=== PATIENT | male | born 1960 | race Caucasian/White ===

== ENCOUNTER 2025-02-27 12:48 | Outpatient (AMB) | payer MEDICARE, MEDICAID, SELFPAY ==
--- NOTE | 2025-02-27 13:01 | MHC.OFFVIS ---
Vital Signs 02/27/25 13:01 Height 5 ft 10 in Intake Visit Reasons: WEB APPLICATIONS ADMINISTRATOR/PCP faxed referral claudication Intake Note: WEB APPLICATIONS ADMINISTRATOR/PCP referral for PAD. Left LE worse than Right LE. Has discoloration in the toes that's worsening. Cutting Table Operator Required: No Accompanied by: Friend Allergies No Known Allergies Allergy (Verified 02/27/25 13:09) HPI HPI WEB APPLICATIONS ADMINISTRATOR/PCP faxed referral claudication: Details: The patient is a 65-year-old male presenting with peripheral vascular disease. He reports darkening of the left toes and swelling in the legs, attributed to circulation issues. He has a history of transverse myelitis, which began in February of the previous year, leading to significant spinal cord inflammation and subsequent mobility issues. The patient has been diagnosed with type 2 diabetes mellitus for approximately five to six years, which he reports is controlled. He also has a history of tobacco use, smoking a pack a day. The patient previously had excellent mobility, engaging in activities such as golf, but now requires a walker due to his back issues. He has undergone MRI evaluations, which revealed persistent swelling in the lower back, affecting his leg function. He now presents to us for vascular evaluation [facility] Social History (Updated 02/27/25 @ 13:09 by ADEBAYO García) Tobacco use type: Cigarette Cigarettes Per Day: 20 Review of Systems Const All systems reviewed & are unremarkable except as noted in HPI and below Reports no additional complaints ENT Reports Normal hearing present Card Denies chest pain, Denies chest pain at rest, Denies chest pain with activity and Denies pedal edema Resp Denies cough GI Denies abdominal pain Musc Denies abnormal gait, Denies muscle cramps and Denies radiating pain into limb Skin/Breast Denies skin ulcer and Denies wounds Neuro Reports Normal hearing present and Denies abnormal gait Psych Reports no additional complaints Physical Exam Const General: cooperative, healthy appearing and comfortable Orientation/consciousness: oriented to person, oriented to place and oriented to time HEENT Head: Yes normal to inspection Neck Neck: Yes normal visual inspection Carotids: no bruits Chest Chest palpation & inspection: normal inspection of the chest Resp Effort & Inspection: normal respiratory effort and able to speak in complete sentences Auscultation: clear to auscultation bilaterally, no crackles, no rales, no rhonchi and no wheezes Cardio Rate: regular rate Rhythm: regular rhythm Heart sounds: S1 normal heart sound present and S2 normal heart sound present Bruits: no carotid bruits Peripheral pulses: Peripheral pulses 2+ throughout GI Inspection: Yes normal to inspection Skin Wounds: no wounds Hair: normal Neuro General: oriented to person, oriented to place and oriented to time Cranial nerves: Yes CN's II-XII intact bilaterally and Yes Normal hearing present Cognition (Neuro): normal cognition Motor exam (neuro): 5/5 motor strength present throughout Extrem Other: venous exam: +2 edema with skin discoloration General: No clubbing, No cyanosis and Yes edema Psych Appearance: grossly normal Mental Status: mental status grossly normal Speech and movement: Normal speech and movement present Assessment & Plan Assessment & Plan (1) PAD (peripheral artery disease): Code(s): I73.9 - Peripheral vascular disease, unspecified Category: Medical Plan: In short patient may have an element of peripheral vascular disease. I do believe that his lower extremity pain may be multifactorial in that he has spinal issues including transverse myelitis. In addition he does have multiple risk factors for peripheral arterial disease including smoking and diabetes. I did review the pathophysiology of peripheral vascular disease with the patient. In addition we did discuss routine conservative measures including a healthy diet and the importance of exercise and ambulation. We did discuss risk factor modification. We will plan for noninvasive arterial testing. Patient will follow up with us after testing. Thank you for allowing us to assist in his care. (2) Venous insufficiency of both lower extremities: Code(s): I87.2 - Venous insufficiency (chronic) (peripheral) Category: Medical Plan: The patient does have edematous lower extremities. I do appreciate +2 pitting edema along with skin changes and dry skin. We did discuss that he may have an element of venous insufficiency as well. At the current time I do think his arterial issues might be more pressing. We will work that up 1st and potentially in the future once things stabilize in terms of his back in arterial disease we may address his venous disease. Thank you for allowing us to assist in his care. Plan Patient was informed and verbally consented to the use of an ambient scribe for clinic note documentation during this visit. Orders: Orders US arterial duplex LE Today I73.9 - Peripheral vascular disease, unspecified Patient Instructions: - Schedule and attend the ultrasound appointment for leg evaluation. - Consider smoking cessation to improve vascular health. - Continue managing diabetes as advised by your healthcare provider. Coding Level of Care Code New Pt Level 4 (88764) Diagnoses PAD (peripheral artery disease) I73.9 Venous insufficiency of both lower extremities I87.2
--- OUTSIDE RECORDS SUMMARY | 2025-02-27 15:55 | XMS_ITS | Encounter Summary ---
Author Organization [facility] Address [address] [place] [address] Care Team Providers Care Lay Out Drafter Name Role Phone Raad Adams MD Primary Care Provider [phone] Encounter Details Date Type Department Care Team (Late st Contact Info) Description 04/01/2024 Lab Requisition [facility] - Main Lab 299 [facility] [place] [address] Goldy Martell MD [address] [place] [address] Encounter for other general examination Social History Tobacco Use Types Packs/Day Years Used Date Smoking Tobacco: Never Assessed Sex and Gender Information Value Date Recorded Sex Assigned at Not on file Legal Sex Male 12:42 PM EST Gender Identity Not on file Sexual Orientation Not on file documented as of this encounter Plan of Treatment Not on file documented as of this encounter Procedures Procedure Name Priority Date/Time Associated Diagnosis Comments CBC WITH AUTO DIFFERENTIAL Routine 04/01/2024 6:39 AM EST Encounter for other general examination CBC AND DIFFERENTIAL Routine 04/01/2024 6:39 AM EST Encounter for other general examination BASIC METABOLIC PANEL Routine 04/01/2024 6:39 AM EST Encounter for other general examination documented in this encounter Results * (ABNORMAL) CBC auto differential (04/01/2024 6:39 AM EST) WBC 7.7 4.8 - 10.8 K[facility] LAB HEMETOLOGY METHOD 04/01/2024 9:20 AM [facility] LAB RBC 6.10(H) 4.50 - 5.50 M/mcL LAB HEMETOLOGY METHOD 04/01/2024 9:20 AM [facility] LAB Hemoglobin 16.0 13.5 - 17.5 g/dL LAB HEMETOLOGY METHOD 04/01/2024 9:20 AM [facility] LAB Hematocrit 51.0 42.0 - 54.0 % LAB HEMETOLOGY METHOD 04/01/2024 9:20 AM [facility] LAB MCV 83.3 79.0 - 98.0 FL LAB HEMETOLOGY METHOD 04/01/2024 9:20 AM [facility] LAB MCH 26.1(L) 27.0 - 32.0 pcg LAB HEMETOLOGY METHOD 04/01/2024 9:20 AM [facility] LAB MCHC 31.4(L) 32.0 - 37.0 g/dL LAB HEMETOLOGY METHOD 04/01/2024 9:20 AM [facility] LAB RDW 13.4 11.0 - 15.0 % LAB HEMETOLOGY METHOD 04/01/2024 9:20 AM [facility] LAB Platelets 207 130 - 400 K/mcL LAB HEMETOLOGY METHOD 04/01/2024 9:20 AM [facility] LAB MPV 11.3(H) 7.0 - 11.0 FL LAB HEMETOLOGY METHOD 04/01/2024 9:20 AM [facility] LAB NRBC 0.0 <1.0 % LAB HEMETOLOGY METHOD 04/01/2024 9:20 AM [facility] LAB NRBC Absolute 0.00 <0.10 K/mcL LAB HEMETOLOGY METHOD 04/01/2024 9:20 AM [facility] LAB Neutrophils Relative 53.6 % LAB HEMETOLOGY METHOD 04/01/2024 9:20 AM [facility] LAB Lymphocytes Relative 32.3 % LAB HEMETOLOGY METHOD 04/01/2024 9:20 AM [facility] LAB Monocytes Relative 11.4 % LAB HEMETOLOGY METHOD 04/01/2024 9:20 AM [facility] LAB Eosinophils Relative 1.8 % LAB HEMETOLOGY METHOD 04/01/2024 9:20 AM [facility] LAB Basophils Relative 0.5 % LAB HEMETOLOGY METHOD 04/01/2024 9:20 AM [facility] LAB Immature Granulocytes Relative 0.4 % LAB HEMETOLOGY METHOD 04/01/2024 9:20 AM [facility] LAB Neutrophils Absolute 4.15 1.50 - 7.00 K/mcL LAB HEMETOLOGY METHOD 04/01/2024 9:20 AM [facility] LAB Lymphocytes Absolute 2.50 1.00 - 5.00 K/mcL LAB HEMETOLOGY METHOD 04/01/2024 9:20 AM [facility] LAB Monocytes Absolute 0.88 0.20 - 1.00 K/mcL LAB HEMETOLOGY METHOD 04/01/2024 9:20 AM [facility] LAB Eosinophils Absolute 0.14 0.00 - 0.50 K/mcL LAB HEMETOLOGY METHOD 04/01/2024 9:20 AM [facility] LAB Basophils Absolute 0.04 0.00 - 0.20 K/mcL LAB HEMETOLOGY METHOD 04/01/2024 9:20 AM [facility] LAB Immature Granulocytes Absolute 0.03 0.00 - 0.03 K/mcL LAB HEMETOLOGY METHOD 04/01/2024 9:20 AM [facility] LAB Blood Venous blood specimen / Unknown Venipuncture / Unknown 04/01/2024 6:39 AM EST 04/01/2024 8:51 AM EST Goldy Martell MD LAB BLOOD ORDERABLES Final Res ult [facility] LAB [address] [place] [address], * (ABNORMAL) Basic metabolic panel (04/01/2024 6:39 AM EST) Sodium 139 133 - 145 mmol/L LAB CHEMISTRY METHOD 04/01/2024 9:37 AM [facility] LAB Potassium 4.7 3.5 - 5.5 mmol/L LAB CHEMISTRY METHOD 04/01/2024 9:37 AM [facility] LAB Chloride 102 96 - 110 mmol/L LAB CHEMISTRY METHOD 04/01/2024 9:37 AM [facility] LAB CO2 29 21 - 32 mmol/L LAB CHEMISTRY METHOD 04/01/2024 9:37 AM [facility] LAB Anion Gap 8 3 - 11 LAB CHEMISTRY METHOD 04/01/2024 9:37 AM [facility] LAB Glucose 121(H) 70 - 100 mg/dL LAB CHEMISTRY METHOD 04/01/2024 9:37 AM [facility] LAB BUN 24 5 - 25 mg/dL LAB CHEMISTRY METHOD 04/01/2024 9:37 AM [facility] LAB Creatinine 1.27 0.70 - 1.30 mg/dL LAB CHEMISTRY METHOD 04/01/2024 9:37 AM [facility] LAB eGFR 62 >=60 mL/min/1. 73m2 LAB CHEMISTRY METHOD 04/01/2024 9:37 AM [facility] LAB Comment:Calculation based on the Chronic Kidney Disease Epidemiology Collaboration (CKD-EPI) equation refit without adjustment for race. BUN/Creatinine Ratio 18.9 LAB CHEMISTRY METHOD 04/01/2024 9:37 AM [facility] LAB Calcium 9.9 8.5 - 10.5 mg/dL LAB CHEMISTRY METHOD 04/01/2024 9:37 AM [facility] LAB Blood Venous blood specimen / Unknown Venipuncture / Unknown 04/01/2024 6:39 AM EST 04/01/2024 8:51 AM EST us Goldy Martell MD LAB BLOOD ORDERABLES Final Res ult [facility] LAB [address] [place] [address], documented in this encounter Visit Diagnoses Diagnosis Encounter for other general examination documented in this encounter Care Teams Lay Out Drafter Relationship Specialty Start Date End Date Raad Adams MD [address] PCP - General Internal Medicine 02/26/24 documented as of this encounter
--- OUTSIDE RECORDS SUMMARY | 2025-02-27 15:55 | XMS_ITS | Encounter Summary ---
Author Organization [facility] Address [address] [place] [address] Care Team Providers Care Endodontics Dentist Name Role Phone Raad Adams MD Primary Care Provider [phone] Encounter Details Date Type Department Care Team (Late st Contact Info) Description 04/08/2024 Lab Requisition [facility] - Main Lab 299 [facility] [place] [address] Goldy Martell MD [address] [place] [address] Encounter for other general examination Social History [...] Procedure Name Priority Date/Time Associated Diagnosis Comments COMPLETE BLOOD COUNT Routine 04/08/2024 6:57 AM EST Encounter for other general examination BASIC METABOLIC PANEL Routine 04/08/2024 6:57 AM EST Encounter for other general examination documented in this encounter Results * (ABNORMAL) Complete blood count (04/08/2024 6:57 AM EST) WBC 7.2 4.8 - 10.8 K/[facility] LAB HEMETOLOGY METHOD 04/08/2024 10:55 AM EST [facility] RBC 6.10(H) 4.50 - 5.50 M/[facility] LAB HEMETOLOGY METHOD 04/08/2024 10:55 AM [facility] LAB Hemoglobin 16.2 13.5 - 17.5 g/dL LAB HEMETOLOGY METHOD 04/08/2024 10:55 AM [facility] LAB Hematocrit 51.8 42.0 - 54.0 % LAB HEMETOLOGY METHOD 04/08/2024 10:55 AM [facility] LAB MCV 84.8 79.0 - 98.0 FL LAB HEMETOLOGY METHOD 04/08/2024 10:55 AM [facility] LAB MCH 26.5(L) 27.0 - 32.0 pcg LAB HEMETOLOGY METHOD 04/08/2024 10:55 AM [facility] LAB MCHC 31.3(L) 32.0 - 37.0 g/dL LAB HEMETOLOGY METHOD 04/08/2024 10:55 AM [facility] LAB RDW 13.6 11.0 - 15.0 % LAB HEMETOLOGY METHOD 04/08/2024 10:55 AM [facility] LAB Platelets 170 130 - 400 K/mcL LAB HEMETOLOGY METHOD 04/08/2024 10:55 AM [facility] LAB MPV 12.2(H) 7.0 - 11.0 FL LAB HEMETOLOGY METHOD 04/08/2024 10:55 AM [facility] LAB NRBC 0.0 <1.0 % LAB HEMETOLOGY METHOD 04/08/2024 10:55 AM [facility] LAB NRBC Absolute 0.00 <0.10 K/mcL LAB HEMETOLOGY METHOD 04/08/2024 10:55 AM [facility] LAB Blood Venous blood specimen / Unknown Venipuncture / Unknown 04/08/2024 6:57 AM EST 04/08/2024 8:31 AM EST us Goldy Martell MD LAB BLOOD ORDERABLES Final Res ult [facility] LAB [address] [place] [address], * (ABNORMAL) Basic metabolic panel (04/08/2024 6:57 AM EST) Sodium 138 133 - 145 mmol/L LAB CHEMISTRY METHOD 04/08/2024 11:29 AM [facility] LAB Potassium 4.9 3.5 - 5.5 mmol/L LAB CHEMISTRY METHOD 04/08/2024 11:29 AM [facility] LAB Chloride 103 96 - 110 mmol/L LAB CHEMISTRY METHOD 04/08/2024 11:29 AM [facility] LAB CO2 31 21 - 32 mmol/L LAB CHEMISTRY METHOD 04/08/2024 11:29 AM [facility] LAB Anion Gap 4 3 - 11 LAB CHEMISTRY METHOD 04/08/2024 11:29 AM [facility] LAB Glucose 121(H) 70 - 100 mg/dL LAB CHEMISTRY METHOD 04/08/2024 11:29 AM [facility] LAB BUN 18 5 - 25 mg/dL LAB CHEMISTRY METHOD 04/08/2024 11:29 AM [facility] LAB Creatinine 1.17 0.70 - 1.30 mg/dL LAB CHEMISTRY METHOD 04/08/2024 11:29 AM [facility] LAB eGFR 69 >=60 mL/min/1. 73m2 LAB CHEMISTRY METHOD 04/08/2024 11:29 AM [facility] LAB Comment:Calculation based on the Chronic Kidney Disease Epidemiology Collaboration (CKD-EPI) equation refit without adjustment for race. BUN/Creatinine Ratio 15.4 LAB CHEMISTRY METHOD 04/08/2024 11:29 AM [facility] LAB Calcium 9.9 8.5 - 10.5 mg/dL LAB CHEMISTRY METHOD 04/08/2024 11:29 AM [facility] LAB Blood Venous blood specimen / Unknown Venipuncture / Unknown 04/08/2024 6:57 AM EST 04/08/2024 8:31 AM EST us Goldy Martell MD LAB BLOOD ORDERABLES Final Res ult [facility] LAB [address] [place] [address], documented in this encounter Visit Diagnoses Diagnosis Encounter for other general examination documented in this encounter Care Teams Endodontics Dentist Relationship Specialty Start Date End Date Raad Adams MD [address] PCP - General Internal Medicine 02/26/24 documented as of this encounter
--- OUTSIDE RECORDS SUMMARY | 2025-02-27 15:55 | XMS_ITS | Encounter Summary ---
Author Organization [facility] Address [address] [place] [address] Care Team Providers Care Public Speaking Professor Name Role Phone Raad Adams MD Primary Care Provider [phone] Encounter Details Date Type Department Care Team (Late st Contact Info) Description 09/18/2024 Lab Requisition [facility] - Main Lab 299 [facility] [place] [address] Goldy Martell MD [address] [place] [phone] Encounter for other general examination Social History [...] Diagnosis Comments CBC WITH AUTO DIFFERENTIAL Routine 09/18/2024 5:07 AM EDT Encounter for other general examination CBC AND DIFFERENTIAL Routine 09/18/2024 5:07 AM EDT Encounter for other general examination MAGNESIUM Routine 09/18/2024 5:07 AM EDT Encounter for other general examination COMPREHENSIVE METABOLIC PANEL Routine 09/18/2024 5:07 AM EDT Encounter for other general examination documented in this encounter Results * (ABNORMAL) CBC auto differential (09/18/2024 5:07 AM EDT) WBC 11.5(H) 4.8 - 10.8 K/mcL LAB HEMETOLOGY METHOD 09/18/2024 11:12 AM [facility] LAB RBC 6.40(H) 4.50 - 5.50 M/mcL LAB HEMETOLOGY METHOD 09/18/2024 11:12 AM [facility] LAB Hemoglobin 17.4 13.5 - 17.5 g/dL LAB HEMETOLOGY METHOD 09/18/2024 11:12 AM [facility] LAB Hematocrit 55.4(H) 42.0 - 54.0 % LAB HEMETOLOGY METHOD 09/18/2024 11:12 AM [facility] LAB MCV 86.0 79.0 - 98.0 FL LAB HEMETOLOGY METHOD 09/18/2024 11:12 AM [facility] LAB MCH 27.0 27.0 - 32.0 pcg LAB HEMETOLOGY METHOD 09/18/2024 11:12 AM [facility] LAB MCHC 31.4(L) 32.0 - 37.0 g/dL LAB HEMETOLOGY METHOD 09/18/2024 11:12 AM [facility] LAB RDW 14.2 11.0 - 15.0 % LAB HEMETOLOGY METHOD 09/18/2024 11:12 AM [facility] LAB Platelets 197 130 - 400 K/mcL LAB HEMETOLOGY METHOD 09/18/2024 11:12 AM [facility] LAB MPV 10.8 7.0 - 11.0 FL LAB HEMETOLOGY METHOD 09/18/2024 11:12 AM [facility] LAB NRBC 0.0 <1.0 % LAB HEMETOLOGY METHOD 09/18/2024 11:12 AM [facility] LAB NRBC Absolute 0.00 <0.10 K/mcL LAB HEMETOLOGY METHOD 09/18/2024 11:12 AM [facility] LAB Neutrophils Relative 59.6 % LAB HEMETOLOGY METHOD 09/18/2024 11:12 AM [facility] LAB Lymphocytes Relative 30.4 % LAB HEMETOLOGY METHOD 09/18/2024 11:12 AM [facility] LAB Monocytes Relative 8.2 % LAB HEMETOLOGY METHOD 09/18/2024 11:12 AM [facility] LAB Eosinophils Relative 1.2 % LAB HEMETOLOGY METHOD 09/18/2024 11:12 AM [facility] LAB Basophils Relative 0.3 % LAB HEMETOLOGY METHOD 09/18/2024 11:12 AM [facility] LAB Immature Granulocytes Relative 0.3 % LAB HEMETOLOGY METHOD 09/18/2024 11:12 AM [facility] LAB Neutrophils Absolute 6.85 1.50 - 7.00 K/mcL LAB HEMETOLOGY METHOD 09/18/2024 11:12 AM [facility] LAB Lymphocytes Absolute 3.51 1.00 - 5.00 K/mcL LAB HEMETOLOGY METHOD 09/18/2024 11:12 AM [facility] LAB Monocytes Absolute 0.95 0.20 - 1.00 K/mcL LAB HEMETOLOGY METHOD 09/18/2024 11:12 AM [facility] LAB Eosinophils Absolute 0.14 0.00 - 0.50 K/mcL LAB HEMETOLOGY METHOD 09/18/2024 11:12 AM [facility] LAB Basophils Absolute 0.04 0.00 - 0.20 K/mcL LAB HEMETOLOGY METHOD 09/18/2024 11:12 AM [facility] LAB Immature Granulocytes Absolute 0.04(H) 0.00 - 0.03 K/mcL LAB HEMETOLOGY METHOD 09/18/2024 11:12 AM [facility] LAB Blood Venous blood specimen / Unknown Venipuncture / Unknown 09/18/2024 5:07 AM EDT 09/18/2024 10:59 AM EDT Goldy Martell MD LAB BLOOD ORDERABLES Final Res ult Performing Organization Address [facility]/ZIP Co de Phone Number [facility] LAB [address] [place] [address], [place] [phone] * Magnesium (09/18/2024 5:07 AM EDT) Pathologist [facility] Magnesium 2.0 1.9 - 2.6 mg/dL LAB CHEMISTRY METHOD 09/18/2024 12:15 PM EDT [facility] LAB Blood Venous blood specimen / Unknown Venipuncture / Unknown 09/18/2024 5:07 AM EDT 09/18/2024 10:59 AM EDT Goldy Martell MD LAB BLOOD ORDERABLES Final Res ult Performing Organization Address [facility]/ZIP Co de Phone Number [facility] [address] [place] [address], [place] [phone] * (ABNORMAL) Comprehensive metabolic panel (09/18/2024 5:07 AM EDT) Pathologist [facility] Sodium 136 133 - 145 mmol/L LAB CHEMISTRY METHOD 09/18/2024 12:30 PM EDT [facility] LAB Potassium 4.5 3.5 - 5.5 mmol/L LAB CHEMISTRY METHOD 09/18/2024 12:30 PM EDT [facility] LAB Chloride 99 96 - 110 mmol/L LAB CHEMISTRY METHOD 09/18/2024 12:30 PM EDT [facility] LAB CO2 27 21 - 32 mmol/L LAB CHEMISTRY METHOD 09/18/2024 12:30 PM EDT [facility] LAB Anion Gap 10 3 - 11 LAB CHEMISTRY METHOD 09/18/2024 12:30 PM EDT [facility] LAB Glucose 135(H) 70 - 100 mg/dL LAB CHEMISTRY METHOD 09/18/2024 12:30 PM [facility] LAB BUN 22 5 - 25 mg/dL LAB CHEMISTRY METHOD 09/18/2024 12:30 PM [facility] LAB Creatinine 1.10 0.70 - 1.30 mg/dL LAB CHEMISTRY METHOD 09/18/2024 12:30 PM [facility] LAB eGFR 74 >=60 mL/min/1. 73m2 LAB CHEMISTRY METHOD 09/18/2024 12:30 PM [facility] LAB Comment:Calculation based on the Chronic Kidney Disease Epidemiology Collaboration (CKD-EPI) equation refit without adjustment for race. BUN/Creatinine Ratio 20.0 LAB CHEMISTRY METHOD 09/18/2024 12:30 PM [facility] LAB Calcium 10.0 8.5 - 10.5 mg/dL LAB CHEMISTRY METHOD 09/18/2024 12:30 PM [facility] LAB AST (SGOT) 19 10 - 42 unit/L LAB CHEMISTRY METHOD 09/18/2024 12:30 PM [facility] ALT (SGPT) 32 10 - 60 unit/L LAB CHEMISTRY METHOD 09/18/2024 12:30 PM [facility] Alkaline Phosphatase 85 42 - 121 unit/L LAB CHEMISTRY METHOD 09/18/2024 12:30 PM [facility] Total Protein 6.9 6.0 - 8.0 g/dL LAB CHEMISTRY METHOD 09/18/2024 12:30 PM [facility] Albumin 3.7 3.2 - 5.0 g/dL LAB CHEMISTRY METHOD 09/18/2024 12:30 PM [facility] Total Bilirubin 0.4 0.0 - 1.4 mg/dL LAB CHEMISTRY METHOD 09/18/2024 12:30 PM [facility] LAB Blood Venous blood specimen / Unknown Venipuncture / Unknown 09/18/2024 5:07 AM EDT 09/18/2024 10:59 AM EDT us Goldy Martell MD LAB BLOOD ORDERABLES Final Res ult [facility] [address] [place] [address], documented in this encounter Visit Diagnoses Diagnosis Encounter for other general examination documented in this encounter Care Teams Public Speaking Professor Relationship Specialty Start Date End Date Raad Adams MD [address] PCP - General Internal Medicine 02/26/24 documented as of this encounter
--- OUTSIDE RECORDS SUMMARY | 2025-02-27 15:56 | XMS_ITS | Encounter Summary ---
Author Organization [facility] Address [address] [place] [address] Care Team Providers Care Sand Slinger Operator Name Role Phone Raad Adams MD Primary Care Provider [phone] Encounter Details Date Type Department Care Team (Late st Contact Info) Description 03/13/2024 Lab Requisition [facility] - Main Lab [address] [facility] [place] [address] Goldy Martell MD [address] [place] [address] Encounter for other general examination Social History [...] Diagnosis Comments CBC WITH AUTO DIFFERENTIAL Routine 03/13/2024 7:55 AM EST Encounter for other general examination CBC AND DIFFERENTIAL Routine 03/13/2024 7:55 AM EST Encounter for other general examination MAGNESIUM Routine 03/13/2024 7:55 AM EST Encounter for other general examination COMPREHENSIVE METABOLIC PANEL Routine 03/13/2024 7:55 AM EST Encounter for other general examination documented in this encounter Results * (ABNORMAL) CBC auto differential (03/13/2024 7:55 AM EST) [facility] WBC 8.0 4.8 - 10.8 K/mcL LAB HEMETOLOGY METHOD 03/13/2024 11:53 AM [facility] RBC 6.50(H) 4.50 - 5.50 M/mcL LAB HEMETOLOGY METHOD 03/13/2024 11:53 AM [facility] Hemoglobin 17.0 13.5 - 17.5 g/dL LAB HEMETOLOGY METHOD 03/13/2024 11:53 AM [facility] Hematocrit 54.3(H) 42.0 - 54.0 % LAB HEMETOLOGY METHOD 03/13/2024 11:53 AM [facility] MCV 84.2 79.0 - 98.0 FL LAB HEMETOLOGY METHOD 03/13/2024 11:53 AM [facility] MCH 26.4(L) 27.0 - 32.0 pcg LAB HEMETOLOGY METHOD 03/13/2024 11:53 AM [facility] MCHC 31.3(L) 32.0 - 37.0 g/dL LAB HEMETOLOGY METHOD 03/13/2024 11:53 AM [facility] RDW 14.3 11.0 - 15.0 % LAB HEMETOLOGY METHOD 03/13/2024 11:53 AM [facility] Platelets 168 130 - 400 K/mcL LAB HEMETOLOGY METHOD 03/13/2024 11:53 AM [facility] MPV 11.1(H) 7.0 - 11.0 FL LAB HEMETOLOGY METHOD 03/13/2024 11:53 AM [facility] NRBC 0.0 <1.0 % LAB HEMETOLOGY METHOD 03/13/2024 11:53 AM [facility] NRBC Absolute 0.00 <0.10 K/mcL LAB HEMETOLOGY METHOD 03/13/2024 11:53 AM [facility] Neutrophils Relative 66.3 % LAB HEMETOLOGY METHOD 03/13/2024 11:53 AM [facility] Lymphocytes Relative 24.0 % LAB HEMETOLOGY METHOD 03/13/2024 11:53 AM [facility] Monocytes Relative 8.1 % LAB HEMETOLOGY METHOD 03/13/2024 11:53 AM [facility] Eosinophils Relative 1.0 % LAB HEMETOLOGY METHOD 03/13/2024 11:53 AM [facility] Basophils Relative 0.4 % LAB HEMETOLOGY METHOD 03/13/2024 11:53 AM [facility] Immature Granulocytes Relative 0.2 % LAB HEMETOLOGY METHOD 03/13/2024 11:53 AM [facility] Neutrophils Absolute 5.31 1.50 - 7.00 K/mcL LAB HEMETOLOGY METHOD 03/13/2024 11:53 AM [facility] Lymphocytes Absolute 1.92 1.00 - 5.00 K/mcL LAB HEMETOLOGY METHOD 03/13/2024 11:53 AM [facility] Monocytes Absolute 0.65 0.20 - 1.00 K/mcL LAB HEMETOLOGY METHOD 03/13/2024 11:53 AM [facility] Eosinophils Absolute 0.08 0.00 - 0.50 K/mcL LAB HEMETOLOGY METHOD 03/13/2024 11:53 AM [facility] Basophils Absolute 0.03 0.00 - 0.20 K/mcL LAB HEMETOLOGY METHOD 03/13/2024 11:53 AM [facility] Immature Granulocytes Absolute 0.02 0.00 - 0.03 K/mcL LAB HEMETOLOGY METHOD 03/13/2024 11:53 AM [facility] Blood Venous blood specimen / Unknown Venipuncture / Unknown 03/13/2024 7:55 AM EST 03/13/2024 11:13 AM EST Goldy Martell MD LAB BLOOD ORDERABLES Final Res ult Performing Organization Address City/[facility]/ZIP Co de Phone Number [facility] [address] [place] [address], [place] [phone] * Magnesium (03/13/2024 7:55 AM EST) [facility] Magnesium 2.0 1.9 - 2.6 mg/dL LAB CHEMISTRY METHOD 03/13/2024 1:57 PM [facility] Blood Venous blood specimen / Unknown Venipuncture / Unknown 03/13/2024 7:55 AM EST 03/13/2024 11:13 AM EST Goldy Martell MD LAB BLOOD ORDERABLES Final Res ult Performing Organization Address [facility]/ZIP Co de Phone Number [facility] [address] [place] [address], [place] [phone] * (ABNORMAL) Comprehensive metabolic panel (03/13/2024 7:55 AM EST) [facility] Sodium 136 133 - 145 mmol/L LAB CHEMISTRY METHOD 03/13/2024 1:58 PM [facility] Potassium 4.4 3.5 - 5.5 mmol/L LAB CHEMISTRY METHOD 03/13/2024 1:58 PM [facility] Chloride 99 96 - 110 mmol/L LAB CHEMISTRY METHOD 03/13/2024 1:58 PM [facility] CO2 32 21 - 32 mmol/L LAB CHEMISTRY METHOD 03/13/2024 1:58 PM [facility] Anion Gap 5 3 - 11 LAB CHEMISTRY METHOD 03/13/2024 1:58 PM [facility] Glucose 123(H) 70 - 100 mg/dL LAB CHEMISTRY METHOD 03/13/2024 1:58 PM [facility] BUN 20 5 - 25 mg/dL LAB CHEMISTRY METHOD 03/13/2024 1:58 PM [facility] Creatinine 1.13 0.70 - 1.30 mg/dL LAB CHEMISTRY METHOD 03/13/2024 1:58 PM [facility] eGFR 72 >=60 mL/min/1. 73m2 LAB CHEMISTRY METHOD 03/13/2024 1:58 PM [facility] Comment:Calculation based on the Chronic Kidney Disease Epidemiology Collaboration (CKD-EPI) equation refit without adjustment for race. BUN/Creatinine Ratio 17.7 LAB CHEMISTRY METHOD 03/13/2024 1:58 PM [facility] Calcium 9.8 8.5 - 10.5 mg/dL LAB CHEMISTRY METHOD 03/13/2024 1:58 PM [facility] AST (SGOT) 32 10 - 42 unit/L LAB CHEMISTRY METHOD 03/13/2024 1:58 PM [facility] ALT (SGPT) 58 10 - 60 unit/L LAB CHEMISTRY METHOD 03/13/2024 1:58 PM [facility] Alkaline Phosphatase 77 42 - 121 unit/L LAB CHEMISTRY METHOD 03/13/2024 1:58 PM [facility] Total Protein 7.1 6.0 - 8.0 g/dL LAB CHEMISTRY METHOD 03/13/2024 1:58 PM [facility] Albumin 2.7(L) 3.2 - 5.0 g/dL LAB CHEMISTRY METHOD 03/13/2024 1:58 PM [facility] Total Bilirubin 0.3 0.0 - 1.4 mg/dL LAB CHEMISTRY METHOD 03/13/2024 1:58 PM [facility] Blood Venous blood specimen / Unknown Venipuncture / Unknown 03/13/2024 7:55 AM EST 03/13/2024 11:13 AM EST us Goldy Martell MD LAB BLOOD ORDERABLES Final Res ult [facility] [address] [place] [address], documented in this encounter Visit Diagnoses Diagnosis Encounter for other general examination documented in this encounter Care Teams Sand Slinger Operator Relationship Specialty Start Date End Date Raad Adams MD [address] PCP - General Internal Medicine 02/26/24 documented as of this encounter
--- OUTSIDE RECORDS SUMMARY | 2025-02-27 15:56 | XMS_ITS | Encounter Summary ---
Author Organization [facility] Address [address] [place] [phone] Care Team Providers Care Superintendent Pipelines Name Role Phone Raad Adams MD Primary Care Provider [phone] Reason for Referral * Imaging (Routine) - Authorized Specialty Diagnoses / Procedures Referred By Contac t Referred To Contact Diagnostic Radiology Procedures MRI Cervical Spine without IV Contrast Malachi Reyna MD [address] [place] [phone] Phone: tel: fax: Referral ID Status Reason Start Date Expiration Date V isits Requested Visits Authorized [id number] Authorized 01/09/2025 01/09/2026 1 1 * Imaging (Routine) - Authorized Specialty Diagnoses / Procedures Referred By Contac t Referred To Contact Diagnostic Radiology Procedures MRI Thoracic Spine without IV Contrast Malachi Reyna MD [address] [place] [phone] Phone: tel: fax: Referral ID Status Reason Start Date Expiration Date V isits Requested Visits Authorized [id number] Authorized 01/09/2025 01/09/2026 1 1 * Imaging (Routine) - Authorized Specialty Diagnoses / Procedures Referred By Contac t Referred To Contact Diagnostic Radiology Procedures MRI Lumbar Spine without IV Contrast Malachi Reyna MD [address] [place] [phone] Phone: tel: fax: Referral ID Status Reason Start Date Expiration Date V isits Requested Visits Authorized [id number] Authorized 01/09/2025 01/09/2026 1 1 * Imaging (Routine) - Authorized Specialty Diagnoses / Procedures Referred By Contac t Referred To Contact Diagnostic Radiology Procedures MRI Cervical Spine without IV Contrast Malachi Reyna MD [address] [place] [phone] Phone: tel: fax: Referral ID Status Reason Start Date Expiration Date V isits Requested Visits Authorized [id number] Authorized 01/09/2025 01/09/2026 1 1 * Imaging (Routine) - Authorized Specialty Diagnoses / Procedures Referred By Contac t Referred To Contact Diagnostic Radiology Procedures MRI Thoracic Spine without IV Contrast Neurosurgery at [address] [place] [phone] Phone: tel: fax: Referral ID Status Reason Start Date Expiration Date V isits Requested Visits Authorized [id number] Authorized 01/09/2025 01/09/2026 1 1 * Imaging (Routine) - Authorized Specialty Diagnoses / Procedures Referred By Contac t Referred To Contact Diagnostic Radiology Procedures MRI Cervical Spine without IV Contrast Neurosurgery at [address] [place] [phone] Phone: tel: fax: Referral ID Status Reason Start Date Expiration Date V isits Requested Visits Authorized [id number] Authorized 01/09/2025 01/09/2026 1 1 Encounter Details Date Type Department Care Team (Late st Contact Info) Description 01/09/2025 Scanned Document [facility] [address] [address] Ganesh Feliz MD [address] [place] [address] [place] [address] Social History Tobacco Use Types Packs/Day Years Used Date Smoking Tobacco: Every Day Cigarettes [facility] Utilities Answer Date Recorded In the past 12 months has e electric, gas, oil, or water company threatened to shut off services in your home? No 09/12/2024 PHQ-2 Answer Date Recorded PHQ-2 Total Score 0 09/12/2024 Hunger Vital Sign Answer Date Recorded Within the past 12 months, y ou worried that your food would run out before you got the money to buy more. Never true 09/13/19 25 Within the past 12 months, t he food you bought just didn't last and you didn't have money to get more. Never true 09/12/2024 PRAPARE - Transportation Answer Date Re corded In the past 12 months, has l ack of transportation kept you from medical appointments or from getting medications? No 08/16 In the past 12 months, has l ack of transportation kept you from meetings, work, or from getting things needed for daily living? No 09/12/2024 Housing Stability Answer Date Recorded What is your living situation today? I have a [facility] place to live 09/12/2024 Housing Stability Not on file 09/12/2024 Interpersonal Safety Answer Date Record ed Is there anyone in your life that is hurting or threatening you in anyway? no 09/12/2024 Physical Indicators of Abuse No evidence of phys ical abuse 09/12/2024 Sex and Gender Information Value Date Recorded Sex Assigned at Not on file Legal Sex Male 12:51 PM EST Gender Identity Not on file Sexual Orientation Not on file documented as of this encounter Plan of Treatment Upcoming Encounters Date Type Department Care Team (Late Contact Info) Description 04/02/2025 1:30 PM EST Telemedicine [facility] [address] [address] Malachi Reyna MD [address] [place] [address] [address] [phone] documented as of this encounter Goals Goal Patient Goal Type Associated Problems Recent Progress Patient-Stated? Author [facility] Spine Task Goal Care Plan AMB LMH SPINE PROBLEM No Eve Stovall, RN [facility] Spine Smoking Cessation Goal Care Plan [facility] SPINE SMOKING CESSATION PROBLEM No Stanislav Campbell, HOMA documented as of this encounter Procedures Procedure Name Priority Date/Time Associated Diagnosis Comments MRI CERVICAL SPINE WO IV CONTRAST Routine 2025 11:56 AM EDT MRI THORACIC SPINE WO IV CONTRAST Routine 2025 11:52 AM EDT MRI LUMBAR SPINE WO IV CONTRAST Routine 2025 11:50 AM EDT MRI CERVICAL SPINE WO IV CONTRAST Routine 2025 11:18 AM EDT MRI THORACIC SPINE WO IV CONTRAST Routine 05/13/2024 10:47 AM EST MRI CERVICAL SPINE WO IV CONTRAST Routine 05/13/2024 10:44 AM EST documented in this encounter Results * MRI Cervical Spine without IV Contrast (2025 11:56 AM EDT) Anatomical Region Laterality Modality C-spine, Spine, Ortho C-spine Ma gnetic Resonance us Malachi Reyna MD [facility] MRI ORDERABLES Final Re sult * MRI Thoracic Spine without IV Contrast (2025 11:52 AM EDT) Anatomical Region Laterality Modality T-spine, Spine, Ortho T-spine Ma gnetic Resonance us Malachi Reyna MD [facility] MRI ORDERABLES Final Re sult * MRI Lumbar Spine without IV Contrast (2025 11:50 AM EDT) Anatomical Region Laterality Modality L-spine, Spine, Ortho L-spine Ma gnetic Resonance us Malachi Reyna MD [facility] MRI ORDERABLES Final Re sult * MRI Cervical Spine without IV Contrast (2025 11:18 AM EDT) Anatomical Region Laterality Modality C-spine, Spine, Ortho C-spine Ma gnetic Resonance us Malachi Reyna MD IM MRI ORDERABLES Final Re sult * MRI Thoracic Spine without IV Contrast (05/13/2024 10:47 AM EST) Anatomical Region Laterality Modality T-spine, Spine, Ortho T-spine Ma gnetic Resonance Ganesh Feliz MD [facility] MRI ORDERABLES Final Result * MRI Cervical Spine without IV Contrast (05/13/2024 10:44 AM EST) Anatomical Region Laterality Modality C-spine, Spine, Ortho C-spine Ma gnetic Resonance Ganesh Feliz MD [facility] MRI ORDERABLES Final Result documented in this encounter Visit Diagnoses Not on filedocumented in this encounter Additional Health Concerns Active Problems Noted Date Diagnosed Date AMB CC LMH SPINE PROBLEM 08/19/2024 AMB CC LMH SPINE SMOKING CESSATION PROBLEM 08/30 documented as of this encounter Care Teams Superintendent Pipelines Relationship Specialty [place] [address] [place] [phone] PCP - General Internal Medicine 06/20/24 documented as of this encounter
--- OUTSIDE RECORDS SUMMARY | 2025-02-27 15:56 | XMS_ITS | Encounter Summary ---
Author Organization [facility] Address [address] [place] [address] Care Team Providers Care Superintendent System Operation Name Role Phone Raad Adams MD Primary Care Provider [phone] Encounter Details Date Type Department Care Team (Late st Contact Info) Description 09/25/2024 Lab Requisition [facility] - Main Lab [address] [facility] [address] Goldy Martell MD [address] [place] [phone] Encounter for other general examination Social History [...] Procedure Name Priority Date/Time Associated Diagnosis Comments TREPONEMA PALLIDUM ANTIBODY WITH REFLEX TO RPR AND PARTICLE AGGLUTINATION Routine 09/25/2024 5:24 AM EDT Encounter for other general examination RAPID PLASMA REAGIN TITER Routine 09/25/2024 5:24 AM EDT Encounter for other general examination RAPID PLASMA REAGIN WITH REFLEX TO TITER Routine 09/25/2024 5:24 AM EDT Encounter for other general examination COMPLETE BLOOD COUNT Routine 09/25/2024 5:24 AM EDT Encounter for other general examination BASIC METABOLIC PANEL Routine 09/25/2024 5:24 AM EDT Encounter for other general examination documented in this encounter Results * (ABNORMAL) Rapid plasma reagin titer (09/25/2024 5:24 AM EDT) [facility] Rapid Plasma Reagin Titer 1:64(A) Nonreactive 09/25/2024 2:42 PM EDT [facility] Blood Venous blood specimen / Unknown Venipuncture / Unknown 09/25/2024 5:24 AM EDT 09/25/2024 11:40 AM EDT Goldy Martell MD LAB BLOOD ORDERABLES Final Res ult [facility] [address] [place] [address], [place] [phone] * (ABNORMAL) Rapid plasma reagin with reflex to titer (09/25/2024 5:24 AM EDT) [facility] RPR Reactive(A ) Nonreactive 09/25/2024 2:27 PM EDT [facility] Blood Venous blood specimen / Unknown Venipuncture / Unknown 09/25/2024 5:24 AM EDT 09/25/2024 11:40 AM EDT us Goldy Martell MD LAB BLOOD ORDERABLES Final Res ult [facility] [address] [place] [address], [place] [phone] * (ABNORMAL) Treponema pallidum antibody with reflex to RPR and particle agglutination (09/25/2024 5:24 AM EDT) [facility] T. Pallidum Antibodies Positive( A) Negative LAB CHEMISTRY METHOD 09/25/2024 11:40 AM EDT [facility] Blood Venous blood specimen / Unknown Venipuncture / Unknown 09/25/2024 5:24 AM EDT 09/25/2024 9:19 AM EDT us Goldy Martell MD LAB BLOOD ORDERABLES Final Res ult [facility] [address] [place] [address], [place] [phone] * (ABNORMAL) Complete blood count (09/25/2024 5:24 AM EDT) WBC 12.5(H) 4.8 - 10.8 K/mcL LAB HEMETOLOGY METHOD 09/25/2024 10:10 AM EDT [facility] RBC 5.50 4.50 - 5.50 M/mcL LAB HEMETOLOGY METHOD 09/25/2024 10:10 AM EDT [facility] Hemoglobin 14.7 13.5 - 17.5 g/dL LAB HEMETOLOGY METHOD 09/25/2024 10:10 AM EDT [facility] Hematocrit 46.6 42.0 - 54.0 % LAB HEMETOLOGY METHOD 09/25/2024 10:10 AM EDT [facility] MCV 85.2 79.0 - 98.0 FL LAB HEMETOLOGY METHOD [facility] MCH 26.9(L) 27.0 - 32.0 pcg LAB HEMETOLOGY METHOD 09/25/2024 10:10 AM EDT [facility] MCHC 31.5(L) 32.0 - 37.0 g/dL LAB HEMETOLOGY METHOD 09/25/2024 10:10 AM EDT [facility] RDW 13.2 11.0 - 15.0 % LAB HEMETOLOGY METHOD 09/25/2024 10:10 AM EDT [facility] Platelets 197 130 - 400 K/mcL LAB HEMETOLOGY METHOD 09/25/2024 10:10 AM EDT [facility] MPV 11.2(H) 7.0 - 11.0 FL LAB HEMETOLOGY METHOD 09/25/2024 10:10 AM EDT [facility] NRBC 0.0 <1.0 % LAB HEMETOLOGY METHOD 09/25/2024 10:10 AM EDT [facility] NRBC Absolute 0.00 <0.10 K/mcL LAB HEMETOLOGY METHOD 09/25/2024 10:10 AM EDT [facility] Blood Venous blood specimen / Unknown Venipuncture / Unknown 09/25/2024 5:24 AM EDT 09/25/2024 9:19 AM EDT us Goldy Martell MD LAB BLOOD ORDERABLES Final Res ult [facility] [address] [place] [address], * (ABNORMAL) Basic metabolic panel (09/25/2024 5:24 AM EDT) Sodium 136 133 - 145 mmol/L LAB CHEMISTRY METHOD 09/25/2024 10:41 AM [facility] Potassium 4.0 3.5 - 5.5 mmol/L LAB CHEMISTRY METHOD 09/25/2024 10:41 AM [facility] Chloride 99 96 - 110 mmol/L LAB CHEMISTRY METHOD 09/25/2024 10:41 AM [facility] CO2 28 21 - 32 mmol/L LAB CHEMISTRY METHOD 09/25/2024 10:41 AM [facility] Anion Gap 9 3 - 11 LAB CHEMISTRY METHOD 09/25/2024 10:41 AM [facility] Glucose 117(H) 70 - 100 mg/dL LAB CHEMISTRY METHOD 09/25/2024 10:41 AM [facility] BUN 19 5 - 25 mg/dL LAB CHEMISTRY METHOD 09/25/2024 10:41 AM EDT [facility] Creatinine 1.05 0.70 - 1.30 mg/dL LAB CHEMISTRY METHOD 09/25/2024 10:41 AM EDT [facility] eGFR 78 >=60 mL/min/1. 73m2 LAB CHEMISTRY METHOD 09/25/2024 10:41 AM EDT [facility] Comment:Calculation based on the Chronic Kidney Disease Epidemiology Collaboration (CKD-EPI) equation refit without adjustment for race. BUN/Creatinine Ratio 18.1 LAB CHEMISTRY METHOD 09/25/2024 10:41 AM T [facility] Calcium 9.3 8.5 - 10.5 mg/dL LAB CHEMISTRY METHOD 09/25/2024 10:41 AM T [facility] Blood Venous blood specimen / Unknown Venipuncture / Unknown 09/25/2024 5:24 AM EDT 09/25/2024 9:19 AM EDT us Goldy Martell MD LAB BLOOD ORDERABLES Final Res ult [facility] [address] [place] [address], documented in this encounter Visit Diagnoses Diagnosis Encounter for other general examination documented in this encounter Care Teams Superintendent System Operation Relationship Specialty Start Date End Date Raad Adams MD [address] PCP - General Internal Medicine 02/26/24 documented as of this encounter
--- OUTSIDE RECORDS SUMMARY | 2025-02-27 15:56 | XMS_ITS | Encounter Summary ---
Author Organization [facility] Address [address] [place] [address] Care Team Providers Care Technical Sales Specialist Name Role Phone Raad Adams MD Primary Care Provider [phone] Encounter Details Date Type Department Care Team (Late st Contact Info) Description 09/28/2024 Lab Requisition [facility] - Main Lab [address] [email or web address] [address] Goldy Martell MD [address] [place] [id number] Dysuria Social History Tobacco Use Types Packs/Day Years [...] Procedure Name Priority Date/Time Associated Diagnosis Comments URINALYSIS WITH REFLEX MICROSCOPIC AND CULTURE Routine 09/27/2024 12:38 PM EDT Dysuria DE SANTIAGO URINE CULTURE TUBE Routine 09/27/2024 12:38 PM EDT Dysuria URINALYSIS WITH REFLEX MICROSCOPIC AND CULTURE Routine 09/27/2024 12:38 PM EDT Dysuria CULTURE URINE Routine 09/27/2024 12:38 PM EDT Dysuria documented in this encounter Results * (ABNORMAL) Culture urine (09/27/2024 12:38 PM EDT) Culture, Urine >100,000 CFU/mL Proteus mirabilis(A ) ANA LILIA 10/01/2024 7:46 AM EDT [facility] Comment: Edited result: Previously reported as Proteus species on 09/29/2024 at 1014 EDT. Urine Urine specimen obtained by clean catch procedure / Unknown Non-blood Collection / Unknown 09/27/2024 12:38 PM EDT 09/28/2024 12:18 PM EDT Narrative Organism Antibiotic Method Susceptibility Proteus mirabilis Amoxicillin/Clavulanate ANA LILIA 4 ug/ml: Susceptible Proteus mirabilis Ampicillin/Sulbactam AN ALILIA <=2 ug/ml: Susceptible Proteus mirabilis Piperacillin/Tazobactam ANA LILIA <=4 ug/ml: Susceptible Proteus mirabilis Cefazolin (Urine) ANA LILIA 4 ug/ml: Susceptible Proteus mirabilis Cefoxitin ANA LILIA <=4 ug/ml: Susceptible Proteus mirabilis Ceftazidime ANA LILIA <=0.5 ug/ml: Susceptible Proteus mirabilis Ceftriaxone ANA LILIA <=0.25 ug/ml: Susceptible Proteus mirabilis Cefepime ANA LILIA 0.25 ug/ml: Susceptible Proteus mirabilis Meropenem ANA LILIA <=0.25 ug/ml: Susceptible Proteus mirabilis Amikacin ANA LILIA 4 ug/ml: Susceptible Proteus mirabilis Gentamicin ANA LILIA <=1 ug/ml: Susceptible Proteus mirabilis Ciprofloxacin ANA LILIA <=0.06 ug/ml: Susceptible Proteus mirabilis Levofloxacin ANA LILIA <=0.12 ug/ml: Susceptible Proteus mirabilis Nitrofurantoin ANA LILIA 64 ug/ml: Resistant Proteus mirabilis Trimethoprim/Sulfamethoxazole ANA LILIA <=20 ug/ml: Susceptible us Goldy Martell MD LAB MICROBIOLOGY - GENERAL ORD ERABLES Final Result [facility] [address] [place] [address], * (ABNORMAL) Urinalysis with reflex microscopic and culture (09/27/2024 12:38 PM EDT) Specific [place] Urine 1.026 1.003 - 1.030 LAB URINALYSIS - AUTOMATED METHOD 09/28/2024 12:18 PM [facility] pH, Urine >=9.0(A) 5.0 - 8.0 pH LAB URINALYSIS - AUTOMATED METHOD 09/28/2024 12:18 PM [facility] Leukocytes, Urine Large(A) Negative LAB URINALYSIS - AUTOMATED METHOD 09/28/2024 12:18 PM [facility] Nitrite, Urine Negative Negative LAB URINALYSIS - AUTOMATED METHOD 09/28/2024 12:18 PM [facility] Protein, Urine 300(A) <=Trace mg/dL LAB URINALYSIS - AUTOMATED METHOD 09/28/2024 12:18 PM [facility] Glucose, Urine Negative Negative mg/dL LAB URINALYSIS - AUTOMATED METHOD 09/28/2024 12:18 PM [facility] Ketones, Urine Negative Negative mg/dL LAB URINALYSIS - AUTOMATED METHOD 09/28/2024 12:18 PM [facility] Urobilinogen, Urine 0.2 0.2 - 1.0 mg/dL LAB URINALYSIS - AUTOMATED METHOD 09/28/2024 12:18 PM [facility] Bilirubin, Urine Negative Negative LAB URINALYSIS - AUTOMATED METHOD 09/28/2024 12:18 PM [facility] Blood, Urine Negative Negative LAB URINALYSIS - AUTOMATED METHOD 09/28/2024 12:18 PM [facility] RBC, Urine 2.6 0 - 4 /HPF LAB URINALYSIS - AUTOMATED METHOD 09/28/2024 12:18 PM [facility] WBC, Urine 14.2(H) 0 - 4 /HPF LAB URINALYSIS - AUTOMATED METHOD 09/28/2024 12:18 PM [facility] Squamous Epithelial, Urine 85(H) 0 - 60 /LPF LAB URINALYSIS - AUTOMATED METHOD 09/28/2024 12:18 PM EDT [facility] Bacteria, Urine Many(A) Negative /HPF LAB URINALYSIS - AUTOMATED METHOD 09/28/2024 12:18 PM EDT [facility] Hyaline Casts, Urine 9.2(H) 0 - 3 /LPF LAB URINALYSIS - AUTOMATED METHOD 09/28/2024 12:18 PM EDT [facility] Urine Urine specimen obtained by clean catch procedure / Unknown Non-blood Collection / Unknown 09/27/2024 12:38 PM EDT 09/28/2024 11:18 AM EDT us Goldy Martell MD LAB URINE ORDERABLES Final Res ult Performing Organization Address [facility]/ZIP Co de Phone Number [facility] [address] [place] [address], [place] [phone] * [place] urine culture tube (09/27/2024 12:38 PM EDT) Extra Tube Hold for add-ons. 09/28/2024 1:01 PM EDT [facility] Comment:Auto resulted. Urine Urine specimen obtained by clean catch procedure / Unknown Non-blood Collection / Unknown 09/27/2024 12:38 PM EDT 09/28/2024 11:18 AM EDT us Goldy Martell MD LAB URINE ORDERABLES Final Res ult Performing Organization Address [facility]/ZIP In de Phone Number [facility] [address] [place] [address], [place] [phone] documented in this encounter Visit Diagnoses Diagnosis Dysuria documented in this encounter Care Teams Technical Sales Specialist Relationship Specialty Start Date End Date Raad Adams MD [address] PCP - General Internal Medicine 02/26/24 documented as of this encounter
--- OUTSIDE RECORDS SUMMARY | 2025-02-27 15:56 | XMS_ITS | Encounter Summary ---
Author Organization [facility] Address [address] [place] [address] Care Team Providers Care Cable Tester Name Role Phone Raad Adams MD Primary Care Provider [phone] Reason for Referral * Imaging (Routine) - Authorized Specialty Diagnoses / Procedures Referred By Contac t Referred To Contact Diagnostic Radiology Procedures MRI Cervical Spine without IV Contrast Ganesh Feliz MD [address] [place] [address] [place] [address] Phone: tel: fax: Referral ID Status Reason Start Date Expiration Date V isits Requested Visits Authorized [id number] Authorized 08/20/2024 08/20/2025 1 1 * Imaging (Routine) - Authorized Specialty Diagnoses / Procedures Referred By Contac t Referred To Contact Diagnostic Radiology Procedures MRI Thoracic Spine with and without IV Contrast Ganesh Feliz MD [address] [place] [address] [place] [address] Phone: tel: fax: Referral ID Status Reason Start Date Expiration Date V isits Requested Visits Authorized [id number] Authorized 08/20/2024 08/20/2025 1 1 Encounter Details Date Type Department Care Team (Late st Contact Info) Description 08/20/2024 Scanned Document [facility] [address] [facility] [address] [id number] Ganesh Feliz MD [address] [place] [address] [place] [address] Social History Tobacco Use Types Packs/Day Years Used Date Smoking Tobacco: Never Assessed Sex and Gender Information Value Date Recorded Sex Assigned at Not on file Legal Sex Male 12:51 PM EST Gender Identity Not on file Sexual Orientation Not on file documented as of this encounter Plan of Treatment Upcoming Encounters Date Type Department Care Team (Late st Contact Info) Description 04/02/2025 1:30 PM EST Telemedicine [facility] [address] [facility] 194 [facility] 3 [place] [address] Malachi Reyna MD [address] [phone] documented as of this encounter Goals Goal Patient Goal Type Associated Problems Recent Progress Patient-Stated? Author [facility] Spine Task Goal Care Plan AMB LM SPINE PROBLEM No Eve Stovall RN documented as of this encounter Procedures Procedure Name Priority Date/Time Associated Diagnosis Comments MRI CERVICAL SPINE WO IV CONTRAST Routine 05/13/2024 5:12 PM EST MRI THORACIC SPINE W WO IV CONTRAST Routine 05/13/2024 5:10 PM EST documented in this encounter Results * MRI Cervical Spine without IV Contrast (05/13/2024 5:12 PM EST) Anatomical Region Laterality Modality C-spine, Spine, Ortho C-spine Ma gnetic Resonance Ganesh Feliz MD [facility] MRI ORDERABLES Final Result * MRI Thoracic Spine with and without IV Contrast (05/13/2024 5:10 PM EST) Anatomical Region Laterality Modality T-spine, Spine, Ortho T-spine Ma gnetic Resonance us Ganesh Feliz MD [facility] MRI ORDERABLES Final Result documented in this encounter Visit Diagnoses Not on filedocumented in this encounter Additional Health Concerns Active Problems Noted Date Diagnosed Date AMB CC LMH SPINE PROBLEM 08/19/2024 documented as of this encounter Care Teams Cable Tester Relationship Specialty [place] [address] [place] [phone] PCP - General Internal Medicine 06/20/24 documented as of this encounter
--- OUTSIDE RECORDS SUMMARY | 2025-02-27 15:56 | XMS_ITS | Clinical Summary ---
Author Organization [facility] Address [address] [place] [address] Phone Care Team Providers Care Manager Outpatient Name Role Phone Raad Adams MD Primary Care Provider [phone] Social History Tobacco Use Types Packs/Day Years Used Date Smoking Tobacco: Never Assessed Sex and Gender Information Value Date Recorded Sex Assigned at Not on file Legal Sex Male 12:42 PM EST Gender Identity Not on file Sexual Orientation Not on file Plan of Treatment Health Maintenance Due Date Last Done Comments Colorectal Cancer Screening: Colonoscopy 1958 Diabetes: Annual Foot Exam 01/06/1968 Diabetes: Annual Retina Eye Exam 01/06/1968 Hepatitis A Vaccines (1 of 2 - Risk 2-dose series) 1977 Hepatitis B Vaccines (1 of 3 - Risk 3-dose series) 2018 Pneumococcal Vaccine: 50+ Years (3 of 3 - PCV) 06/28/2018 06/28/2017, 01/09/2016 Zoster Vaccines (2 of 2) 02/05/2020 12/11/2019 Abdominal Aortic Aneurysm (AAA) Screen 02/26/2024 Cholesterol Screening (Lipid Panel) 02/26/2024 Falls Risk Assessment 02/26/2024 Hepatitis C Screening 02/26/2024 Medicare Annual Wellness Visit 02/26/2024 Social Influencers of Health Screening 02/26/2024 Diabetes: Annual Urine Albumin-Creatinine Ratio (uACR) 03/19/2024 Depression Screening 04/17/2024 COVID-19 Vaccine ( season) 2024 04/26/2023, 10/06/2020, 09/08/2020, Additional history exists Influenza Vaccine (#1) 2024 4, 01/24/2023, 02/16/2021, Additional history exists Diabetes: Blood Sugar Control Test (HGBA1C) 03/15/2025 09/12/2024, 02/16/2019 Diabetes: Annual GFR (Glomerular Filtration Rate) 09/28/2025 09/28/2024, 09/25/2024, 09/18/2024, Additional history exists Hypertension/CHF/CAD Annual BMP Blood Test 09/28/2025 09/28/2024, 09/25/2024, 09/18/2024, Additional history exists DTaP,Tdap,and Td Vaccines (6 - Td or Tdap) 08/23/2032 08/23/2022, 08/23/2022, 03/25/2013, Additional history exists RSV Immunization Adult Patients Completed 04/19/2023 HIB Vaccines Aged Out No longer eligi ble based on patient's age to complete this topic HPV Vaccines Aged Out No longer eligi ble based on patient's age to complete this topic IPV Vaccines Aged Out No longer eligi ble based on patient's age to complete this topic MMR Vaccines Aged Out No longer eligi ble based on patient's age to complete this topic Meningococcal ACWY Vaccine Aged Out N o longer eligible based on patient's age to complete this topic Meningococcal B Vaccine Aged Out No l onger eligible based on patient's age to complete this topic RSV Immunization Patients Under 20 months Aged Out No longer eligible based on patient's age to complete this topic Varicella Vaccines Aged Out No longer eligible based on patient's age to complete this topic Procedures Procedure Name Priority Date/Time Associated Diagnosis Comments BASIC METABOLIC PANEL Routine 09/28/2024 5:30 AM EDT Encounter for other general examination from Last 3 Months or Most Recently Relevant to Health Maintenance Results * (ABNORMAL) Basic metabolic panel (09/28/2024 5:30 AM EDT) Sodium 135 133 - 145 mmol/L LAB CHEMISTRY METHOD 09/28/2024 12:25 PM EDT [facility] Potassium 4.7 3.5 - 5.5 mmol/L LAB CHEMISTRY METHOD 09/28/2024 12:25 PM EDT [facility] Chloride 98 96 - 110 mmol/L LAB CHE[facility]STR[facility] CO2 32 21 - 32 mmol/L LAB CHEMISTRY METHOD 09/28/2024 12:25 PM [facility] Anion Gap 5 3 - 11 LAB CHEMISTRY METHOD 09/28/2024 12:25 PM [facility] Glucose 139(H) 70 - 100 mg/dL LAB CHEMISTRY METHOD 09/28/2024 12:25 PM [facility] BUN 25 5 - 25 mg/dL LAB CHEMISTRY METHOD 09/28/2024 12:25 PM [facility] Creatinine 1.11 0.70 - 1.30 mg/dL LAB CHEMISTRY METHOD 09/28/2024 12:25 PM [facility] eGFR 73 >=60 mL/min/1. 73m2 LAB CHEMISTRY METHOD 09/28/2024 12:25 PM [facility] Comment:Calculation based on the Chronic Kidney Disease Epidemiology Collaboration (CKD-EPI) equation refit without adjustment for race. BUN/Creatinine Ratio 22.5 LAB CHEMISTRY METHOD 09/28/2024 12:25 PM [facility] Calcium 9.1 8.5 - 10.5 mg/dL LAB CHEMISTRY METHOD 09/28/2024 12:25 PM [facility] Blood Venous blood specimen / Unknown Venipuncture / Unknown 09/28/2024 5:30 AM EDT 09/28/2024 10:35 AM EDT us Goldy Martell MD LAB BLOOD ORDERABLES Final Res ult [facility] [address] [place] [address], [place] [phone] from Last 3 Months or Most Recently Relevant to Health Maintenance Insurance [employer] MEDICARE ADVANTAGE MEDICAID - [place] [employer] MEDICARE Care Teams Manager Outpatient Relationship Specialty Start Date End Date Raad Adams MD [address] PCP - General Internal Medicine 02/26/24
--- OUTSIDE RECORDS SUMMARY | 2025-02-27 15:56 | XMS_ITS | Encounter Summary ---
Author Organization [facility] and [facility] Address [address] [place] [address] Care Team Providers Care Naval Special Warfare Medic Name Role Phone Raad Adams MD Primary Care Provider [phone] Encounter Details Date Type Department Care Team (Late Contact Info) Description 08/07/2024 Scanned Document [facility] [address] [place] [phone] Malachi Reyna MD [address] [place] [phone] Social History Tobacco Use Types Packs/Day Years [...] 1:30 PM EST Telemedicine [facility] [address] [place] [address] Malachi Reyna MD [address] [place] [phone] documented as of this encounter Visit Diagnoses Not on filedocumented in this encounter Care Teams [employer] Medic Relationship Specialty Start Date End Date Raad Adams MD [address] [phone] PCP - General Internal Medicine 06/20/24 documented as of this encounter
--- OUTSIDE RECORDS SUMMARY | 2025-02-27 15:56 | XMS_ITS | Clinical Summary ---
Author Organization [facility], Address [address] [place] [address] Phone Care Team Providers Care Deckhand Clam Dredge Name Role Phone Merlyn Balderrama Primary Care Provider [phone] Allergies No known active allergies Medications acetaminophen (TYLENOL 8 HOUR) 650 MG 8 hr tablet Take 1 tablet by mouth every 4 (four) hours Active atorvastatin (LIPITOR) 20 MG tablet Take 1 tablet by mouth 1 (one) time each day Active Dulaglutide (TRULICITY) 1.5 MG/0.5ML solution pen-injector Inject 0.5 mL under the skin 1 (one) time per week Active lisinopril (PRINIVIL,ZEST RIL) 10 MG tablet Take 1 tablet by mouth 1 (one) time each day Active metFORMIN (FORTAMET) 500 MG 24 hr tablet Take 2 tablets by mouth 1 (one) time each day Active sulfamethoxazo le-trimethopri m (BACTRIM DS,SEPTRA DS) 800-160 MG per tablet sulfamethoxazole 800 mg-trimethoprim 160 mg tablet Active Active Problems Problem Noted Date Diagnosed Date Body mass index 30+ - obesity 05/24/2019 Lumbar spondylosis 05/24/2019 Type 2 diabetes mellitus 05/24/2019 Renal disorder due to type 2 diabetes mellitus 1 History of gastritis 10/21/2018 Microalbuminuria 10/15/2018 Hypertension with albuminuria 08/27/2018 Chronic kidney disease stage 3 07/13/2018 Uncontrolled type 2 diabetes mellitus 07/13/2018 Overview (01/16/2024): Replacing diagnoses that were inactivated after the 01/16/24 Regulatory Import Obesity 05/28/2018 Diverticular disease 04/20/2018 Cyst of pancreas 08/23/2017 Albuminuria 06/28/2017 H/O: duodenal ulcer 06/28/2017 History of methicillin resis tant Staphylococcus aureus infection 06/28/2017 Magana's esophagus 03/07/2017 Hiatal hernia 02/27/2017 Psoriasis 05/03/2016 Obstructive sleep apnea syndrome 01/20/2016 Multiple nodules of lung 07/17/2015 Internal hemorrhoids 05/27/2013 Pure hypercholesterolemia 05/27/2013 Tobacco use disorder 05/27/2013 Benign neoplasm of colon 04/17/2013 Immunizations Immunization Administration Dates Next Due Influenza, Quadrivalent, Preservative Free 03/12,02/18/2015 Influenza, Quadrivalent, With Preservative 03/06,01/08/2016 Pneumococcal Polysaccharide 06/28/2017 TD Preservative Free 03/30/2005 Tdap 03/25/2013 Family History Medical History Relation Comments Cancer Father 2 early gastric Diabetes Mother 2 Heart disease Mother 2 CHF, asthma Hypertension Mother 2 Relation Status Comments Father 1 Unknown Father 2 Mother 1 Unknown Mother 2 Social History Tobacco Use Types Packs/Day Years Used Date Smoking Tobacco: Every Day Cigarettes 1 50.9 Started: 04/17/1976 Alcohol Use Standard Drinks/Week Comments No 0 (1 standard drink = 0.6 oz pur e alcohol) Sex and Gender Information Value Date Recorded Sex Assigned at Not on file Legal Sex Male 4:33 PM EST Gender Identity Not on file Sexual Orientation Not on file Last Filed Vital Signs Vital Sign Reading Time Taken Comments Blood Pressure 128/80 05/27/2019 4:18 PM EST Pulse - - Temperature - - Respiratory Rate - - Oxygen Saturation - - Inhaled Oxygen Concentration - - Weight 115 kg (254 lb) 05/27/2019 4:18 PM EST Height 180.3 cm (5' 11 ) 02/18/2019 12:00 PM EST Body Mass Index 35.43 02/18/2019 12:00 PM EST Plan of Treatment Health Maintenance Due Date Last Done Comments Colorectal Cancer Screening: Annual FOBT 2007 Colorectal Cancer Screening: Colonoscopy 2007 Colorectal Cancer Screening: Sigmoidoscopy 2007 Pneumococcal Vaccine: 50+ Years (2 of 2 - PCV) 06/28/2018 06/28/2017 Diabetes: Hemoglobin A1C 05/24/2019 02/16/2019 Diabetes: Ophthalmology Exam 05/24/2019 Diabetes: Pedal Pulse Checked 05/24/2019 Diabetes: Sensory Foot Exam 05/24/2019 Diabetes: Visual Foot Exam 05/24/2019 Influenza Vaccine (#1) 2024 8, 03/06/2017, 01/08/2016, Additional history exists Pneumococcal Vaccine: Peds (0 to 5 Years) and At-Risk Patients (6 to 49 Years) Discontinued 06/28/2017 Hepatitis B Vaccine Aged Out No longe r eligible based on patient's age to complete this topic Procedures Procedure Name Priority Date/Time Associated Diagnosis Comments HEMOGLOBIN A1C Routine 02/16/2019 8:46 AM EDT from Last 3 Months or Most Recently Relevant to Health Maintenance Results * (ABNORMAL) Hemoglobin A1c (02/16/2019 8:46 AM EDT) Hemoglobin A1C 7.1(H) (4-6) % [facility] Comment: HEMOGLOBIN A1C(%) GLUCOSE CONTROL INDEX <6% EXCELLENT 6-7% VERY GOOD 7-8% GOOD 8-10% FAIR >10% POOR Hemoglobin (Hb) A1c testing is performed by Quintin Janina-quant immunoassay. Any cause of shortened erythrocyte survival will reduce exposure of erythrocytes to glucose with a consequent decrease in Hb A1c (%). Testing performed or reported by ~[facility], ~a Service of [facility], ~[address] [place] [id number]~ 02/16/2019 8:46 AM EDT us Leslie Case MD LAB BLOOD ORDERABLES Final Resul t [facility] from Last 3 Months or Most Recently Relevant to Health Maintenance Insurance Care Teams Deckhand Clam Dredge Relationship Specialty Start Date End Date Merlyn Balderrama PA [address] [facility] [address] [place], [place] PCP - General 02/19/19
--- OUTSIDE RECORDS SUMMARY | 2025-02-27 15:56 | XMS_ITS | Encounter Summary ---
Author Organization [facility] Address [address] [place] [address] Care Team Providers Care Bushwalking Guide Name Role Phone Raad Adams MD Primary Care Provider [phone] Encounter Details Date Type Department Care Team (Late st Contact Info) Description 09/05/2024 Scanned Document [facility] at [address] [place] [id number] Malachi Reyna MD [address] [place] [phone] Social History Tobacco Use Types Packs/Day Years Used Date Smoking Tobacco: Every Day Cigarettes Sex and Gender Information Value Date Recorded Sex Assigned at Not on file Legal Sex Male 12:51 PM EST Gender Identity Not on file Sexual Orientation Not on file documented as of this encounter Plan of Treatment Upcoming Encounters Date Type Department Care Team (Late st Contact Info) Description 04/02/2025 1:30 PM EST Telemedicine [facility] [address] [place] [address] Malachi Reyna MD [address] [place] [phone] documented as of this encounter Goals Goal Patient Goal Type Associated Problems Recent Progress Patient-Stated? Author [facility] Spine Task Goal Care Plan [facility] SPINE PROBLEM No Eve Stovall, [place] [facility] Spine Smoking Cessation Goal Care Plan [facility] SPINE SMOKING CESSATION PROBLEM No Stanislav Campbell RN documented as of this encounter Visit Diagnoses Not on filedocumented in this encounter Additional Health Concerns Active Problems Noted Date Diagnosed Date [facility] LM SPINE PROBLEM 08/19/2024 AMB CC LM SPINE SMOKING CESSATION PROBLEM 08/30 documented as of this encounter Care Teams Bushwalking Guide Relationship Specialty Start Date End Date Raad Adams MD [address] [phone] PCP - General Internal Medicine 06/20/24 documented as of this encounter
--- OUTSIDE RECORDS SUMMARY | 2025-02-27 15:56 | XMS_ITS | Encounter Summary ---
Author Organization [facility] Address [address] [place] [address] Care Team Providers Care Research Methodologist Name Role Phone Raad Adams MD Primary Care Provider [phone] Encounter Details Date Type Department Care Team (Late st Contact Info) Description 09/28/2024 Lab Requisition [facility] - Main Lab 299 [facility] [address] [place] [address] Goldy Martell MD [address] [place] [address] Encounter for other general examination Social History [...] documented in this encounter Results * (ABNORMAL) Basic metabolic panel (09/28/2024 5:30 AM EDT) Sodium 135 133 - 145 mmol/L LAB CHEMISTRY METHOD 09/28/2024 12:25 PM EDT [facility] Potassium 4.7 3.5 - 5.5 mmol/L LAB CHEMISTRY METHOD 09/28/2024 12:25 PM EDT [facility] Chloride 98 96 - 110 mmol/L LAB CHEMISTRY METHOD 09/28/2024 12:25 PM [facility] CO2 32 21 - 32 mmol/L LAB CHEMISTRY METHOD 09/28/2024 12:25 PM [facility] Anion Gap 5 3 - 11 LAB CHEMISTRY METHOD 09/28/2024 12:25 PM [facility] Glucose 139(H) 70 - 100 mg/dL LAB CHEMISTRY METHOD 09/28/2024 12:25 PM [facility] BUN 25 5 - 25 mg/dL LAB CHEMISTRY METHOD 09/28/2024 12:25 PM [facility] Creatinine 1.11 0.70 - 1.30 mg/dL LAB CHEMISTRY METHOD 09/28/2024 12:25 PM [facility] eGFR 73 >=60 mL/min/1. 73m2 LAB CHEMISTRY METHOD 09/28/2024 12:25 PM [facility] Comment:Calculation based on the Chronic Kidney Disease Epidemiology Collaboration (CKD-EPI) equation refit without adjustment for race. BUN/Creatinine Ratio 22.5 LAB CHEMISTRY METHOD 09/28/2024 12:25 PM [facility] Calcium 9.1 8.5 - 10.5 mg/dL LAB CHEMISTRY METHOD 09/28/2024 12:25 PM [facility] Blood Venous blood specimen / Unknown Venipuncture / Unknown 09/28/2024 5:30 AM EDT 09/28/2024 10:35 AM EDT us Goldy Martell MD LAB BLOOD ORDERABLES Final Res ult [facility] [address] [place] [address], documented in this encounter Visit Diagnoses Diagnosis Encounter for other general examination documented in this encounter Care Teams Research Methodologist Relationship Specialty Start Date End Date Raad Adams MD [address] [place] [address] PCP - General Internal Medicine 02/26/24 documented as of this encounter
--- OUTSIDE RECORDS SUMMARY | 2025-02-27 15:56 | XMS_ITS | Encounter Summary ---
Author Organization [facility] and [facility] Address [address] [place] [phone] Care Team Providers Care Assessment Analyst Name Role Phone Raad Adams MD Primary Care Provider [phone] Encounter Details Date Type Department Care Team (Late st Contact Info) Description 09/10/2024 Telephone [facility] [address] [facility] [address] [facility] [place] [address] Roc Carson MD [address] [place] [phone] Social History Tobacco Use Types Packs/Day Years Used Date Smoking Tobacco: Every Day Cigarettes [facility] Utilities Answer Date Recorded In the past [...] your living situation today? I have a [facility] place to live 09/12/2024 Housing Stability [...] PM EST Telemedicine [facility] at [address] [address] Malachi Reyna MD [address] [place] [phone] documented as of this encounter Goals Goal Patient Goal Type Associated Problems Recent Progress Patient-Stated? Author [facility] Spine Task Goal Care Plan AMB CC LMH SPINE PROBLEM No Eve Stovall, RN [facility] Spine Smoking Cessation Goal Care Plan AMB CC [facility] SPINE SMOKING CESSATION PROBLEM No Stanislav Campbell, RN documented as of this encounter Visit Diagnoses Not on filedocumented in this encounter Additional Health Concerns Active Problems Noted Date Diagnosed Date AMB CC LMH SPINE PROBLEM 08/19/2024 AMB CC [facility] SPINE SMOKING CESSATION PROBLEM 08/30 documented as of this encounter Care Teams Assessment Analyst Relationship Specialty Start Date End Date Raad Adams MD [address] [facility] [address] [place] [address] PCP - General Internal Medicine 06/20/24 documented as of this encounter
--- OUTSIDE RECORDS SUMMARY | 2025-02-27 15:56 | XMS_ITS | Encounter Summary ---
Author Organization [facility] and [facility] Address [address] [place] [phone] Care Team Providers Care Chief Cardiopulmonary Technologist Name Role Phone Raad Adams MD Primary Care Provider [phone] Reason for Visit * Reason Onset Date Comments Other 09/10/2024 Encounter Details Date Type Department Care Team ([facility] st Contact Info) Description 09/10/2024 Telephone Neurosurgery at [address] [place] [address] Malachi Reyna MD [address] [place] [phone] Other Social History Tobacco Use Types Packs/Day Years Used Date Smoking Tobacco: Every Day Cigarettes [facility] Utilities Answer Date Recorded In the past 12 months has th e electric, gas, oil, or water company [...] your living situation today? I have a [facility] place to live 09/12/2024 Housing Stability Not [...] on file documented as of this encounter Miscellaneous Notes * Telephone Encounter - Starla Ayala - 09/26/2024 1:06 PM EDT Copied from [facility] #[id number]. Topic: General Inquiry - General Inquiry >> Sep 26, 2024 1:03 PM Starla Hammonds wrote: Called patient at the request of HOMA Echeverria to relay the following message: that post op appt will need to be f2f - per patient drive is an hour and half will need to find transportation due to being wheelchair bound and would a like a return call by himself. Pod:Neurosurgery/Trauma/Surgery Thank you * Telephone Encounter - Jacki Cruz RN - 09/11/2024 8:43 AM EDT I spoke with Hai and reviewed clear liquid diet for 24 hours prior to surgery. He verbalized understanding. documented in this encounter Plan of Treatment Upcoming Encounters Date Type Department Care Team (Late st Contact Info) Description 04/02/2025 1:30 PM EST Telemedicine Neurosurgery at [address] [place] [address] Malachi Reyna MD [address] [place] [phone] documented as of this encounter Goals Goal Patient Goal Type Associated Problems Recent Progress Patient-Stated? Author [facility] Spine Task Goal Care Plan [facility] SPINE PROBLEM No Eve Stovall, RN [facility] Spine Smoking Cessation Goal Care Plan [facility] SPINE SMOKING CESSATION PROBLEM No Stanislav Campbell RN documented as of this encounter Visit Diagnoses Not on filedocumented in this encounter Additional Health Concerns Active Problems Noted Date Diagnosed Date AMB LM SPINE PROBLEM 08/19/2024 [facility] SPINE SMOKING CESSATION PROBLEM 08/30 documented as of this encounter Care Teams Chief Cardiopulmonary Technologist Relationship Specialty Start Date End Date Raad Adams MD [address] [phone] PCP - General Internal Medicine 06/20/24 documented as of this encounter
--- OUTSIDE RECORDS SUMMARY | 2025-02-27 15:56 | XMS_ITS | Encounter Summary ---
Author Organization [facility] Address [address] [place] [address] Care Team Providers Care Packing Room Inspector Name Role Phone Raad Adams MD Primary Care Provider [phone] Encounter Details Date Type Department Care Team (Late st Contact Info) Description 09/26/2024 Lab Requisition [facility] - Main Lab 299 [facility] [place] [address] Goldy Martell MD [address] [place] [address] Encounter for other general examination Social History [...] Diagnosis Comments CBC WITH AUTO DIFFERENTIAL Routine 09/26/2024 6:53 AM EDT Encounter for other general examination CBC AND DIFFERENTIAL Routine 09/26/2024 6:53 AM EDT Encounter for other general examination documented in this encounter Results * (ABNORMAL) CBC auto differential (09/26/2024 6:53 AM EDT) WBC 11.1(H) 4.8 - 10.8 K/[facility] LAB HEMETOLOGY METHOD 09/26/2024 9:08 AM EDT [facility] RBC 5.60(H) 4.50 - 5.50 M/mcL LAB HEMETOLOGY METHOD 09/26/2024 9:08 AM [facility] LAB Hemoglobin 15.1 13.5 - 17.5 g/dL LAB HEMETOLOGY METHOD 09/26/2024 9:08 AM [facility] LAB Hematocrit 48.3 42.0 - 54.0 % LAB HEMETOLOGY METHOD 09/26/2024 9:08 AM [facility] LAB MCV 85.6 79.0 - 98.0 FL LAB HEMETOLOGY METHOD 09/26/2024 9:08 AM [facility] LAB MCH 26.8(L) 27.0 - 32.0 pcg LAB HEMETOLOGY METHOD 09/26/2024 9:08 AM [facility] LAB MCHC 31.3(L) 32.0 - 37.0 g/dL LAB HEMETOLOGY METHOD 09/26/2024 9:08 AM [facility] RDW 13.0 11.0 - 15.0 % LAB HEMETOLOGY METHOD 09/26/2024 9:08 AM [facility] Platelets 208 130 - 400 K/mcL LAB HEMETOLOGY METHOD 09/26/2024 9:08 AM [facility] MPV 11.3(H) 7.0 - 11.0 FL LAB HEMETOLOGY METHOD 09/26/2024 9:08 AM [facility] NRBC 0.0 <1.0 % LAB HEMETOLOGY METHOD 09/26/2024 9:08 AM [facility] NRBC Absolute 0.00 <0.10 K/mcL LAB HEMETOLOGY METHOD 09/26/2024 9:08 AM [facility] Neutrophils Relative 68.5 % LAB HEMETOLOGY METHOD 09/26/2024 9:08 AM [facility] Lymphocytes Relative 22.6 % LAB HEMETOLOGY METHOD 09/26/2024 9:08 AM [facility] Monocytes Relative 6.6 % LAB HEMETOLOGY METHOD 09/26/2024 9:08 AM [facility] Eosinophils Relative 1.4 % LAB HEMETOLOGY METHOD 09/26/2024 9:08 AM [facility] Basophils Relative 0.5 % LAB HEMETOLOGY METHOD 09/26/2024 9:08 AM [facility] Immature Granulocytes Relative 0.4 % LAB HEMETOLOGY METHOD 09/26/2024 9:08 AM [facility] Neutrophils Absolute 7.61(H) 1.50 - 7.00 K/mcL LAB HEMETOLOGY METHOD 09/26/2024 9:08 AM [facility] Lymphocytes Absolute 2.51 1.00 - 5.00 K/mcL LAB HEMETOLOGY METHOD 09/26/2024 9:08 AM [facility] Monocytes Absolute 0.73 0.20 - 1.00 K/mcL LAB HEMETOLOGY METHOD 09/26/2024 9:08 AM [facility] Eosinophils Absolute 0.16 0.00 - 0.50 K/mcL LAB HEMETOLOGY METHOD 09/26/2024 9:08 AM [facility] Basophils Absolute 0.05 0.00 - 0.20 K/mcL LAB HEMETOLOGY METHOD 09/26/2024 9:08 AM [facility] Immature Granulocytes Absolute 0.04(H) 0.00 - 0.03 K/mcL LAB HEMETOLOGY METHOD 09/26/2024 9:08 AM [facility] Blood Venous blood specimen / Unknown Venipuncture / Unknown 09/26/2024 6:53 AM EDT 09/26/2024 7:55 AM EDT us Goldy Martell MD LAB BLOOD ORDERABLES Final Res ult [facility] HOSPITAL LAB [address] [place] [address], documented in this encounter Visit Diagnoses Diagnosis Encounter for other general examination documented in this encounter Care Teams Packing Room Inspector Relationship Specialty Start Date End Date Raad Adams MD [address] PCP - General Internal Medicine 02/26/24 documented as of this encounter
--- OUTSIDE RECORDS SUMMARY | 2025-02-27 15:56 | XMS_ITS | Encounter Summary ---
Author Organization [facility] Address [address] [place] [address] Care Team Providers Care Test And Turn Up Technician Name Role Phone Raad Adams MD Primary Care Provider [phone] Encounter Details Date Type Department Care Team (Late st Contact Info) Description 03/19/2024 Lab Requisition [facility] - Main Lab 299 [facility] [address] Goldy Martell MD [address] [place] [address] Encounter for other general examination Social History [...] Associated Diagnosis Comments COMPLETE BLOOD COUNT Routine 03/19/2024 6:20 AM EST Encounter for other general examination BASIC METABOLIC PANEL Routine 03/19/2024 6:20 AM EST Encounter for other general examination documented in this encounter Results * (ABNORMAL) Complete blood count (03/19/2024 6:20 AM EST) WBC 7.5 4.8 - 10.8 K/[facility] LAB HEMETOLOGY METHOD 03/19/2024 11:09 AM EST [facility] LAB RBC 5.70(H) 4.50 - 5.50 M/[facility] LAB HEMETOLOGY METHOD 03/19/2024 11:09 AM [facility] Hemoglobin 15.1 13.5 - 17.5 g/dL LAB HEMETOLOGY METHOD 03/19/2024 11:09 AM [facility] LAB Hematocrit 48.3 42.0 - 54.0 % LAB HEMETOLOGY METHOD 03/19/2024 11:09 AM [facility] LAB MCV 84.7 79.0 - 98.0 FL LAB HEMETOLOGY METHOD 03/19/2024 11:09 AM [facility] LAB MCH 26.5(L) 27.0 - 32.0 pcg LAB HEMETOLOGY METHOD 03/19/2024 11:09 AM [facility] LAB MCHC 31.3(L) 32.0 - 37.0 g/dL LAB HEMETOLOGY METHOD 03/19/2024 11:09 AM [facility] LAB RDW 13.8 11.0 - 15.0 % LAB HEMETOLOGY METHOD 03/19/2024 11:09 AM [facility] LAB Platelets 194 130 - 400 K/mcL LAB HEMETOLOGY METHOD 03/19/2024 11:09 AM [facility] LAB MPV 10.9 7.0 - 11.0 FL LAB HEMETOLOGY METHOD 03/19/2024 11:09 AM [facility] LAB NRBC 0.0 <1.0 % LAB HEMETOLOGY METHOD 03/19/2024 11:09 AM [facility] NRBC Absolute 0.00 <0.10 K/mcL LAB HEMETOLOGY METHOD 03/19/2024 11:09 AM [facility] Blood Venous blood specimen / Unknown Venipuncture / Unknown 03/19/2024 6:20 AM EST 03/19/2024 10:18 AM EST us Goldy Martell MD LAB BLOOD ORDERABLES Final Res ult [facility] [address] [place] [address], * (ABNORMAL) Basic metabolic panel (03/19/2024 6:20 AM EST) Sodium 137 133 - 145 mmol/L LAB CHEMISTRY METHOD 03/19/2024 11:43 AM [facility] Potassium 5.0 3.5 - 5.5 mmol/L LAB CHEMISTRY METHOD 03/19/2024 11:43 AM [facility] Comment:Hemolysis present Chloride 104 96 - 110 mmol/L LAB CHEMISTRY METHOD 03/19/2024 11:43 AM [facility] CO2 27 21 - 32 mmol/L LAB CHEMISTRY METHOD 03/19/2024 11:43 AM [facility] Anion Gap 6 3 - 11 LAB CHEMISTRY METHOD 03/19/2024 11:43 AM [facility] Glucose 129(H) 70 - 100 mg/dL LAB CHEMISTRY METHOD 03/19/2024 11:43 AM [facility] BUN 20 5 - 25 mg/dL LAB CHEMISTRY METHOD 03/19/2024 11:43 AM [facility] Creatinine 1.09 0.70 - 1.30 mg/dL LAB CHEMISTRY METHOD 03/19/2024 11:43 AM [facility] LAB eGFR 75 >=60 mL/min/1. 73m2 LAB CHEMISTRY METHOD 03/19/2024 11:43 AM [facility] LAB Comment:Calculation based on the Chronic Kidney Disease Epidemiology Collaboration (CKD-EPI) equation refit without adjustment for race. BUN/Creatinine Ratio 18.3 LAB CHEMISTRY METHOD 03/19/2024 11:43 AM [facility] LAB Calcium 9.3 8.5 - 10.5 mg/dL LAB CHEMISTRY METHOD 03/19/2024 11:43 AM [facility] Blood Venous blood specimen / Unknown Venipuncture / Unknown 03/19/2024 6:20 AM EST 03/19/2024 10:18 AM EST us Goldy Martell MD LAB BLOOD ORDERABLES Final Res ult [facility] [address] [place] [address], documented in this encounter Visit Diagnoses Diagnosis Encounter for other general examination documented in this encounter Care Teams Test And Turn Up Technician Relationship Specialty Start Date End Date Raad Adams MD [facility] PCP - General Internal Medicine 02/26/24 documented as of this encounter
--- OUTSIDE RECORDS SUMMARY | 2025-02-27 15:56 | XMS_ITS | Encounter Summary ---
Author Organization [facility] Address [address] [place] [phone] Care Team Providers Care Crew Clerk Name Role Phone Raad Adams MD Primary Care Provider [phone] Reason for Visit * Reason Onset Date Comments Triage 11/22/2024 katya Reyna Encounter Details Date Type Department Care Team ([facility] st Contact Info) Description 11/22/2024 Telephone [facility] at [address] [place] [address] Malachi Reyna MD [address] [place] [phone] Triage (katya Reyna ) Social History Tobacco Use Types Packs/Day Years Used Date Smoking Tobacco: Every Day Cigarettes [facility] Utilities Answer Date Recorded In the past 12 months has [facility] electric, gas, oil, or water company threatened [...] encounter Miscellaneous Notes * Telephone Encounter - Jacki Cruz RN - 12/03/2024 3:24 PM EDT I spoke with Michaelle. I let him know his 12/18/2024 appointment is a MCVV so he does not need to drive here. He says he spoke with a Dr. Garcia (a retired neurosurgeon and friend of Dr. Reyna's) abouthis symptoms who recommended he get an MRI of his mid and lower back due to new symptoms. Symptoms include a tingling feeling in his stomach, buttocks, and bilateral legs. I let him know he could discuss with Dr. Reyna at his appointment and go from there. He agreed with this plan. I let him knowhe does need cervical xrays prior to his appointment with Dr. Reyna, and I will follow up with a [employer] message. * Telephone Encounter - Nicol Cox - 12/03/2024 2:37 PM EDT Copied from [facility] #[id number]. Topic: CARE General CRM - General Inquiry >> Dec 03, 2024 2:27 PM Nicol Jerez wrote: ANDRZEJMICHAELLE called would like to know if he will need any imaging done before his 12/18/[address] Reyna Patient advise he is in a wheelchair live over 1 hour away and do not want to have to keep coming back if not needed. Patient advise no one called him back from his 11/22/24 message. Patient asking for call back at [phone] he have a few more questions * Telephone Encounter - Starla Perez - 11/26/2024 1:57 PM EDT Next available, and cancellation list. * Telephone Encounter - Starla Perez - 11/22/2024 4:48 PM EDT Per provider vocational services specialist schedule patient to come in to see Emelia Le. (No telehealth patient needs demian seen in person per provider vocational services specialist) * Telephone Encounter - Nicol Cox - 11/22/2024 3:47 PM EDT Copied from [facility] #[id number]. Topic: General Message - [facility] >> Nov 22, 2024 3:41 PM Nicol Jerez wrote: [facility] MESSAGE Time of call: 3:41 PM Caller: MICHAELLE DONNELLY Caller's relationship to patient: self Calling from (pharmacy, hospital, agency, etc.): n/a Specialist you are calling for: CHETAN Reyna Reason for call: had surgery on 09/12/24. About 2 months on going having tinging in abdominal through out Lt and RT leg and buttock. Patient advise he is still in a wheel chair. Walking with a walker.Patient asking for call back. If not feeling well, what are symptoms: n/a If having symptoms, how long have the symptoms been present: n/a Does caller request to speak to someone urgently? no Best telephone number for callback: [phone] Best time to return call: any Permission to leave message: yes Nicol Cox [facility] Dial Refinisher documented in this encounter Plan of Treatment Upcoming Encounters Date Type Department Care Team (Late st Contact Info) Description 04/02/2025 1:30 PM EST Telemedicine [facility] at [address] [facility] [address] [address] Malachi Reyna MD 194 [facility] [address] [address] documented as of this encounter Goals Goal Patient Goal Type Associated Problems Recent Progress Patient-Stated? Author [facility] Spine Task Goal Care Plan AMB [facility] SPINE PROBLEM No Eve Stovall, RN [facility] Spine Smoking Cessation Goal Care Plan AMB [facility] SPINE SMOKING CESSATION PROBLEM No Stanislav Campbell, RN documented as of this encounter Visit Diagnoses Not on filedocumented in this encounter Additional Health Concerns Active Problems Noted Date Diagnosed Date AMB CC LMH SPINE PROBLEM 08/19/2024 AMB CC [facility] SPINE SMOKING CESSATION PROBLEM 08/30 documented as of this encounter Care Teams Crew Clerk Relationship Specialty Start Date End Date Raad Adams MD [address] [phone] PCP - General Internal Medicine 06/20/24 documented as of this encounter
--- OUTSIDE RECORDS SUMMARY | 2025-02-27 15:56 | XMS_ITS | Encounter Summary ---
Author Organization [facility] Address [address] [place] [address] Care Team Providers Care Grazing Aide Name Role Phone Raad Adams MD Primary Care Provider [phone] Encounter Details Date Type Department Care Team (Late st Contact Info) Description 09/19/2024 Lab Requisition [facility] - Main Lab [address] [facility] [place] [address] Goldy Martell MD [address] [place] [id number] Encounter for other general examination Social History [...] Diagnosis Comments CBC WITH AUTO DIFFERENTIAL Routine 09/19/2024 5:57 AM EDT Encounter for other general examination CBC AND DIFFERENTIAL Routine 09/19/2024 5:57 AM EDT Encounter for other general examination documented in this encounter Results * (ABNORMAL) CBC auto differential (09/19/2024 5:57 AM EDT) WBC 9.4 4.8 - 10.8 K/[facility] LAB HEMETOLOGY METHOD 09/19/2024 10:19 AM EDT [facility] LAB RBC 6.50(H) 4.50 - 5.50 M/mcL LAB HEMETOLOGY METHOD 09/19/2024 10:19 AM [facility] LAB Hemoglobin 17.6(H) 13.5 - 17.5 g/dL LAB HEMETOLOGY METHOD 09/19/2024 10:19 AM [facility] LAB Hematocrit 55.9(H) 42.0 - 54.0 % LAB HEMETOLOGY METHOD 09/19/2024 10:19 AM [facility] LAB MCV 86.1 79.0 - 98.0 FL LAB HEMETOLOGY METHOD 09/19/2024 10:19 AM [facility] LAB MCH 27.1 27.0 - 32.0 pcg LAB HEMETOLOGY METHOD 09/19/2024 10:19 AM [facility] LAB MCHC 31.5(L) 32.0 - 37.0 g/dL LAB HEMETOLOGY METHOD 09/19/2024 10:19 AM [facility] LAB RDW 13.7 11.0 - 15.0 % LAB HEMETOLOGY METHOD 09/19/2024 10:19 AM [facility] LAB Platelets 226 130 - 400 K/mcL LAB HEMETOLOGY METHOD 09/19/2024 10:19 AM [facility] LAB MPV 11.5(H) 7.0 - 11.0 FL LAB HEMETOLOGY METHOD 09/19/2024 10:19 AM [facility] LAB NRBC 0.0 <1.0 % LAB HEMETOLOGY METHOD 09/19/2024 10:19 AM [facility] LAB NRBC Absolute 0.00 <0.10 K/mcL LAB HEMETOLOGY METHOD 09/19/2024 10:19 AM [facility] LAB Neutrophils Relative 56.9 % LAB HEMETOLOGY METHOD 09/19/2024 10:19 AM [facility] LAB Lymphocytes Relative 32.7 % LAB HEMETOLOGY METHOD 09/19/2024 10:19 AM [facility] LAB Monocytes Relative 7.5 % LAB HEMETOLOGY METHOD 09/19/2024 10:19 AM [facility] LAB Eosinophils Relative 1.9 % LAB HEMETOLOGY METHOD 09/19/2024 10:19 AM [facility] LAB Basophils Relative 0.5 % LAB HEMETOLOGY METHOD 09/19/2024 10:19 AM [facility] LAB Immature Granulocytes Relative 0.5 % LAB HEMETOLOGY METHOD 09/19/2024 10:19 AM [facility] LAB Neutrophils Absolute 5.34 1.50 - 7.00 K/mcL LAB HEMETOLOGY METHOD 09/19/2024 10:19 AM [facility] LAB Lymphocytes Absolute 3.07 1.00 - 5.00 K/mcL LAB HEMETOLOGY METHOD 09/19/2024 10:19 AM [facility] LAB Monocytes Absolute 0.70 0.20 - 1.00 K/mcL LAB HEMETOLOGY METHOD 09/19/2024 10:19 AM [facility] LAB Eosinophils Absolute 0.18 0.00 - 0.50 K/mcL LAB HEMETOLOGY METHOD 09/19/2024 10:19 AM [facility] LAB Basophils Absolute 0.05 0.00 - 0.20 K/mcL LAB HEMETOLOGY METHOD 09/19/2024 10:19 AM [facility] LAB Immature Granulocytes Absolute 0.05(H) 0.00 - 0.03 K/mcL LAB HEMETOLOGY METHOD 09/19/2024 10:19 AM [facility] LAB Blood Venous blood specimen / Unknown Venipuncture / Unknown 09/19/2024 5:57 AM EDT 09/19/2024 9:49 AM EDT us Goldy Martell MD LAB BLOOD ORDERABLES Final Res ult [facility] [address] [place] [address], documented in this encounter Visit Diagnoses Diagnosis Encounter for other general examination documented in this encounter Care Teams Grazing Aide Relationship Specialty Start Date End Date Raad Adams MD [address] PCP - General Internal Medicine 02/26/24 documented as of this encounter
--- OUTSIDE RECORDS SUMMARY | 2025-02-27 15:56 | XMS_ITS | Encounter Summary ---
Author Organization [facility] Address [address] [place] [address] Care Team Providers Care District Wildlife Manager Name Role Phone Raad Adams MD Primary Care Provider Encounter Details Date Type Department Care Team (Late st Contact Info) Description 03/25/2024 Lab Requisition [facility] - Main Lab [address] [facility] [place] [address] Goldy Martell MD [address] [place] [id number] Encounter for other general examination Social History [...] Diagnosis Comments CBC WITH AUTO DIFFERENTIAL Routine 03/25/2024 7:01 AM EST Encounter for other general examination CBC AND DIFFERENTIAL Routine 03/25/2024 7:01 AM EST Encounter for other general examination BASIC METABOLIC PANEL Routine 03/25/2024 7:01 AM EST Encounter for other general examination documented in this encounter Results * (ABNORMAL) CBC auto differential (03/25/2024 7:01 AM EST) WBC 6.3 4.8 - 10.8 K/[facility] LAB HEMETOLOGY METHOD 03/25/2024 1:33 PM [facility] LAB RBC 5.80(H) 4.50 - 5.50 M/mcL LAB HEMETOLOGY METHOD 03/25/2024 1:33 PM [facility] LAB Hemoglobin 15.2 13.5 - 17.5 g/dL LAB HEMETOLOGY METHOD 03/25/2024 1:33 PM [facility] LAB Hematocrit 49.0 42.0 - 54.0 % LAB HEMETOLOGY METHOD 03/25/2024 1:33 PM [facility] LAB MCV 84.8 79.0 - 98.0 FL LAB HEMETOLOGY METHOD 03/25/2024 1:33 PM [facility] LAB MCH 26.3(L) 27.0 - 32.0 pcg LAB HEMETOLOGY METHOD 03/25/2024 1:33 PM [facility] LAB MCHC 31.0(L) 32.0 - 37.0 g/dL LAB HEMETOLOGY METHOD 03/25/2024 1:33 PM [facility] LAB RDW 13.7 11.0 - 15.0 % LAB HEMETOLOGY METHOD 03/25/2024 1:33 PM [facility] LAB Platelets 261 130 - 400 K/mcL LAB HEMETOLOGY METHOD 03/25/2024 1:33 PM [facility] LAB MPV 11.1(H) 7.0 - 11.0 FL LAB HEMETOLOGY METHOD 03/25/2024 1:33 PM [facility] LAB NRBC 0.0 <1.0 % LAB HEMETOLOGY METHOD 03/25/2024 1:33 PM [facility] LAB NRBC Absolute 0.00 <0.10 K/mcL LAB HEMETOLOGY METHOD 03/25/2024 1:33 PM [facility] LAB Neutrophils Relative 50.3 % LAB HEMETOLOGY METHOD 03/25/2024 1:33 PM [facility] LAB Lymphocytes Relative 32.8 % LAB HEMETOLOGY METHOD 03/25/2024 1:33 PM [facility] LAB Monocytes Relative 12.2 % LAB HEMETOLOGY METHOD 03/25/2024 1:33 PM [facility] LAB Eosinophils Relative 3.5 % LAB HEMETOLOGY METHOD 03/25/2024 1:33 PM [facility] LAB Basophils Relative 0.6 % LAB HEMETOLOGY METHOD 03/25/2024 1:33 PM [facility] LAB Immature Granulocytes Relative 0.6 % LAB HEMETOLOGY METHOD 03/25/2024 1:33 PM [facility] LAB Neutrophils Absolute 3.18 1.50 - 7.00 K/mcL LAB HEMETOLOGY METHOD 03/25/2024 1:33 PM [facility] LAB Lymphocytes Absolute 2.07 1.00 - 5.00 K/mcL LAB HEMETOLOGY METHOD 03/25/2024 1:33 PM [facility] LAB Monocytes Absolute 0.77 0.20 - 1.00 K/mcL LAB HEMETOLOGY METHOD 03/25/2024 1:33 PM [facility] LAB Eosinophils Absolute 0.22 0.00 - 0.50 K/mcL LAB HEMETOLOGY METHOD 03/25/2024 1:33 PM [facility] LAB Basophils Absolute 0.04 0.00 - 0.20 K/mcL LAB HEMETOLOGY METHOD 03/25/2024 1:33 PM [facility] LAB Immature Granulocytes Absolute 0.04(H) 0.00 - 0.03 K/mcL LAB HEMETOLOGY METHOD 03/25/2024 1:33 PM [facility] LAB Blood Venous blood specimen / Unknown Venipuncture / Unknown 03/25/2024 7:01 AM EST 03/25/2024 11:48 AM EST us Goldy Martell MD LAB BLOOD ORDERABLES Final Res ult [facility] LAB [address] [place] [address], * (ABNORMAL) Basic metabolic panel (03/25/2024 7:01 AM EST) Sodium 139 133 - 145 mmol/L LAB CHEMISTRY METHOD 03/25/2024 1:39 PM [facility] LAB Potassium 4.4 3.5 - 5.5 mmol/L LAB CHEMISTRY METHOD 03/25/2024 1:39 PM [facility] LAB Chloride 102 96 - 110 mmol/L LAB CHEMISTRY METHOD 03/25/2024 1:39 PM [facility] LAB CO2 29 21 - 32 mmol/L LAB CHEMISTRY METHOD 03/25/2024 1:39 PM [facility] LAB Anion Gap 8 3 - 11 LAB CHEMISTRY METHOD 03/25/2024 1:39 PM [facility] LAB Glucose 111(H) 70 - 100 mg/dL LAB CHEMISTRY METHOD 03/25/2024 1:39 PM [facility] LAB BUN 21 5 - 25 mg/dL LAB CHEMISTRY METHOD 03/25/2024 1:39 PM [facility] LAB Creatinine 1.07 0.70 - 1.30 mg/dL LAB CHEMISTRY METHOD 03/25/2024 1:39 PM [facility] LAB eGFR 77 >=60 mL/min/1. 73m2 LAB CHEMISTRY METHOD 03/25/2024 1:39 PM [facility] LAB Comment:Calculation based on the Chronic Kidney Disease Epidemiology Collaboration (CKD-EPI) equation refit without adjustment for race. BUN/Creatinine Ratio 19.6 LAB CHEMISTRY METHOD 03/25/2024 1:39 PM [facility] LAB Calcium 9.7 8.5 - 10.5 mg/dL LAB CHEMISTRY METHOD 03/25/2024 1:39 PM [facility] LAB Blood Venous blood specimen / Unknown Venipuncture / Unknown 03/25/2024 7:01 AM EST 03/25/2024 11:48 AM EST us Goldy Martell MD LAB BLOOD ORDERABLES Final Res ult [facility] ([facility]) [facility] LAB [address] [place] [address], documented in this encounter Visit Diagnoses Diagnosis Encounter for other general examination documented in this encounter Care Teams District Wildlife Manager Relationship Specialty Start Date End Date Raad Adams MD [address] PCP - General Internal Medicine 02/26/24 documented as of this encounter
--- OUTSIDE RECORDS SUMMARY | 2025-02-27 15:56 | XMS_ITS | Encounter Summary ---
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
--- OUTSIDE RECORDS SUMMARY | 2025-02-27 15:57 | XMS_ITS | Data Portability ---
Author Organization [facility], Main Office Address [address] [place] [address] Care Team Providers Care Patient Financial Counselor Name Role Phone RAAD DIEHL Primary Care Provider [phone] [facility] Nutrit ionist [facility] PHYSICAL[facility] (SIM BUSBY) Orthopedic Surgeon [facility] [employer] CAROL REYNA Orthopedic Surgeon [phone] Assessment Encounter Date Assessment Date Assessment LastModified by Organization Details LastModified Time 01/10/2025 01/10/2025 This service was provided using telemedicine ([facility] The patient consented and was seen through synchronous audio and video technology. If audio only connection was used, the provider used telephone communication. Patient was located at home in the [facility]. Provider was located in the office. No other persons participated in the telemedicine visit except for the patient unless otherwise indicated here. Total time of visit was 28 minutes. [email or web address] Not available 01/10/2025 14:52:36 Plan of Treatment Reminders Order Date Submit Date Provider Last Modified By Organization Details Last Modified Time Details Appointments BILLING ONLY 2024 09:00A M SD SCHEDULE Not available Not available Not available Lab None recorded. Referral vascular surgeon referral - Rule our PAD as cause of claudicat ion/pain/ extremity color changes in pt with significa nt risk factors and recent diagnosis of transvers e myelitis. 2024 025 AARTI Agee, [address] [place] [address] Dr, 2nd [facility] [address], [place], [address], 02/27/2025 14:12:33 Procedures None recorded. Surgeries None recorded. Imaging None recorded. Medication Orders None recorded. Patient TargetsNo targets recorded. Patient Instructions Encounter Date Encounter Id Patient Instructions Last Modified By Organization Details Last Modified Time 01/10/2025 [id number] deciding about using medicines to quit smoking [email or web address] Not available 01/10/2025 14:52:38 Quitting Tobacco: Care Instructions [email or web address] Not available 01/10/2025 14:52:38 cervical spinal stenosis: care instructions [email or web address] Not available 01/10/2025 14:52:38 Reason for Referral Vascular Surgeon Referral fo r Intermittent claudication Rule our PAD as cause of claudication/pain/extremity color changes in pt with significant risk factors and recent diagnosis of transverse myelitis. Referring Physician: Raad Diehl, Family Medicine, Encounter Date: 01/10/2025 Results Created Date Observation Date Name Description Value Unit Range Abnormal Flag Note LastModifiedBy Organization Detail LastModifiedTime 09/19/1909/18/2024 CBC WITH AUTO DIFFE RENTI AL WBC 11.5 K/mcL 4.8-10 .8 high Not Available [facility] U/S Dept [address] [place] [address], [address], 09/18/2024 11:13:54 09/19/19 25 09/18/2024 CBC WITH AUTO DIFFE RENTI AL RBC 6.40 M/mcL 4.50-5 .50 high Not Available [facility]/S Dept [address] [place] [address], [address], 09/18/2024 11:13:54 09/19/19 25 09/18/2024 CBC WITH AUTO DIFFE RENTI AL hemoglobin 17.4 g/dL 13.5-1 7.5 Not Available [facility]/S Dept [address] [place] [address], [address], 09/18/2024 11:13:54 09/19/19 25 09/18/2024 CBC WITH AUTO DIFFE RENTI AL hematocrit 55.4 % 42.0-5 4.0 high Not Available [facility]/S Dept [address] [place], [place] [address], [address], 09/18/2024 11:13:54 09/19/19 25 09/18/2024 CBC WITH AUTO DIFFE RENTI AL MCV 86.0 fL 79.0-9 8.0 Not Available [facility] [address] [place] [address] [place], [address], 09/18/2024 11:13:54 09/19/19 25 09/18/2024 CBC WITH AUTO DIFFE RENTI AL MCH 27.0 pcg 27.0-3 2.0 Not Available [facility] [address] [place], [place] [address], [address], 09/18/2024 11:13:54 09/19/19 25 09/18/2024 CBC WITH AUTO DIFFE RENTI AL MCHC 31.4 g/dL 32.0-3 7.0 low Not Available [facility] [address] [place], [place] [address], [address], 09/18/2024 11:13:54 09/19/19 25 09/18/2024 CBC WITH AUTO DIFFE RENTI AL RDW 14.2 % 11.0-1 5.0 Not Available [facility] [address] [place], [place] [address], [address], 09/18/2024 11:13:54 09/19/19 25 09/18/2024 CBC WITH AUTO DIFFE RENTI AL platelets 197 K/mcL 130-40 0 Not Available [facility] [address] [place], [place] [address], [address], 09/18/2024 11:13:54 09/19/19 25 09/18/2024 CBC WITH AUTO DIFFE RENTI AL MPV 10.8 fL 7.0-11 .0 Not Available [facility] [place], [address], 09/18/2024 11:13:54 09/19/19 25 09/18/2024 CBC WITH AUTO DIFFE RENTI AL NRBC 0.0 % <1.0 Not Available [facility] [place], [address], 09/18/2024 11:13:54 09/19/19 25 09/18/2024 CBC WITH AUTO DIFFE RENTI AL NRBC absolute 0.00 K/mcL <0.10 Not Available [facility] [place], [address], 09/18/2024 11:13:54 09/19/19 25 09/18/2024 CBC WITH AUTO DIFFE RENTI AL neutrophils relative 59.6 % Not Available [facility] [address] [place], [place] [address], [address], 09/18/2024 11:13:54 09/19/19 25 09/18/2024 CBC WITH AUTO DIFFE RENTI AL lymphocytes relative 30.4 % Not Available [facility] [address] [place], [place] [address]y, [place], [address], 09/18/2024 11:13:54 09/19/19 25 09/18/2024 CBC WITH AUTO DIFFE RENTI AL monocytes relative 8.2 % Not Available [facility] [address] [place] [address] Pkwy, [place], [address], 09/18/2024 11:13:54 09/19/19 25 09/18/2024 CBC WITH AUTO DIFFE RENTI AL eosinophils relative 1.2 % Not Available [facility] [address] [place] [address] Pkwy, [place], [address], 09/18/2024 11:13:54 09/19/19 25 09/18/2024 CBC WITH AUTO DIFFE RENTI AL basophils relative 0.3 % Not Available [facility] [address] [place], [place] [address], [address], 09/18/2024 11:13:54 09/19/19 25 09/18/2024 CBC WITH AUTO DIFFE RENTI AL immature granulocytes relative 0.3 % Not Available [facility] [address] [place], [place] [address] [place], [address], 09/18/2024 11:13:54 09/19/19 25 09/18/2024 CBC WITH AUTO DIFFE RENTI AL neutrophils absolute 6.85 K/mcL 1.50-7 .00 Not Available [facility] [address] [place], [place] [address], [address], 09/18/2024 11:13:54 09/19/19 25 09/18/2024 CBC WITH AUTO DIFFE RENTI AL lymphocytes absolute 3.51 K/mcL 1.00-5 .00 Not Available [facility] [address] [place], [place] [address], [address], 09/18/2024 11:13:54 09/19/19 25 09/18/2024 CBC WITH AUTO DIFFE RENTI AL monocytes absolute 0.95 K/mcL 0.20-1 .00 Not Available [facility] [address] [place], [place] [address] [place], [address], 09/18/2024 11:13:54 09/19/19 25 09/18/2024 CBC WITH AUTO DIFFE RENTI AL eosinophils absolute 0.14 K/mcL 0.00-0 .50 Not Available [facility] [address] [place], [place] [address] [place], [address], 09/18/2024 11:13:54 09/19/19 25 09/18/2024 CBC WITH AUTO DIFFE RENTI AL basophils absolute 0.04 K/mcL 0.00-0 .20 Not Available [facility] [place], [address], 09/18/2024 11:13:54 09/19/19 25 09/18/2024 CBC WITH AUTO DIFFE RENTI AL immature granulocytes absolute 0.04 K/mcL 0.00-0 .03 high Not Available [facility] [address] [place], [place] [address], [address], 09/18/2024 11:13:54 09/19/19 25 09/18/2024 CBC WITH AUTO DIFFE RENTI AL note See Report high [facility], [address], [place] gfiel d, [place] [address] Not Available [facility] [place], [address], 09/18/2024 11:13:54 09/19/19 25 09/18/2024 MAGNE SIUM magnesium 2.0 mg/dL 1.9-2. 6 Not Available [facility] [place], [place], [address], 09/18/2024 12:17:43 09/19/19 25 09/18/2024 MAGNE SIUM note See Report [facility], [address], [place] gfiel d, [place] [address] Not Available [facility] [place], [address], 09/18/2024 12:17:43 09/19/19 25 09/18/2024 COMPR EHENS QIANA METAB OLIC PANEL sodium 136 mmol/ L 133-14 5 Not Available [facility] [place], [address], 09/18/2024 12:33:01 09/19/19 25 09/18/2024 COMPR EHENS QIANA METAB OLIC PANEL potassium 4.5 mmol/ L 3.5-5. 5 Not Available [facility] [address] [place], [place] [address], [address], 09/18/2024 12:33:01 09/19/19 25 09/18/2024 COMPR EHENS QIANA METAB OLIC PANEL chloride 99 mmol/ L 96-110 Not Available [facility] [address] [place] [address] [place], [address], 09/18/2024 12:33:01 09/19/19 25 09/18/2024 COMPR EHENS QIANA METAB OLIC PANEL CO2 27 mmol/ L 21-32 Not Available [facility]/[address] [place], [address], 09/18/2024 12:33:01 09/19/19 25 09/18/2024 COMPR EHENS QIANA METAB OLIC PANEL anion gap 10 3-[address] [facility] [address] [place], [place] [address]wy[place], [address], 09/18/2024 12:33:01 09/19/19 25 09/18/2024 COMPR EHENS QIANA METAB OLIC PANEL glucose 135 mg/dL 70-100 high Not Available [facility] [address] [place], [place] [address], [address], 09/18/2024 12:33:01 09/19/19 25 09/18/2024 COMPR EHENS QIANA METAB OLIC PANEL BUN 22 mg/dL 5-25 Not Available [facility] [address] [place], [place] [address], [address], 09/18/2024 12:33:01 09/19/19 09/18/2024 COMPR EHENS QIANA METAB OLIC PANEL creatinine 1.10 mg/dL 0.70-1 .30 Not Available [facility]/S Dept [address] [place] [address] [place], [address], 09/18/2024 12:33:01 09/19/19 25 09/18/2024 COMPR EHENS QIANA METAB OLIC PANEL eGFR 74 mL/mi n/1.7 3m2 >=60 Calcu latio n based on the Chron ic Kidne y Disea se Epide miolo gy Colla borat ion (CKD- EPI) equat ion refit witho ut adjus tment for race. Not Available [facility] [address] [place], [place] [address], [address], 09/18/2024 12:33:01 09/19/1909/18/2024 COMPR EHENS QIANA METAB OLIC PANEL BUN/creatini ne ratio 20.0 Not Available [facility] [address] [place], [place] [address], [address], 09/18/2024 12:33:01 09/19/19 25 09/18/2024 COMPR EHENS QIANA METAB OLIC PANEL calcium 10.0 mg/dL 8.5-10 .5 Not Available [facility] [address] [place], [place] [address], [address], 09/18/2024 12:33:01 09/19/19 25 09/18/2024 COMPR EHENS QIANA METAB OLIC PANEL AST (SGOT) 19 unit/ L 10-42 Not Available [facility] [address] [place] [address] [place], [address], 09/18/2024 12:33:01 09/19/19 25 09/18/2024 COMPR EHENS QIANA METAB OLIC PANEL ALT (SGPT) 32 unit/ L 10-60 Not Available [facility] [address] [place], [place] [address], [address], 09/18/2024 12:33:01 09/19/19 25 09/18/2024 COMPR EHENS QIANA METAB OLIC PANEL alkaline phosphatase 85 unit/ L 42-121 Not Available [facility]/S Dept [address] [place] [address] [place], [address], 09/18/2024 12:33:01 09/19/19 25 09/18/2024 COMPR EHENS QIANA METAB OLIC PANEL total protein 6.9 g/dL 6.0-8. 0 Not Available [facility] [address] [place] [address] [place], [address], 09/18/2024 12:33:01 09/19/19 25 09/18/2024 COMPR EHENS QIANA METAB OLIC PANEL albumin 3.7 g/dL 3.2-5. 0 Not Available [facility]/S Dept [address] [place], [place] [address], [address], 09/18/2024 12:33:01 09/19/19 25 09/18/2024 COMPR EHENS QIANA METAB OLIC PANEL total bilirubin 0.4 mg/dL 0.0-1. 4 Not Available [facility] [address] [place], [place] [address], [address], 09/18/2024 12:33:01 09/19/19 25 09/18/2024 COMPR EHENS QIANA METAB OLIC PANEL note See Report [facility], [address], [place] gfiel d, [place] [address] Not Available [facility]/S Dept [address] [place], [place] [address], [address], 09/18/2024 12:33:01 09/20/19 25 09/19/2024 CBC WITH AUTO DIFFE RENTI AL WBC 9.4 K/mcL 4.8-10 .8 Not Available [facility]/S Dept [facility] [place], [address], 09/19/2024 10:21:34 09/20/19 25 09/19/2024 CBC WITH AUTO DIFFE RENTI AL RBC 6.50 M/mcL 4.50-5 .50 high Not Available [facility] [address] [place], [address], 09/19/2024 10:21:34 09/20/19 25 09/19/2024 CBC WITH AUTO DIFFE RENTI AL hemoglobin 17.6 g/dL 13.5-1 7.5 high Not Available [facility] [address], [place], [address], 09/19/2024 10:21:34 09/20/19 25 09/19/2024 CBC WITH AUTO DIFFE RENTI AL hematocrit 55.9 % 42.0-5 4.0 high Not Available [facility] [address] [place], [address], 09/19/2024 10:21:34 09/20/19 25 09/19/2024 CBC WITH AUTO DIFFE RENTI AL MCV 86.1 fL 79.0-9 8.0 Not Available [facility] [address] [place], [address], 09/19/2024 10:21:34 09/20/19 25 09/19/2024 CBC WITH AUTO DIFFE RENTI AL MCH 27.1 pcg 27.0-3 2.0 Not Available [facility] [address] [place] [facility] [place], [address], 09/19/2024 10:21:34 09/20/19 25 09/19/2024 CBC WITH AUTO DIFFE RENTI AL MCHC 31.5 g/dL 32.0-3 7.0 low Not Available [facility] [address] [place], [place] [address]wy [facility] [place], [address], 09/19/2024 10:21:34 09/20/19 25 09/19/2024 CBC WITH AUTO DIFFE RENTI AL RDW 13.7 % 11.0-1 5.0 Not Available [address] [place], [address], 09/19/2024 10:21:34 09/20/19 25 09/19/2024 CBC WITH AUTO DIFFE RENTI AL platelets 226 K/mcL 130-40 0 Not Available [address] [place], [address], 09/19/2024 10:21:34 09/20/19 25 09/19/2024 CBC WITH AUTO DIFFE RENTI AL MPV 11.5 fL 7.0-11 .0 high Not Available [address] [place], [address], 09/19/2024 10:21:34 09/20/19 25 09/19/2024 CBC WITH AUTO DIFFE RENTI AL NRBC 0.0 % <1.0 Not Available [facility] [address] [place] [address] [place], [address], 09/19/2024 10:21:34 09/20/19 25 09/19/2024 CBC WITH AUTO DIFFE RENTI AL NRBC absolute 0.00 K/mcL <0.10 Not Available [address] [place], [address], 09/19/2024 10:21:34 09/20/19 25 09/19/2024 CBC WITH AUTO DIFFE RENTI AL neutrophils relative 56.9 % Not Available [address] [place], [address], 09/19/2024 10:21:34 09/20/19 25 09/19/2024 CBC WITH AUTO DIFFE RENTI AL lymphocytes relative 32.7 % Not Available [facility] [address] [place] [address] [place], [address], 09/19/2024 10:21:34 09/20/19 25 09/19/2024 CBC WITH AUTO DIFFE RENTI AL monocytes relative 7.5 % Not Available [facility] [address] [place] [address] [place], [address], 09/19/2024 10:21:34 09/20/19 25 09/19/2024 CBC WITH AUTO DIFFE RENTI AL eosinophils relative 1.9 % Not Available [facility]/[address] [place], [address], 09/19/2024 10:21:34 09/20/19 25 09/19/2024 CBC WITH AUTO DIFFE RENTI AL basophils relative 0.5 % Not Available [facility]/[address] [place], [address], 09/19/2024 10:21:34 09/20/19 25 09/19/2024 CBC WITH AUTO DIFFE RENTI AL immature granulocytes relative 0.5 % [facility] Available [facility] [address] [place] [address] [place], [address], 09/19/2024 10:21:34 09/20/19 25 09/19/2024 CBC WITH AUTO DIFFE RENTI AL neutrophils absolute 5.34 K/mcL 1.50-7 .00 Not Available [facility] [address] [place] [address] [place], [address], 09/19/2024 10:21:34 09/20/19 25 09/19/2024 CBC WITH AUTO DIFFE RENTI AL lymphocytes absolute 3.07 K/mcL 1.00-5 .00 [facility] Available [facility] [address] [place] [address], [address], 09/19/2024 10:21:34 09/20/19 25 09/19/2024 CBC WITH AUTO DIFFE RENTI AL monocytes absolute 0.70 K/mcL 0.20-1 .00 Not Available [facility] [address] [place] [address], [address], 09/19/2024 10:21:34 09/20/19 25 09/19/2024 CBC WITH AUTO DIFFE RENTI AL eosinophils absolute 0.18 K/mcL 0.00-0 .50 Not Available [facility] [address] [place] [address], [address], 09/19/2024 10:21:34 09/20/19 25 09/19/2024 CBC WITH AUTO DIFFE RENTI AL basophils absolute 0.05 K/mcL 0.00-0 .20 Not Available [facility] [address] [place] [address], [address], 09/19/2024 10:21:34 09/20/19 25 09/19/2024 CBC WITH AUTO DIFFE RENTI AL immature granulocytes absolute 0.05 K/mcL 0.00-0 .03 high Not Available [facility] [address] [place] [address], [address], 09/19/2024 10:21:34 09/20/19 25 09/19/2024 CBC WITH AUTO DIFFE RENTI AL note See Report high [facility], [address], Anettein carline d, [place] [address] Not Available [facility] [address] [place] [address], [address], 09/19/2024 10:21:34 09/26/19 25 09/25/2024 COMPL ETE BLOOD COUNT WBC 12.5 K/mcL 4.8-10 .8 high Not Available [address] [place], [address], 09/25/2024 10:12:37 09/26/19 25 09/25/2024 COMPL ETE BLOOD COUNT RBC 5.50 M/mcL 4.50-5 .50 Not Available [facility] [address] [place] [address] [place], [address], 09/25/2024 10:12:37 09/26/19 25 09/25/2024 COMPL ETE BLOOD COUNT hemoglobin 14.7 g/dL 13.5-1 7.5 Not Available [address] [place], [address], 09/25/2024 10:12:37 09/26/19 25 09/25/2024 COMPL ETE BLOOD COUNT hematocrit 46.6 % 42.0-5 4.0 Not Available [address] [place], [address], 09/25/2024 10:12:37 09/26/19 25 09/25/2024 COMPL ETE BLOOD COUNT MCV 85.2 fL 79.0-9 8.0 Not Available [facility] [address] [place], [place] [address], [address], 09/25/2024 10:12:37 09/26/19 25 09/25/2024 COMPL ETE BLOOD COUNT MCH 26.9 pcg 27.0-3 2.0 low Not Available [facility] [address] [place], [place] [address], [address], 09/25/2024 10:12:37 09/26/19 25 09/25/2024 COMPL ETE BLOOD COUNT MCHC 31.5 g/dL 32.0-3 7.0 low Not Available [address], [address], 09/25/2024 10:12:37 09/26/19 25 09/25/2024 COMPL ETE BLOOD COUNT RDW 13.2 % 11.0-1 5.0 Not Available [address], [address], 09/25/2024 10:12:37 09/26/19 25 09/25/2024 COMPL ETE BLOOD COUNT platelets 197 K/mcL 130-40 0 Not Available [address], [address], 09/25/2024 10:12:37 09/26/19 25 09/25/2024 COMPL ETE BLOOD COUNT MPV 11.2 fL 7.0-11 .0 high Not Available [address], [address], 09/25/2024 10:12:37 09/26/19 25 09/25/2024 COMPL ETE BLOOD COUNT NRBC 0.0 % <1.0 Not Available [address], [address], 09/25/2024 10:12:37 09/26/19 25 09/25/2024 COMPL ETE BLOOD COUNT NRBC absolute 0.00 K/mcL <0.10 Not Available [address], [address], 09/25/2024 10:12:37 09/26/19 25 09/25/2024 COMPL ETE BLOOD COUNT note See Report [facility], [address], Dany crowley d, [place] [address] Not Available [facility]/S Dept [facility] [place], [address], 09/25/2024 10:12:37 09/26/19 25 09/25/2024 BASIC METAB OLIC PANEL sodium 136 mmol/ L 133-14 5 Not Available [facility] [place], [address], 09/25/2024 10:42:53 09/26/19 25 09/25/2024 BASIC METAB OLIC PANEL potassium 4.0 mmol/ L 3.5-5. 5 Not Available [facility] [place], [address], 09/25/2024 10:42:53 09/26/19 25 09/25/2024 BASIC METAB OLIC PANEL chloride 99 mmol/ L 96-110 Not Available [facility] [address] [place], [place] [address], [address], 09/25/2024 10:42:53 09/26/19 25 09/25/2024 BASIC METAB OLIC PANEL CO2 28 mmol/ L 21-32 Not Available [facility] [place], [address], 09/25/2024 10:42:53 09/26/19 25 09/25/2024 BASIC METAB OLIC PANEL anion gap 9 3-[address] [facility]/S Dept [facility] [place], [address], 09/25/2024 10:42:53 09/26/19 25 09/25/2024 BASIC METAB OLIC PANEL glucose 117 mg/dL 70-100 high Not Available [facility]/S Dept [facility] [place], [address], 09/25/2024 10:42:53 09/26/19 25 09/25/2024 BASIC METAB OLIC PANEL BUN 19 mg/dL 5-25 Not Available [facility] [place], [address], 09/25/2024 10:42:53 09/26/19 25 09/25/2024 BASIC METAB OLIC PANEL creatinine 1.05 mg/dL 0.70-1 .30 Not Available [facility] [place], [address], 09/25/2024 10:42:53 09/26/19 25 09/25/2024 BASIC METAB OLIC PANEL eGFR 78 mL/mi n/1.7 3m2 >=60 Calcu latio n based on the Chron ic Kidne y Disea se Epide miolo gy Colla borat ion (CKD- EPI) equat ion refit witho wv adjus tment for race. Not Available [facility] [address] [place], [place] [address], [address], 09/25/2024 10:42:53 09/26/19 25 09/25/2024 BASIC METAB OLIC PANEL BUN/creatini ne ratio 18.1 Not Available [facility] [address] [place], [place] [address], [address], 09/25/2024 10:42:53 09/26/19 25 09/25/2024 BASIC METAB OLIC PANEL calcium 9.3 mg/dL 8.5-10 .5 Not Available [facility] [address] [place], [place] [address], [address], 09/25/2024 10:42:53 09/26/19 25 09/25/2024 BASIC METAB OLIC PANEL note See Report [facility], [address], Dany crowley d, [place] [address] Not Available [facility] [address] [place] [address] [place], [address], 09/25/2024 10:42:53 09/26/19 25 09/25/2024 TREPO NEMA PALLI DUM ANTIB ZECHARIAH WITH REFLE X TO RPR AND PARTI JORDY AGGLU TINAT ION T. pallidum antibodies Positi ve negati ve abnormal Not Available [facility] [address] [place] [address] [place], [address], 09/25/2024 11:41:39 09/26/19 25 09/25/2024 TREPO NEMA PALLI DUM ANTIB ZECHARIAH WITH REFLE X TO RPR AND PARTI JORDY AGGLU TINAT ION note See Report abnormal [facility], [address], [place], [facility] [place] [address] Not Available [facility] [address] [place] [address] [place], [address], 09/25/2024 11:41:39 09/26/19 25 09/25/2024 RAPID PLASM A REAGI N WITH REFLE X TO TITER RPR Reacti ve nonrea ctive abnormal Not Available [facility]/S Dept [address] [place] [address] [place], [address], 09/25/2024 14:29:10 09/26/19 25 09/25/2024 RAPID PLASM A REAGI N WITH REFLE X TO TITER note See Report abnormal [facility], [address], [place], [facility] [place] [address] Not Available [facility]/S Dept [address] [place] [address], [place], [address], 09/25/2024 14:29:10 09/26/19 25 09/25/2024 RAPID PLASM A REAGI N TITER rapid plasma reagin titer 1:64 nonrea ctive abnormal Not Available [facility] [address] [place] [address] [place], [address], 09/25/2024 14:44:40 09/26/19 25 09/25/2024 RAPID PLASM A REAGI N TITER note See Report abnormal [facility], [address], [place], [place] [address] Not Available [facility] U/S Dept [address] [place], [place] [address] [address], [place], [address], 09/25/2024 14:44:40 09/27/19 25 09/26/2024 CBC WITH AUTO DIFFE RENTI AL WBC 11.1 K/mcL 4.8-10 .8 high Not Available [facility] Dept [address] [place] [address] Pkwy, [place], [address], 09/26/2024 09:11:21 09/27/19 25 09/26/2024 CBC WITH AUTO DIFFE RENTI AL RBC 5.60 M/mcL 4.50-5 .50 high Not Available [facility] Dept [address] [place], [place] [address], [place], [address], 09/26/2024 09:11:21 09/27/19 25 09/26/2024 CBC WITH AUTO DIFFE RENTI AL hemoglobin 15.1 g/dL 13.5-1 7.5 Not Available [facility] Dept [address] [place], [place] [address], [place], [address], 09/26/2024 09:11:21 09/27/19 25 09/26/2024 CBC WITH AUTO DIFFE RENTI AL hematocrit 48.3 % 42.0-5 4.0 Not Available [facility] Dept [address] [place], [place] [address], [place], [address], 09/26/2024 09:11:21 09/27/19 25 09/26/2024 CBC WITH AUTO DIFFE RENTI AL MCV 85.6 fL 79.0-9 8.0 Not Available [facility] Dept [address] [place], [place] [address], [place], [address], 09/26/2024 09:11:21 09/27/19 25 09/26/2024 CBC WITH AUTO DIFFE RENTI AL MCH 26.8 pcg 27.0-3 2.0 low Not Available [facility] [place], [address], 09/26/2024 09:11:21 09/27/1909/26/2024 CBC WITH AUTO DIFFE RENTI AL MCHC 31.3 g/dL 32.0-3 7.0 low Not Available [facility] [address] [place] [address] [place], [address], 09/26/2024 09:11:21 09/27/1909/26/2024 CBC WITH AUTO DIFFE RENTI AL RDW 13.0 % 11.0-1 5.0 Not Available [facility] [address] [place], [place] [address], [address], 09/26/2024 09:11:21 09/27/1909/26/2024 CBC WITH AUTO DIFFE RENTI AL platelets 208 K/mcL 130-40 0 Not Available [facility] [address] [place], [place] [address] [place], [address], 09/26/2024 09:11:21 09/27/1909/26/2024 CBC WITH AUTO DIFFE RENTI AL MPV 11.3 fL 7.0-11 .0 high Not Available [facility] [address] [place] [address] [place], [address], 09/26/2024 09:11:21 09/27/19 25 09/26/2024 CBC WITH AUTO DIFFE RENTI AL NRBC 0.0 % <1.0 Not Available [facility] [address] [place], [place] [address] [place], [address], 09/26/2024 09:11:21 09/27/19 25 09/26/2024 CBC WITH AUTO DIFFE RENTI AL NRBC absolute 0.00 K/mcL <0.10 Not Available [facility] Dept [address] [place] [address], [address], 09/26/2024 09:11:21 09/27/1909/26/2024 CBC WITH AUTO DIFFE RENTI AL neutrophils relative 68.5 % Not Available [facility] [address] [place] [address], [address], 09/26/2024 09:11:21 09/27/1909/26/2024 CBC WITH AUTO DIFFE RENTI AL lymphocytes relative 22.6 % Not Available [facility] [address] [place] [address], [address], 09/26/2024 09:11:21 09/27/1909/26/2024 CBC WITH AUTO DIFFE RENTI AL monocytes relative 6.6 % Not Available [facility] [address] [place] [address], [address], 09/26/2024 09:11:21 09/27/19 25 09/26/2024 CBC WITH AUTO DIFFE RENTI AL eosinophils relative 1.4 % Not Available [facility] [address] [place] [address], [address], 09/26/2024 09:11:21 09/27/19 25 09/26/2024 CBC WITH AUTO DIFFE RENTI AL basophils relative 0.5 % Not Available [facility] [address] [place] [address], [address], 09/26/2024 09:11:21 09/27/19 25 09/26/2024 CBC WITH AUTO DIFFE RENTI AL immature granulocytes relative 0.4 % Not Available [facility] [address] [place] [address] [place], [address], 09/26/2024 09:11:21 09/27/1909/26/2024 CBC WITH AUTO DIFFE RENTI AL neutrophils absolute 7.61 K/mcL 1.50-7 .00 high Not Available [facility] [address] [place], [place] [address]Mar[place], [address], 09/26/2024 09:11:21 09/27/1909/26/2024 CBC WITH AUTO DIFFE RENTI AL lymphocytes absolute 2.51 K/mcL 1.00-5 .00 Not Available [facility] [address] [place], [place] [address], [address], 09/26/2024 09:11:21 09/27/1909/26/2024 CBC WITH AUTO DIFFE RENTI AL monocytes absolute 0.73 K/mcL 0.20-1 .00 Not Available [facility] [address] [place], [place] [address]Mar[place], [address], 09/26/2024 09:11:21 09/27/1909/26/2024 CBC WITH AUTO DIFFE RENTI AL eosinophils absolute 0.16 K/mcL 0.00-0 .50 Not Available [facility] [address] [place], [place] [address]minda [facility] [place], [address], 09/26/2024 09:11:21 09/27/1909/26/2024 CBC WITH AUTO DIFFE RENTI AL basophils absolute 0.05 K/mcL 0.00-0 .20 Not Available [facility] [address] [place], [place] [address], [address], 09/26/2024 09:11:21 09/27/19 25 09/26/2024 CBC WITH AUTO DIFFE RENTI AL immature granulocytes absolute 0.04 K/mcL 0.00-0 .03 high Not Available [facility] U/S Dept [address] [place], [place] [address], [address], 09/26/2024 09:11:21 09/27/1909/26/2024 CBC WITH AUTO DIFFE DESTIN AL note See Report high [facility], [address], [place], [place] [address] Not Available [facility]/S Dept [address] [place], [place] [address], [address], 09/26/2024 09:11:21 09/29/1909/27/2024 URINA LYSIS WITH REFLE X MICRO SCOPI C AND CULTU RE specific gravity urine 1.026 1.003- 1.030 Not Available [facility]/S Dept [address] [place], [place] [address]minda [facility] [place], [address], 09/28/2024 12:19:16 09/29/1909/27/2024 URINA LYSIS WITH REFLE X MICRO SCOPI C AND CULTU RE pH, urine >=9.0 pH 5.0-8. 0 abnormal Not Available [facility]/S Dept [address] [place] [address] [place], [address], 09/28/2024 12:19:16 09/29/1909/27/2024 URINA LYSIS WITH REFLE X MICRO SCOPI C AND CULTU RE leukocytes, urine Large negati ve abnormal Not Available [facility]/S Dept [address] [place], [place] [address]y[place], [address], 09/28/2024 12:19:16 09/29/1909/27/2024 URINA LYSIS WITH REFLE X MICRO SCOPI C AND CULTU RE nitrite, urine Negati ve negati ve Not Available [facility] Dept [address] [place], [place] [address]y [facility] [place], [address], 09/28/2024 12:19:16 09/29/1909/27/2024 URINA LYSIS WITH REFLE X MICRO SCOPI C AND CULTU RE protein, urine 300 mg/dL <=trac e abnormal Not Available [facility]/S Dept [address] [place] [address] Pkwy, [place], [address], 09/28/2024 12:19:16 09/29/1909/27/2024 URINA LYSIS WITH REFLE X MICRO SCOPI C AND CULTU RE glucose, urine Negati ve mg/dL negati ve Not Available [facility] Dept [address] [place] [address] Pkwy, [facility] [place], [address], 09/28/2024 12:19:16 09/29/1909/27/2024 URINA LYSIS WITH REFLE X MICRO SCOPI C AND CULTU RE ketones, urine Negati ve mg/dL negati ve Not Available [facility] Dept [address] [place] [address] [address]kwy, [place], [address], 09/28/2024 12:19:16 09/29/1909/27/2024 URINA LYSIS WITH REFLE X MICRO SCOPI C AND CULTU RE urobilinogen , urine 0.2 mg/dL 0.2-1. 0 Not Available [facility] Dept [address] [place] [address] [facility] [address], 09/28/2024 12:19:16 09/29/1909/27/2024 URINA LYSIS WITH REFLE X MICRO SCOPI C AND CULTU RE bilirubin, urine Negati ve negati ve Not Available [facility] [address] [place] [address] [place] [address], 09/28/2024 12:19:16 09/29/1909/27/2024 URINA LYSIS WITH REFLE X MICRO SCOPI C AND CULTU RE blood, urine Negati ve negati ve Not Available [facility] Dept [address] [place] [address] [address]kw[address], [place], [address], 09/28/2024 12:19:16 09/29/19 25 09/27/2024 URINA LYSIS WITH REFLE X MICRO SCOPI C AND CULTU RE RBC, urine 2.6 /hpf 0-4 Not Available [facility] U/S Dept [address] [place], [place] [address], [address], 09/28/2024 12:19:16 09/29/19 25 09/27/2024 URINA LYSIS WITH REFLE X MICRO SCOPI C AND CULTU RE WBC, urine 14.2 /hpf 0-4 high Not Available [facility] U/S Dept [address] [place], [place] [address]wy, [place], [address], 09/28/2024 12:19:16 09/29/19 25 09/27/2024 URINA LYSIS WITH REFLE X MICRO SCOPI C AND CULTU RE squamous epithelial, urine 85 /lpf 0-60 high Not Available [facility] Dept [address] [place], [place] [address]y [facility] [place], [address], 09/28/2024 12:19:16 09/29/19 25 09/27/2024 URINA LYSIS WITH REFLE X MICRO SCOPI C AND CULTU RE bacteria, urine Many /hpf negati ve abnormal Not Available [facility] Dept [address] [place], [place] [address], [address], 09/28/2024 12:19:16 09/29/19 25 09/27/2024 URINA LYSIS WITH REFLE X MICRO SCOPI C AND CULTU RE hyaline casts, urine 9.2 /lpf 0-3 high Not Available [facility] U/S Dept [address] [place], [place] [address]wy [facility], [address], 09/28/2024 12:19:16 09/29/19 25 09/27/2024 URINA LYSIS WITH REFLE X MICRO SCOPI C AND CULTU RE note See Report high [facility], [address], [place], [place] [address] Not Available [facility] Dept [address] [place], [place] [address], [address], 09/28/2024 12:19:16 09/29/19 25 09/28/2024 BASIC METAB OLIC PANEL sodium 135 mmol/ L 133-14 5 Not Available [facility] [address] [place] [address] Pkwy, [facility] [place], [address], 09/28/2024 12:26:07 09/29/19 25 09/28/2024 BASIC METAB OLIC PANEL potassium 4.7 mmol/ L 3.5-5. 5 Not Available [facility] [address] [place] [address] [place] [facility] [place], [address], 09/28/2024 12:26:07 09/29/19 25 09/28/2024 BASIC METAB OLIC PANEL chloride 98 mmol/ L 96-110 Not Available [facility] [address] [place] [address] [place] [facility], [address], 09/28/2024 12:26:07 09/29/19 25 09/28/2024 BASIC METAB OLIC PANEL CO2 32 mmol/ L 21-32 Not Available [facility] [address] [place] [address] [place] [facility] [place], [address], 09/28/2024 12:26:07 09/29/19 25 09/28/2024 BASIC METAB OLIC PANEL anion gap 5 3-[address] [facility] [address] [place] [address] [place] [facility] [place], [address], 09/28/2024 12:26:07 09/29/19 25 09/28/2024 BASIC METAB OLIC PANEL glucose 139 mg/dL 70-100 high Not Available [facility] [address] [place], [address], 09/28/2024 12:26:07 09/29/19 25 09/28/2024 BASIC METAB OLIC PANEL BUN 25 mg/dL 5-25 Not Available [facility]/ Dept [facility] [place], [address], 09/28/2024 12:26:07 09/29/19 25 09/28/2024 BASIC METAB OLIC PANEL creatinine 1.11 mg/dL 0.70-1 .30 Not Available [facility] [place], [address], 09/28/2024 12:26:07 09/29/19 25 09/28/2024 BASIC METAB OLIC PANEL eGFR 73 mL/mi n/1.7 3m2 >=60 Calcu latio n based on the Chron ic Kidne y Disea se Epide miolo gy Colla borat ion (CKD- EPI) equat ion refit witho ut adjus tment for race. Not Available [facility] [place], [address], 09/28/2024 12:26:07 09/29/19 25 09/28/2024 BASIC METAB OLIC PANEL BUN/creatini ne ratio 22.5 Not Available [facility] [address] [place], [place] [address], [address], 09/28/2024 12:26:07 09/29/19 25 09/28/2024 BASIC METAB OLIC PANEL calcium 9.1 mg/dL 8.5-10 .5 Not Available [facility] [place], [address], 09/28/2024 12:26:07 09/29/19 25 09/28/2024 BASIC METAB OLIC PANEL note See Report [facility], [address], [place], [place] [address] Not Available [facility] Dept [address] [facility] Center[place], [address], 09/28/2024 12:26:07 10/02/19 25 09/27/2024 CULTU RE URINE culture, urine PROTEU S MIRABI LIS abnormal >100, 000 CFU/m L Prote us mirab ilis Edite d resul t: Previ ously repor scot as Prote us speci es on 2024 at 1014 EDT. Not Available [facility] Dept [address] [place], [address], 10/01/2024 07:48:42 10/02/1909/27/2024 CULTU RE URINE report Susce ptibi lity Repor t Speci men Sourc e: Urine Colle cted: Sep 27, 2024 12:38 :00 ----- ----- ----- ----- ----- ----- ----- ----- ----- ----- ----- ----- ----- ----- ----- ----- Organ ism: PROTE US MIRAB ILIS Antib iotic s ANA LILIA Inter preta tion ----- ----- ----- ----- ----- ----- ----- ----- ----- ----- ----- ----- ----- ----- ----- ----- Amoxi cilli n+Cla v Islt ANA LILIA 4 S Ampic illin +Sulb ac Islt ANA LILIA 2 S Pip+T azo Islt ANA LILIA 4 S ceFAZ dilip Susc Islt 4 S cefOX itin Islt ANA LILIA 4 S cefTA Zidim e Islt ANA LILIA 0.5 S cefTR IAXon e Islt ANA LILIA 0.25 S Cefep soledad Islt ANA LILIA 0.25 S Merop enem Islt ANA LILIA 0.25 S Amika paddy Islt ANA LILIA 4 S Genta micin Islt ANA LILIA 1 S Cipro floxa paddy Islt ANA LILIA 0.06 S levoF LOXac in Islt ANA LILIA 0.12 S Nitro furan toin Islt ANA LILIA 64 R TMP SMX Islt ANA LILIA 20 S Not Available [facility] U/S Dept [address] [place], [address], 10/01/2024 07:48:42 10/02/19 25 10/01/2024 CULTU RE URINE .note See Note Origi nal Order ing Provi oj: ISAIAH M DAHDU L [facility] - [place] - [address], [place], [place] [address] Not Available [facility] U/S Dept [address] [place], [address], 10/01/2024 07:48:42 01/07/20 25 01/07/2025 COMP. METAB OLIC PANEL (14) glucose 106 mg/dL 70-99 above high normal Not Available [facility] ([facility]) [address] [place], [address], 01/07/2025 08:07:39 01/07/20 25 01/07/2025 COMP. METAB OLIC PANEL (14) BUN 22 mg/dL 8-27 normal Not Available [facility] ([facility]) [address] [place], [address], 01/07/2025 08:07:39 01/07/20 25 01/07/2025 COMP. METAB OLIC PANEL (14) creatinine 1.08 mg/dL 0.76-1 .27 normal Not Available [facility] ([facility]) [address] [place], [address], 01/07/2025 08:07:39 01/07/20 25 01/07/2025 COMP. METAB OLIC PANEL (14) eGFR 75 mL/mi n/1.7 3 >59 normal Not Available [facility] ([facility]) [address] [facility] [place], [address], 01/07/2025 08:07:39 01/07/20 25 01/07/2025 COMP. METAB OLIC PANEL (14) BUN/creatini ne ratio 20 10-24 normal Not Available [facility] ([facility]) [address] [facility] [place], [address], 01/07/2025 08:07:39 01/07/20 25 01/07/2025 COMP. METAB OLIC PANEL (14) sodium 141 mmol/ L 134-14 4 normal Not Available [facility] ([facility]) [address] [facility] [place], [address], 01/07/2025 08:07:39 01/07/20 25 01/07/2025 COMP. METAB OLIC PANEL (14) potassium 4.7 mmol/ L 3.5-5. 2 normal Not Available [facility] ([facility]) [address] [facility] [place], [address], 01/07/2025 08:07:39 01/07/20 25 01/07/2025 COMP. METAB OLIC PANEL (14) chloride 100 mmol/ L 96-106 normal Not Available [facility] ([facility]) [address] [facility] [place], [address], 01/07/2025 08:07:39 01/07/20 25 01/07/2025 COMP. METAB OLIC PANEL (14) carbon dioxide, total 24 mmol/ L 20-29 normal Not Available [facility] ([facility]) [address] [facility] [place], [address], 01/07/2025 08:07:39 01/07/20 25 01/07/2025 COMP. METAB OLIC PANEL (14) calcium 10.0 mg/dL 8.6-10 .2 normal Not Available [facility] ([facility]) [address] [place], [address], 01/07/2025 08:07:39 01/07/20 25 01/07/2025 COMP. METAB OLIC PANEL (14) protein, total 6.7 g/dL 6.0-8. 5 normal Not Available [facility] ([facility]) [address] [facility] [place], [address], 01/07/2025 08:07:39 01/07/20 25 01/07/2025 COMP. METAB OLIC PANEL (14) albumin 4.3 g/dL 3.9-4. 9 normal Not Available [facility] ([facility]) [address] [facility] [place], [address], 01/07/2025 08:07:39 01/07/20 25 01/07/2025 COMP. METAB OLIC PANEL (14) globulin, total 2.4 g/dL 1.5-4. 5 Not Available [facility] ([facility]) [address] [facility] [place], [address], 01/07/2025 08:07:39 01/07/20 25 01/07/2025 COMP. METAB OLIC PANEL (14) bilirubin, total 0.3 mg/dL 0.0-1. 2 normal Not Available [facility] ([facility]) [address] [facility] [place], [address], 01/07/2025 08:07:39 01/07/20 25 01/07/2025 COMP. METAB OLIC PANEL (14) alkaline phosphatase 83 IU/L 47-123 normal Ple ase note refer ence inter carla alonso e Not Available [facility] ([facility]) [address] [facility] [place], [address], 01/07/2025 08:07:39 01/07/20 25 01/07/2025 COMP. METAB OLIC PANEL (14) AST (SGOT) 26 IU/L 0-40 normal Not Available [facility] ([facility]) [address] [facility], [place], [address], 01/07/2025 08:07:39 01/07/2001/07/2025 COMP. METAB OLIC PANEL (14) ALT (SGPT) 27 IU/L 0-44 normal Not Available [facility] ([facility]) [address] [facility], [place], [address], 01/07/2025 08:07:39 01/07/2001/07/2025 HEMOG LOBIN A1C hemoglobin A1C 6.7 % 4.8-5. 6 above high normal Predi abete s: 5.7 - 6.4 Diabe brian: >6.4 Glyce ana lilia contr ol for adult s with diabe brian: <7.0 Not Available [facility] ([facility]) [address] [facility], [place], [address], 01/07/2025 08:07:40 01/07/2001/07/2025 PROST ATE-S PECIF IC AG prostate specific Ag 0.4 NG/mL 0.0-4. 0 normal Quintin ECLIA metho dolog y. Accor ding to the Ameri can [employer] g[employer] iatio n, Serum PSA shoul d decre ase and remai n at undet ectab le level s after radic al prost atect akilah. The AUA defin es bioch emica l recur rence as an initi al PSA value 0.2 ng/mL or great er follo wed by a subse quent confi rmato ry PSA value 0.2 ng/mL or great er. Value s obtai abril with diffe rent assay metho ds or kits canno t be used inter alonso eably . Resul ts canno t be inter prete d as absol tejon evide nce of the prese nce or absen ce of [place] se. Not Available [facility] ([facility]) [address] [facility], [place], [address], 01/07/2025 14:06:35 01/17/2001/05/2025 MRI, thora cic spine , w/o contr ast No observ ation record ed. AARTI [facility] [place] [address] [place], [address], 01/17/2025 05:47:12 01/17/2001/05/2025 MRI, cervi amy spine , w/o contr ast No observ ation record ed. AARTI [facility]a [facility] [address] [place], [address], 01/17/2025 05:47:12 01/17/2001/05/2025 MRI, lumba r spine , w/o contr ast No observ ation record ed. rossy [facility] [place] [address] [place], [address], 01/16/2025 09:43:57 Result Notes None recorded. Problems Name Problem SNOMED Code Status Onset Date Resolution Date Notes Provider Name and Address Organization Details Recorded Time Snoring 64617414 Completed 06/20/2016 Raad Diehl MD [address] [facility] [address], [place], [address] , [facility] 7 14:28:12 Early satiety 595897124 Completed 06/20/2016 Raad Diehl MD [address], [place], [address] , [facility] 7 14:27:44 Low back pain 444008728 Completed 06/20/2016 Raad Diehl MD [address], [place], [address] , [facility] 7 14:27:30 Dermatop hytosis 80041558 Completed 06/20/2016 Raad Diehl MD [address], [place], [address] , [facility] 14:27:55 Impaired fasting glycemia 833164769 Completed 04/20/2018 Raad Diehl MD [address], [place], [address] , [facility] 9 12:42:51 Pleural effusion associat ed with pulmonar y infectio n [id number] Completed 10/21/2019 Raad Diehl MD [address], [place], [address] , [facility] 0 13:19:10 Acute endocard itis 87225789 Completed 10/21/2019 Raad Diehl MD [address], [place], [address] , [facility] 0 13:24:31 Pain of hip region [id number] Completed 201211/25/2013 IMPRESSI ON: SUSPECT SEVER ARTHRITI S SOURCE. NEEDS BETTER IMAGING WITH RADILOLO GIST REVIEW WELL ORTHO CONSULT. CONTINUE PRN NSAIDS FOR SYMPTOM RELIEF.; RECORDED 03/25/20 13 11:18AM BY CHRISTINE THOMAS MA, ANNOTATI ON/ADDEN DUM Not Available [facility] 4 05:26:41 Pain of hip region [id number] Completed 201210/29/2013 IMPRESSI ON: SUSPECT SEVER ARTHRITI S SOURCE. NEEDS BETTER IMAGING WITH RADILOLO GIST REVIEW WELL ORTHO CONSULT. CONTINUE PRN NSAIDS FOR SYMPTOM RELIEF.; RECORDED 03/25/20 13 11:18AM BY CHRISTINE THOMAS MA, ANNOTATI ON/ADDEN DUM Not Available [facility] 4 14:13:54 Benign neoplasm of colon [id number] Active 2013 Not Available [facility] 4 08:35:47 Adult health examinat ion Completed 201311/25/2013 IMPRESSI ON: WILL UPDATE IMMUNIZA TION STATUS (PT DECLINES FLU AND PNEUMOVA X) AND SCREEN BASED ON RISK FACTORS. REGULAR DENTAL CARE AND SEATBELT USE ADVISED. DISTRACT ED DRIVING DISCUSSE D. OVERDUE FOR COLON CANCER SCREENIN G, PROSTATE CANCER SCREENIN G NOW UTD.; RECORDED 04/23/19 14 2:51PM BY DENA SOLER MA, ANNOTATI ON/ADDEN DUM Not Available [facility] 4 05:26:41 Administ ration of diphther ia and tetanus vaccine Completed 201311/25/2013 RECORDED 04/23/19 14 2:50PM BY DENA SOLER MA, ANNOTATI ON/ADDEN DUM Not Available [facility] 4 05:26:42 Adult health examinat ion Completed 201310/29/2013 IMPRESSI ON: WILL UPDATE IMMUNIZA TION STATUS (PT DECLINES FLU AND PNEUMOVA X) AND SCREEN BASED ON RISK FACTORS. REGULAR DENTAL CARE AND SEATBELT USE ADVISED. DISTRACT ED DRIVING BAILEY Dial OVERDUE FOR COLON CANCER SCREENIN G, PROSTATE CANCER SCREENIN G NOW UTD.; RECORDED 04/23/19 14 2:51PM BY DENA SOLER MA, ANNOTATI ON/ADDEN DUM Not Available [facility] 4 14:13:54 Tobacco dependen ce syndrome [id number] Completed 201310/29/2013 RECORDED 04/23/19 14 2:51PM BY DENA SOLER MA, ANNOTATI ON/ADDEN DUM aRad Diehl MD [address] [address], [facility] [place], [address] , [facility] 7 14:28:23 Obesity 051755342 Completed 201310/29/2013 RECORDED 04/23/19 14 2:51PM BY DENA SOLER MA, ANNOTATI ON/ADDEN DUM Holley lutz [facility] 9 16:15:11 Administ ration of diphther ia and tetanus vaccine Completed 201310/29/2013 RECORDED 04/23/19 14 2:50PM BY DENA SOLER MA, ANNOTATI ON/ADDEN DUM Not Available [facility] 4 14:13:55 Screenin g for malignan t neoplasm of colon Completed 201311/25/2013 RECORDED 05/27/19 14 10:10AM BY MELINDA BISHOP MA, ANNOTATI ON/ADDEN DUM Not Available [facility] 4 05:26:41 Screenin g for malignan t neoplasm of colon Completed 201310/29/2013 RECORDED 05/27/19 14 10:10AM BY MELINDA BISHOP MA, ANNOTATI ON/ADDEN DUM Not Available [facility] 4 14:13:54 Tobacco dependen ce syndrome 07376525 Active 2013 Not Available [facility] 4 08:35:47 Divertic ular disease of colon 410612630 Completed 201307/03/2018 Raad Diehl MD [address] [facility] [address], [place], [address] , [facility] 9 13:44:23 Internal hemorrho ids 99581801 Active 2013 Not Available [facility] 4 08:35:47 Pure hypercho lesterol emia 023075689 Active 2013 Not Available [facility] 4 08:35:46 Essentia l hyperten librado 67296517 Completed 201306/20/2016 Holley lutz [facility] 1 15:04:45 Immuniza tion refused Completed 201303/18/2014 RECORDED 05/27/19 14 10:11AM BY MELINDA BISHOP MA, OFFICE VISIT João lutz [facility] 4 12:30:05 Obesity 976705494 Completed 201306/20/2016 IMPRESSI ON: POTENTIA L [employer] [place]. HEALTHIE R DIET AND EXERCISE HABITS ADVISED. ; RECORDED 05/27/19 14 10:11AM BY MELINDA BISHOP MA, OFFICE VISIT [facility]ley lutz [facility] 9 16:15:11 Pre-surg bev evaluati on Completed 201302/18/2015 IMPRESSI ON: MICHAELLE IS AT LOW CARDIOPU LMONARY RISK FOR THIS PROCEDUR E. NO FURTHER TESTING INDICATE D BEFORE SURGERY; RECORDED 05/27/19 14 11:00AM BY GAYATRI SILVESTRE, OFFICE VISIT Raad Diehl MD [address], [place], [address] , [facility] 5 11:20:02 Follow-u p encounte r Completed 201310/29/2013 RECORDED 06/19/19 14 8:39AM BY ATIF MERINO, HOMA, TRANSITI ON OF CARE Not Available [facility] 4 14:13:54 Follow-u p encounte r Completed 201303/18/2014 RECORDED 06/25/19 14 11:36AM BY ATIF MERINO RN, PHONE ENCOUNTE R João Garcia [facility] 4 12:30:05 Osteoart hritis of hip 746808196 Completed 201306/20/2016 Raad Diehl MD [address], [place], [address] , [facility] 7 14:27:19 Multiple nodules of lung 244871681 Active 2015 Not Available [facility] 4 08:35:47 Cyst of pancreas 59599172 Completed 201506/28/2017 Raad Diehl MD [address], [place], [address] , [facility] 3 16:04:44 Abscess of buttock 37108338 Completed 201506/20/2016 Raad Diehl MD [address], [place], [address] , [facility] 7 14:16:00 Pleural effusion 45913131 Completed 201506/20/2016 right Raad Diehl MD [address], [place], [address] , [facility] 7 14:16:21 Obstruct qiana sleep apnea syndrome 47238121 Active 2015 moderate Not Available [facility] 4 08:35:47 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 218385602 Completed 201506/20/2016 Raad Diehl MD [address], [place], [address] , [facility] 8 15:14:06 Septic pulmonar y embolism 203214046 Completed 201606/20/2016 Raad Diehl MD [address], [place], [address] , [facility] 7 14:15:54 Psoriasi s 2436779 Active 2016 Not Available [facility] 4 08:35:47 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 596725955 Completed 201606/28/2017 Raad Diehl MD [address], [place], [address] , [facility] 8 15:14:06 Hiatal hernia 03688704 Active 2016 Not Available [facility] 4 08:35:47 Acute duodenal ulcer 945050537 Completed 201606/28/2017 Raad Diehl MD [address], [place], [address] , [facility] 8 15:36:57 History of methicil mckenna resistan t Staphylo coccus aureus infectio n 829333781 Active 2017 Not Available [facility] 4 08:35:47 History of duodenal ulcer 152704620 Active 2017 Not Available [facility] 4 08:35:46 Cyst of pancreas 30824328 Active 2017 needs 1 yr f/u Not Available [facility] 4 08:35:46 Type 2 diabetes mellitus 38194191 Completed 201807/13/2018 DIANA Trevino, [facility] 1 14:58:25 Bacterem ia caused by Methicil mckenna resistan t Staphylo coccus aureus 76574475374 191085 Completed 201807/03/2018 Raad Diehl MD [address], [place], [address] , [facility] 9 13:43:44 Divertic ular disease 589747595 Active 2018 Not Available [facility] 4 08:35:46 Obesity 277307138 Active 2018 Not Available [facility] 4 08:35:46 Uncontro lled type 2 diabetes mellitus 871790771 Completed 201802/16/2021 DIANA Trevino, [facility] 1 14:58:19 Chronic kidney disease stage 2 764196088 Completed 201805/23/2019 [facility] 3 12:37:21 Chronic kidney disease stage 3 332099769 Completed 201805/05/2020 Raad Diehl MD [address], [place], [address] , [facility] 1 15:25:49 Chronic kidney disease stage 2 207331491 Active 2018 Not Available [facility] 4 08:35:47 Microalb uminuria 120505488 Active 2018 Not Available [facility] 4 08:35:46 History of gastriti s 35601353570 9103 Active 2018 Not Available [facility] 4 08:35:47 Renal disorder due to type 2 diabetes mellitus 846103670 Active 2018 Not Available [facility] 4 08:35:46 Lumbar spondylo sis 964114514 Active 2019 Not Available [facility] 4 08:35:46 Type 2 diabetes mellitus 49335684 Completed 201902/16/2021 Christine Thomas MA [facility], [facility] 1 14:58:25 History of endocard itis 572492707 Active 2019 Not Available [facility] 4 08:35:46 Epiderma l inclusio n cyst of eyelid 662300769 Completed 201908/23/2022 Raad Diehl MD [address] [facility] [address], [place], [address] , [facility] 3 16:19:52 Pulmonar y emphysem a 44672297 Active 2019 Not Available [facility] 4 08:35:47 Hyperten sive renal disease 71552316 Completed 202008/26/2024 Raad Diehl MD [address] [facility] [address], [place], [address] , [facility] 5 16:37:34 Chronic kidney disease stage 3A 358334253 Completed 202001/26/2023 Raad Diehl MD [address] [facility] [address], [place], [address] , [facility] 3 07:23:49 Diabetic peripher al neuropat hy 548966330 Active 2020 Not Available [facility] 4 08:35:46 Phimosis 617251599 Completed 202109/14/2022 Raad Diehl MD [address] [facility] [address], [place], [address] , [facility] 3 16:32:59 Vitamin D deficien cy 55337447 Active 2022 Not Available [facility] 4 08:35:46 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 07266292155 32703 Active 2022 Not Available [facility] 4 08:35:46 Steatoti c liver disease 153923681 Active 2022 Not Available [facility] 4 08:35:46 Large prostate 747918973 Active 2022 Not Available [facility] 4 08:35:46 Atherosc lerosis of aorta 16407567 Active 2022 Not Available [facility] 4 08:35:47 Inguinal hernia 302967824 Active 2022 fat containi ng bilatera l Not Available [facility] 4 08:35:46 Abdomina l aortic ectasia 59894907108 9101 Active 2022 2.7cm infraren al Not Available [facility] 4 08:35:46 Intermit tent claudica tion 97440747 Active 2022 Raad Diehl MD [address] [address], [place], [address] , [facility] 5 14:41:56 Ventricu lar prematur e complex 466405068 Completed 202208/26/2024 aRad Diehl MD [address] [address], [place], [address] , [facility] 5 16:04:03 Hyperlip idemia 01009950 Active 2023 Christine Balderrama PA-C [address] [address], [place], [address] , [facility] 4 15:49:01 Hypercal cemia 03884768 Active 2023 Christine Balderrama PA-C [address] [address], [place], [address] , [facility] 4 18:12:20 Hyperkal emia 12927260 Completed 202308/26/2024 Raad Diehl MD [address] [address], [place], [address] , [facility] 5 16:04:17 Morbid obesity 233311314 Active 2023 Raad Diehl MD [address], [place], [address] , [facility] 4 15:26:33 Body mass index 30+ - obesity 660927265 Active 2023 Raad Diehl MD [address], [place], [address] , [facility] 4 15:34:28 Mass of pancreas 436193707 Active 2023 Raad Diehl MD [address] [facility] [address], [place], [address] , [facility] 4 17:10:54 Unequal blood pressure in arms 155324019 Active 2023 Raad Diehl MD [address], [place], [address] , [facility] 4 17:11:29 Calcific ation of coronary artery 241941888 Active 2023 Raad Diehl MD [address] [facility] [address], [place], [address] , [facility] 4 06:47:29 Acute transver se myelitis 74351193 Active 2023 Raad Diehl MD [address], [place], [address] , [facility] 5 17:50:15 Lumbar radiculo jeanie 362332372 Active 2023 right L5 Raad Diehl MD [address] [facility] [address], [place], [address] , [facility] 4 07:05:29 Hypoalbu minemia 570552339 Active 2023 Raad Diehl MD [address], [place], [address] , [facility] 4 15:04:50 Transver se myelopat hy syndrome 00431007 Active 2024 Christine Balderrama PA-C [address], [place], [address] , [facility] 5 15:20:40 History of syphilis 44992707361 84839 Active 2024 Raad Diehl MD [address], [place], [address] , [facility] 5 11:02:19 Left hemipare sis 809558686 Active 2024 Raad Diehl MD [address] [facility] [address], [place], [address] , [facility] 5 14:01:47 Degenera tion of cervical interver tebral disc 21263920 Active 2024 C5-C7 Raad Diehl MD [address] [facility] [address], [place], [address] , [facility] 5 17:08:04 Spinal stenosis in cervical region 13216634 Active 2024 C5/C6 Raad Diehl MD [address] [facility] [address], [place], [address] , [facility] 5 17:44:30 Stenosis of interver tebral foramina 95334828461 9 Active 2024 Raad Diehl MD [address] [facility] [address], [place], [address] , [facility] 5 17:44:40 Notes:Some problems listed i n Document: #[id number] could not be added to this patient's chart. Please review this document and add these problems to the patient's chart manually as needed. Problem Notes None recorded. Procedures Surgical History Date Name Laterality Status Provider Name and Address Organization Details Recorded Time 09/13/19 25 osteotomy and discectomy of cervical spine by anterior approach completed Raad Diehl MD [address], [address], [facility] 01/15/2025 20:12:54 02/05/20 24 Diabetic Foot Exam (Monofilament) completed Raad Diehl MD [address], [address], [facility] 02/05/2024 17:07:41 12/12/19 24 Colonoscopy completed Sarah Tuttle [facility] 12/14/2023 08:56:06 02/17/20 21 Diabetic Foot Exam (Monofilament) completed Raad Diehl MD [address], [address], [facility] 02/16/2021 16:15:27 07/04/19 21 Diabetic Foot Exam (Monofilament) completed Dena lee [facility] 07/03/2020 13:38:58 11/08/19 20 biopsy of eyelid completed Raad Diehl MD [address], [address], [facility] 11/20/2019 18:56:48 06/17/19 20 Diabetic Foot Exam (Monofilament) completed Idania Morales [facility] 06/17/2019 09:17:42 07/04/19 19 Diabetic Foot Exam (Monofilament) completed Raad Diehl MD [address], [address], [facility] 07/03/2018 14:13:41 05/28/19 19 Diabetic Foot Exam (Monofilament) completed Neha Wheeler [facility] 05/28/2018 13:15:14 04/12/20 18 transesophageal echocardiography completed Raad Diehl MD [address], [address], [facility] 04/20/2018 13:30:23 04/09/20 18 Echo transthoracic completed Raad Diehl MD [address] [address], [place], [address], [facility] 04/20/2018 13:28:52 02/28/20 17 Colonoscopy completed Christine Thomas [facility] 06/28/2017 14:46:56 02/28/20 17 Egd diagnostic brush wash completed Raad Diehl MD [address] [address], [place], [address], [facility] 03/07/2017 13:43:07 01/09/20 16 Dbrdmt ecz/infected skin<10% completed Raad Diehl MD [address], [address], [facility] 06/21/2016 15:30:01 03/26/20 14 Orthopedic Surgery completed Raad Diehl MD [address] [address], [place], [address], [facility] 04/01/2014 22:22:42 05/18/19 14 Orthopedic Surgery completed Raad Diehl MD [address] [address], [place], [address], [facility] 02/18/2015 11:16:33 Imaging Results None recorded. Procedure Notes None recorded. Medical Equipment None Reported. Allergies Allergen ID Allergen Name Allergen Category Reaction Reaction Severity Criticality Documentation Date Start Date Code Code System Note Provider Name and Address Organization Details Recorded Time 5395 No known allergy (situatio n) Not available Not available Not available Not available 10/29/20132012 56912 6003 SNOMED Not Available [facility] 4 08:35:47 No known drug allergies Medications Name Sig Start Date Stop Date Status Note LastModified by Organization Details LastModified Time freestyle mis lancets 1 lancest 4 x daily 08/07 completed Not Available Not Available Not Available Prescript ion - Prior Authoriza tion Request 06/12 completed Not Available Not Available Not Available freestyle brian lite 1 lancest 4 x daily 08/07 completed Not Available Not Available Not Available atorvasta tin 40 mg tablet TAKE 1 TABLET BY MOUTH EVERY DAY active Not Available Not Available No t Available metformin 500 mg tablet Take 4 tablets every day by oral route. 04/30 completed Not Available Not Available Not Available acetamino phen 325 mg tablet Take 2 tablets every 6 hours by oral route as needed. 05/03 completed Not Available Not Available Not Available gabapenti n 600 mg tablet TAKE 1 TABLET BY MOUTH THREE TIMES A DAY 2024 active Not Available Not Available Not Avai lable atorvasta tin 20 mg tablet Take 1 tablet every day by oral route for 90 days. 09/09 completed 09/09/22 dose was increase d to 40mg daily Not Available Not Available Not Available Carafate 100 mg/mL oral suspensio n 03/12 completed Not Available Not Available Not Available clindamyc in HCl 300 mg capsule 12/19 completed Not Available Not Available Not Available trazodone 50 mg tablet Take 0.5 tablets every day by oral route as needed for 30 days. 05/03 completed Not Available Not Available Not Available polyethyl kaela glycol 3350 17 gram oral powder packet Take 1 packet every day by oral route. 10/14 completed Not Available Not Available Not Available cefpodoxi me 200 mg tablet TAKE 1 TABLET BY MOUTH EVERY 12 HOURS FOR 7 DAYS 10/14 completed Not Available Not Available Not Available tizanidin e 4 mg tablet Take 1 tablet 3 times a day by oral route as needed. 04/29 completed Not Available Not Available Not Available senna 8.6 mg tablet Take 1 tablet twice a day by oral route. 10/14 completed Not Available Not Available Not Available fluconazo le 200 mg tablet Take 1 tablet every day by oral route for 14 days. 04/02 completed Not Available Not Available Not Available meloxicam 15 mg tablet TAKE 1 TABLET BY MOUTH ONCE A DAY WITH FOOD 01/24 completed Not Available Not Available Not Available ondansetr on HCl 4 mg tablet 03/12 completed Not Available Not Available Not Available prednison e 20 mg tablet TAKE 2 TABLETS BY MOUTH EVERY DAY FOR 5 DAYS 08/23 completed Not Available Not Available Not Available gabapenti n 400 mg capsule TAKE 1 CAPSULE BY MOUTH THREE TIMES A DAY 08/26 completed Not Available Not Available Not Available clobetaso l 0.05 % topical cream Apply 1 applicat ion twice a day by topical route as directed for 30 days. 04/30 completed Not Available Not Available Not Available Zithromax Z-Tru 250 mg tablet TAKE 2 TABLETS (500 MG) BY ORAL ROUTE ONCE DAILY FOR 1 DAY THEN 1 TABLET (250 MG) BY ORAL ROUTE ONCE DAILY FOR 4 DAYS 2014 active Not Available Not Available Not Avai lable Lantus U-100 Insulin 100 unit/mL subcutane ous solution 50 1s by sub-q route. 04/07 completed Not Available Not Available Not Available Tylenol Arthritis Pain 650 mg tablet,ex tended release Take 1 tablet twice a day by oral route as needed. active 10/07/24 VERIFY TYLENOL STRENGTH BEING TAKEN Not Available Not Available Not Available ciproflox acin 500 mg tablet TAKE 1 TABLET BY MOUTH EVERY 12 HOURS FOR 14 DAYS 03/13 completed Not Available Not Available Not Available sulfameth oxazole 800 mg-trimet hoprim 160 mg tablet Take 1 tablet every 12 hours by oral route for 7 days. 10/20 completed Not Available Not Available Not Available lovastati n 10 mg tablet DAILY 03/25 completed RECORDED 03/25/20 13 2:26PM BY CHRISTINE THOMAS MA, OFFICE VISIT; Not Available Not Available Not Available acetamino phen 500 mg tablet Take 2 tablets every 6 hours by oral route for 10 days. 2024 active Not Available Not Available Not Avai lable oxycodone -acetamin ophen 5 mg-325 mg tablet 12/19 completed Not Available Not Available Not Available terbinafi ne HCl 250 mg tablet Take 1 tablet every day by oral route for 14 days. 02/10 completed Not Available Not Available Not Available metoclopr amide 5 mg tablet 03/12 completed Not Available Not Available Not Available ascorbic acid (vitamin C) 500 mg tablet Take 1 tablet twice a day by oral route. 10/14 completed Not Available Not Available Not Available tamsulosi n 0.4 mg capsule Take 1 capsule every day by oral route. 03/23 completed Not Available Not Available Not Available baclofen 10 mg tablet TAKE 1/2 TABLET BY MOUTH 3 TIMES A DAY active Not Available Not Available No t Available bisacodyl 10 mg rectal supposito ry Insert 1 supposit ory every day by rectal route as needed. 05/03 completed Not Available Not Available Not Available pantopraz ole 40 mg tablet,de layed release 03/12 completed Not Available Not Available Not Available erythromy paddy 5 mg/gram (0.5 %) eye ointment APPLY 1 CM RIBBON INTO THE LOWER CONJUNCT IVAL SAC(S) IN THE AFFECTED EYE(S) BY OPHTHALM IC ROUTE 3 TIMES PER DAY 04/30 completed Not Available Not Available Not Available naproxen sodium 550 mg tablet 12/19 completed Not Available Not Available Not Available nystatin 100,000 unit/gram topical cream Apply 1 applicat ion every day by topical route for 10 days. 04/02 completed Not Available Not Available Not Available clotrimaz ole-betam ethasone 1 %-0.05 % topical cream PLEASE SEE ATTACHED FOR DETAILED DIRECTIO NS 12/23 completed Not Available Not Available Not Available lisinopri l 10 mg tablet TAKE 1 TABLET BY MOUTH EVERY DAY active Not Available Not Available No t Available lidocaine 5 % topical patch APPLY TOPICALL Y DAILY REMOVE PATCHES AFTER 12 HOURS, NEEDED FOR PAIN- SEVERE 08/23 completed Not Available Not Available Not Available betametha sone dipropion ate 0.05 % topical cream APPLY A THIN LAYER TO THE AFFECTED AREA(S) BY TOPICAL ROUTE ONCE DAILY as needed 02/10 completed Not Available Not Available Not Available gabapenti n 300 mg capsule TAKE 1 CAPSULE BY MOUTH THREE TIMES A DAY NEEDED 04/22 completed Not Available Not Available Not Available Advil 200 mg tablet Take 4 tablets every 4 hours by oral route. 07/03 completed Not Available Not Available Not Available omeprazol e 20 mg capsule,d elayed release Take 1 capsule every day by oral route for 30 days. 12/23 completed Not Available Not Available Not Available penicilli n G pot 2 million unit/50 mL-dextro se intraveno us piggyback Infuse 100 mL every 4 hours by intraven ous route for 9 days. 04/22 completed Not Available Not Available Not Available lisinopri l 5 mg tablet Take 1 tablet every day by oral route. 10/15 completed Not Available Not Available Not Available mupirocin 2 % topical ointment APPLY A SMALL AMOUNT TO THE nares bilatera lly ROUTE 3 TIMES PER DAY for 3 days 06/28 completed Not Available Not Available Not Available penicilli n G benzathin e 600,000 unit/mL intramusc ular syringe Inject 2.4 million units every day by intramus cular route as directed . 04/22 completed Not Available Not Available Not Available levofloxa paddy 500 mg tablet Take 1 tablet every 24 hours by oral route for 14 days. 04/20 completed Not Available Not Available Not Available ondansetr on 4 mg disintegr ating tablet Place 1 tablet every 6 hours by translin gual route as needed for 7 days. 10/14 completed Not Available Not Available Not Available metformin ER 500 mg tablet,ex tended release 24 hr Take 3 tablets every day by oral route as directed for 90 days. 06/16 completed Not Available Not Available Not Available clotrimaz ole 1 % topical cream APPLY TO THE AFFECTED AND SURROUND ING AREAS OF SKIN BY TOPICAL ROUTE 2 TIMES PER DAY IN THE MORNING AND EVENING 05/20 completed Not Available Not Available Not Available oxacillin 1 gram/50 mL in dextrose (iso-osmo tic) intraveno us piggyback Infuse 50 mL every 4 hours by intraven ous route. 06/20 completed Not Available Not Available Not Available naproxen 500 mg tablet TAKE 1 TABLET BY MOUTH TWICE A DAY FOR 5 DAYS 08/23 completed Not Available Not Available Not Available oxycodone 5 mg tablet TAKE 1 TAB EVERY 4 HOURS X5 DAYS NEEDED FOR PAIN 10/14 completed Not Available Not Available Not Available Dex4 Glucose 4 gram chewable tablet Take 12 g every day by oral route. 12/23 completed Not Available Not Available Not Available Allergy (diphenhy dramine) 25 mg capsule Take 1 capsule every 6 hours by oral route as needed for 10 days. 01/10 completed Not Available Not Available Not Available Multivita min 50 Plus tablet Take 1 tablet every day by oral route. 01/10 completed with folic acid Not Available Not Available Not Available metformin ER 500 mg tablet,ex tended release 24hr (osmotic) Take 2 {tbl}s by oral route. 06/16 completed Not Available Not Available Not Available Cinnamon 500 mg capsule Take 1 capsule every day by oral route. 12/12 completed Not Available Not Available Not Available Aspirin EC DAILY 03/25 completed RECORDED 03/25/20 13 2:26PM BY CHRISTINE THOMAS MA, OFFICE VISIT; Not Available Not Available Not Available Lantus Solostar U-100 Insulin 100 unit/mL (3 mL) subcutane ous pen Inject 25 units every day by subcutan eous route for 30 days. 10/15 completed Not Available Not Available Not Available Humalog KwikPen (U-100) Insulin 100 unit/mL subcutane ous Inject 4 units by sub-q route for 26 days. 07/03 completed sliding scale Not Available Not Available Not Available oxycodone 10 mg tablet Take 1 tablet every 4 hours by oral route as needed. 10/07 completed Not Available Not Available Not Available cholecalc iferol (vitamin D3) 50 mcg (2,000 unit) capsule TAKE 1 CAPSULE BY MOUTH EVERY DAY active Not Available Not Available No t Available B12 1,000 mcg 1 tablet daily active Not Available Not Available No t Available sodium,po tassium,m ag sulfates 17.5 gram-3.13 gram-1.6 gram oral soln MIX AND DRINK 177 ML BY MOUTH ONCE 12/12 completed Not Available Not Available Not Available Combivent Respimat 20 mcg-100 mcg/actua tion solution for inhalatio n INHALE 1 PUFF INTO THE LUNGS FOUR TIMES A DAY NEEDED 11/18 completed Not Available Not Available Not Available Invokamet 50 mg-1,000 mg tablet Take 1 tablet twice a day by oral route. 08/23 completed Not Available Not Available Not Available Trulicity 1.5 mg/0.5 mL subcutane ous pen injector Inject 0.5 mL every week by sub-q route for 28 days. 12/23 completed Not Available Not Available Not Available Trulicity 0.75 mg/0.5 mL subcutane ous pen injector Inject 0.5 mL every week by subcutan eous route for 30 days. 10/15 completed Not Available Not Available Not Available empaglifl ozin 5 mg-metfor min 1,000 mg tablet Take 1 tablet twice a day by oral route. 05/03 completed 04/29/19 25- pt states he has not5 been taking this Not Available Not Available Not Available Synjardy XR 5 mg-1,000 mg tablet, extended release TAKE 2 TABLETS BY MOUTH EVERY DAY 10/07 completed 08/26/24 per patient stopped on own on Not Available Not Available Not Available Shingrix (PF) 50 mcg/0.5 mL intramusc ular suspensio n, kit 04/30 completed Not Available Not Available Not Available DexSSP Europe G6 Transmitt er device USE DIRECTED . 12/23 completed Not Available Not Available Not Available FreeStyle Yehuda 14 Day [place] Take 1 each every day by miscell. route for 28 days. 05/11 completed Not Available Not Available Not Available FreeStyle Yehuda 14 Day Sensor kit Take 1 kit every day by misPollfish. route for 28 days. 05/11 completed Not Available Not Available Not Available Flublok Quad (PF) 180 mcg (45 mcg x 4)/0.5 mL IM syringe PHARMACI ST ADMINIST ERED IMMUNIZA TION ADMINIST ERED AT TIME OF DISPENSI NG 04/30 completed Not Available Not Available Not Available Trulicity 3 mg/0.5 mL subcutane ous pen injector INJECT 0.5 ML SUBCUTAN EOUSLY EVERY WEEK DIRECTED . ROTATE INJECTIO N SITES 11/18 completed Not Available Not Available Not Available Trulicity 4.5 mg/0.5 mL subcutane ous pen injector INJECT THE CONTENTS OF 1 SYRINGE SUBCUTAN EOUSLY EVERY WEEK DIRECTED . ROTATE INJECTIO N SITES. 11/02 completed Not Available Not Available Not Available Ozempic 1 mg/dose (4 mg/3 mL) subcutane ous pen injector INJECT 1 MG SUBCUTAN EOUSLY EVERY WEEK FOR 30 DAYS. active Not Available Not Available No t Available baclofen 5 mg/mL oral suspensio n compoundi ng kit Take 0.5 mL 3 times a day by oral route. 11/21 completed Not Available Not Available Not Available FreeStyle Yehuda 3 Sensor device active Not Available Not Available Not Available Ozempic 0.25 mg or 0.5 mg (2 mg/3 mL) subcutane ous pen injector INJECT 0.25MG SUBCUTAN EOUSLY EVERY WEEK pt STATES HE is now .5 [id number] completed Not Available Not Available Not Available Vitals Date Recorded Body height Systolic And Diastolic Provider Name and Address Organization Details Last Updated DateTime 10/14/2024 175.9 cm 118/70 mm[Hg] Jordy Orourke MA [facility] 10/14/2024 13:32:03 Date Recorded Body height Provider Name an d Address Organization Details Last Updated DateTime 01/10/2025 175.9 cm Jessa Burdick MA [facility] 01/10/2025 13:50:43 Social History Question Answer Notes LastModified by Organizat ion Details LastModified Time Tobacco Smoking Status Current Every Day Smoker Not Available [facility] 02/18/2020 03:36:36 Do You Have An Advance Directive? Yes HCP/ -She [email or web address] Information not available 12/23/2021 Is Blood Transfusion Acceptable In An Emergency? Yes [id number] Information not available 02/18/2020 What Is Your Level Of Caffeine Consumption? Moderate Coffee [id number] Information not available 02/18/2020 How Much Tobacco Do You Chew? None [id number] Information not available 02/18/2020 What Type Of Diet Are You Following? REGULAR [id number] Information not available 02/18/2020 Which Illicit Or Recreational Drugs Have You Used? None [id number] Information not available 02/18/2020 Live Alone Or With Others? With Others Son, Dog And 2 Cats Information not available 02/05/2024 Do You Take Precautions To Prevent Distracted Driving? Yes Information not available 02/18/2015 How Often Do You Need To Have Someone Help You When You Read Instructions, Pamphlets, Or Other Written Material From Your Doctor Or Pharmacy? Never Information not available 02/18/2015 Have You Served In The ? No Information not available 06/20/2016 Have You Or Anyone In Your Household Had Any Of The Following Symptoms In The Last 14 Days: Sore Throat, Cough, Chills, Body Aches For Unknown Reasons, Shortness Of Breath For Unknown Reasons, Loss Of Smell, Loss Of Taste, Fever At Or Greater Than 100 Degrees Fahrenheit? No Information not available 10/21/2019 Are You Or Anyone In Your Household A Health Care Provider Or Emergency Responder? No Information not available 10/21/2019 To The Best Of Your Knowledge Have You Been In Close Proximity To Any Individual Who Tested Positive For COVID-19? No Information not available 10/21/2019 *AWV ONLY* Are You Presently Prescribed Opioid Medication By PCP Or Specialist? If YES -Provider Assess The Benefit For Other, Non-opioid Pain Therapies Instead, Even If The Patient Does Not Have OUD But Is Possibly At Risk. No Information not available 02/16/2021 Have You Recently Traveled To A COVID-19 High Risk Area Or Gathering In The Last 10 Days? No Information not available 04/30/2020 What Was The Date Of Your Most Recent Tobacco Screening? 01/10/2025 Information not available 01/10/2025 How Many Children Do You Have? 2 1 Son (Skyler ) And 1 Dtr (Lazara) Information not available 02/05/2024 What Is Your Current Pack Years? 30ormorepack years [email or web address] Information not available 12/23/2021 Do You Use Protection During Sex? Usually Information not available 02/16/2021 Do You Use Your Seat Belt Or Car Seat Routinely? Yes Information not available 02/16/2021 Seat Belts Used Routinely No [email or web address] Information not available 12/23/2021 Are You Sexually Active? Yes [id number] Information not available 02/18/2020 Smoke Alarm In Home Yes [email or web address] Information not available 12/23/2021 Do You Have Smoke And Carbon Monoxide Detectors In Your Home? Yes Information not available 02/16/2021 At What Age Did You Start Smoking Tobacco? 14 1976 Information not available 08/26/2024 Are You Passively Exposed To Smoke? Yes Information not available 06/28/2017 How Much Tobacco Do You Smoke? 1 PPD [id number] Information not available 02/18/2020 Do You Use Sunscreen Routinely? No [id number] Information not available 02/18/2020 How Many Years Have You Smoked Tobacco? 51 Information not available 08/26/2024 Sex: Unknown Functional Status Question Answer Note LastModified by Organizat ion Details LastModified Time Do you use any illicit or recreational drugs? No [email or web address] Information not available 12/23/2021 Do you or have you ever used any other forms of tobacco or nicotine? No Information not available 12/23/2021 What is your level of alcohol consumption? Occasional [id number] Information not available 02/18/2020 Do you or have you ever used smokeless tobacco? Never used smokeless tobacco [id number] Information not available 02/18/2020 Are you currently employed? 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 YESWOREST [email or web address] Information not available 12/23/2021 Are you able to care for yourself independently? Yes [id number] Information not available 02/18/2020 What is your occupation? Other [employer] Information not available 07/14/2024 Do you or have you ever used e-cigarettes or vape? Never used electronic cigarettes [email or web address] Information not available 12/23/2021 What is your exercise level? Occasional Golf Information not available 08/23/2022 Mental Status None recorded. Family History Relationship Description Onset Age of this Age Resolved Age Notes LastModified by Organization Details LastModified Time Mother Hypertensive disorder [email or web address] Not available 2015 10:46:56 Mother Congestive heart failure [email or web address] Not available 12/23 13:51:29 Mother Asthma [email or web address] Not available 10:46:56 Mother Diabetes mellitus abolcun Not available 2015 10:46:56 Father Early gastric cancer [email or web address] Not available 12/23 13:51:29 Son Well adult [email or web address] Not avail able 12/23/2021 13:51:29 Daughter Well adult Not nathan ilable 12/23/2021 13:51:29 Medical History Condition Response Gout N Other N Kidney Stones N Blood Diseases N Hyperthyroidism N Breast Cancer N Hypothyroidism N Lung Disease N Depression N COPD N Defects or Inherited Disease N Anesthesia Complications N Headaches/Migraines N Anxiety Disorder N Varicose Veins N Obesity Y Vision or Eye Problems N Arthritis N Head Injury/Concussion N Infertility N Polyps N Congenital Anomalies N Acid Reflux (GERD) N Cancer N Stroke N ADHD N Endometriosis N High Cholesterol Y Liver Disease N Fibromyalgia N Kidney Disease N Heart Problems N Ear or Hearing Problems N Hospitalizations N Thyroid Problems N GI Problems N Acne N Eating Disorder N Skin Problems N Anemia N Constipation N Bladder Problems N Mental Illness N Diabetes Y Ovarian Cancer N Blood Transfusions N Seizures/Epilepsy N Tuberculosis N AIDS/HIV N Congestive Heart Failure (CHF) N Eczema Y Abuse/Domestic Violence N Diverticulitis N Asthma N Allergies N Reflux/GERD N Hepatitis N Pulmonary Embolism N Hypertension N Chicken Pox N Autism Spectrum Disorder (ASD) N Osteoporosis N Immunizations Vaccine Type Date Status Note Provider Nam e and Address Organization Details Recorded Time Influenza, split virus, quadrivalent, preservative 6 completed Sarah lutz [facility] 04/28/2023 08:42:58 Influenza, split virus, quadrivalent, preservative 7 completed Sarah lutz [facility] 04/28/2023 08:42:58 pneumococcal polysaccharide PPV23 8 completed Sarah lutz [facility] 04/28/2023 08:42:58 Influenza, split virus, quadrivalent, PF 5 completed Sarah lutz [facility] 04/28/2023 08:42:58 Influenza, split virus, quadrivalent, PF 8 fernandez lutz [facility] 04/28/2023 08:42:58 Tdap 2 completed Sarah lutz [facility] 04/28/2023 08:42:58 pneumococcal polysaccharide PPV23 6 completed Sarah lutz, [facility] 04/28/2023 08:42:58 Influenza, split virus, quadrivalent, preservative 0 completed Sarah Tuttle null, [facility] 04/28/2023 08:42:58 zoster recombinant 0 completed Sarah Tuttle null, [facility] 04/28/2023 08:42:58 COVID-19, mRNA, LNP-S, PF, 100 mcg/0.5mL dose or 50 mcg/0.25mL dose [facility] 08:42:58 COVID-19, mRNA, LNP-S, PF, 100 mcg/0.5mL dose or 50 mcg/0.25mL dose 1 [facility] 08:42:58 Influenza, split virus, quadrivalent, PF 7 [facility] 08:42:58 COVID-19, mRNA, LNP-S, PF, 100 mcg/0.5mL dose or 50 mcg/0.25mL dose 1 completed Sarah lutz, [facility] 04/28/2023 08:42:58 Influenza, recombinant, quadrivalent, PF 0 completed Sarah Tuttle null, [facility] 04/28/2023 08:42:58 Influenza, split virus, quadrivalent, PF [facility] 08:42:58 RSV, recombinant, protein subunit RSVpreF, adjuvant reconstituted, 0.5 mL, PF 4 completed [facility] 14:48:37 COVID-19, mRNA, LNP-S, PF, 50 mcg/0.5 mL 4 completed [facility] 08:42:58 Td (adult), 5 Lf tetanus toxoid, preservative free, adsorbed 5 completed Sarah Tuttle null, [facility] 04/28/2023 08:42:58 Tdap 3 completed [facility] null[facility] 04/28/2023 08:42:58 Td (adult), 2 Lf tetanus toxoid, preservative free, adsorbed 3 completed Raad Diehl MD [address], [address], [facility] 09/14/2022 16:31:07 Influenza, high-dose, quadrivalent, PF 3 completed Holley Reed null, [facility] 01/27/2023 12:38:37 Influenza, high-dose, trivalent, PF 4 completed Raad Diehl MD [address], [address], [facility] 02/05/2024 16:55:18 Past Encounters Encounter ID Performer Location Encounter Start Date Encounter Closed Date Diagnosis/Indication Diagnosis SNOMED-CT Code Diagnosis ICD10 Code Diagnosis IMO Codes Diagnosis Note [id number] auto[facility]Comm erce [address] [facility], [address] [place] [address] 01/21/2013 00:00:00 [id number] autoEComm erce [address] [facility],[place] [address] [place] [address] 03/25/2013 00:00:00 [id number] autoEComm erce [address] [facility],[place] [address] [place] [address] 05/27/2013 00:00:00 [id number] ANNEMARIE Silvestre Main Office [address] [address] 03/19/2014 10:52:07 03/19/2014 11:52:39 Pre-surgery evaluation [id number] Michaelle is at low cardiopulm onary risk for this procedure. no further testing indicated. Osteoarthritis of hip 231828118 worsening. will be getting surgery Essential hypertension 16322196 stable. stay on same meds. [id number] ANNEMARIE Silvestre Main Office [address] [facility] [address] [place] [address] 08/20/2014 12:34:02 08/20/2014 13:26:17 Respiratory crackles 30571035 likely pneumonia. will treat with abx. if not improving he will call for cxr order Snoring 32541182 [id number] Raad Diehl MD Main Office [address] [facility] [address] [place] [address] 02/18/2015 10:29:08 02/18/2015 11:41:55 Adult health examination 211487112 Z00.00 Will update immunizati on status short of pneumovax whihc ptr deferred. Will screen based on risk factors. Regula ophtho care advised as well as seatbelt and sunscreen use. Distracted driving discussed. Advance directives in place. Needs infl uenza immunization 270676750 Z23 Body mass index 30+ - obesity 463443426 E66.9 Screening for malignant neoplasm of lung 298446197 Z12.2 Pt qualifies for screening. Snoring 10994306 R06.83 Will refer back for sleep study. based on severity of symptoms. Essential hypertension 14334730 I10 Better on recheck. Will continue to follow. Pure hypercholesterolemia 519393852 E78.0 Overdue for assessment . Will likely qualify for statin rx if numbers are similar to those from 2013. Early satiety 490315604 R68.81 Low back pain 166867105 M54.5 Call/come in for formal eval if persistent /worse. Tobacco de pendence syndrome 72665131 F17.290 Pt is precontemp lative. Resources to help discuss/pr ovided. Will call when ready to quit and if assistance is needed. [id number] Raad Diehl MD Main Office [address] [facility] [address] [place] [address] 07/13/2015 10:32:25 07/13/2015 11:32:00 Essential hypertension 82066615 I10 Better today, not on meds. Possibly related to NSAID use. Will monitor. Dermatophytosis 61345506 B35.9 Most suspicious for tinea based on location and appearance . Less likely eczema. Will use steroid cream only if oral antifungal does not help. Systemic antifungal being use given degree of skin involvemen t. Call inb/worse. If neither tx helps will need derm referral. Impaired f asting glycemia 275662526 R73.01 Long temr potential health consequenc es discussed. Healthier diet and exercise habits advised. Will monitor. [id number] Raad Diehl MD Main Office [address] [facility] [place] [address] 02/11/2016 13:36:00 02/11/2016 15:08:25 Abscess of buttock 10054708 L02.31 On wound vac, done with abx 02/24. Having weekly labs done and monitoring with ID. Pleural effusion 3379037 8 J90 Resolved, no further interventi ons needed per CT surgery. Multiple-r esistant Staphylococcus aureus infection 510025678 A49.02 Chronic dermatitis 42594 007 L30.9 Persistent issue, not responsive to topical steroid or antifungal cream. Abscess of lung 58851156 J85.2 Clinically and radiograph ically improving per hospital notes. f/u imaging was advised in 2-4 weeks. Will ask pulmonary to help guide this. [id number] Raad Diehl MD Main Office [address] [facility] [place] [address] 06/20/2016 13:27:14 06/20/2016 14:47:59 Adult health examination 421895130 Z00.00 Will update immunizati on status short of pneumovax which pt states he received in hospital. Will check records to verify. Screen based on risk factors. Regula ophtho care advised as well as seat belt and sunscreen use. Distracted driving discussed. Advance directives in place. Body mass index 30+ - obesity 707942052 E66.01 Z68.35 Tobacco de pendence syndrome 32880003 F17.290 Pt is precontemp lative. Resources to help discuss/pr ovided. Will call when ready to quit and if assistance is needed. Impaired f asting glycemia 120161254 R73.01 care home potential health consequenc es discussed. Healthier diet and exercise habits advised. Will monitor. Abscess of groin 6215368 9 L02.214 Given history will cover for staph. Warm compress advised. Pt advised to call if persistent /worse. Multiple-r esistant Staphylococcus aureus infection 811406240 A49.02 Givne recurrent infections will treat for possible nasal colonizati on. Dizziness 760786887 R42 Adequate hydration advised, will check labs. Return if symptoms worsen/per sist. [id number] Raad Diehl MD Main Office [address] [facility], [place] [address] 06/28/2017 14:37:07 06/28/2017 15:45:08 Adult health examination 344326053 Z00.00 Will update immunizati on status, and screen based on risk factors. Regular ophtho care advised as well as seat belt and sunscreen use. Distracted driving discussed. Advance directives in place. Body mass index 30+ - obesity 449427941 E66.01 Z68.37 Magana's esophagus 3029 47497 K22.70 presumed due for f/u EGD 2019. Pt is asymptomat ic from a GERD standpoint . Multiple n odules of lung 945822809 R91.8 Overdue for f/u. WIll call to reconnect pt with them. Obstructiv e sleep apnea syndrome 11512388 G47.33 Well controlled . Advised to f/u with pulm to verify adequate settings. Pure hypercholesterolemia 173885027 E78.00 Will reassess and treat based on CVD risk. 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 Healthier diet and exercise habits advised. Will monitor. Tobacco de pendence syndrome 72650746 F17.290 Pt is precontemp lative. Resources to help discuss/pr ovided. Will call when ready to quit and if assistance is needed. Administra tion of pneumococcal vaccine 45895774 Z23 Albuminuria 304292439 R8 0.9 Will reassess and evaluate further if persistent /worse. History of duodenal ulcer 145767864 Z87.11 Clinically resolved. If symptoms recur or anemia is present pt will be advised to resume PPI. [id number] Raad Diehl MD Main Office [address] [facility] [address] [place] [address] 03/12/2018 10:16:50 03/12/2018 11:49:42 Needs influenza immunization 560843706 Z23 Low back pain 794927120 M54.5 Based on duration of symptoms wIll image and try home PT. Formal PT referral declined. Call inb/worse or if new symptoms develop. Further imaging +/- PMR referral if persistent /worse. Urinary incontinence 165 853424 R32 Will need further treatment/ evaluation if labs are abnormal or symptoms worsen/per sist. Candidal balanitis 84380 007 B37.42 Likely fungal but did not respond to topical tx. Will try PO and check culture inb/worse. [id number] Raad Diehl MD Main Office [address] [facility] [address] [place] [address] 04/02/2018 13:19:53 04/02/2018 14:27:26 Eczema 34802937 L30.9 vs psoriasis. Will see if short course of prednisone helps calm down inflammati on while pt scheduled dermatolog y f/u. Balanitis 19178190 N48.1 Monitor with systemic abx therapy. Psoriasis 7479957 L40.9 Pt will arrange f/u with derm janet. Methicilli n resistant Staphylococcus aureus infection 463224496 A49.02 Suspect that urine culture was a reflection of skin leo which is apparently causing pathology likely secondary to psoriatic skin compromise . Will try an extended course of levofloxac in try for eradicatio n. Advised to call with any problems on abx or if new symptoms develop. Gastritis 2300923 K29.70 secondary to excess NSAID use. Has history of duodenal ulcer but has not been on PPI. Pt advised to take no more than 600-800mg every 8hrs with food. Restart PPI for GI protection . Low back pain 985260572 M54.5 Imaging shows mild arthritic disease. Will ask rheum to evaluate for possible psoriatic arthritis. [id number] Raad Diehl MD Main Office [address] [facility] [address] [place] [address] 04/20/2018 13:43:37 04/20/2018 14:37:00 Bacteremia caused by Methicillin resistant Staphylococcus aureus 2726296191 7652386 B95.62 Will complete 4-6 weeks of vanco presumably . Has ID follow up next week. Labs being monitored by that service. Psoriasis 5349394 L40.9 Pt will arrange f/u with derm janet. ? if this is another possible port of entry for infection. Uncontroll ed type 2 diabetes mellitus 319477608 E11.65 New diagnosis. How much was impacted by prednisone therapy and infection will need to be considered . Advised to call if hypoglycem ia develops and adjust regimen accordingl y. In meantime will arrange diabetes diet education consult as well as appt with VM to help with mgmt. [id number] Agnieszka taylor MD Main Office [address] [facility] [address] [facility] [place] [address] 05/28/2018 13:01:08 05/28/2018 14:34:01 Type 2 diabetes mellitus 29919487 E11.37X1 E11.65 Total time spent teaching and coordinati ng diabetic care 35 minutes. Basic physiology of Type II Diabetes Mellitus was reviewed. Glucose records were reviewed. Pt. was instructed on use of FreeSTyle Yehuda via Pro he will have put in for 2 weeks. Pt. will also sommer into coverage for personal CGM. Goal for fasting glucose is 80-130 and 1-2 hrs after the meal under 180. Pt. was advised to start exercise activity by walking 30 min at least 3 times weekly and increase weekly or by weekly to 4-6 day per week. If unable to walk , pt. should use other exercise modalities /equipment that is stationary at home or in the gym for that amount of time weekly or water exercises. Continue insulins. Will send Rx for Trulicity weekly to see if covered. If so, will start and we will discontinu e premeal insulin after 1-2 weeks and possibly lower his Lantus as well. He will return in 2-4 weeks with log and we will review CGM data. Body mass index 30+ - obesity 963751246 Z68.34 Obesity 407657783 E66.9 [id number] Agnieszka taylor MD Main Office [address] [place] [address] 06/12/2018 13:19:33 06/12/2018 14:43:48 Type 2 diabetes mellitus 86633719 E11.37X1 E11.65 Start TRulicity as directed weekly . POssible side effects were discussed. Lower Lantus to 25 u and continue humalog on sliding scale only . Use of personal CGM via Yehuda was demonstrat ed and planted in the office. F/u 4-6 weeks for further med adjustment . [id number] Raad Diehl MD Main Office [address] [place] [address] 07/03/2018 12:44:18 07/03/2018 14:35:54 Adult health examination 124377783 Z00.00 Immunizati on status utd, will screen based on risk factors. Regular ophtho care advised as well as seat belt and sunscreen use. Distracted driving discussed. Advance directives in place. Varicella vaccination 68 832634 Z23 Tobacco de pendence syndrome 44514389 F17.290 Pt is precontemp lative. Resources to help discuss/pr ovided. Will call when ready to quit and if assistance is needed. Type 2 nasra betes mellitus 38264251 E11.37X2 Fair control. Will reinvigora te nutrition consult. Body mass index 30+ - obesity 887072658 E66.01 Z68.36 History of methicillin resistant Staphylococcus aureus infection 800239113 Z86.14 Asymptomat ic post vanco. Pure hypercholesterolemia 045605813 E78.00 Statin therapy started in light of CVD risk. Will titrate as tolerated to goal LDL <100. Multiple n odules of lung 974311958 R91.8 Due for f/u in August with LDCT. Magana's esophagus 3029 33025 K22.70 presumed due for f/u EGD 2019. Pt is asymptomat ic from a GERD standpoint . Will track down previous pathology report. Obstructiv e sleep apnea syndrome 16688964 G47.33 Well controlled . Advised to f/u with pulm to verify appropriat e CPAP settings. History of duodenal ulcer 336940757 Z87.11 Clinically resolved. If symptoms recur or anemia is present pt will be advised to resume PPI. Renal diso rder due to type 2 diabetes mellitus 927596209 E11.22 Will reassess and evaluate further if persistent /worse. Psoriasis 7029998 L40.9 Following with derm. [id number] Agnieszka taylor MD Main Office [address] [place] [address] 07/13/2018 12:44:06 07/13/2018 13:48:06 Uncontrolled type 2 diabetes mellitus 893632859 E11.65 Lower Lantus to 20 u daily to avoid random hypoglycem ia and give some room for increasing exercise activity. F/u with CGM log in 6 weeks. Plan to increase Trulicity to 1.5 mg and continue lowering Lantus. Chronic ki dney disease stage 2 295867255 N18.2 F/u on BP and microalbum inuria in 6-8 weeks. [id number] Justo Garland MD Main Office [address] [place] [address] 08/27/2018 12:45:45 08/27/2018 14:09:05 Uncontrolled type 2 diabetes mellitus 241262945 E11.65 Lower Lantus to 15 u daily . Add Metformin ER at 500 mg daily for 1-2 weeks and increase to 1000 mg daily. Continue TRulicity at 0.75 mg weekly. Plan on lowering Lantus to 10 u daily and eventually stopping.F /u 6-8 weeks with CGM. Microalbuminuria 4495841 06 R80.9 Advised to modify diet to diabetic friendly, [facility] Pure hypercholesterolemia 608034953 E78.00 Advised to restart and continue taking atorvastat in Essential hypertension 73513825 I10 Advised restart and continue taking the Lisinopril , will recheck at f/u. [id number] Justo Garland MD Main Office [address] [place] [address] 10/15/2018 12:53:38 10/15/2018 13:48:37 Uncontrolled type 2 diabetes mellitus 847460663 E11.65 increase TRulicity to max dose. Test glucose and f/u in 3 m. Renal diso rder due to type 2 diabetes mellitus 497139681 E11.22 schedule with the nephrologi . Continue ACEI at slightly higher dose. Repeat labs next week prior to seeing PCP/ Chronic ki dney disease stage 2 482824684 N18.2 F/u on BP and microalbum inuria in 6-8 weeks. Microalbuminuria 1678500 06 R80.9 Schedule prerna with renal . Essential hypertension 32336152 I10 continue Lisinopril at 10 mg. [id number] Raad Diehl MD Main Office [address] [facility] [address] [place] [address] 10/22/2018 08:44:45 10/22/2018 09:58:33 Pure hypercholesterolemia 746622074 E78.00 Tolerating statin well but overdue for labs. Will have done janet, and titrate dose to goal LDL <100. Essential hypertension 34808996 I10 Well controlled continue current regimen. History of duodenal ulcer 322516296 Z87.11 Will continue PPI. Cough 34192502 R05 ? related to ACEI/aller gies. WIll call if persistent /worse and would switch to ARB. [id number] Georges West MD Main Office [address] [address] [place] [address] 12/19/2018 09:57:47 12/19/2018 10:45:44 Cellulitis and abscess of groin 556937152 L02.214 Discussed warm compresses and will make a surgery appointmen t for him especially given his h/o MRSA. [id number] Justo Garland MD Main Office [address] [address] [place] [address] 01/21/2019 09:02:16 01/21/2019 09:52:52 Uncontrolled type 2 diabetes mellitus 971750471 E11.65 Continue max dose of TRulicity. TRy metformin ER at 2000 mg daily. LOwer total calories and increase exercise activity as discussed. SCan more freaquentl y during the day for more consistent use of CGM. F/u 3 m. Microalbuminuria 8216109 06 R80.9 prerna with renal . Renal diso rder due to type 2 diabetes mellitus 218498398 E11.22 see nephrologi as scheduled. Chronic ki dney disease stage 2 190885412 N18.2 [id number] Justo Garland MD Main Office [address] [address] [place] [address] 06/17/2019 09:16:29 06/17/2019 10:15:55 Renal disorder due to type 2 diabetes mellitus 910518819 E11.22 Diabetes with renal disease and microalbum inuria not at goal. Will start SGLT2 and combine with metformin for BID dosing. Pt. is advised to increase fluid intake and have BMP repeated in 5-[address] as scheduled. F/u with me in 3 m. Chronic ki dney disease stage 3 209552090 N18.3 F/u with renal. Obesity 096505790 E66.9 [address]er to diabetic nutritioni st. ADvised to start exercise activity daily 30 minute walking. Body mass index 30+ - obesity 182952152 Z68.37 [id number] Raad Diehl MD Main Office [address] [facility] [address] [place] [address] 10/21/2019 12:38:59 10/21/2019 13:46:41 Adult health examination 523614081 Z00.00 Immunizati on status utd, will screen based on risk factors. Flu advised in the Fall, Shingrix via local pharmacy. Regular ophtho care advised as well as seat belt and sunscreen use. Distracted driving discussed. Advance directives in place. Varicella vaccination 68 803984 Z23 Tobacco de pendence syndrome 82550094 F17.290 Pt is precontemp lative. Resources to help discuss/pr ovided. Will call when ready to quit and if assistance is needed. Screening for malignant neoplasm of lung 004497618 Z87.891 Eligible patients must have >=30 pack years. Due for f/u scan next month. Lesion of lower eyelid 1429854118 9106 H02.9 Appearance is concerning for SCC/BCC. Will ask Dr. Coy to evaluate further. See if topical abx and warm compress help in meantime. Increased frequency of urination 696947666 R35.0 Screen for uti, if urine normal will check bladder u/s to rule out obstructiv e process. Obstructiv e sleep apnea syndrome 33457896 G47.33 Well controlled . Advised to f/u with pulm to verify appropriat e CPAP settings. Persistent cough 3376648 02 R05 ? related to ACEI or GERD. Will resume daily PPI therapy and if cough persists hold ACEI. Uncontroll ed type 2 diabetes mellitus 541589460 E11.65 DOing better on 3 med regimen. Working with Christine to rein in control. History of gastritis 999 1496715 25894 Z87.19 Atypical symptoms but concerned that cough might be a symptom. Body mass index 30+ - obesity 466263839 E66.01 Z68.37 Candidal balanitis 18077 007 B37.42 Likely fungal, try topical therapy. Call inb/worse. [id number] Raad Diehl MD Main Office [address] [address] 04/30/2020 13:20:22 04/30/2020 14:01:59 Albuminuria 423746785 R80.9 Will reassess and evaluate further if persistent /worse. Renal diso rder due to type 2 diabetes mellitus 651276434 E11.22 Will reassess and evaluate further if persistent /worse. ON ACEI and tolerating well with goal BP control. Candidal balanitis 31971 007 B37.42 Likely fungal, try topical therapy. Call inb/worse. Screening for malignant neoplasm of prostate 965311624 Z12.5 Pure hypercholesterolemia 964753779 E78.00 Tolerating statin. Will have labs done janet, and titrate dose to goal LDL <100. Hypertensi ve renal disease 00125048 I12.9 Well controlled continue current regimen. Chronic ki dney disease stage 3 478088995 N18.31 [id number] Christine Balderrama PA-C Main Office [address] [address] 07/03/2020 13:06:47 07/03/2020 14:22:04 Renal disorder due to type 2 diabetes mellitus 728734083 E11.22 Diabetes with renal disease and microalbum inuria in worsened control due to medication and diet non adherence. Pt. is advised to take meds as directed. Last 2 weeks of CGM data show improved control with the addition of Invokamet back. Pt. is advised to increase exercise and lower total calories as discussed. F/u in 6 weeks. He should be cleared to drive as control of diabetes has already improved. Chronic ki dney disease stage 3A 911225832 N18.31 continue acei. Hypertensi ve renal disease 57227315 I12.9 Recommend to lower sodium and test BP at /. Return for retest in 4-6 weeks. If still with elevation , add amlodipine 5 mg. [id number] Raad Diehl MD Main Office [address] [facility] [address] [place] [address] 02/16/2021 14:50:07 02/16/2021 16:13:45 Adult health examination 484385895 Z00.00 Immunizati on status updtaed, Shingrix advised via local pharmacy. Regular ophtho care advised as well as seat belt and sunscreen use. Distracted driving discussed. Advance directives in place. Varicella vaccination 68 402833 Z23 Needs infl uenza immunization 902062755 Z23 Uncontroll ed type 2 diabetes mellitus 906859278 E11.65 Reports good control but overdue for labs. Will go janet. Advised to schedule eye exam as well. Renal diso rder due to type 2 diabetes mellitus 497875301 E11.22 Will reassess and evaluate further if persistent /worse. ON ACEI and tolerating well with goal BP control. Advised to pursue eye exam janet. Tobacco de pendence syndrome 92052648 F17.290 Pt is precontemp lative. Resources to help discuss/pr ovided. Will call when ready to quit and if assistance is needed. Pure hypercholesterolemia 993164059 E78.00 Tolerating statin. Will have labs done janet, and titrate dose to goal LDL <100. Hypertensi ve renal disease 40510440 I12.9 Well controlled continue current regimen. Nicotine dependence 5629 4008 Z87.891 LDCT Lung Cancer Screening Program Annual Order Screening for malignant neoplasm of colon 862180872 Z12.11 Due for f/u in 2021. Body mass index 30+ - obesity 012705636 E66.01 Z68.36 Psoriasis 4424893 L40.9 Suspect foreskin issue/amirah nitis might be related to both this and tinea. Pulmonary emphysema 8743 3001 J43.9 Cough 19843931 R05.3 Suspect that his cough is related to COPD and possibly GERD. Will address both and then see what med(s) might be needed skilled nursing. Nocturia 558737703 R35.1 Diabetic p eripheral neuropathy 868822724 E11.40 [id number] Raad Diehl MD Main Office [address] [facility] [address] [facility] [place] [address] 05/18/2021 15:11:05 05/18/2021 16:03:24 Pulmonary emphysema 47257903 J43.9 Well controlled on combo inhaler. Will continue for now. Pt educated and understand s that continued tobacco use will accelerate this disease process. Candidal balanitis 22487 007 B37.42 Likely fungal with secondary inflammati on. Try topical therapy. Call inb/worse. Phimosis 378500012 N47.1 Secondary to chronic/re current balanitis. Referral for circ to urology discussed but declined. Tobacco de pendence syndrome 91501441 F17.290 Pt is precontemp lative. Resources to help discuss/pr ovided. Will call when ready to quit and if assistance is needed. Diabetic p eripheral neuropathy 615971061 E11.40 Overdue for labs, Emphasized need for regular surveillan ce of his conditions and medication s. States that he will go this weekend. [id number] Raad Diehl MD Main Office [address] [facility] [address] [facility] [place] [address] 12/23/2021 13:50:29 12/23/2021 15:12:21 Tobacco dependence syndrome 16901778 F17.290 Pt is precontemp lative. Resources to help discuss/pr ovided. Will call when ready to quit and if assistance is needed. Hypertensi ve renal disease 28069726 I12.9 Well controlled continue current regimen. Pulmonary emphysema 8743 3001 J43.9 Well controlled on combo inhaler. Will continue for now. Pt educated and understand s that continued tobacco use will accelerate this disease process. Renal diso rder due to type 2 diabetes mellitus 620693713 E11.22 Will reassess and evaluate further if persistent /worse. ON ACEI and tolerating well with goal BP control. Advised to pursue eye exam janet. Well controlled and following with Christine Paraphimosis 80538411 N4 7.2 Psoriasis 1912589 L40.9 Suspect foreskin issue/amirah nitis might be related to both this and tinea. Nicotine dependence 5629 4008 Z87.891 LDCT Lung Cancer Screening Program Annual Order Chronic ki dney disease stage 3A 319848696 N18.31 BP well controlled . Will monitor labs. [id number] Raad Diehl MD Main Office [address] [facility] [address] [place] [address] 08/23/2022 14:56:54 08/23/2022 16:39:28 Adult health examination 941984020 Z00.00 Immunizati on status partially updated, bivalent COVID 19 and Shingrix #2 advised via local pharmacy. Regular ophtho care advised as well as seat belt and sunscreen use. Distracted driving discussed. Advance directives in place. Requires a tetanus booster 115959141 Z23 Obstructiv e sleep apnea syndrome 90761416 G47.33 Well controlled . Advised to f/u with pulm to verify appropriat e CPAP settings. Renal diso rder due to type 2 diabetes mellitus 175544398 E11.22 On ACEI and tolerating well with goal BP control. Advised to pursue eye exam janet. Well controlled and following with Christine Tobacco de pendence syndrome 09956382 F17.290 Pt is precontemp lative. Resources to help discuss/pr ovided. Will call when ready to quit and if assistance is needed. Vitamin D deficiency 347 56474 E55.9 Supplement dose increased. Screening for malignant neoplasm of colon 786549913 Z12.11 Overdue for f/u, will arrange. Chronic ki dney disease stage 3A 316376532 N18.31 BP well controlled . Will monitor labs. Body mass index 30+ - obesity 887168817 E66.01 Z68.35 Pulmonary emphysema 8743 3001 J43.9 Well controlled on combo inhaler. Will continue for now. Pt educated and understand s that continued tobacco use will accelerate this disease process. Bilateral inguinal hernia 64215785 K40.20 Will characteri ze further. Varicella vaccination 68 271794 Z23 Diabetic p eripheral neuropathy 624144679 E11.40 History of total replacement of bilateral hip joints 8000434361 055734 Z96.643 Pain in le ft lower limb 085666599 M79.605 Will ask ortho to assess given surgical history. Hypertensi ve renal disease 54192099 I12.9 Well controlled continue current regimen. Psoriasis 1930735 L40.9 Pt advised to follow up with derm. Pure hypercholesterolemia 776957415 E78.00 Statin dose titrated to goal LDL <100. [id number] Cale Hansen MD Main Office [address] [facility] [address] [place] [address] 11/18/2022 14:12:21 11/18/2022 15:14:01 Renal disorder due to type 2 diabetes mellitus 141335707 E11.22 Improved diabetic control with better diet and medication adherence. Pt. is advised to have microalbum in done. F/u 3 m. Chronic ki dney disease stage 3A 037777172 N18.31 continue caroilne and SGLT 2 [id number] Raad Diehl MD Main Office [address] [facility] [address] [place] [address] 01/24/2023 15:11:07 01/25/2023 09:44:42 Hypertensive renal disease 51919046 I12.9 Well controlled continue current regimen. Renal diso rder due to type 2 diabetes mellitus 177762628 E11.22 On ACEI and tolerating well with goal BP control. Advised to pursue eye exam janet. Well controlled and following with Christine Vitamin D deficiency 347 06953 E55.9 Supplement dose increased, needs reassessme nt Tobacco de pendence syndrome 31402402 F17.290 Pt is precontemp lative. Resources to help discuss/pr ovided. Will call when ready to quit and if assistance is needed. Abdominal aortic ectasia 5989048391 96698 I77.811 Need f/u in August 2023 Psoriasis 9860663 L40.9 Pt again advised to follow up with derm. Pulmonary emphysema 8743 3001 J43.9 Well controlled on combo inhaler. Will continue for now. Pt educated and understand s that continued tobacco use will accelerate this disease process. RSV vaccine advised. Influenza vaccine needed 3138675055 106 Z23 Administra tion of pneumococcal vaccine 79776832 Z23 Advised to pursue this as well as RSV vaccinatio n at local pharmacy. Cyst of pancreas 5613959 [address]86[address] Consider follow up imaging in Inguinal hernia 21714146 [address] in 08/2022. Would like to consult surgery, but will be away until next Spring. Understand s signs/symp toms that would warrant urgent eval. Intermitte nt claudication 00055047 I73.9 Pyuria 5178238 R82.81 Suspect contaminat ion was the issue. Will reassess with culture. Ventricula r premature complex 486907228 I49.3 Pt asymptomat ic. Will check labs. Better hydration and less caffeine intake advised. Chronic ki dney disease stage 2 552986200 N18.2 [id number] Cale Hansen MD Main Office [address] [facility] [address] [place] [address] 04/07/2023 14:40:57 04/07/2023 15:20:46 Renal disorder due to type 2 diabetes mellitus 039356952 E11.22 Improved diabetic control with better diet and medication adherence. weight is up currently. Pt. was encouraged to lower calories and processed foods and increase activity level. F/u 3 m, pt want to book in 4 m. Chronic ki dney disease stage 2 488052206 N18.2 continue jardiance and acei. continue low sodium diet and weight loss efforts. Diabetic p eripheral neuropathy 071765717 E11.40 continue gabapentin . F/u with the textile broker . Hypertensi ve renal disease 62487784 I12.9 Stable hypertensi on. Continue low sodium diet and medication regiment. Microalbuminuria 6321013 06 R80.9 large microalbum inuria in 2021. Repeat today and if still high , refer to renal. Vitamin D deficiency 347 56790 E55.9 Continue otc supplement s , repeat Vit D level. [id number] Cale Hansen MD Main Office [address] [address] 08/08/2023 14:22:54 08/08/2023 15:42:11 Renal disorder due to type 2 diabetes mellitus 242089308 E11.22 Worsened diabetic control. PT. is not testing glucose . Recommend to use Yehuda 3 for testing and get on remote uploads. Pt. is n max dose of trulicity and max synjardy and is not having glucose control. Chronic ki dney disease stage 2 927290930 N18.2 continue jardiance and acei. continue low sodium diet and weight loss efforts. Hypertensi ve renal disease 40030467 I12.9 Stable hypertensi on. Continue low sodium diet and medication regiment. [id number] Raad Diehl MD Main Office [address] [facility] [address] [place] [address] 11/03/2023 15:15:12 11/03/2023 15:55:42 Renal disorder due to type 2 diabetes mellitus 998250454 E11.22 Improved diabetic control on Ozempic. Goal A1c is not yet achieved. PT. has no medication side effects. WE will increase and try 1 mg dose weekly. F/u 3 m. Repeat all fasting labs and microalbum in. Chronic ki dney disease stage 2 687233806 N18.2 continue jardiance and acei. continue low sodium diet and weight loss efforts. Diabetic p eripheral neuropathy 742421619 E11.40 continue gabapentin . F/u with the textile broker . Hypertensi ve renal disease 21967734 I12.9 Stable hypertensi on. Continue low sodium diet and medication regiment. Microalbuminuria 9739101 06 R80.9 large microalbum inuria in 2021. Repeat today and if still high , refer to renal. Hyperlipidemia 81942811 E78.5 continue atorvastat in, low carb diet. [id number] Raad Diehl MD Main Office [address] [address] [place] [address] 12/13/2023 15:15:28 12/13/2023 16:31:30 Chest pain 03192690 R07.9 R/o cardiac ischemia. Pain is nonspecifi c, but pt has increased cardiovasc ular risk due to DM and obesity. Nonspecifi c change on EKG w/o acute abnormalit y as compared to January 2023 EKG.Recom to scheduled NM stress test and chest xray. Avoid extreme exertion until pain is fully evaluated . Go to the ER if chest pain becomes exertional , or dyspnea occurs. PT. will also try Aleve BID with food for 3-5 days to see if this will alleviate the pain. [id number] Raad Diehl MD Main Office [address] [address] [place] [address] 2024 10:57:06 2024 11:00:12 [id number] Raad Diehl MD Main Office [address] [address] [place] [address] 02/05/2024 14:24:05 02/05/2024 15:48:52 Adult health examination 397712666 Z00.00 COVID 19 and Shingrix #2 advised via local pharmacy. Regular ophtho care advised as well as seat belt and sunscreen use. Patient currently demonstrat es low risk for falls and no significan t cognitive decline. Distracted driving discussed. Advance directives in place. Influenza vaccine needed 8215850332 106 Z23 65 YEARS AND OLDER Low blood pressure 36361 003 I95.9 better after in office hydration but still low in the setting of hyperkalem ia. Will hold lisinopril and monitor. Body mass index 30+ - obesity 539373595 E66.9 Z68.34 Obstructiv e sleep apnea syndrome 87107673 G47.33 Well controlled . Advised to f/u with pulm to verify appropriat e CPAP settings. Renal diso rder due to type 2 diabetes mellitus 447468790 E11.22 On ACEI but having low BP, so will hold for now. Advised to pursue eye exam janet. Otherwise diabetes is well controlled and pt following with Christine. Overdue for diabetic eye exam. Pt advised to schedule janet. Tobacco de pendence syndrome 54039491 F17.290 Pt is precontemp lative. Resources to help discuss/pr ovided. Will call when ready to quit and if assistance is needed. Vitamin D deficiency 347 31679 E55.9 Supplement dose increased. Screening for malignant neoplasm of colon 345772832 Z12.11 Pulmonary emphysema 8743 3001 J43.9 Well controlled on combo inhaler. Will continue for now. Pt educated and understand s that continued tobacco use will accelerate this disease process. Bilateral inguinal hernia 05699147 K40.20 Scheduled for repair on Apr 04. Will request surgery notes from Dr. Concepcion. Varicella vaccination 68 930808 Z23 Diabetic p eripheral neuropathy 190470266 E11.40 Diabetic footcare and monitoring discussed. Hypertensi ve renal disease 05328839 I12.9 Psoriasis 2323427 L40.9 Pt advised to follow up with derm. Pure hypercholesterolemia 189861083 E78.00 Well controlled on moderate dose statin. (LDL <100) Abdominal aortic ectasia 4151321017 31319 I77.811 Overdue for f/u will try to arrange with CT scan for f/u of pancreatic mass as well as subclavian evaluation . Morbid obesity 549662135 E66.01 Nocturia 273154038 R35.1 Mass of pancreas 6014304 00 K86.89 Acute prostatitis 457613 02 N41.0 Symptoms suggestive of prostatiti s. Will treat acoordingl y and re evaluate. imaging vs urology referral may be next step. Administra tion of pneumococcal vaccine 99591541 Z23 Advised to pursue this as well as RSV vaccinatio n at local pharmacy. Unequal bl ood pressure in arms 462765180 R09.89 Needs assessment to rule out subclavian arterial disease. Cyst of pancreas 8506868 0 K86.2 Per radiology pt is now overdue for 1 yr f/u. Chronic ki dney disease stage 2 400823056 N18.2 GFR better on recent labs but still with proteinuri a. [id number] Raad Diehl MD Main Office [address] [facility] [address] [place] [address] 02/09/2024 14:17:15 02/09/2024 16:02:54 Renal disorder due to type 2 diabetes mellitus 269163705 E11.22 Improved diabetic control on Ozempic. Most recent hemoglobin A1C 6.9% today, down from 7.3% in October. Pt states that he's been having muscle pain since increasing his dose of Ozempic in October, with the most recent pain/disco mfort being in his abdomen. He was recently seen for his AWV several days ago and a CT scan of abdomen was ordered at that time - pending results. Continue exercise. Diabetic diet and low-potass ium foods encouraged at this time due to mild hyperkalem ia on most recent blood work. Recheck hemoglobin A1C and f/u in 3 months. Chronic ki dney disease stage 2 [id number] N18.2 Patient is not currently taking ACEI at this time due to low BP readings - was taken off at last AWV on Monday. Continue low sodium diet and weight loss efforts. BP follow-up already scheduled with Dr. Diehl on 02/26/24. Diabetic p eripheral neuropathy [id number] E11.40 Continue gabapentin . F/u with the textile broker . Hyperkalemia 48957001 E8 7.5 Patient advised to follow low-potass ium diet due to mild hyperkalem ia on most recent lab results. Provided with potassium- restricted diet instructio ns. [id number] Raad Diehl MD Main Office [address] [facility] [address] [place] [address] 03/13/2024 09:39:15 03/13/2024 16:56:04 [id number] Raad Diehl MD Main Office [address] [facility] [address] [place] [address] 04/11/2024 11:42:54 04/22/2024 17:46:30 [id number] Georges West MD [facility] [address] [facility] [address] [place] [address] 04/29/2024 13:32:21 04/29/2024 15:04:05 Transverse myelopathy syndrome 54780803 G37.3 Unclear etiology as of right now. pending neurology visit in 2 days ? positive syphilis ROCKY and RPR with elevated assays, post treatment , but no ID follow up? WE will request notes from the ID for review. those. He has home services from OT/PT and is home bound , unable to drive or even walk w/o help. Renal diso rder due to type 2 diabetes mellitus 069726841 E11.22 Diabetes worsened over the last 6 weeks due to steroid infusion and also stopping Ozempic and Synjardy. Pt. reports sugar were well controlled in rehab , but he is home now and is not taking Synjardy or Ozempic due to high cost. Changed to [employer] MD for insurance starting next month. Advised to restart Ozempic at least 1 mg weekly and test glucose daily. F/u 1 m. Chronic ki dney disease stage 2 646623296 N18.2 stable inpatient labs. continue current meds. [id number] Raad Diehl MD [facility] [address] [facility] [address] [place] [address] 05/03/2024 12:34:09 05/03/2024 14:34:34 Transverse myelopathy syndrome 52924876 G37.3 Working with neuro, making gains to PT, needs to continue for as long as insurance will allow. Being scheduled for follow up MRI Left hemiparesis 1379074 00 G81.90 Wheechair bound, using walker with support. Diabetic p eripheral neuropathy 969159936 E11.40 Diabetic footcare and monitoring discussed. Administra tion of pneumococcal vaccine 27130572 Z23 Advised to pursue this as well as RSV vaccinatio n at local pharmacy. Tobacco de pendence syndrome 74624989 F17.290 Pt is ready to quit but is declining NRT or other meds at this time. [id number] Raad Diehl MD Telehealt h [address] [facility] [address] [place] [address] 05/17/2024 12:31:35 05/17/2024 13:44:47 Renal disorder due to type 2 diabetes mellitus 355617751 E11.22 On ACEI but having low BP, so will hold for now. Advised to pursue eye exam janet. Otherwise diabetes is well controlled and pt following with Christine. Overdue for diabetic eye exam. Pt advised to schedule janet. Vitamin D deficiency 347 77159 E55.9 Supplement dose increased. Transverse myelopathy syndrome 90555891 G37.3 Working with neuro, making gains to PT, needs to continue for as long as insurance will allow. MRI showing improvemen t but patient has persistent limiting weakness/u rinary incontinen ce. Being advised by his therapist that a return to inpt rehab would be more beneficial . I will ask care management to explore this option. If not then outpt PMR evaluation may be the next appropriat e step. [id number] Raad Diehl MD Main Office [address] [facility] [address] [place] [address] 08/26/2024 15:04:13 08/26/2024 16:41:13 Preoperative state 35318492 Z01.818 [id number] Chowdhury CV risk score is 0.17%. Patient is at moderate risk for cardiopulm onary complicati ons with planned procedure based on comorbidit ies. Given reasonable exertional tolerance and overall procedure risk. Pt advised to avoid aspirin and NSAIDS for 10 days prior. Medically stable/jordy ared to proceed with surgery as planned as long as labs are unremarkab le. History of methicillin resistant Staphylococcus aureus infection 601949692 Z86.14 Nasal and axillary swabs sent for screening. Spinal elke nosis in cervical region 32706345 M48.02 [id number] Scheduled for cervical decompress ion at [facility] with Dr Reyna. Tobacco de pendence syndrome 04203076 F17.290 Patient states that he has quit. According to preoperati ve prerequisi brian he is supposed to be nicotine free for 4 weeks. Transverse myelopathy syndrome 97814437 G37.3 MRI showed improvemen t but patient has persistent limiting left sided weakness/u rinary incontinen ce. Possible that his cervical spine issues are a factor. Renal diso rder due to type 2 diabetes mellitus 812568632 E11.22 Will reassess control on GLP 1 agonist alone. Pt advised to hold semaglutid e 1 week prio r to surgery. Calcificat ion of coronary artery 696473540 I25.84 With reasonable exertional tolerance, and unchanged ECG will assume any CAD is stable enough to proceed with surgical plan as long as trop/bnp are normal. Pure hypercholesterolemia 092091839 E78.00 Was well controlled on moderate dose statin. (LDL <100), advised to resume. Nocturia 968360304 R35.1 Left hemiparesis 3905733 00 G81.90 Wheelhair bound, using walker with support. Vitamin D deficiency 347 91755 E55.9 Supplement dose increased. Pulmonary emphysema 8743 3001 J43.9 No significan t symptoms without inhalers. Understand s need to stay away from tobacco if he wishes to minimize risk for progressio n. [id number] Georges West MD Main Office [address] [facility] [address] [place] [address] 09/02/2024 16:19:56 09/02/2024 16:21:43 [id number] Raad Diehl MD Main Office [address] [address] [address] [place] [address] 09/17/2024 13:17:12 09/17/2024 13:38:53 [id number] Raad Diehl MD Main Office [address] [facility] [address] [place] [place] [address] 09/30/2024 08:43:59 09/30/2024 12:06:06 [id number] Raad Diehl MD Main Office [address] [address] [address] [place] [address] 10/14/2024 09:26:14 10/14/2024 09:27:48 [id number] Raad Diehl MD [facility] [address] [place] [address] 10/14/2024 12:54:18 10/14/2024 15:57:44 Renal disorder due to type 2 diabetes mellitus 483563219 E11.22 Stable A1c 1 months ago at 6.4%. Pt is doing well on Ozempic 1 mg dose. We reviewed latest lab tests , hospital admission notes reviewed. Neurology and ID notes reviewed.N O side effects with current dose of Ozempic. Recommend to repeat A1c and microalbum in in 2m F/u 3 m. Chronic ki dney disease stage 2 526434040 N18.2 Labs reviewed and stable. [id number] Raad Diehl MD Main Office [address] [facility] [address] [place] [address] 11/25/2024 14:25:44 11/25/2024 14:34:59 [id number] Raad Diehl MD Main Office [address] [address] [place] [address] 01/07/2025 10:17:41 01/07/2025 10:22:00 [id number] Raad Diehl MD [facility] [address] [place] [address] [address] [place] [address] 01/10/2025 12:34:34 01/10/2025 15:27:16 Spinal stenosis in cervical region 09244569 M48.02 [id number] s/p cervical decompress ion with Dr Reyna, recent MRI report was found/revi ewed and shows persistent cervical spine stenosis adjacent to the surgical site. Intermitte nt claudication 66066029 I73.9 [id number] Patient has risk factors for vascular claudicati on with persistent symptoms post surgery and with improvemen t in transverse myelitis. Comorbid vascular disease should be ruled out. Tobacco de pendence syndrome 12623041 F17.290 Patient states that he has quit. According to preoperati ve prerequisi brian he is supposed to be nicotine free for 4 weeks. Transverse myelopathy syndrome 69393069 G37.3 Thoracic MRI suggests improvemen t. Following with neuro. [id number] Raad Diehl MD Main Office [address] [facility] [address] [facility] [place] [address] 02/19/2025 14:16:53 02/19/2025 14:32:13 Health Concerns Section Related Observation LastModified by Organization Detai ls LastModified Time None Recorded Concern Status LastModified by Organization Details LastModified Time None Recorded Advance Directives Directive Y: HCP/ -She Payers Insurance Date Sequence Insurance Name Policy Number Policy Díaz Covered Member ID Díaz Member ID Guarantor Name 02/19/2025 1 [facility] (MEDICARE REPLACEMENT/ ADVANTAGE - HMO) Michaelle Baxter [id number] Michaelle Baxter 08/21/2023 1 [place] [employer] Michaelle Baxter [id number] Michaelle Garciavecsuzette 12/10/2024 1 [employer] (MEDICARE REPLACEMENT/ ADVANTAGE - PPO) [id number] Michaelle Baxter [id number] Michaelle Garciavecsuzette 01/24/2023 1 [employer] Michaelle Castrejonrovandana [id number] Michaelle Castrejonrovecsuzette 08/07/2023 1 [place] [id number] 01 Michaelle Castrejonrovandana [id number] Michaelle Castrejonrovecsuzette 05/18/2021 1 [facility] [id number] 23 She Baxter [id number] Michaelle Garciavecsuzette 02/19/2025 2 [place] [facility] Michaelle Baxter [id number] Michaelle Garciavecsuzette 05/25/2018 1 [facility] (HMO) [id number] 23 She Baxter [id number] Michaelle Baxter Notes Date Note Type Note Provider Name and Address Organization Details Recorded Time 5 text/html Diabetes F/UReported by PatientHPIFor associated symptoms, patient reportsweight gain (___ lbs)andnumbness of feetbut reportsno weight loss,no dizziness,no sweats,no headaches,no confusion,no increased thirst,no increased appetite,no increased urination,no blurred vision, andno calluses on feet. For context, patient reportsnormal range of home blood sugars (in the low 100s),seeing eye doctor regularly,checking feet regularly,taking aspirin daily,not missing doses of medications, andno side effects from medications(patient states that he's been having difficulty getting his glucose monitor - issue with pharmacy.denies foot pain, but has numbness in the toes and under the toes.). For review finger sticks, (cgm upload reviewed on 10/14/24. 82% of readings in range. no hypoglycemia.).A1c is 6.4%. today. Pt had recent cervical spine surgery and prior to that acute transverse myelitis. Currently on wheelchair but is started walking with walker and has therapy.Diet - states that he could be eating better overall. He typically has a coffee, sandwich, sweets, and carbs.Meds: Ozempic 1 mg weekly.Alb/creat ratio elevated 02/02/2024.CKD stg 2 stable. Diabetic peripheral neuropathy - on gabapentin. Does not see a textile broker at this time.ROS as noted in the HPI Christine Balderrama PA-C [address] [address], [place], [address], [facility] 10/14/2024 14:15:51 5 text/html Hospitalization Contact RecordReported by PatientHospitalization Contact RecordFor follow up, patient reportshospital: snf,admit date: (please enter in format 'mm/dd/yyyy') (09/17/2024),date of discharge: (please enter in format 'mm/dd/yyyy') (09/29/2024), anddate of contact: (please enter in format 'mm/dd/yyyy') (09/30/2024)([facility]).Med icare covered inpatient stay? yesMedicare GABBY with in 48 working hours? yesHigh Complexity code valid on or before:SeptemberModerate Complexity code valid on or before:SeptemberHCP on file? yesMOLST on file? noDischarge Summary available? yes10/07/24- spoke w/pt, he is doing well, still recovering, has home PT/OT but is currently unable to leave the house. appt booked for tele hosp f/u. Pt with hx cervical spondyloarthropathy and developed acute transverse myelitis 02/2024. Since then pt has had sustained trouble with standing/walking. 4 months ago he experienced sensation weakness, leading to hosp admission with a diagnosed spinal fluid infection. dx with transverse myelitis causing swelling of the spinal cord. Spent some time at [facility], went home, repeat MRI in April which showed reduced spinal swelling. He then began to develop more and more pain in his neck, then seen by neurosurgery and it was felt that he would benefit from a C5-C6 ACDF. [facility]patient [facility]hab [facility] at [facility]. Is now home with PT/OT. Has neurosurgery f/u, and was referred for a post op MRI which was done but results are pending. Pt continues to have lower extremity pain/weakness and is requesting to resume home PT. MEDS RECONCILED Raad Diehl MD [address] [address], [place], [address], [facility] 01/16/2025 17:51:42
--- OUTSIDE RECORDS SUMMARY | 2025-02-27 15:57 | XMS_ITS | Data Portability ---
Author Organization [facility], [address] Address [address] [place] [address] Assessment No assessment recorded. Plan of Treatment Reminders Order Date Submit Date Provider Last Modified By Organization Details Last Modified Time Details Appointments None recorde d. Lab glucose , fingers tick, blood 023 11/29/19 23 [email or web address] [address], [address] [place], [address], 17:04:56 Referral None recorde d. Procedures None recorde d. Surgeries None recorde d. Imaging None recorde d. Medication Orders None recorde d. Patient TargetsNo targets recorded. Patient Instructions Encounter Date Encounter Id Patient Instructions Last Modified By Organization Details Last Modified Time 11/28/2022 [id number] This physical does not replace the annual physical to be performed by your PCP. There may be additional screening tests that they will perform that we do not in the urgent care setting. Failure to follow up as recommended may result in significant adverse health consequences. If your symptoms worsen or you develop new symptoms that concern you, go to the emergency department for further evaluation. Not available 11/28/2022 17:04:53 11/28/2022 [id number] This physical does not replace the annual physical to be performed by your PCP. There may be additional screening tests that they will perform that we do not in the urgent care setting. Failure to follow up as recommended may result in significant adverse health consequences. If your symptoms worsen or you develop new symptoms that concern you, go to the emergency department for further evaluation. Not available 11/28/2022 15:21:27 Reason for Referral None Reported. Results Created Date Observation Date Name Description Value Unit Range Abnormal Flag Note LastModifiedBy Organization Detail LastModifiedTime 11/29/1911/28/2022 gluco bill muñoze rstic k, blood blood sugar - non fasting 80 mg/dL 80-140 = normal normal Not Available [address] [place], [address], 11/28/2022 15:32:52 11/29/1911/28/2022 gluco , ivet rstic k, blood blood sugar - fasting mg/dL 80-125 = normal Not Available [address] [place], [address], 11/28/2022 15:32:52 Result Notes None recorded. Procedures Surgical History Date Name Laterality Status Provider Name and Address Organization Details Recorded Time 3 OC-DOT PHYSICAL completed JESUSITA MORAN PA - [facility] 11/28/2022 15:02:41 3 OC-UDS Rapid 5 or 10 panel Template completed DARCI GARCIA PA - [facility] 10/07/2022 15:53:05 3 OC-DOT PHYSICAL completed DARCI GARCIA PA - [facility] 09/27/2022 08:54:49 3 OC-BAT Screening Template NON DOT completed CAROL TOBARE PA - [facility] 06/14/2022 13:00:38 3 OC-UDS Rapid 5 or 10 panel Template completed CAROL DRINKJOSEPHE PA - [facility] 06/14/2022 12:46:12 Imaging Results None recorded. Procedure Notes None recorded. Medical Equipment None Reported. Medications Name Sig Start Date Stop Date Status Note LastModified by Organization Details LastModified Time atorvastatin 40 mg tablet TAKE 1 TABLET BY MOUTH EVERY DAY active Not Available Not Available No t Available atorvastatin 20 mg tablet TAKE 1 TABLET BY MOUTH EVERY DAY active Not Available Not Available No t Available meloxicam 15 mg tablet TAKE 1 TABLET BY MOUTH ONCE A DAY WITH FOOD active Not Available Not Available No t Available prednisone 20 mg tablet TAKE 2 TABLETS BY MOUTH EVERY DAY FOR 5 DAYS active Not Available Not Available No t Available lisinopril 10 mg tablet TAKE 1 TABLET BY MOUTH EVERY DAY active Not Available Not Available No t Available lidocaine 5 % topical patch APPLY TOPICALLY DAILY REMOVE PATCHES AFTER 12 HOURS, NEEDED FOR PAIN- SEVERE active Not Available Not Available No t Available gabapentin 300 mg capsule TAKE 1 CAPSULE BY MOUTH THREE TIMES A DAY NEEDED active Not Available Not Available No t Available naproxen 500 mg tablet TAKE 1 TABLET BY MOUTH TWICE A DAY FOR 5 DAYS active Not Available Not Available No t Available Combivent Respimat 20 mcg-100 mcg/actuatio n solution for inhalation INHALE 1 PUFF INTO THE LUNGS FOUR TIMES A DAY NEEDED active Not Available Not Available No t Available Trulicity 1.5 mg/0.5 mL subcutaneous pen injector INJECT THE CONTENTS OF 1 PEN (0.5 ML) SUBCUTANEOU SLY ONCE WEEKLY active Not Available Not Available No t Available Synjardy XR 5 mg-1,000 mg tablet, extended release TAKE 2 TABLETS BY MOUTH EVERY DAY active Not Available Not Available No t Available Dexcom G6 Sensor device USE DIRECTED. REPLACE SENSOR EVERY 10 DAYS. active Not Available Not Available No t Available Dexcom G6 Transmitter device USE DIRECTED. active Not Available Not Available No t Available Trulicity 3 mg/0.5 mL subcutaneous pen injector INJECT 0.5 ML SUBCUTANEOU SLY EVERY WEEK DIRECTED. ROTATE INJECTION SITES active Not Available Not Available No t Available Trulicity 4.5 mg/0.5 mL subcutaneous pen injector INJECT 0.5ML SUBCUTANEOU SLY EVERY WEEK DIRECTED. ROTATE INJECTION SITES active Not Available Not Available No t Available Vitals None Recorded Social History None recorded. Functional Status None recorded. Mental Status None recorded. Family History Nothing Reported. Medical History No medical history recorded. Past Encounters Encounter ID Performer Location Encounter Start Date Encounter Closed Date Diagnosis/Indication Diagnosis SNOMED-CT Code Diagnosis ICD10 Code Diagnosis IMO Codes Diagnosis Note [id number] [facility] [address] [place] [address] 01/30/2021 14:06:52 01/30/2021 16:35:06 [id number] [address] [facility] [address] [place] [address] 02/15/2018 16:17:48 02/15/2018 17:02:33 [id number] [place] [address] [place] [address] 06/14/2022 11:57:29 06/14/2022 12:51:55 History and physical examination, occupation 216669147 Z02.1 [id number] [place] [address] [place] [address] 09/27/2022 08:21:30 09/27/2022 09:28:42 Merchandising Team Lead license medical examination 083428260 Z02.4 Physical examination 588 0005 Z02.4 [id number] MILENA HEADLEY MD [address] [place] [address] 10/07/2022 15:28:19 10/07/2022 15:57:20 History and physical examination, occupation 608304506 Z02.1 [id number] [place] [address] [place] [address] 11/28/2022 14:26:43 11/28/2022 16:04:40 Merchandising Team Lead license medical examination 230093112 Z02.4 Physical examination 588 0005 Z02.4 History an d physical examination, pre-employment 387605063 Z02.1 [id number] [place] [address] [place] [address] 11/28/2022 15:28:32 11/28/2022 17:09:03 History and physical examination, occupation 759334389 Z02.1 Diabetes m ellitus screening 251177833 Z13.1 History an d physical examination, pre-employment 329663908 Z02.1 [id number] [place] [address] [place] [address] 12/04/2022 14:44:35 12/22/2022 08:25:29 Left without being seen 1423591402 9102 Z53.21 Health Concerns Section Related Observation LastModified by Organization Detai ls LastModified Time None Recorded Concern Status LastModified by Organization Details LastModified Time None Recorded Advance Directives Directive None Recorded Payers Insurance Date Sequence Insurance Name Policy Number Policy Díaz Covered Member ID Díaz Member ID Guarantor Name 12/04/2022 OC-ESCREEN Hai Cashrovecsuzette [id number] Hai Castrejonrovecsuzette 11/28/2022 OC-ESCREEN Hai Vurovecz [employer] Hai Vurovecz 12/04/[address] [place] [address] [id number] Hai Vurovecz [id number] Hai Vurovecz 06/14/2022 OC-ESCREEN [employer] ROBERTH 360 Hai Vurovecz 09/27/2022 OC-PAY AT TIME OF SERVICE 2022 Hai Vurovecz PAY AT TIME OF SERVICE 20 PAY AT TIME OF SERVICE 20 Hai Vurovecz 09/27/2022 PAY AT TOS Hai Vurovecsuzette PAY AT TIME OF SERVICE 20 PAY AT TIME OF SERVICE 20 Hai Vurovecsuzette 10/07/2022 OC-ESCREEN Hai Garciavandana [id number] Hai Garciavecsuzette Notes Date Note Type Note Provider Name a nd Address Organization Details Recorded Time 11/28/2022 text/html physical Car Forte NP [address] [facility] [place], [address], PA - [facility] 11/28/2022 16:01:57 11/28/2022 text/html tra Forte NP [address] [place], [address], PA - [facility] 11/28/2022 17:05:40
--- OUTSIDE RECORDS SUMMARY | 2025-02-27 15:57 | XMS_ITS | Encounter Summary ---
Author Organization [facility] Address [address] [place] [address] Care Team Providers Care Manager Icu Name Role Phone Raad Adams MD Primary Care Provider [phone] Reason for Referral * Imaging (Routine) - Authorized Specialty Diagnoses / Procedures Referred By Danny tavares Referred To Contact Diagnostic Radiology Procedures CT Cervical Spine wo IV Contrast Erasto Le PA [address] [place] [address] Phone: tel: fax: Referral ID Status Reason Start Date Expiration Date V isits Requested Visits Authorized [id number] Authorized 07/31/2024 07/31/2025 1 1 Encounter Details Date Type Department Care Team (Late st Contact Info) Description 07/31/2024 Scanned Document [facility] [address] [place] [address] Erasto Le PA [address] [place] [phone] Social History Tobacco Use Types Packs/Day Years [...] 1:30 PM EST Telemedicine [facility] [address] [place] [address] Malachi Reyna MD [address] [facility] [address] [place] [phone] documented as of this encounter Procedures Procedure Name Priority Date/Time Associated Diagnosis Comments CT CERVICAL SPINE WO IV CONTRAST Routine 07/16/2024 6:18 PM EDT documented in this encounter Results * CT Cervical Spine wo IV Contrast (07/16/2024 6:18 PM EDT) Anatomical Region Laterality Modality C-spine, Spine, Ortho C-spine Co mputed Tomography us Erasto MENDIETA IMG CT ORDERABLES Final Resu lt documented in this encounter Visit Diagnoses Not on filedocumented in this encounter Care Teams Manager Icu Relationship Specialty Start Date End Date Raad Adams MD [address] [facility] [address] [place] [address] PCP - General Internal Medicine 06/20/24 documented as of this encounter
--- OUTSIDE RECORDS SUMMARY | 2025-02-27 15:57 | XMS_ITS | Clinical Summary ---
Author Organization [address] [address] Phone Care Team Providers Care Trash Collector Truck Driver Name Role Phone Raad Adams MD Primary Care Provider [phone] Allergies No known active allergies Medications OZEMPIC 1 mg/dose (4 mg/3 mL) pen injector INJECT 1 MG SUBCUTANEOUSLY EVERY WEEK FOR 30 DAYS. Active cholecalcifero l (VITAMIN D-3) 50 mcg (2,000 unit) capsule Take 1 capsule (2,000 Units total) by mouth daily. Active gabapentin (NEURONTIN) 600 mg tablet Take 1 tablet (600 mg total) by mouth 3 times a day. 5 Active b complex vitamins (B COMPLEX) tablet Take 1 tablet by mouth daily. Active baclofen (LIORESAL) 5 mg/mL oral suspension Take 0.5 mLs (2.5 mg total) by mouth 3 (three) times daily. 5 026 Active ascorbic acid, vitamin C, (VITAMIN C) 500 mg tablet Take 1 tablet (500 mg total) by mouth 2 (two) times daily. 5 Active multivitamin with folic acid (THERAGRAN) 400 mcg tablet Take 1 tablet by mouth daily. 5 Active polyethylene glycol (MIRALAX) 17 gram packet Take 1 packet (17 g total) by mouth daily. Mix in 8 ounces of water, juice, soda, coffee or tea prior to taking. 5 Active senna (SENOKOT) 8.6 mg tablet Take 1 tablet (8.6 mg total) by mouth 2 (two) times daily. 5 Active oxyCODONE (ROXICODONE) 10 mg Immediate Release tablet Take 1 tablet (10 mg total) by mouth every 4 (four) hours as needed. Active oxyCODONE (ROXICODONE) 5 mg Immediate Release tablet Take 1 tablet (5 mg total) by mouth every 4 (four) hours as needed. Active acetaminophen (TYLENOL) 500 mg tablet Take 2 tablets every 6 hours by oral route for 10 days. Active atorvastatin (LIPITOR) 40 mg tablet Take 1 tablet (40 mg total) by mouth daily. Active lisinopriL (PRINIVIL,ZEST RIL) 10 mg tablet Take 1 tablet (10 mg total) by mouth daily. 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 (HC Code) 07/30/2024 Snoring 07/30/2024 PVCs (premature ventricular contractions) 2024 Pleural effusion associated with pulmonary infec tion 07/30/2024 Neurosyphilis 07/30/2024 Low back pain 07/30/2024 Impaired fasting glucose 07/30/2024 Hyponatremia 07/30/2024 Erythrocytosis 07/30/2024 Early satiety 07/30/2024 Dermatophytosis 07/30/2024 Obesity (BMI 30.0-34.9) 07/30/2024 Acute endocarditis 07/30/2024 Degeneration of cervical intervertebral disc 04/2024 Overview (07/30/2024): C5-C7 Left hemiparesis (HC Code) 05/03/2024 History of syphilis 05/01/2024 Transverse myelopathy syndrome (HC Code) 025 Transverse myelitis (HC Code) 04/29/2024 Hypoalbuminemia 03/13/2024 Lumbar radiculopathy 02/22/2024 Overview (07/30/2024): right L5 Acute transverse myelitis (HC Code) 02/22/2024 Lumbar radiculopathy 02/22/2024 Overview (01/09/2025): right L5 Calcification of coronary artery 02/13/2024 Unequal blood pressure in upper extremities 01/16 Mass of pancreas 02/05/2024 Hyperkalemia 02/04/2024 Hypercalcemia 02/04/2024 Hyperlipidemia 11/03/2023 Ventricular premature complex 01/26/2023 Intermittent claudication 01/24/2023 Malignant neoplasm of prosta te metastatic to large intestine (HC Code) 09/02/2022 Steatosis of liver 09/02/2022 Inguinal hernia 09/02/2022 Overview (07/30/2024): fat containing bilateral Atherosclerosis of aorta 09/02/2022 Abdominal aortic ectasia 09/02/2022 Overview (07/30/2024): 2.7cm infrarenal Hypertrophy of prostate 09/02/2022 History of total replacement of both hip joints 08/23/2022 Vitamin D deficiency 08/22/2022 Phimosis 05/20/2021 Diabetic peripheral neuropathy 02/16/2021 Hypertensive renal disease 04/30/2020 Pulmonary emphysema 01/15/2020 Epidermal inclusion cyst of eyelid 11/20/2019 History of endocarditis 10/21/2019 Lumbar spondylosis 05/24/2019 Obesity with body mass index 30 or greater 05/24 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 01/21/2019 History of gastritis 10/21/2018 Microalbuminuria 10/15/2018 Hypertension with albuminuria 08/27/2018 Stage 3a chronic kidney disease 07/13/2018 Type 2 diabetes mellitus 04/20/2018 Overview (07/30/2024): Replacing diagnoses that were inactivated after the 01/16/24 Regulatory Import Bacteremia due to methicilli n resistant Staphylococcus aureus 04/20/2018 Type 2 diabetes mellitus 04/20/2018 Personal history of peptic ulcer disease 018 History of methicillin resis tant Staphylococcus aureus infection 06/28/2017 Albuminuria 06/28/2017 History of duodenal ulcer 06/28/2017 Magana's esophagus 03/07/2017 Hiatal hernia 02/27/2017 Acute duodenal ulcer 02/27/2017 Septic pulmonary embolism (HC Code) 05/03/2016 Psoriasis 05/03/2016 Multiple-resistant Staphylococcus aureus infecti on 02/10/2016 Obstructive sleep apnea syndrome 01/20/2016 Overview (07/30/2024): moderate Pleural effusion 01/14/2016 Overview (07/30/2024): right Abscess of buttock 01/09/2016 Cyst of pancreas 01/08/2016 Overview (07/30/2024): needs 1 yr f/u Multiple nodules of lung 07/17/2015 Osteoarthritis of hip 06/26/2013 Pure hypercholesterolemia 05/27/2013 Internal hemorrhoids 05/27/2013 Essential hypertension 05/27/2013 Encounter for screening for malignant neoplasm o f colon 05/27/2013 Overview (07/30/2024): RECORDED 05/27/2013 10:10AM BY MELINDA BISHOP MA, ANNOTATION/ADDENDUM Diverticular disease 05/27/2013 Diverticular disease of colon 05/27/2013 Tobacco dependence syndrome 04/23/2013 Overview (07/30/2024): RECORDED 04/23/2013 2:51PM BY DENA BATEMAN MA, ANNOTATION/ADDENDUM Benign neoplasm of colon 04/17/2013 Hip pain 03/25/2013 Overview (07/30/2024): IMPRESSION: SUSPECT SEVER ARTHRITIS SOURCE. NEEDS BETTER IMAGING WITH RADILOLOGIST REVIEW WELL ORTHO CONSULT. CONTINUE PRN NSAIDS FOR SYMPTOM RELIEF.; RECORDED 03/25/2013 11:18AM BY AYDE MONTESINOS MA, ANNOTATION/ADDENDUM Encounters Date Type Department Care Team Description 01/15/2025 Orders Only Neurosurgery at [address] [place] [address] Raad Adams MD 01/13/2025 Telephone [facility] at [address] [address] Malachi Reyna MD Results 01/10/2025 Scanned Document [facility] [address] [place], [place] [address] Provider, Historical 01/09/2025 Orders Only [facility] [address] [place] [address] System, Provider Not In 01/09/2025 Orders Only [facility] [address] [place] [address] System, Provider Not In 01/09/2025 Orders Only [facility] [address] [place] [address] System, Provider Not In 01/09/2025 Orders Only [facility] [address] [place] [address] System, Provider Not In 01/09/2025 Orders Only [facility] [address] [facility] [place] [address] System, Provider Not In 01/09/2025 Scanned Document [facility] at [address] [place] [phone] Ganesh Feliz MD 2025 12:10 AM EDT - 2025 11:59 PM EDT Hospital Encounter [facility] File Room [address] [place] [address] System, Provider Not In Discharge Disposition: Home or Self Care 2025 12:05 AM EDT - 2025 12:09 AM EDT Hospital Encounter [facility] Room [address] [place] [address] System, Provider Not In Discharge Disposition: Home or Self Care 2025 - 2025 12:04 AM EDT Hospital Encounter [facility] Room [address] [place] [address] System, Provider Not In Discharge Disposition: Home or Self Care 12/30/2024 Telephone [facility] at [address] [place] [phone] Malachi Reyna MD FYI 12/19/2024 Telephone [facility] at [address] [place] [address] Malachi Reyna MD Referral; Other 12/18/2024 1:30 PM EDT Telemedicine [facility] at [facility] [address] [place] [address] Malachi Reyna MD 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 Dx) 12/09/2024 Telephone Neurosurgery at [address] [place] [address] Jacki Cruz RN Other (Xray reminder) from Last 3 Months Immunizations Immunization Administration Dates Next Due COVID-19, MODERNA 12Y+, 0.5 mL 10/06/2020 Influenza, high dose, quad, 0.7 mL, preservative free 01/24/2023 Influenza, high-dose, split virus, trivalent,(65Yr+),injectable, preservative free 02/05/2024 Influenza, injectable, quad with preservative 12/11/2019,03/06/2017,01/08/2016 Influenza, injectable, quadr ivalent, preservative free 02/16/2021,03/12/2018,02/27/2017,02/18 Influenza, recombinant, quad , preservative free 01/11/2020 Pneumococcal polysaccharide PPSV23 06/28/2017, RSV, recombinant, adjuvant, adult IM (Arexvy) 04/19/2023 Td (>7 yo), 5 Lf tetanus tox oid, PF, adsorbed 03/30/2005 Tdap 08/23/2022, 3,03/25/2013,03/04 ZOSTER RECOMBINANT (Shingrix) 12/11/2019 Social History Tobacco Use Types Packs/Day Years Used Date Smoking Tobacco: Every Day Cigarettes Tobacco Cessation:Ready to Q uit: Not Asked; Counseling Given: Not Answered [facility] Utilities Answer Date Recorded In the past 12 months has th e [employer] gas, oil, or water company threatened to [...] your living situation today? I have a [facility] place to live 09/12/2024 Housing Stability [...] Sign Reading Time Taken Comments Blood Pressure 120/82 09/17/2024 2:26 PM EDT Pulse 85 09/17/2024 2:26 PM EDT Temperature 36.7 C (98.1 F) 09/17/2024 2:26 PM EDT Respiratory Rate 18 09/17/2024 2:26 PM EDT Oxygen Saturation 94% 09/17/2024 2:26 PM EDT Inhaled Oxygen Concentration - - Weight 108 kg (238 lb 1.6 oz) 12/18/2024 1:35 PM EDT Height 177.8 cm (5' 10 ) 12/18/2024 1:35 PM EDT Body Mass Index 34.16 12/18/2024 1:35 PM EDT Plan of Treatment Upcoming Encounters Date Type Department Care Team (Late st Contact Info) Description 04/02/2025 1:30 PM EST Telemedicine [facility] at [address] [address] Malachi Reyna MD [address] [place] [phone] Health Maintenance Due Date Last Done Comments Diabetic eye exam 01/06/1968 LDL monitoring 01/06/1968 Urine Microalbumin 01/06/1968 HIV screening 1971 Hepatitis C screening 01/06/1976 Colon cancer screening, Colonoscopy 2003 Lung Cancer Screening 01/06/2008 Pneumococcal Vaccine (50+ years) (2 of 2 - PCV) 06/28/2018 06/28/2017, 01/09/2016 Shingles vaccine (Shingrix) (2 of 2 - Shingrix (RZV) 2 Dose Standard Series) 02/10/2020 12/11/2019 Aortic Aneurysm screening 2023 Influenza vaccine 11/15/2024 02/05/2024, , 02/16/2021, Additional history exists Covid-19 vaccine series ( season) 2024 04/26/2023, 10/06/2020, 09/08/2020, Additional history exists Diabetic foot exam 02/04/2025 02/05/2024, 1 04/18/2020, 07/03/2020, Additional history exists Hemoglobin A1C 03/15/2025 09/12/2024 Tetanus adult (Td q 10,TDAP once) 08/23/2032 08/23/2022, 08/23/2022, 03/25/2013, Additional history exists RSV Immunization Completed 04/19/2023 Meningococcal B Vaccine Aged Out No l onger eligible based on patient's age to complete this topic Meningococcal Vaccine Aged Out No akosua piotr eligible based on patient's age to complete this topic Goals Goal Patient Goal Type Associated Problems Recent Progress Patient-Stated? Author [facility] Spine Task Goal Care Plan [facility] SPINE PROBLEM No Eve Stovall, [place] [facility] Spine Smoking Cessation Goal Care Plan [facility] SPINE SMOKING CESSATION PROBLEM No Stanislav Campbell, [place] Medical Devices Implanted Type Area Poker Supervisor Device Identifier Shelf Expiration Date Model / Serial / Lot Screw [employer] 3.6mm Variable Self-Drl 16mm - [id number] Implanted:Qty : 2 on 09/12/2024 by Malachi Reyna MD at [facility] [address] Implant Cervical: Spine Cervical [employer] 184.156 / / Sp[employer] [id number] 7deg 8mm - [id number] Implanted:Qty : 1 on 09/12/2024 by Malachi Reyna MD at [facility] [address] Implant Cervical: Spine Cervical [facility] [id number] / / Procedures Procedure Name Priority Date/Time Associated Diagnosis Comments LAB SCAN Routine 01/06/2025 7:47 AM EDT MRI CERVICAL SPINE WO IV CONTRAST Routine 2025 11:56 AM EDT MRI THORACIC SPINE WO IV CONTRAST Routine 2025 11:52 AM EDT MRI LUMBAR SPINE WO IV CONTRAST Routine 2025 11:50 AM EDT MRI CERVICAL SPINE WO IV CONTRAST Routine 2025 11:18 AM EDT [facility] CERVICAL SPINE Routine 2025 12:10 AM EDT [facility] MRI THORACIC SPINE Routine 2025 12:05 AM EDT [facility] MRI LUMBAR SPINE Routine 2025 12:00 AM EDT HEMOGLOBIN A1C STAT 09/12/2024 9:45 AM EDT from Last 3 Months or Most Recently Relevant to Health Maintenance Results * Lab Scan (01/06/2025 7:47 AM EDT) Historical Provider LAB BLOOD ORDERABLES Final R esult * MRI Cervical Spine without IV Contrast (2025 11:56 AM EDT) Only the most recent of2 resultswithin the time period is included. Anatomical Region Laterality Modality C-spine, Spine, Ortho C-spine Ma gnetic Resonance Malachi Reyna MD IMG MRI ORDERABLES Final Re sult * MRI Thoracic Spine without IV Contrast (2025 11:52 AM EDT) Anatomical Region Laterality Modality T-spine, Spine, Ortho T-spine Ma gnetic Resonance Malachi Reyna MD IMG MRI ORDERABLES Final Re sult * MRI Lumbar Spine without IV Contrast (2025 11:50 AM EDT) Anatomical Region Laterality Modality L-spine, Spine, Ortho L-spine Ma gnetic Resonance Malachi Reyna MD IMG MRI ORDERABLES Final Re sult * [facility] MRI Cervical Spine (2025 12:10 AM EDT) Narrative RAD4 - 01/09/2025 11:17 AM EDT DISCLAIMER This procedure captures images only. There is no report. us Provider Not In System [facility] NON REP ORDERABLE S Final Result Performing Organization Address [facility] Phone Number RAD4 * [facility] MRI Thoracic Spine (2025 12:05 AM EDT) Narrative RAD4 - 01/09/2025 11:17 AM EDT DISCLAIMER This procedure captures images only. There is no report. us Provider Not In System [facility] OS NON REP ORDERABLE S Final Result Performing Organization Address [facility] Phone Number RAD4 * [facility] MRI Lumbar Spine (2025 12:00 AM EDT) Narrative RAD[facility] - 01/09/2025 11:15 AM EDT DISCLAIMER This procedure captures images only. There is no report. Provider Not In System [facility] NON REP ORDERABLE S Final Result Performing Organization Address [facility] Phone Number RAD4 * Hemoglobin A1c (09/12/2024 9:45 AM EDT) Hemoglobin A1c 6.1 4.2 - 6.3 % 09/12/2024 11:35 AM EDT + [facility] Comment: >=6.5% Diabetes* 5.7-6.4% Pre-Diabetes *These results must be confirmed by repeat testing in the absence of unequivocal hypoglycemia. Diabetes Care 2015 38 s8-16 NOTE: This A1c assay is accurate in HbC, HbS, HbE, or HbD. A1c results are not reliable in the presence of HbF or in patients with chronic blood loss. Any cause of shortened red blood cell survival (eg, hemolytic anemia, hemolysis, , recent significant blood loss) will reduce the exposure of red blood cells to glucose with a consequent decrease in A1c values. Blood Venipuncture / Unknown 09/12/2024 9:45 AM EDT 09/12/2024 10:14 AM EDT us Malachi Reyna MD LAB BLOOD ORDERABLES Final Result L + M [facility] [address] [place] [address] from Last 3 Months or Most Recently Relevant to Health Maintenance Additional Health Concerns Active Problems Noted Date Diagnosed Date AMB CC LMH SPINE PROBLEM 08/19/2024 AMB CC LM SPINE SMOKING CESSATION PROBLEM 08/[address] [facility] MGD MEDICARE [facility] MEDICARE [facility] Advance Directives * Full Code (Latest Code Status on File) Date Activated Date Inactivated Comments 09/12/2024 1:50 PM 09/17/2024 8:30 PM Care Teams Trash Collector Truck Driver Relationship Specialty Start Date End Date Raad Adams MD [address] [phone] PCP - General Internal Medicine 06/20/24
--- OUTSIDE RECORDS SUMMARY | 2025-02-27 15:57 | XMS_ITS | Encounter Summary ---
Author Organization [facility] Address [address] [place] [phone] Care Team Providers Care Solar Energy Engineer Name Role Phone Raad Adams MD Primary Care Provider [phone] Reason for Visit * Reason Onset Date Comments Results 01/13/2025 Encounter Details Date Type Department Care Team ([facility] st Contact Info) Description 01/13/2025 Telephone Neurosurgery at [address] [place] [phone] Malachi Reyna MD [address] [place] [phone] Results Social History Tobacco Use Types Packs/Day Years Used Date Smoking Tobacco: Every Day Cigarettes [facility] Utilities Answer Date Recorded In the [...] Miscellaneous Notes * Telephone Encounter - Starla Perez - 01/15/2025 5:01 PM EDT I returned Michaelle's call. I informed him Dr. Reyna would go over his results at his March appointment. He wants that to be Telehealth he is wheelchair bound it's hard to get transportation to [place]. I faxed the 12/18/[address] Adams at his request. He is asking if Dr. Reyna would call him sooner. He thinks he needs surgery right away. I told him I would forward the message to Dr. Reyna. * Telephone Encounter - Heather Rodriguez - 01/13/2025 3:20 PM EDT Copied from [facility] #[id number]. Topic: Test Result Request - CARE >> Jan 13, 2025 3:12 PM Heather Hall wrote: [facility]: RESULTS MESSAGE Time of call: 3:12 PM Caller: MICHAELLE DONNELLY Specialist you are calling for: Dr. Reyna Reason for call: Regarding the MRI Results, Labs and what are his next steps. Also asking if his recent visit notes can be sent to his primary care Dr. Adams fax number is [phone] Name of test(s): MRI of total spine and Lab results (in media) Date test performed: MRI 01/05 and the labs completed at [facility] (scanned in to chart) Best telephone number for callback: [phone] Best time to return call: Anytime Permission to leave message: yes Heather Rodriguez [facility] College Intern documented in this encounter Plan of Treatment Upcoming Encounters Date Type Department Care Team (Late st Contact Info) Description 04/02/2025 1:30 PM EST Telemedicine Neurosurgery at [address] [address] Malachi Reyna MD [address] [place] [phone] documented as of this encounter Goals Goal Patient Goal Type Associated Problems Recent Progress Patient-Stated? Author [facility] Spine Task Goal Care Plan AMB [facility] SPINE PROBLEM No Eve Stovall, RN [facility] Spine Smoking Cessation Goal Care Plan AMB [facility] SPINE SMOKING CESSATION PROBLEM No Stanislav Campbell, RN documented as of this encounter Visit Diagnoses Not on filedocumented in this encounter Additional Health Concerns Active Problems Noted Date Diagnosed Date AMB LM SPINE PROBLEM 08/19/2024 AMB [facility] SPINE SMOKING CESSATION PROBLEM 08/30 documented as of this encounter Care Teams Solar Energy Engineer Relationship Specialty Start Date End Date Raad Adams MD [address] [phone] PCP - General Internal Medicine 06/20/24 documented as of this encounter
--- OUTSIDE RECORDS SUMMARY | 2025-02-27 15:57 | XMS_ITS | Encounter Summary ---
Author Organization [facility] Address [address] [place] [address] Care Team Providers Care Child Development Instructor Name Role Phone Raad Adams MD Primary Care Provider [phone] Encounter Details Date Type Department Care Team (Late st Contact Info) Description 01/10/2025 Scanned Document [facility] SCHEDULING [address] [place] [address] Provider, historical . Social History Tobacco Use Types Packs/Day Years Used Date Smoking Tobacco: Every Day Cigarettes [facility] Utilities Answer Date Recorded In the past 12 months has [employer] electric, gas, oil, or water [employer] threatened to shut off services in your [...] your living situation today? I have a [facility] place to live 09/12/2024 Housing Stability [...] PM EST Telemedicine [facility] at [address] [facility] [address] [address] Malachi Reyna MD [address] [phone] documented as of this encounter Goals Goal Patient Goal Type Associated Problems Recent Progress Patient-Stated? Author [facility] Spine Task Goal Care Plan AMB LM SPINE PROBLEM No Eve Stovall, RN [facility] Spine Smoking Cessation Goal Care Plan AMB [facility] SPINE SMOKING CESSATION PROBLEM No Stanislav Campbell, [place] documented as of this encounter Procedures Procedure Name Priority Date/Time Associated Diagnosis Comments LAB SCAN Routine 01/06/2025 7:47 AM EDT documented in this encounter Results * Lab Scan (01/06/2025 7:47 AM EDT) Historical Provider LAB BLOOD ORDERABLES Final R esult documented in this encounter Visit Diagnoses Not on filedocumented in this encounter Additional Health Concerns Active Problems Noted Date Diagnosed Date AMB CC LMH SPINE PROBLEM 08/19/2024 AMB CC [facility] SPINE SMOKING CESSATION PROBLEM 08/30 documented as of this encounter Care Teams Child Development Instructor Relationship Specialty Start Date End Date Raad Adams MD [address] [facility] [address] [place] [phone] PCP - General Internal Medicine 06/20/24 documented as of this encounter
== END 2025-02-27 13:37 | disposition home or self-care (01) ==
LOC: HO.HVS 12:49
PROVIDERS: PCP Pediatrics; Visit Provider Surgery Vascular Surgery
DX: I73.9 Peripheral vascular disease, unspecified (principal); I87.2 Venous insufficiency (chronic) (peripheral)
CPT/HCPCS: 99204

== ENCOUNTER → 2025-02-27 12:48 | Outpatient (BNVA) | payer MEDICARE, MEDICAID, SELFPAY | PROVIDERS: PCP Pediatrics; Visit Provider Surgery Vascular Surgery | DX: I73.9 Peripheral vascular disease, unspecified (principal); I87.2 Venous insufficiency (chronic) (peripheral); G37.3 Acute transverse myelitis in demyelinating disease of central nervous system | CPT/HCPCS: 99202 ==

== ENCOUNTER 2025-03-17 14:38 | Outpatient (REF) | payer MEDICARE, MEDICAID, SELFPAY ==
--- NOTE | ~2025-03-17 | US_ITS ---
EXAMINATION: US NONINVASIVE ASSESSMENT OF THE BILATERAL LOWER EXTREMITY WITH ARTERIAL DUPLEX AND ANKLE BRACHIAL INDICES (ABIS) CLINICAL INFORMATION: Peripheral vascular disease COMPARISON: None available. TECHNIQUE: Duplex Doppler techniques with waveform analysis and measurement of velocities in the common femoral, profunda femoris, superficial femoral, popliteal and tibial arteries were performed. In addition, ankle pulse volume recordings, ankle pressure measurements and ankle brachial indices were obtained of the bilateral lower extremity arterial system. The study was performed only at rest. FINDINGS: NONINVASIVE ASSESSMENT OF THE ARTERIES OF BILATERAL LOWER EXTREMITIES WITH ABIs: RIGHT LEG: Ankle-brachial index: 0.87 Ankle PVR: Abnormal LEFT LEG: Ankle-brachial index: 0.98 Left ankle PVR: Abnormal SUNDAR Reference: 0.9 - 1.4 = normal - no significant arterial disease 0.7 - 0.89 = mild peripheral arterial disease 0.51 - 0.69 = moderate peripheral arterial disease 0.50 = severe peripheral arterial disease RIGHT LOWER EXTREMITY DUPLEX ULTRASOUND: Diffuse vessel wall calcification. Common femoral artery: 145 cm/s. Diastolic flow reversal: Triphasic Profunda femoris artery: 96 cm/s. Diastolic flow reversal: Triphasic Superficial femoral artery (proximal): 92 cm/s. Diastolic flow reversal: Triphasic Superficial femoral artery (mid): 88 cm/s. Diastolic flow reversal: Triphasic Superficial femoral artery (distal): 67 cm/s. Diastolic flow reversal: Triphasic Popliteal artery: 49 cm/s Diastolic flow reversal: Triphasic Posterior tibial artery: 70 cm/s Diastolic flow reversal: Biphasic to monophasic LEFT LOWER EXTREMITY DUPLEX ULTRASOUND: Diffuse vessel wall calcification. Common femoral artery: 171 cm/s. Diastolic flow reversal: Triphasic Profunda femoris artery: 89 cm/s. Diastolic flow reversal: Triphasic Superficial femoral artery (proximal): 87 cm/s. Diastolic flow reversal: Triphasic Superficial femoral artery (mid): 72 cm/s. Diastolic flow reversal: Triphasic Superficial femoral artery (distal): 84 cm/s. Diastolic flow reversal: Triphasic Popliteal artery: 61 cm/s Diastolic flow reversal: Triphasic Posterior tibial artery: 63 cm/s Diastolic flow reversal: Triphasic US/US arterial duplex BI w/ SUNDAR IMPRESSION: Right: The right SUNDAR is 0.87 suggestive of mild atherosclerotic disease. PVR waveform is abnormal. There is slightly increased peak systolic velocity in the right common femoral artery. There is a mono to biphasic waveform in the right posterior tibial artery. Left: The left SUNDAR is 0.98 which is normal. PVR waveform is abnormal. Increased peak systolic velocity in the left common femoral artery suggestive of mild atherosclerotic disease. Electronically signed by: She Hartmann MD 03/17/2025 05:00 PM [facility]
--- OUTSIDE RECORDS SUMMARY | 2025-03-17 17:54 | XMS_ITS | Encounter Summary ---
Author Organization [facility] Address [address] [place] [address] Care Team Providers Care Systems Program Manager Name Role Phone Raad Adams MD Primary Care Provider [phone] Encounter Details Date Type Department Care Team (Late st Contact Info) Description 04/08/[address] [facility] - Main Lab [address] [facility] [place] [address] Goldy Martell MD [address] [place] [phone] Encounter for other general examination Social History [...] AM EST) WBC 7.2 4.8 - 10.8 K/[facility] LAB HEMETOLOGY METHOD 04/08/2024 10:55 AM EST [facility] RBC 6.10(H) 4.50 - 5.50 M/[facility] LAB HEMETOLOGY METHOD 04/08/2024 10:55 AM [facility] LAB Hemoglobin 16.2 13.5 - 17.5 g/dL LAB HEMETOLOGY METHOD 04/08/2024 10:55 AM [facility] LAB Hematocrit 51.8 42.0 - 54.0 % LAB HEMETOLOGY METHOD 04/08/2024 10:55 AM [facility] LAB MCV 84.8 79.0 - 98.0 FL LAB HEMETOLOGY METHOD 04/08/2024 10:55 AM [facility] LAB MCH 26.5(L) 27.0 - 32.0 pcg LAB HEMETOLOGY METHOD 04/08/2024 10:55 AM [facility] LAB MCHC 31.3(L) 32.0 - 37.0 g/dL LAB HEMETOLOGY METHOD 04/08/2024 10:55 AM [facility] LAB RDW 13.6 11.0 - 15.0 % LAB HEMETOLOGY METHOD 04/08/2024 10:55 AM [facility] LAB Platelets 170 130 - 400 K/mcL LAB HEMETOLOGY METHOD 04/08/2024 10:55 AM [facility] LAB MPV 12.2(H) 7.0 - 11.0 FL LAB HEMETOLOGY METHOD 04/08/2024 10:55 AM [facility] LAB NRBC 0.0 <1.0 % LAB HEMETOLOGY METHOD 04/08/2024 10:55 AM [facility] LAB NRBC Absolute 0.00 <0.10 K/mcL LAB HEMETOLOGY METHOD 04/08/2024 10:55 AM [facility] LAB Blood Venous blood specimen / Unknown Venipuncture / Unknown 04/08/2024 6:57 AM EST 04/08/2024 8:31 AM EST us Goldy Martell MD LAB BLOOD ORDERABLES Final Res ult [facility] [address] [place] [address], * (ABNORMAL) Basic metabolic panel (04/08/2024 6:57 AM EST) Sodium 138 133 - 145 mmol/L LAB CHEMISTRY METHOD 04/08/2024 11:29 AM [facility] Potassium 4.9 3.5 - 5.5 mmol/L LAB CHEMISTRY METHOD 04/08/2024 11:29 AM [facility] LAB Chloride 103 96 - 110 mmol/L LAB CHEMISTRY METHOD 04/08/2024 11:29 AM [facility] LAB CO2 31 21 - 32 mmol/L LAB CHEMISTRY METHOD 04/08/2024 11:29 AM [facility] LAB Anion Gap 4 3 - 11 LAB CHEMISTRY METHOD 04/08/2024 11:29 AM [facility] Glucose 121(H) 70 - 100 mg/dL LAB CHEMISTRY METHOD 04/08/2024 11:29 AM [facility] BUN 18 5 - 25 mg/dL LAB CHEMISTRY METHOD 04/08/2024 11:29 AM [facility] Creatinine 1.17 0.70 - 1.30 mg/dL LAB CHEMISTRY METHOD 04/08/2024 11:29 AM [facility] LAB eGFR 69 >=60 mL/min/1. 73m2 LAB CHEMISTRY METHOD 04/08/2024 11:29 AM [facility] Comment:Calculation based on the Chronic Kidney Disease Epidemiology Collaboration (CKD-EPI) equation refit without adjustment for race. BUN/Creatinine Ratio 15.4 LAB CHEMISTRY METHOD 04/08/2024 11:29 AM [facility] Calcium 9.9 8.5 - 10.5 mg/dL LAB CHEMISTRY METHOD 04/08/2024 11:29 AM [facility] Blood Venous blood specimen / Unknown Venipuncture / Unknown 04/08/2024 6:57 AM EST 04/08/2024 8:31 AM EST us Goldy Martell MD LAB BLOOD ORDERABLES Final Res ult [facility] [address] [place] [address], documented in this encounter Visit Diagnoses Diagnosis Encounter for other general examination documented in this encounter Care Teams Systems Program Manager Relationship Specialty Start Date End Date Raad Adams MD [address] PCP - General Internal Medicine 02/26/24 documented as of this encounter
--- OUTSIDE RECORDS SUMMARY | 2025-03-17 17:54 | XMS_ITS | Encounter Summary ---
Author Organization [facility] Address [address] [place] [address] Care Team Providers Care Divisional Storekeeper Name Role Phone Raad Adams MD Primary Care Provider [phone] Encounter Details Date Type Department Care Team (Late st Contact Info) Description 09/18/2024 Lab Requisition [facility] - Main Lab [address] [facility] [place] [address] Goldy Martell MD [address] [place] [id number] Encounter for other general examination Social History [...] K/mcL LAB HEMETOLOGY METHOD 09/18/2024 11:12 AM [facility] LAB RBC 6.40(H) 4.50 - 5.50 M/mcL LAB HEMETOLOGY METHOD 09/18/2024 11:12 AM [facility] LAB Hemoglobin 17.4 13.5 - 17.5 g/dL LAB HEMETOLOGY METHOD 09/18/2024 11:12 AM [facility] LAB Hematocrit 55.4(H) 42.0 - 54.0 % LAB HEMETOLOGY METHOD 09/18/2024 11:12 AM [facility] LAB MCV 86.0 79.0 - 98.0 FL LAB HEMETOLOGY METHOD 09/18/2024 11:12 AM [facility] LAB MCH 27.0 27.0 - 32.0 pcg LAB HEMETOLOGY METHOD 09/18/2024 11:12 AM [facility] LAB MCHC 31.4(L) 32.0 - 37.0 g/dL LAB HEMETOLOGY METHOD 09/18/2024 11:12 AM [facility] LAB RDW 14.2 11.0 - 15.0 % LAB HEMETOLOGY METHOD 09/18/2024 11:12 AM [facility] LAB Platelets 197 130 - 400 K/mcL LAB HEMETOLOGY METHOD 09/18/2024 11:12 AM [facility] LAB MPV 10.8 7.0 - 11.0 FL LAB HEMETOLOGY METHOD 09/18/2024 11:12 AM [facility] LAB NRBC 0.0 <1.0 % LAB HEMETOLOGY METHOD 09/18/2024 11:12 AM [facility] LAB NRBC Absolute 0.00 <0.10 K/mcL LAB HEMETOLOGY METHOD 09/18/2024 11:12 AM [facility] Neutrophils Relative 59.6 % LAB HEMETOLOGY METHOD 09/18/2024 11:12 AM [facility] Lymphocytes Relative 30.4 % LAB HEMETOLOGY METHOD 09/18/2024 11:12 AM [facility] Monocytes Relative 8.2 % LAB HEMETOLOGY METHOD 09/18/2024 11:12 AM [facility] Eosinophils Relative 1.2 % LAB HEMETOLOGY METHOD 09/18/2024 11:12 AM [facility] Basophils Relative 0.3 % LAB HEMETOLOGY METHOD 09/18/2024 11:12 AM [facility] Immature Granulocytes Relative 0.3 % LAB HEMETOLOGY METHOD 09/18/2024 11:12 AM [facility] Neutrophils Absolute 6.85 1.50 - 7.00 K/mcL LAB HEMETOLOGY METHOD 09/18/2024 11:12 AM [facility] Lymphocytes Absolute 3.51 1.00 - 5.00 K/mcL LAB HEMETOLOGY METHOD 09/18/2024 11:12 AM [facility] Monocytes Absolute 0.95 0.20 - 1.00 K/mcL LAB HEMETOLOGY METHOD 09/18/2024 11:12 AM [facility] Eosinophils Absolute 0.14 0.00 - 0.50 K/mcL LAB HEMETOLOGY METHOD 09/18/2024 11:12 AM [facility] Basophils Absolute 0.04 0.00 - 0.20 K/mcL LAB HEMETOLOGY METHOD 09/18/2024 11:12 AM [facility] Immature Granulocytes Absolute 0.04(H) 0.00 - 0.03 K/mcL LAB HEMETOLOGY METHOD 09/18/2024 11:12 AM [facility] Blood Venous blood specimen / Unknown Venipuncture / Unknown 09/18/2024 5:07 AM EDT 09/18/2024 10:59 AM EDT Goldy Martell MD LAB BLOOD ORDERABLES Final Res ult Performing Organization Address [facility]/ZIP Co de Phone Number [facility] [address] [place] [address], [place] [phone] * Magnesium (09/18/2024 5:07 AM EDT) Pathologist [facility] Magnesium 2.0 1.9 - 2.6 mg/dL LAB CHEMISTRY METHOD 09/18/2024 12:[address] [facility] Blood Venous blood specimen / Unknown Venipuncture / Unknown 09/18/2024 5:07 AM EDT 09/18/2024 10:59 AM EDT Goldy Martell MD LAB BLOOD ORDERABLES Final Res ult Performing Organization Address [facility]/ZIP Co de Phone Number [facility] [address] [place] [address], [place] [phone] * (ABNORMAL) Comprehensive metabolic panel (09/18/2024 5:07 AM EDT) Pathologist [facility] Sodium 136 133 - 145 mmol/L LAB CHEMISTRY METHOD 09/18/2024 12:[address] [facility] Potassium 4.5 3.5 - 5.5 mmol/L LAB CHEMISTRY METHOD 09/18/2024 12:[address] [facility] Chloride 99 96 - 110 mmol/L LAB CHEMISTRY METHOD 09/18/2024 12:[address] [facility] CO2 27 21 - 32 mmol/L LAB CHEMISTRY METHOD 09/18/2024 12:[address] [facility] Anion Gap 10 3 - 11 LAB CHEMISTRY METHOD 09/18/2024 12:[address] [facility] Glucose 135(H) 70 - 100 mg/dL LAB CHEMISTRY METHOD 09/18/2024 12:30 PM [facility] BUN 22 5 - 25 mg/dL LAB CHEMISTRY METHOD 09/18/2024 12:30 PM [facility] Creatinine 1.10 0.70 - 1.30 mg/dL LAB CHEMISTRY METHOD 09/18/2024 12:30 PM [facility] eGFR 74 >=60 mL/min/1. 73m2 LAB CHEMISTRY METHOD 09/18/2024 12:30 PM [facility] Comment:Calculation based on the Chronic Kidney Disease Epidemiology Collaboration (CKD-EPI) equation refit without adjustment for race. BUN/Creatinine Ratio 20.0 LAB CHEMISTRY METHOD 09/18/2024 12:30 PM [facility] Calcium 10.0 8.5 - 10.5 mg/dL LAB CHEMISTRY METHOD 09/18/2024 12:30 PM [facility] AST (SGOT) 19 10 - 42 unit/L LAB CHEMISTRY METHOD 09/18/2024 12:30 PM [facility] ALT (SGPT) 32 10 - 60 unit/L LAB CHEMISTRY METHOD 09/18/2024 12:30 PM [facility] Alkaline Phosphatase 85 42 - 121 unit/L LAB CHEMISTRY METHOD 09/18/2024 12:30 PM [facility] Total Protein 6.9 6.0 - 8.0 g/dL LAB CHEMISTRY METHOD 09/18/2024 12:30 PM [facility] Albumin 3.7 3.2 - 5.0 g/dL LAB CHEMISTRY METHOD 09/18/2024 12:30 PM [facility] Total Bilirubin 0.4 0.0 - 1.4 mg/dL LAB CHEMISTRY METHOD 09/18/2024 12:30 PM [facility] Blood Venous blood specimen / Unknown Venipuncture / Unknown 09/18/2024 5:07 AM EDT 09/18/2024 10:59 AM EDT us Goldy Martell MD LAB BLOOD ORDERABLES Final Res ult [facility] [address] [place] [address], documented in this encounter Visit Diagnoses Diagnosis Encounter for other general examination documented in this encounter Care Teams Divisional Storekeeper Relationship Specialty Start Date End Date Raad Adams MD [address] PCP - General Internal Medicine 02/26/24 documented as of this encounter
--- OUTSIDE RECORDS SUMMARY | 2025-03-17 17:55 | XMS_ITS | Clinical Summary ---
Author Organization [facility], Address [address] [place] [address] Phone Care Team Providers Care Harness Maker Name Role Phone Merlyn Balderrama Primary Care Provider [phone] Allergies No known active allergies Medications acetaminophen [...] AM EDT) Hemoglobin A1C 7.1(H) (4-6) % [facility] Comment: HEMOGLOBIN A1C(%) GLUCOSE CONTROL INDEX <6% EXCELLENT 6-7% VERY GOOD 7-8% GOOD 8-10% FAIR >10% POOR Hemoglobin (Hb) A1c testing is performed by [employer] Jan[employer]-quant immunoassay. Any cause of shortened erythrocyte survival will reduce exposure of erythrocytes to glucose with a consequent decrease in Hb A1c (%). Testing performed or reported by ~[facility], ~a Service of [facility], ~[address] [place] [id number]~ 02/16/2019 8:46 AM EDT us Leslie Case MD LAB BLOOD ORDERABLES Final Resul t [facility] from Last 3 Months or Most Recently Relevant to Health Maintenance Insurance Care Teams Harness Maker Relationship Specialty Start Date End Date Merlyn Balderrama PA [address] [facility] [address] [place], [place] PCP - General 02/19/19
--- OUTSIDE RECORDS SUMMARY | 2025-03-17 17:55 | XMS_ITS | Continuity of Care Document ---
Author Organization [facility], Main Office Address [address] [facility] [address] [place] [id number] Care Team Providers Care Director Plans Name Role Phone RAAD DIEHL Primary Care Provider [facility] Nutrit ionist [facility] (SIM BUSBY) Orthopedic Surgeon [facility] Repairer Helper CAROL BAKER Orthopedic Surgeon VIKAS JASON Vascular Surgeon Assessment No assessment recorded. Plan of Treatment Reminders Order Date Submit Date Provider Last Modified By Organization Details Last Modified Time Details Appointments BILLING ONLY 2024 09:00A M NC SCHEDULE Not available Not available Not available Lab None recorded . Referral None recorded . Procedures None recorded . Surgeries None recorded . Imaging None recorded . Medication Orders None recorded . Patient TargetsNo targets recorded. Patient InstructionsNo instructions recorded. Reason for Referral None Reported. Results Created Date Observation Date Name Description Value Unit Range Abnormal Flag Note LastModifiedBy Organization Detail LastModifiedTime 01/07/2001/07/2025 COMP. METAB OLIC PANEL (14) glucose 106 mg/dL 70-99 above high normal Not Available [facility] ([facility]) [address] [place], [address], 01/07/2025 08:07:39 01/07/20 25 01/07/2025 COMP. METAB OLIC PANEL (14) BUN 22 mg/dL 8-27 normal Not Available [facility] ([facility]) [address] [place], [address], 01/07/2025 08:07:39 01/07/20 25 01/07/2025 COMP. METAB OLIC PANEL (14) creatinine 1.08 mg/dL 0.76-1 .27 normal Not Available [facility] ([facility]) [address] [place], [address], 01/07/2025 08:07:39 01/07/20 25 01/07/2025 COMP. METAB OLIC PANEL (14) eGFR 75 mL/mi n/1.7 3 >59 normal Not Available [facility] ([facility]) [address] [place], [address], 01/07/2025 08:07:39 01/07/20 25 01/07/2025 COMP. METAB OLIC PANEL (14) BUN/creatini ne ratio 20 10-24 normal Not Available [facility] ([facility]) [address] [facility] [place], [address], 01/07/2025 08:07:39 01/07/20 25 01/07/2025 COMP. METAB OLIC PANEL (14) sodium 141 mmol/ L 134-14 4 normal Not Available [facility] ([facility]) [address] [facility] [place], [address], 01/07/2025 08:07:39 01/07/20 25 01/07/2025 COMP. METAB OLIC PANEL (14) potassium 4.7 mmol/ L 3.5-5. 2 normal Not Available [facility] ([facility]) [address] [facility] [place], [address], 01/07/2025 08:07:39 01/07/20 25 01/07/2025 COMP. METAB OLIC PANEL (14) chloride 100 mmol/ L 96-106 normal Not Available [facility] ([facility]) [address] [facility] [place], [address], 01/07/2025 08:07:39 01/07/20 25 01/07/2025 COMP. METAB OLIC PANEL (14) carbon dioxide, total 24 mmol/ L 20-29 normal Not Available [facility] ([facility]) [address] [place], [address], 01/07/2025 08:07:39 01/07/20 25 01/07/2025 COMP. METAB OLIC PANEL (14) calcium 10.0 mg/dL 8.6-10 .2 normal Not Available [facility] ([facility]) [address] [place], [address], 01/07/2025 08:07:39 01/07/20 25 01/07/2025 COMP. METAB OLIC PANEL (14) protein, total 6.7 g/dL 6.0-8. 5 normal Not Available [facility] ([facility]) [address] [place], [address], 01/07/2025 08:07:39 01/07/20 25 01/07/2025 COMP. METAB OLIC PANEL (14) albumin 4.3 g/dL 3.9-4. 9 normal Not Available [facility] ([facility]) [address] [place], [address], 01/07/2025 08:07:39 01/07/20 25 01/07/2025 COMP. METAB OLIC PANEL (14) globulin, total 2.4 g/dL 1.5-4. 5 Not Available [facility] ([facility]) [address] [place], [address], 01/07/2025 08:07:39 01/07/20 25 01/07/2025 COMP. METAB OLIC PANEL (14) bilirubin, total 0.3 mg/dL 0.0-1. 2 normal Not Available [facility] ([facility]) [address] [place], [address], 01/07/2025 08:07:39 01/07/20 25 01/07/2025 COMP. METAB OLIC PANEL (14) alkaline phosphatase 83 IU/L 47-123 normal Ple ase note refer ence inter carla alonso e Not Available [facility] ([facility]) [address] [facility], [place], [address], 01/07/2025 08:07:39 01/07/20 25 01/07/2025 COMP. METAB OLIC PANEL (14) AST (SGOT) 26 IU/L 0-40 normal Not Available [facility] ([facility]) [address] [facility], [place], [address], 01/07/2025 08:07:39 01/07/20 25 01/07/2025 COMP. METAB OLIC PANEL (14) ALT (SGPT) 27 IU/L 0-44 normal Not Available [facility] ([facility]) [address] [facility], [place], [address], 01/07/2025 08:07:39 01/07/20 25 01/07/2025 HEMOG LOBIN A1C hemoglobin A1C 6.7 % 4.8-5. 6 above high normal Predi abete s: 5.7 - 6.4 Diabe brian: >6.4 Glyce ana maría contr ol for adult s with diabe brian: <7.0 Not Available [facility] ([facility]) [address] [facility], [place], [address], 01/07/2025 08:07:40 01/07/20 25 01/07/2025 PROST ATE-S PECIF IC AG prostate specific [...] t be inter prete d as absol [place] evide nce of the prese nce or absen ce of [facility] se. Not Available [facility] ([facility]) [address] [facility], [place], [address], 01/07/2025 14:06:35 01/17/2001/05/2025 MRI, thora cic spine , w/o contr ast No observ ation record ed. [facility] [address], [address], 01/17/2025 05:47:12 01/17/20 25 2025 MRI, cervi amy spine , w/o contr ast No observ ation record ed. [facility] [address], [address], 01/17/2025 05:47:12 01/17/2001/05/2025 MRI, lumba r spine , w/o contr ast No observ ation record ed. [facility] [address], [address], 01/16/2025 09:43:57 03/17/2003/17/2025 imagi ng/di agnos tic resul t No observ ation record ed. [facility] (Medical Records) [address] [facility], [place], [address], 03/17/2025 17:05:19 Result Notes None recorded. Problems Name Problem SNOMED Code Status Onset Date Resolution Date Notes Provider Name and Address Organization Details Recorded Time Snoring 96868076 Completed 06/20/2016 Raad Diehl MD [address] [facility] [address], [facility] [place], [address] , [facility] 7 14:28:12 Early satiety 707849254 Completed 06/20/2016 Raad Diehl MD [address], [place], [address] , [facility] 7 14:27:44 Low back pain 197277975 Completed 06/20/2016 Raad Diehl MD [address], [place], [address] , [facility] 7 14:27:30 Dermatop hytosis 35332403 Completed 06/20/2016 Raad Diehl MD [address], [place], [address] , [facility] 7 14:27:55 Impaired fasting glycemia 141950139 Completed 04/20/2018 Raad Diehl MD [address], [place], [address] , [facility] 9 12:42:51 Pleural effusion associat ed with pulmonar y infectio n 57450848 Completed 10/21/2019 Raad Diehl MD [address], [place], [address] , [facility] 0 13:19:10 Acute endocard itis 98311810 Completed 10/21/2019 Raad Diehl MD [address], [place], [address] , [facility] 0 13:24:31 Pain of hip region 94702472 Completed 201211/25/2013 IMPRESSI ON: SUSPECT SEVER ARTHRITI S SOURCE. NEEDS BETTER IMAGING WITH RADILOLO GIST REVIEW WELL ORTHO CONSULT. CONTINUE PRN NSAIDS FOR SYMPTOM RELIEF.; RECORDED 03/25/20 13 11:18AM BY CHRISTINE THOMAS MA, ANNOTATI ON/ADDEN DUM Not Available [facility] 4 05:26:41 Pain of hip region 94121643 Completed 201210/29/2013 IMPRESSI ON: SUSPECT RAMAN RICHARDSON S SOURCE. NEEDS BETTER IMAGING WITH RADILOLO GIST REVIEW WELL ORTHO CONSULT. CONTINUE PRN NSAIDS FOR SYMPTOM RELIEF.; RECORDED 03/25/20 13 11:18AM BY CHRISTINE THOMAS MA, ANNOTATI ON/ADDEN DUM Not Available [facility] 4 14:13:54 Benign neoplasm of colon 62736502 Active 2013 Not Available [facility] 4 08:35:47 Adult health examinat ion Completed 201311/25/2013 IMPRESSI ON: WILL UPDATE IMMUNIZA TION STATUS (PT DECLINES FLU AND PNEUMOVA X) AND SCREEN BASED ON RISK FACTORS. REGULAR DENTAL CARE AND SEATBELT USE ADVISED. DISTRACT ED DRIVING DISCUSSE D. OVERDUE FOR COLON CANCER SCREENIN G, PROSTATE CANCER SCREENIN G NOW UTD.; RECORDED 04/23/19 14 2:51PM BY ABBEY SOLER MA, NATATI ON/ADDEN DUM Not Available [facility] 4 05:26:41 Administ ration of diphther ia and tetanus vaccine Completed 201311/25/2013 RECORDED 04/23/19 14 2:50PM BY ABBEY SOLER MA, NATATI ON/ADDEN DUM Not Available [facility] 4 05:26:42 Adult health examinat ion Completed 201310/29/2013 IMPRESSI ON: WILL UPDATE IMMUNIZA TION STATUS (PT DECLINES FLU AND PNEUMOVA X) AND SCREEN BASED ON RISK FACTORS. REGULAR DENTAL CARE AND SEATBELT USE ADVISED. DISTRACT ED DRIVING DISCUSSE D. OVERDUE FOR COLON CANCER SCREENIN G, PROSTATE CANCER SCREENIN G NOW UTD.; RECORDED 04/23/19 14 2:51PM BY ABBEY SOLER MA, NATATI ON/ADDEN DUM Not Available [facility] 4 14:13:54 Tobacco dependen ce syndrome 43983955 Completed 201310/29/2013 RECORDED 04/23/19 14 2:51PM BY ABBEY SOLER MA, ANNOTATI ON/ADDEN DUM Raad Diehl MD [address], [place], [address] , [facility] 7 14:28:23 Obesity 266260326 Completed 201310/29/2013 RECORDED 04/23/19 14 2:51PM BY ABBEY SOLER MA, ANNOTATI ON/ADDEN DUM Holley lutz, [facility] 9 16:15:11 Administ ration of diphther ia and tetanus vaccine Completed 201310/29/2013 RECORDED 04/23/19 14 2:50PM BY ABBEY SOLER MA, ANNOTATI ON/ADDEN DUM Not Available [facility] 4 14:13:55 Screenin g for malignan t neoplasm of colon Completed 201311/25/2013 RECORDED 05/27/19 14 10:10AM BY MELINDA BISHOP MA, ANNOTATI ON/ADDEN DUM Not Available [facility] 4 05:26:41 Screenin g for malignan t neoplasm of colon Completed 201310/29/2013 RECORDED 05/27/19 14 10:10AM BY MELINDA BISHOP MA, ANNOTATI ON/ADDEN DUM Not Available [facility] 4 14:13:54 Tobacco dependen ce syndrome 92712721 Active 2013 Not Available [facility] 4 08:35:47 Divertic ular disease of colon 910338256 Completed 201307/03/2018 Raad Diehl MD [address] [facility] [address], [place], [address] , [facility] 9 13:44:23 Internal hemorrho ids 37906176 Active 2013 Not Available [facility] 4 08:35:47 Pure hypercho lesterol emia 409526869 Active 2013 Not Available [facility] 4 08:35:46 Essentia l hyperten librado 21580609 Completed 201306/20/2016 Holley Derek lutz [facility] 1 15:04:45 Immuniza tion refused Completed 201303/18/2014 RECORDED 05/27/19 14 10:11AM BY MELINDA BISHOP MA, OFFICE VISIT João lutz [facility] 4 12:30:05 Obesity 178287148 Completed 201306/20/2016 IMPRESSI ON: 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 HEALTHIE R DIET AND EXERCISE HABITS ADVISED. ; RECORDED 05/27/19 14 10:11AM BY MELINDA BISHOP MA, OFFICE VISIT Holley lutz [facility] 9 16:15:11 Pre-surg bev evaluati on Completed 201302/18/2015 IMPRESSI ON: MICHAELLE IS AT LOW CARDIOPU LMONARY RISK FOR THIS PROCEDUR E. NO FURTHER TESTING INDICATE D BEFORE SURGERY; RECORDED 05/27/19 14 11:00AM BY GAYATRI BENITES, OFFICE VISIT Raad Diehl MD [address], [place], [address] , [facility] 5 11:20:02 Follow-u p encounte r Completed 201310/29/2013 RECORDED 06/19/19 14 8:39AM BY ATIF MERINO RN, TRANSITI ON OF CARE Not Available [facility] 4 14:13:54 Follow-u p encounte r Completed 201303/18/2014 RECORDED 06/25/19 14 11:36AM BY ATIF MERINO RN, PHONE ENCOUNTE R João lutz [facility] 4 12:30:05 Osteoart hritis of hip 263609110 Completed 201306/20/2016 Raad Diehl MD [address], [place], [address] , [facility] 7 14:27:19 Multiple nodules of lung 761646296 Active 2015 Not Available [facility] 4 08:35:47 Cyst of pancreas 37955641 Completed 201506/28/2017 Raad Diehl MD [address], [place], [address] , [facility] 3 16:04:44 Abscess of buttock 35013728 Completed 201506/20/2016 Raad Diehl MD [address], [place], [address] , [facility] 7 14:16:00 Pleural effusion 98693085 Completed 201506/20/2016 right Raad Diehl MD [address], [place], [address] , [facility] 7 14:16:21 Obstruct emi sleep apnea syndrome 14125959 Active 2015 moderate Not Available [facility] 4 08:35:47 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 275890880 Completed 201506/20/2016 Raad Diehl MD [address], [place], [address] , [facility] 8 15:14:06 Septic pulmonar y embolism 314588491 Completed 201606/20/2016 Raad Diehl MD [address], [place], [address] , [facility] 7 14:15:54 Psoriasi s 8596115 Active 2016 Not Available [facility] 4 08:35:47 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 054456615 Completed 201606/28/2017 Raad Diehl MD [address], [place], [address] , [facility] 8 15:14:06 Hiatal hernia 03994249 Active 2016 Not Available [facility] 4 08:35:47 Acute duodenal ulcer 126650682 Completed 201606/28/2017 Raad Diehl MD [address], [place], [address] , [facility] 8 15:36:57 History of methicil mckenna resistan t Staphylo coccus aureus infectio n 290740376 Active 2017 Not Available [facility] 4 08:35:47 History of duodenal ulcer 009340048 Active 2017 Not Available [facility] 4 08:35:46 Cyst of pancreas 42613078 Active 2017 needs 1 yr f/u Not Available [facility] 4 08:35:46 Type 2 diabetes mellitus 93092286 Completed 201807/13/2018 DIANA Trevino, [facility] 1 14:58:25 Bacterem ia caused by Methicil mckenna resistan t Staphylo coccus aureus 43522744590 577342 Completed 201807/03/2018 Raad Diehl MD [address], [place], [address] , [facility] 9 13:43:44 Divertic ular disease 103834472 Active 2018 Not Available [facility] 4 08:35:46 Obesity 508648739 Active 2018 Not Available [facility] 4 08:35:46 Uncontro lled type 2 diabetes mellitus 663099515 Completed 201802/16/2021 DIANA Trevino, [facility] 1 14:58:19 Chronic kidney disease stage 2 081786309 Completed 201805/23/2019 Holley lutz [facility] 3 12:37:21 Chronic kidney disease stage 3 902114593 Completed 201805/05/2020 Raad Diehl MD [address], [place], [address] , [facility] 1 15:25:49 Chronic kidney disease stage 2 258410614 Active 2018 Not Available [facility] 4 08:35:47 Microalb uminuria 804622184 Active 2018 Not Available [facility] 4 08:35:46 History of gastriti s 61134048068 9103 Active 2018 Not Available [facility] 4 08:35:47 Renal disorder due to type 2 diabetes mellitus 459767833 Active 2018 Not Available [facility] 4 08:35:46 Lumbar spondylo sis 516390081 Active 2019 Not Available [facility] 4 08:35:46 Type 2 diabetes mellitus 73096104 Completed 201902/16/2021 Christine Thomas MA [facility], [facility] 1 14:58:25 History of endocard itis 309910148 Active 2019 Not Available [facility] 4 08:35:46 Epiderma l inclusio n cyst of eyelid 275723440 Completed 201908/23/2022 Raad Diehl MD [address] [facility] [address], [place], [address] , [facility] 3 16:19:52 Pulmonar y emphysem a 84470234 Active 2019 Not Available [facility] 4 08:35:47 Hyperten sive renal disease 48565779 Completed 202008/26/2024 Raad Diehl MD [address] [facility] [address], [place], [address] , [facility] 5 16:37:34 Chronic kidney disease stage 3A 246975562 Completed 202001/26/2023 Raad Diehl MD [address], [place], [address] , [facility] 3 07:23:49 Diabetic peripher al neuropat hy 999315726 Active 2020 Not Available [facility] 4 08:35:46 Phimosis 453089235 Completed 202109/14/2022 Raad Diehl MD [address], [place], [address] , [facility] 3 16:32:59 Vitamin D deficien cy 61339221 Active 2022 Not Available [facility] 4 08:35:46 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 72901292158 52716 Active 2022 Not Available [facility] 4 08:35:46 Steatoti c liver disease 948588826 Active 2022 Not Available [facility] 4 08:35:46 Large prostate 735810100 Active 2022 Not Available [facility] 4 08:35:46 Atherosc lerosis of aorta 04953288 Active 2022 Not Available [facility] 4 08:35:47 Inguinal hernia 996118316 Active 2022 fat containi ng bilatera l Not Available [facility] 4 08:35:46 Abdomina l aortic ectasia 10874584833 9101 Active 2022 2.7cm infraren al Not Available [facility] 4 08:35:46 Intermit tent claudica tion 37866572 Active 2022 Raad Diehl MD [address], [place], [address] , [facility] 5 14:41:56 Ventricu lar prematur e complex 325041860 Completed 202208/26/2024 Raad Diehl MD [address], [place], [address] , [facility] 5 16:04:03 Hyperlip idemia 77894071 Active 2023 Christine Balderrama PA-C [address], [place], [address] , [facility] 4 15:49:01 Hypercal cemia 58431598 Active 2023 Christine Balderrama PA-C [address], [place], [address] , [facility] 4 18:12:20 Hyperkal emia 10374038 Completed 202308/26/2024 Raad Diehl MD [address], [place], [address] , [facility] 5 16:04:17 Morbid obesity 849419770 Active 2023 Raad Diehl MD [address], [place], [address] , [facility] 4 15:26:33 Body mass index 30+ - obesity 826579654 Active 2023 Raad Diehl MD [address], [place], [address] , [facility] 4 15:34:28 Mass of pancreas 386298052 Active 2023 Raad Diehl MD [address], [place], [address] , [facility] 4 17:10:54 Unequal blood pressure in arms 529012876 Active 2023 Raad Diehl MD [address], [place], [address] , [facility] 4 17:11:29 Calcific ation of coronary artery 557201399 Active 2023 Raad Diehl MD [address] [facility] [address], [place], [address] , [facility] 4 06:47:29 Acute transver se myelitis 23214242 Active 2023 Raad Diehl MD [address] [facility] [address], [place], [address] , [facility] 5 17:50:15 Lumbar radiculo jeanie 533117505 Active 2023 right L5 Raad Diehl MD [address] [address], [place], [address] , [facility] 4 07:05:29 Hypoalbu minemia 885871662 Active 2023 Raad Diehl MD [address] [address], [place], [address] , [facility] 4 15:04:50 Transver se myelopat hy syndrome 46939879 Active 2024 Christine Balderrama PA-C [address] [address], [place], [address] , [facility] 5 15:20:40 History of syphilis 59154243692 35080 Active 2024 Raad Diehl MD [address] [facility] [address], [place], [address] , [facility] 5 11:02:19 Left hemipare sis 558531605 Active 2024 Raad Diehl MD [address] [address], [place], [address] , [facility] 5 14:01:47 Degenera tion of cervical interver tebral disc 19652386 Active 2024 C5-C7 Raad Diehl MD [address] [facility] [address], [place], [address] , [facility] 5 17:08:04 Spinal stenosis in cervical region 63259159 Active 2024 C5/C6 Raad Diehl MD [address] [facility] [address], [place], [address] , [facility] 5 17:44:30 Stenosis of interver tebral foramina 83104345418 9 Active 2024 Raad Diehl MD [address] [facility] [address], [place], [address] , [facility] 5 17:44:40 Peripher al vascular disease 605998044 Active 2024 Raad Diehl MD [address] [facility] [address], [place], [address] , [facility] 5 10:16:00 Venous insuffic iency of lower limb 856402948 Active 2024 Raad Diehl MD [address] [facility] [address], [place], [address] , [facility] 5 10:16:12 Notes:Some problems listed i n Document: #[id number] could not be added to this patient's chart. Please review this document and add these problems to the patient's chart manually as needed. Problem Notes None recorded. Procedures Surgical History Date Name Laterality Status Provider Name and Address Organization Details Recorded Time 09/13/19 25 osteotomy and discectomy of cervical spine by anterior approach completed Raad Diehl MD [address] [address], [place], [address], [facility] 01/15/2025 20:12:54 02/05/20 24 Diabetic Foot Exam (Monofilament) completed Raad Diehl MD [address] [address], [place], [address], [facility] 02/05/2024 17:07:41 12/12/19 24 Colonoscopy completed Sarah Tuttle [facility] 12/14/2023 08:56:06 02/17/20 21 Diabetic Foot Exam (Monofilament) completed Raad Diehl MD [address], [address], [facility] 02/16/2021 16:15:27 07/04/19 21 Diabetic Foot Exam (Monofilament) completed Abbey lee [facility] 07/03/2020 13:38:58 11/08/19 20 biopsy of eyelid completed Raad Diehl MD [address] [address], [place], [address], [facility] 11/20/2019 18:56:48 06/17/19 20 Diabetic Foot Exam (Monofilament) completed Idania Morales [facility] 06/17/2019 09:17:42 07/04/19 19 Diabetic Foot Exam (Monofilament) completed Raad Diehl MD [address], [address], [facility] 07/03/2018 14:13:41 05/28/19 19 Diabetic Foot Exam (Monofilament) completed Neha Wheeler [facility] 05/28/2018 13:15:14 04/12/20 18 transesophageal echocardiography completed Raad Diehl MD [address] [address], [place], [address], [facility] 04/20/2018 13:30:23 04/09/20 18 Echo transthoracic completed Raad Diehl MD [address] [address], [place], [address], [facility] 04/20/2018 13:28:52 02/28/20 17 Colonoscopy completed Christine Thomas [facility] 06/28/2017 14:46:56 02/28/20 17 Egd diagnostic brush wash completed Raad Diehl MD [address], [address], [facility] 03/07/2017 13:43:07 01/09/20 16 Dbrdmt ecz/infected skin<10% completed Raad Diehl MD [address] [address], [place], [address], [facility] 06/21/2016 15:30:01 03/26/20 14 Orthopedic Surgery completed Raad Diehl MD [address] [address], [place] [place], [address], [facility] 04/01/2014 22:22:42 05/18/19 14 Orthopedic Surgery completed Raad Diehl MD [address] [address], [place], [address], [facility] 02/18/2015 11:16:33 Imaging Results None recorded. Procedure Notes None recorded. Medical Equipment None Reported. Allergies Allergen ID Allergen Name Allergen Category Reaction Reaction Severity Criticality Documentation Date Start Date Code Code System Note Provider Name and Address Organization Details Recorded Time 5369 No known allergy (situatio n) Not available Not available Not available Not available 10/29/20132012 53415 6003 SNOMED Not Available [facility] 08:35:47 No known drug allergies Medications Name Sig Start Date Stop Date Status Note LastModified by Organization Details LastModified Time gloriastyle mis lancets 1 lancest 4 x daily [...] Not Available Not Available Not Available Humalog AlexPen (U-100) Insulin 100 unit/mL subcutane ous Inject [...] 08/26/24 per patient stopped on own on 4 Not Available Not Available Not Available Shingrix (PF) 50 mcg/0.5 mL intramusc ular suspensio n, kit 04/30 completed Not Available Not Available Not Available Dexcom G6 Transmitt er device USE DIRECTED . 12/23 completed Not Available Not Available Not Available FreeStyle Nicolasa 14 Day [place] Take 1 each every day by miscell. route for 28 days. 05/11 completed Not Available Not Available Not Available FreeStyle Nicolasa 14 Day Sensor kit Take 1 kit every day by miscell. route for 28 [...] Not Available Not Available Not Available FreeStyle Nicolasa 3 Sensor device active Not Available Not Available Not Available Ozempic 0.25 mg or 0.5 mg (2 mg/3 mL) subcutane ous pen injector INJECT 0.25MG SUBCUTAN EOUSLY EVERY WEEK pt STATES HE is now .5 [id number] completed Not Available Not Available Not Available Vitals None Recorded Social History Question Answer Notes LastModified by Organizat ion Details LastModified Time Tobacco Smoking Status Current Every Day Smoker Not Available [facility] 02/18/2020 03:36:36 Do You Have An Advance Directive? Yes HCP/ -She [email or web address] Information not available 12/23/2021 Is Blood Transfusion Acceptable In An Emergency? Yes [id number] Information not available 02/18/2020 What Is Your Level Of Caffeine Consumption? Moderate Coffee [id number] Information not available 02/18/2020 How Much Tobacco Do You Chew? None [id number] Information not available 02/18/2020 What Type Of Diet Are You Following? REGULAR [id number] Information not available 02/18/2020 Which Illicit Or Recreational Drugs Have You Used? None [id number] Information not available 02/18/2020 Live Alone Or [...] Of Your Most Recent Tobacco Screening? 01/10/2025 [email or web address] Information not available 01/10/2025 How Many Children Do You Have? 2 1 Son (Skyelr ) And 1 Dtr (Lazara) Information not available 02/05/2024 What Is Your Current Pack Years? 30ormorepack years [email or web address] Information not available 12/23/2021 Do You Use Protection During Sex? Usually Information not available 02/16/2021 Do You Use Your Seat Belt Or Car Seat Routinely? Yes Information not available 02/16/2021 Seat Belts Used Routinely No Information not available 12/23/2021 Are You Sexually Active? Yes [id number] Information not available 02/18/2020 Smoke Alarm In Home Yes [email or web address] Information not available 12/23/2021 Do You Have Smoke And Carbon Monoxide Detectors In Your Home? Yes Information not available 02/16/2021 At What Age Did You Start Smoking Tobacco? 14 1976 Information not available 08/26/2024 Are You Passively Exposed To Smoke? Yes Information not available 06/28/2017 How Much Tobacco Do You Smoke? 1 PPD [id number] Information not available 02/18/2020 Do You Use Sunscreen Routinely? No [id number] Information not available 02/18/2020 How Many Years Have You Smoked Tobacco? 51 Information not available 08/26/2024 Sex: Unknown Functional Status Question Answer Note LastModified by Organizat ion Details LastModified Time Do you use any illicit or recreational drugs? No Information not available 12/23/2021 Do you or have you ever used any other forms of tobacco or nicotine? No [email or web address] Information not available 12/23/2021 What is your level of alcohol consumption? Occasional [id number] Information not available 02/18/2020 Do you or have you ever used smokeless tobacco? Never used smokeless tobacco [id number] Information not available 02/18/2020 Are you currently employed? 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 YESWOREST [email or web address] Information not available 12/23/2021 Are you able to care for yourself independently? Yes [id number] Information not available 02/18/2020 What is your occupation? Other [employer] Information not available 07/14/2024 Do you or have you ever used e-cigarettes or vape? Never used electronic cigarettes [email or web address] Information not available 12/23/2021 What is your exercise level? Occasional Golf [employer] Information not available 08/23/2022 Mental Status None recorded. Family History Relationship Description Onset Age of this Age Resolved Age Notes LastModified by Organization Details LastModified Time Mother Hypertensive disorder [email or web address] Not available 2015 10:46:56 Mother Congestive heart failure [email or web address] Not available 12/23 13:51:29 Mother Asthma [email or web address] Not available 10:46:56 Mother Diabetes mellitus abolcun Not available 2015 10:46:56 Father Early gastric cancer Not available 12/23 13:51:29 Son Well adult [email or web address] Not avail able 12/23/2021 13:51:29 Daughter Well adult [email or web address] Not nathan ilable 12/23/2021 13:51:29 Medical History Condition Response Other N Gout N Kidney Stones N Blood Diseases N Hyperthyroidism N Breast Cancer N Depression N COPD N Lung Disease N Hypothyroidism N Defects or Inherited Disease N Anesthesia Complications N Headaches/Migraines N Varicose Veins N Anxiety Disorder N Obesity Y Vision or Eye Problems N Arthritis N Head Injury/Concussion N Polyps N Infertility N Congenital Anomalies N Acid Reflux (GERD) N Cancer N Stroke N ADHD N Endometriosis N High Cholesterol Y Liver Disease N Fibromyalgia N Kidney Disease N Heart Problems N Ear or Hearing Problems N Hospitalizations N Thyroid Problems N GI Problems N Acne N Eating Disorder N Skin Problems N Anemia N Constipation N Bladder Problems N Mental Illness N Ovarian Cancer N Diabetes Y Blood Transfusions N Seizures/Epilepsy N Tuberculosis N AIDS/HIV N Congestive Heart Failure (CHF) N Eczema Y Diverticulitis N Abuse/Domestic Violence N Asthma N Allergies N Reflux/GERD N Hepatitis N Pulmonary Embolism N Hypertension N Chicken Pox N Autism Spectrum Disorder (ASD) N Osteoporosis N Immunizations Vaccine Type Date Status Note Provider Nam e and Address Organization Details Recorded Time Influenza, split virus, quadrivalent, preservative 6 completed Sarah Tuttle null, [facility] 04/28/2023 08:42:58 Influenza, split virus, quadrivalent, preservative 7 completed Sarah Tuttle null, [facility] 04/28/2023 08:42:58 pneumococcal polysaccharide PPV23 8 completed Sarah Tuttle null, [facility] 04/28/2023 08:42:58 Influenza, split virus, quadrivalent, PF 5 completed Sarah Tuttle null, [facility] 04/28/2023 08:42:58 Influenza, split virus, quadrivalent, PF 8 completed Sarah Tuttle null, [facility] 04/28/2023 08:42:58 Tdap 2 completed Sarah Tuttle null, [facility] 04/28/2023 08:42:58 pneumococcal polysaccharide PPV23 6 completed Sarah Tuttle null, [facility] 04/28/2023 08:42:58 Influenza, split virus, quadrivalent, preservative 0 completed Sarah Tuttle null, [facility] 04/28/2023 08:42:58 zoster recombinant 0 completed Sarah Tuttle null, [facility] 04/28/2023 08:42:58 COVID-19, mRNA, LNP-S, PF, 100 mcg/0.5mL dose or 50 mcg/0.25mL dose 1 completed Sarah Tuttle null, [facility] 04/28/2023 08:42:58 COVID-19, mRNA, LNP-S, PF, 100 mcg/0.5mL dose or 50 mcg/0.25mL dose 1 completed Sarah Tuttle null, [facility] 04/28/2023 08:42:58 Influenza, split virus, quadrivalent, PF 7 completed Sarah Tuttle null, [facility] 04/28/2023 08:42:58 COVID-19, mRNA, LNP-S, PF, 100 mcg/0.5mL dose or 50 mcg/0.25mL dose 1 completed Sarah Tuttle null, [facility] 04/28/2023 08:42:58 Influenza, recombinant, quadrivalent, PF 0 completed Sarah Tuttle null, [facility] 04/28/2023 08:42:58 Influenza, split virus, quadrivalent, PF 1 completed Sarah Tuttle null, [facility] 04/28/2023 08:42:58 RSV, recombinant, protein subunit RSVpreF, adjuvant reconstituted, 0.5 mL, PF 4 completed Abbey cobian [place] null, [facility] 08/08/2023 14:48:37 COVID-19, mRNA, LNP-S, PF, 50 mcg/0.5 mL 4 completed Sarah Tuttle null, [facility] 04/28/2023 08:42:58 Td (adult), 5 Lf tetanus toxoid, preservative free, adsorbed 5 completed Sarah Tuttle null, [facility] 04/28/2023 08:42:58 Tdap 3 completed Sarah Tuttle null, [facility] 04/28/2023 08:42:58 Td (adult), 2 Lf tetanus toxoid, preservative free, adsorbed 3 completed Raad Diehl MD [address] [address], [place], [address], [facility] 09/14/2022 16:31:07 Influenza, high-dose, quadrivalent, PF 3 completed Holley lutz, [facility] 01/27/2023 12:38:37 Influenza, high-dose, trivalent, PF 4 completed Raad Diehl MD [address] [address], [place], [address], [facility] 02/05/2024 16:55:18 Past Encounters Encounter ID Performer Location Encounter Start Date Encounter Closed Date Diagnosis/Indication Diagnosis SNOMED-CT Code Diagnosis ICD10 Code Diagnosis IMO Codes Diagnosis Note [id number] Raad Diehl MD Main Office [address] [address] 01/07/2025 10:17:41 01/07/2025 10:22:00 Health Concerns Section Related Observation LastModified by Organization Detai ls LastModified Time None Recorded Concern Status LastModified by Organization Details LastModified Time None Recorded Payers Encounter Date Sequence Insurance Name Policy Number Policy Díaz Covered Member ID Díaz Member ID Guarantor Name 01/07/2025 1 [facility] (MEDICARE REPLACEMENT/ ADVANTAGE - HMO) Michaelle Baxter [id number] Michaelle Baxter 01/07/2025 2 [place] [facility] Michaelle Baxter [id number] Michaelle Baxter
--- OUTSIDE RECORDS SUMMARY | 2025-03-17 17:55 | XMS_ITS | Encounter Summary ---
Author Organization [facility] Address [address] [place] [address] Care Team Providers Care Ux Engineer Name Role Phone Raad Adams MD Primary Care Provider [phone] Encounter Details Date Type Department Care Team (Late st Contact Info) Description 03/13/2024 Lab Requisition [facility] - Main Lab [address] [place] [address] Goldy Martell MD [address] [place] [id number] Encounter for other general examination Social History [...] CBC auto differential (03/13/2024 7:55 AM EST) [facility] WBC 8.0 4.8 - 10.8 K/mcL LAB HEMETOLOGY METHOD 03/13/2024 11:53 AM [facility] RBC 6.50(H) 4.50 - 5.50 M/mcL LAB HEMETOLOGY METHOD 03/13/2024 11:53 AM [facility] Hemoglobin 17.0 13.5 - 17.5 g/dL LAB HEMETOLOGY METHOD 03/13/2024 11:53 AM [facility] Hematocrit 54.3(H) 42.0 - 54.0 % LAB HEMETOLOGY METHOD 03/13/2024 11:53 AM [facility] MCV 84.2 79.0 - 98.0 FL LAB HEMETOLOGY METHOD 03/13/2024 11:53 AM [facility] MCH 26.4(L) 27.0 - 32.0 pcg LAB HEMETOLOGY METHOD 03/13/2024 11:53 AM [facility] MCHC 31.3(L) 32.0 - 37.0 g/dL LAB HEMETOLOGY METHOD 03/13/2024 11:53 AM [facility] RDW 14.3 11.0 - 15.0 % LAB HEMETOLOGY METHOD 03/13/2024 11:53 AM [facility] Platelets 168 130 - 400 K/mcL LAB HEMETOLOGY METHOD 03/13/2024 11:53 AM [facility] MPV 11.1(H) 7.0 - 11.0 FL LAB HEMETOLOGY METHOD 03/13/2024 11:53 AM [facility] NRBC 0.0 <1.0 % LAB HEMETOLOGY METHOD 03/13/2024 11:53 AM [facility] NRBC Absolute 0.00 <0.10 K/mcL LAB HEMETOLOGY METHOD 03/13/2024 11:53 AM [facility] Neutrophils Relative 66.3 % LAB HEMETOLOGY METHOD 03/13/2024 11:53 AM [facility] Lymphocytes Relative 24.0 % LAB HEMETOLOGY METHOD 03/13/2024 11:53 AM [facility] Monocytes Relative 8.1 % LAB HEMETOLOGY METHOD 03/13/2024 11:53 AM [facility] Eosinophils Relative 1.0 % LAB HEMETOLOGY METHOD 03/13/2024 11:53 AM [facility] Basophils Relative 0.4 % LAB HEMETOLOGY METHOD 03/13/2024 11:53 AM [facility] Immature Granulocytes Relative 0.2 % LAB HEMETOLOGY METHOD 03/13/2024 11:53 AM [facility] Neutrophils Absolute 5.31 1.50 - 7.00 K/mcL LAB HEMETOLOGY METHOD 03/13/2024 11:53 AM [facility] Lymphocytes Absolute 1.92 1.00 - 5.00 K/mcL LAB HEMETOLOGY METHOD 03/13/2024 11:53 AM [facility] Monocytes Absolute 0.65 0.20 - 1.00 K/mcL LAB HEMETOLOGY METHOD 03/13/2024 11:53 AM [facility] Eosinophils Absolute 0.08 0.00 - 0.50 K/mcL LAB HEMETOLOGY METHOD 03/13/2024 11:53 AM [facility] Basophils Absolute 0.03 0.00 - 0.20 K/mcL LAB HEMETOLOGY METHOD 03/13/2024 11:53 AM [facility] Immature Granulocytes Absolute 0.02 0.00 - 0.03 K/mcL LAB HEMETOLOGY METHOD 03/13/2024 11:53 AM [facility] Blood Venous blood specimen / Unknown Venipuncture / Unknown 03/13/2024 7:55 AM EST 03/13/2024 11:13 AM EST Goldy Martell MD LAB BLOOD ORDERABLES Final Res ult Performing Organization Address City/[facility]/ZIP Co de Phone Number [facility] [address] [place] [address], [place] [phone] * Magnesium (03/13/2024 7:55 AM EST) [facility] Magnesium 2.0 1.9 - 2.6 mg/dL LAB CHEMISTRY METHOD 03/13/2024 1:57 PM [facility] Blood Venous blood specimen / Unknown Venipuncture / Unknown 03/13/2024 7:55 AM EST 03/13/2024 11:13 AM EST Goldy Martell MD LAB BLOOD ORDERABLES Final Res ult Performing Organization Address [facility]/ZIP Co de Phone Number [facility] [address] [place] [address], [place] [phone] * (ABNORMAL) Comprehensive metabolic panel (03/13/2024 7:55 AM EST) [facility] Sodium 136 133 - 145 mmol/L LAB CHEMISTRY METHOD 03/13/2024 1:58 PM [facility] Potassium 4.4 3.5 - 5.5 mmol/L LAB CHEMISTRY METHOD 03/13/2024 1:58 PM [facility] Chloride 99 96 - 110 mmol/L LAB CHEMISTRY METHOD 03/13/2024 1:58 PM [facility] CO2 32 21 - 32 mmol/L LAB CHEMISTRY METHOD 03/13/2024 1:58 PM [facility] Anion Gap 5 3 - 11 LAB CHEMISTRY METHOD 03/13/2024 1:58 PM [facility] Glucose 123(H) 70 - 100 mg/dL LAB CHEMISTRY METHOD 03/13/2024 1:58 PM [facility] BUN 20 5 - 25 mg/dL LAB CHEMISTRY METHOD 03/13/2024 1:58 PM [facility] Creatinine 1.13 0.70 - 1.30 mg/dL LAB CHEMISTRY METHOD 03/13/2024 1:58 PM [facility] eGFR 72 >=60 mL/min/1. 73m2 LAB CHEMISTRY METHOD 03/13/2024 1:58 PM [facility] Comment:Calculation based on the Chronic Kidney Disease Epidemiology Collaboration (CKD-EPI) equation refit without adjustment for race. BUN/Creatinine Ratio 17.7 LAB CHEMISTRY METHOD 03/13/2024 1:58 PM [facility] Calcium 9.8 8.5 - 10.5 mg/dL LAB CHEMISTRY METHOD 03/13/2024 1:58 PM [facility] AST (SGOT) 32 10 - 42 unit/L LAB CHEMISTRY METHOD 03/13/2024 1:58 PM [facility] ALT (SGPT) 58 10 - 60 unit/L LAB CHEMISTRY METHOD 03/13/2024 1:58 PM [facility] Alkaline Phosphatase 77 42 - 121 unit/L LAB CHEMISTRY METHOD 03/13/2024 1:58 PM [facility] Total Protein 7.1 6.0 - 8.0 g/dL LAB CHEMISTRY METHOD 03/13/2024 1:58 PM [facility] Albumin 2.7(L) 3.2 - 5.0 g/dL LAB CHEMISTRY METHOD 03/13/2024 1:58 PM [facility] Total Bilirubin 0.3 0.0 - 1.4 mg/dL LAB CHEMISTRY METHOD 03/13/2024 1:58 PM [facility] Blood Venous blood specimen / Unknown Venipuncture / Unknown 03/13/2024 7:55 AM EST 03/13/2024 11:13 AM EST us Goldy Martell MD LAB BLOOD ORDERABLES Final Res ult [facility] [address] [place] [address], documented in this encounter Visit Diagnoses Diagnosis Encounter for other general examination documented in this encounter Care Teams Ux Engineer Relationship Specialty Start Date End Date Raad Adasm MD [address] PCP - General Internal Medicine 02/26/24 documented as of this encounter
--- OUTSIDE RECORDS SUMMARY | 2025-03-17 17:55 | XMS_ITS | Continuity of Care Document ---
Author Organization [facility], Main Office Address [address] [place] [address] Care Team Providers Care Classroom Paraprofessional Name Role Phone RAAD DIEHL Primary Care Provider [facility] Nutrit ionist [facility] PHYSICALTH ERAPY (SIM BUSBY) Orthopedic Surgeon [facility] GASTRO[facility] [place] CAROL BAKER Orthopedic Surgeon [phone] VIKAS JASON Vascular Surgeon Assessment No assessment recorded. Plan of Treatment Reminders Order Date Submit Date Provider Last Modified By Organization Details Last Modified Time Details Appointments BILLING ONLY 2024 09:00A M DE SCHEDULE Not available Not available Not available Lab None recorded . Referral None recorded . Procedures None recorded . Surgeries None recorded . Imaging None recorded . Medication Orders None recorded . Patient TargetsNo targets recorded. Patient InstructionsNo instructions recorded. Reason for Referral None Reported. Results Created Date Observation Date Name Description Value Unit Range Abnormal Flag Note LastModifiedBy Organization Detail LastModifiedTime 03/17/2003/17/2025 imagi ng/di agnos tic resul t No observ ation record ed. [facility] (Medical Records) [address] [place], [address], 03/17/2025 17:05:19 Result Notes None recorded. Problems Name Problem SNOMED Code Status Onset Date Resolution Date Notes Provider Name and Address Organization Details Recorded Time Snoring 39804422 Completed 06/20/2016 Raad Diehl MD [address], [place], [address] , [facility] 7 14:28:12 Early satiety 219895301 Completed 06/20/2016 Raad Diehl MD [address], [place], [address] , [facility] 7 14:27:44 Low back pain 092851280 Completed 06/20/2016 Raad Diehl MD [address], [place], [address] , [facility] 7 14:27:30 Dermatop hytosis 10983913 Completed 06/20/2016 Raad Diehl MD [address], [place], [address] , [facility] 7 14:27:55 Impaired fasting glycemia 287746728 Completed 04/20/2018 Raad Diehl MD [address], [place], [address] , [facility] 9 12:42:51 Pleural effusion associat ed with pulmonar y infectio n 09571880 Completed 10/21/2019 Raad Diehl MD [address], [place], [address] , [facility] 0 13:19:10 Acute endocard itis 99205200 Completed 10/21/2019 Raad Diehl MD [address], [place], [address] , [facility] 0 13:24:31 Pain of hip region 43866024 Completed 201211/25/2013 IMPRESSI ON: SUSPECT SEVER ARTHRITI S SOURCE. NEEDS BETTER IMAGING WITH RADILOLO GIST REVIEW WELL ORTHO CONSULT. CONTINUE PRN NSAIDS FOR SYMPTOM RELIEF.; RECORDED 03/25/20 13 11:18AM BY CHRISTINE THOMAS MA, ANNOTATI ON/ADDEN DUM Not Available [facility] 4 05:26:41 Pain of hip region 43894695 Completed 201210/29/2013 IMPRESSI ON: SUSPECT RAMAN RICHARDSON S SOURCE. NEEDS BETTER IMAGING WITH RADILOLO GIST REVIEW WELL ORTHO CONSULT. CONTINUE PRN NSAIDS FOR SYMPTOM RELIEF.; RECORDED 03/25/20 13 11:18AM BY CHRISTINE THOMAS MA, ANNOTATI ON/ADDEN DUM Not Available [facility] 4 14:13:54 Benign neoplasm of colon 79146271 Active 2013 Not Available [facility] 4 08:35:47 Adult health examinat ion Completed 201311/25/2013 IMPRESSI ON: WILL UPDATE IMMUNIZA TION STATUS (PT DECLINES FLU AND PNEUMOVA X) AND SCREEN BASED ON RISK FACTORS. REGULAR DENTAL CARE AND SEATBELT USE ADVISED. DISTRACT ED DRIVING DISCUSSE D. OVERDUE FOR COLON CANCER SCREENIN G, PROSTATE CANCER SCREENIN G NOW UTD.; RECORDED 04/23/19 14 2:51PM BY ABBEY SOLER MA, NEYMAR ON/ADDEN DUM Not Available [facility] 4 05:26:41 Administ ration of diphther ia and tetanus vaccine Completed 201311/25/2013 RECORDED 04/23/19 14 2:50PM BY ABBEY SOLER MA, NATATI ON/ADDEN DUM Not Available [facility] 4 05:26:42 Adult health examinat ion Completed [...] SOLER MA, NATATI ON/ADDEN DUM Not Available [facility] 4 14:13:54 Tobacco dependen ce syndrome 25377136 Completed 201310/29/2013 RECORDED 04/23/19 14 2:51PM BY ABBEY SOLER MA, ANNOTATI ON/ADDEN DUM Raad Diehl MD [address], [place], [address] , [facility] 7 14:28:23 Obesity 808877667 Completed 201310/29/2013 RECORDED 04/23/19 14 2:51PM BY ABBEY SOLER MA, ANNOTATI ON/ADDEN DUM Holley Reed null, [facility] 9 16:15:11 Administ ration of diphther ia and tetanus vaccine Completed 201310/29/2013 RECORDED 04/23/19 14 2:50PM BY ABBEY SOLER MA, ANNOTATI ON/ADDEN DUM Not Available [facility] 4 14:13:55 Screenin g for malignan t neoplasm of colon Completed 201311/25/2013 RECORDED 05/27/19 14 10:10AM BY MELINDA BISHOP MA, ANNOTATI ON/ADDEN DUM Not Available [facility] 4 05:26:41 Screenin g for malignan t neoplasm of colon Completed 201310/29/2013 RECORDED 05/27/19 14 10:10AM BY MELINDA BISHOP MA, ANNOTATI ON/ADDEN DUM Not Available [facility] 4 14:13:54 Tobacco dependen ce syndrome 05712186 Active 2013 Not Available [facility] 4 08:35:47 Divertic ular disease of colon 615582359 Completed 201307/03/2018 Raad Diehl MD [address], [place], [address] , [facility] 9 13:44:23 Internal hemorrho ids 95783533 Active 2013 Not Available [facility] 4 08:35:47 Pure hypercho lesterol emia 559218607 Active 2013 Not Available [facility] 4 08:35:46 Essentia l hyperten librado 66410584 Completed 201306/20/2016 Holley lutz [facility] 1 15:04:45 Immuniza tion refused Completed 201303/18/2014 RECORDED 05/27/19 14 10:11AM BY MELINDA BISHOP MA, OFFICE VISIT João lutz [facility] 4 12:30:05 Obesity 977440654 Completed 201306/20/2016 IMPRESSI ON: POTENTIA L EMT [facility] [place]. HEALTHIE R DIET AND EXERCISE HABITS ADVISED. ; RECORDED 05/27/19 14 10:11AM BY MELINDA BISHOP MA, OFFICE VISIT Holley lutz [facility] 9 16:15:11 Pre-surg bev evaluati on Completed 201302/18/2015 IMPRESSI ON: MICHAELLE IS AT LOW CARDIOPU LMONARY RISK FOR THIS PROCEDUR E. NO FURTHER TESTING INDICATE D BEFORE SURGERY; RECORDED 05/27/19 14 11:00AM BY GAYATRI BENITES, OFFICE VISIT Raad Diehl MD [address], [place], [address] , [facility] 5 11:20:02 Follow-u p encounte r Completed 201310/29/2013 RECORDED 06/19/19 14 8:39AM BY ATIF MERINO RN, TRANSITI ON OF CARE Not Available [facility] 4 14:13:54 Follow-u p encounte r Completed 201303/18/2014 RECORDED 06/25/19 14 11:36AM BY ATIF MERINO RN, PHONE ENCOUNTE R João lutz, [facility] 4 12:30:05 Osteoart hritis of hip 438263547 Completed 201306/20/2016 Raad Diehl MD [address], [place], [address] , [facility] 7 14:27:19 Multiple nodules of lung 869435321 Active 2015 Not Available [facility] 4 08:35:47 Cyst of pancreas 85395059 Completed 201506/28/2017 Raad Diehl MD [address], [place], [address] , [facility] 3 16:04:44 Abscess of buttock 26775426 Completed 201506/20/2016 Raad Diehl MD [address], [place], [address] , [facility] 7 14:16:00 Pleural effusion 49959956 Completed 201506/20/2016 right Raad Diehl MD [address], [place], [address] , [facility] 7 14:16:21 Obstruct emi sleep apnea syndrome 18743573 Active 2015 moderate Not Available [facility] 4 08:35:47 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 649659434 Completed 201506/20/2016 Raad Diehl MD [address], [place], [address] , [facility] 8 15:14:06 Septic pulmonar y embolism 452425848 Completed 201606/20/2016 Raad Diehl MD [address], [place], [address] , [facility] 7 14:15:54 Psoriasi s 3542169 Active 2016 Not Available [facility] 4 08:35:47 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 402459459 Completed 201606/28/2017 Raad Diehl MD [address], [place], [address] , [facility] 8 15:14:06 Hiatal hernia 96969119 Active 2016 Not Available [facility] 4 08:35:47 Acute duodenal ulcer 358239915 Completed 201606/28/2017 Raad Diehl MD [address], [place], [address] , [facility] 8 15:36:57 History of methicil mckenna resistan t Staphylo coccus aureus infectio n 529051158 Active 2017 Not Available [facility] 4 08:35:47 History of duodenal ulcer 448712074 Active 2017 Not Available [facility] 4 08:35:46 Cyst of pancreas 28034269 Active 2017 needs 1 yr f/u Not Available [facility] 4 08:35:46 Type 2 diabetes mellitus 47350593 Completed 201807/13/2018 DIANA Trevino, [facility] 1 14:58:25 Bacterem ia caused by Methicil mckenna resistan t Staphylo coccus aureus 94324562450 832235 Completed 201807/03/2018 Raad Diehl MD [address], [place], [address] , [facility] 9 13:43:44 Divertic ular disease 952180131 Active 2018 Not Available [facility] 4 08:35:46 Obesity 781468718 Active 2018 Not Available [facility] 4 08:35:46 Uncontro lled type 2 diabetes mellitus 271945531 Completed 201802/16/2021 DIAAN Trevino, [facility] 1 14:58:19 Chronic kidney disease stage 2 699314461 Completed 201805/23/2019 Holley Derek lutz [facility] 3 12:37:21 Chronic kidney disease stage 3 902471361 Completed 201805/05/2020 Raad Diehl MD [address], [place], [address] , [facility] 1 15:25:49 Chronic kidney disease stage 2 102335157 Active 2018 Not Available [facility] 4 08:35:47 Microalb uminuria 560689970 Active 2018 Not Available [facility] 4 08:35:46 History of gastriti s 94809335240 9103 Active 2018 Not Available [facility] 4 08:35:47 Renal disorder due to type 2 diabetes mellitus 945664337 Active 2018 Not Available [facility] 4 08:35:46 Lumbar spondylo sis 622957326 Active 2019 Not Available [facility] 4 08:35:46 Type 2 diabetes mellitus 13357455 Completed 201902/16/2021 DIANA Trevino, [facility] 1 14:58:25 History of endocard itis 953526827 Active 2019 Not Available [facility] 4 08:35:46 Epiderma l inclusio n cyst of eyelid 751339522 Completed 201908/23/2022 Raad Diehl MD [address], [place], [address] , [facility] 3 16:19:52 Pulmonar y emphysem a 10012060 Active 2019 Not Available [facility] 4 08:35:47 Hyperten sive renal disease 21302477 Completed 202008/26/2024 Raad Diehl MD [address] [facility] [address], [place], [address] , [facility] 5 16:37:34 Chronic kidney disease stage 3A 370208823 Completed 202001/26/2023 Raad Diehl MD [address], [place], [address] , [facility] 3 07:23:49 Diabetic peripher al neuropat hy 174534532 Active 2020 Not Available [facility] 4 08:35:46 Phimosis 632967168 Completed 202109/14/2022 Raad Diehl MD [address], [place], [address] , [facility] 3 16:32:59 Vitamin D deficien cy 10398626 Active 2022 Not Available [facility] 4 08:35:46 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 12426787296 68760 Active 2022 Not Available [facility] 4 08:35:46 Steatoti c liver disease 688915409 Active 2022 Not Available [facility] 4 08:35:46 Large prostate 077679894 Active 2022 Not Available [facility] 4 08:35:46 Atherosc lerosis of aorta 50082716 Active 2022 Not Available [facility] 4 08:35:47 Inguinal hernia 780854277 Active 2022 fat containi ng bilatera l Not Available [facility] 4 08:35:46 Abdomina l aortic ectasia 55946966578 9101 Active 2022 2.7cm infraren al Not Available [facility] 4 08:35:46 Intermit tent claudica tion 48743800 Active 2022 Raad Diehl MD [address], [place], [address] , [facility] 5 14:41:56 Ventricu lar prematur e complex 521249240 Completed 202208/26/2024 Raad Diehl MD [address] [address], [place], [address] , [facility] 5 16:04:03 Hyperlip idemia 65267275 Active 2023 Christine Balderrama PA-C [address] [address], [place], [address] , [facility] 4 15:49:01 Hypercal cemia 28737868 Active 2023 Christine Balderrama PA-C [address] [address], [place], [address] , [facility] 4 18:12:20 Hyperkal emia 78936011 Completed 202308/26/2024 Raad Diehl MD [address] [address], [place], [address] , [facility] 5 16:04:17 Morbid obesity 306234638 Active 2023 Raad Diehl MD [address] [address], [place], [address] , [facility] 4 15:26:33 Body mass index 30+ - obesity 313874651 Active 2023 Raad Diehl MD [address] [address], [place], [address] , [facility] 4 15:34:28 Mass of pancreas 375259342 Active 2023 Raad Diehl MD [address] [address], [place], [address] , [facility] 4 17:10:54 Unequal blood pressure in arms 456675756 Active 2023 Raad Diehl MD [address] [address], [place], [address] , [facility] 4 17:11:29 Calcific ation of coronary artery 532695925 Active 2023 Raad Diehl MD [address], [place], [address] , [facility] 4 06:47:29 Acute transver se myelitis 81907810 Active 2023 Raad Diehl MD [address], [place], [address] , [facility] 5 17:50:15 Lumbar radiculo jeanie 495887824 Active 2023 right L5 Raad Diehl MD [address], [place], [address] , [facility] 4 07:05:29 Hypoalbu minemia 013499003 Active 2023 Raad Diehl MD [address], [place], [address] , [facility] 4 15:04:50 Transver se myelopat hy syndrome 56244941 Active 2024 Christine Balderrama PA-C [address] [facility] [address], [place], [address] , [facility] 5 15:20:40 History of syphilis 42646157673 34711 Active 2024 Raad Diehl MD [address], [place], [address] , [facility] 5 11:02:19 Left hemipare sis 926205986 Active 2024 Raad Diehl MD [address], [place], [address] , [facility] 5 14:01:47 Degenera tion of cervical interver tebral disc 61335503 Active 2024 C5-C7 Raad Diehl MD [address] [address], [place], [address] , [facility] 5 17:08:04 Spinal stenosis in cervical region 36826377 Active 2024 C5/C6 Raad Diehl MD [address] [address], [place], [address] , [facility] 5 17:44:30 Stenosis of interver tebral foramina 21616777079 9 Active 2024 Raad Diehl MD [address] [address], [place], [address] , [facility] 5 17:44:40 Peripher al vascular disease 251100769 Active 2024 Raad Diehl MD [address] [address], [place], [address] , [facility] 5 10:16:00 Venous insuffic iency of lower limb 068119122 Active 2024 Raad Diehl MD [address] [address], [place], [address] , [facility] 5 10:16:12 Notes:Some problems listed i n Document: #[id number] could not be added to this patient's chart. Please review this document and add these problems to the patient's chart manually as needed. Problem Notes None recorded. Procedures Surgical History Date Name Laterality Status Provider Name and Address Organization Details Recorded Time 09/13/19 25 osteotomy and discectomy of cervical spine by anterior approach completed Raad Diehl MD [address] [address], [place], [address], [facility] 01/15/2025 20:12:54 02/05/20 24 Diabetic Foot Exam (Monofilament) completed Raad Diehl MD [address] [address], [place], [address], [facility] 02/05/2024 17:07:41 12/12/19 24 Colonoscopy completed Sarah Tuttle [facility] 12/14/2023 08:56:06 02/17/20 21 Diabetic Foot Exam (Monofilament) completed Raad Diehl MD [address] [address], [place], [address], [facility] 02/16/2021 16:15:27 07/04/19 21 Diabetic Foot Exam (Monofilament) completed Abbey lee [facility] 07/03/2020 13:38:58 11/08/19 20 biopsy of eyelid completed Raad Diehl MD [address] [address], [place], [address], [facility] 11/20/2019 18:56:48 06/17/19 20 Diabetic Foot Exam (Monofilament) completed Idania Morales [facility] 06/17/2019 09:17:42 07/04/19 19 Diabetic Foot Exam (Monofilament) completed Raad Diehl MD [address] [address], [place], [address], [facility] 07/03/2018 14:13:41 05/28/19 19 Diabetic Foot Exam (Monofilament) completed Neha Wheeler [facility] 05/28/2018 13:15:14 04/12/20 18 transesophageal echocardiography completed Raad Diehl MD [address] [address], [place], [address], [facility] 04/20/2018 13:30:23 04/09/20 18 Echo transthoracic completed Raad Diehl MD [address], [address], [facility] 04/20/2018 13:28:52 02/28/20 17 Colonoscopy completed Christine Thomas [facility] 06/28/2017 14:46:56 02/28/20 17 Egd diagnostic brush wash completed Raad Diehl MD [address], [place], [address], [facility] 03/07/2017 13:43:07 01/09/20 16 Dbrdmt ecz/infected skin<10% completed Raad Diehl MD [address] [facility] [facility] [address], [place], [address], [facility] 06/21/2016 15:30:01 03/26/20 14 Orthopedic Surgery completed Raad Diehl MD [address] [facility] [address] [facility] [address], [place], [address], [facility] 04/01/2014 22:22:42 05/18/19 14 Orthopedic Surgery completed Raad Diehl MD [address] [facility] [address] [facility] [address], [place], [address], [facility] 02/18/2015 11:16:33 Imaging Results None recorded. Procedure Notes None recorded. Medical Equipment None Reported. Allergies Allergen ID Allergen Name Allergen Category Reaction Reaction Severity Criticality Documentation Date Start Date Code Code System Note Provider Name and Address Organization Details Recorded Time 5369 No known allergy (situatio n) Not available Not available Not available Not available 10/29/20132012 52026 6003 SNOMED Not Available [facility] 4 08:35:47 No known drug allergies Medications [...] completed RECORDED 03/25/20 13 2:26PM BY CHRISTINE HTOMAS MA, OFFICE VISIT; Not Available Not Available [...] Available Not Available FreeStyle Nicolasa 14 Day [place] Take 1 each every day by miscell. [...] WEEK pt STATES HE is now .5 [email or web address] completed Not Available Not Available Not Available Vitals None Recorded Social History Question Answer Notes LastModified by Organizat ion Details LastModified Time Tobacco Smoking Status Current Every Day Smoker Not Available [facility] 02/18/2020 03:36:36 Do You Have An Advance Directive? Yes HCP/ -She [email or web address] Information not available 12/23/2021 Is Blood Transfusion Acceptable In An Emergency? Yes [id number] Information not available 02/18/2020 What Is Your Level Of Caffeine Consumption? Moderate Coffee [id number] Information not available 02/18/2020 How Much Tobacco Do You Chew? None [id number] Information not available 02/18/2020 What Type Of Diet Are You Following? REGULAR [id number] Information not available 02/18/2020 Which Illicit Or Recreational Drugs Have You Used? None [id number] Information not available 02/18/2020 Live Alone Or [...] 02/16/2021 Have You Recently Traveled To A [facility] High Risk Area Or Gathering In The Last 10 Days? No Information not available 04/30/2020 What Was The Date Of Your Most Recent Tobacco Screening? 01/10/2025 [email or web address] Information not available 01/10/2025 How Many Children Do You Have? 2 1 Son (Skyler ) And 1 Dtr (Lazara) Information not available 02/05/2024 What Is Your Current Pack Years? 30ormorepack years [email or web address] Information not available 12/23/2021 Do You Use Protection During Sex? Usually Information not available 02/16/2021 Do You Use Your Seat Belt Or Car Seat Routinely? Yes Information not available 02/16/2021 Seat Belts Used Routinely No [email or web address] Information not available 12/23/2021 Are You Sexually Active? Yes [id number] Information not available 02/18/2020 Smoke Alarm In Home Yes Information not available 12/23/2021 Do You Have Smoke And Carbon Monoxide Detectors In Your Home? Yes Information not available 02/16/2021 At What Age Did You Start Smoking Tobacco? 14 1976 Information not available 08/26/2024 Are You Passively Exposed To Smoke? Yes Information not available 06/28/2017 How Much Tobacco Do You Smoke? 1 PPD [id number] Information not available 02/18/2020 Do You Use Sunscreen Routinely? No [id number] Information not available 02/18/2020 How Many Years Have You Smoked Tobacco? 51 Information not available 08/26/2024 Sex: Unknown Functional Status Question Answer Note LastModified by Organizat ion Details LastModified Time Do you use any illicit or recreational drugs? No [email or web address] Information not available 12/23/2021 Do you or have you ever used any other forms of tobacco or nicotine? No [email or web address] Information not available 12/23/2021 What is your level of alcohol consumption? Occasional [id number] Information not available 02/18/2020 Do you or have you ever used smokeless tobacco? Never used smokeless tobacco [id number] Information not available 02/18/2020 Are you currently employed? 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 YESWOREST [email or web address] Information not available 12/23/2021 Are you able to care for yourself independently? 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 Never used electronic cigarettes Information not available 12/23/2021 What is your exercise level? Occasional Golf Pneurone Information not available 08/23/2022 Mental Status None recorded. Family History Relationship Description Onset Age of this Age Resolved Age Notes LastModified by Organization Details LastModified Time Mother Hypertensive disorder [email or web address] Not available 2015 10:46:56 Mother Congestive heart failure [email or web address] Not available 12/23 13:51:29 Mother Asthma [email or web address] Not available 10:46:56 Mother Diabetes mellitus [email or web address] Not available 2015 10:46:56 Father Early gastric cancer [email or web address] Not available 12/23 13:51:29 Son Well adult [email or web address] Not avail able 12/23/2021 13:51:29 Daughter Well adult [email or web address] Not nathan ilable 12/23/2021 13:51:29 Medical History Condition Response Gout N Other N Kidney Stones N Blood Diseases N Hyperthyroidism N Breast Cancer N COPD N Depression N Lung Disease N Hypothyroidism N Defects [...] quadrivalent, preservative 6 completed Sarah Tuttle null, [facility] 04/28/2023 08:42:58 Influenza, split virus, quadrivalent, preservative 7 completed Sarah Tuttle null, [facility] 04/28/2023 08:42:58 pneumococcal polysaccharide PPV23 8 [facility] 08:42:58 Influenza, split virus, quadrivalent, PF 5 completed Sarah Tuttle [facility] 04/28/2023 08:42:58 Influenza, split virus, quadrivalent, PF 8 completed [facility] 04/28/2023 08:42:58 Tdap 2 completed Sarah Tuttle [facility] 04/28/2023 08:42:58 pneumococcal polysaccharide PPV23 6 completed Sarah Tuttle [facility] 04/28/2023 08:42:58 Influenza, split virus, quadrivalent, preservative 0 completed [facility] 04/28[facility]2023 08:42:58 zoster recombinant 0 completed Sarah Tuttle [facility] 04/28/2023 08:42:58 COVID-19, mRNA, LNP-S, PF, 100 mcg/0.5mL dose or 50 mcg/0.25mL dose 1 [facility] 08:42:58 COVID-19, mRNA, LNP-S, PF, 100 mcg/0.5mL dose or 50 mcg/0.25mL dose 1 [facility]28[facility]23 08:42:58 Influenza, split virus, quadrivalent, PF 7 completed Sarah lutz, [facility] 04/28/2023 08:42:58 COVID-19, mRNA, LNP-S, PF, 100 mcg/0.5mL dose or 50 mcg/0.25mL dose 1 completed Sarah lutz, [facility] 04/28/2023 08:42:58 Influenza, recombinant, quadrivalent, PF 0 completed Sarah lutz, [facility] 04/28/2023 08:42:58 Influenza, split virus, quadrivalent, PF 1 [facility] 04/28/2023 08:42:58 RSV, recombinant, protein subunit RSVpreF, adjuvant reconstituted, 0.5 mL, PF 4 completed Abbey cobian [place] null, [facility] 08/08/2023 14:48:37 COVID-19, mRNA, LNP-S, PF, 50 mcg/0.5 mL 4 [facility]/28/2023 08:42:58 Td (adult), 5 Lf tetanus toxoid, preservative free, adsorbed 5 completed Saarh lutz, [facility] 04/28/2023 08:42:58 Tdap 3 completed Sarah lutz, [facility] 04/28/2023 08:42:58 Td (adult), 2 Lf tetanus toxoid, preservative free, adsorbed 3 completed Raad Diehl MD [address] [address], [place], [phone], [facility] 09/14/2022 16:31:07 Influenza, high-dose, quadrivalent, PF 3 completed Holley lutz, [facility] 01/27/2023 12:38:37 Influenza, high-dose, trivalent, PF 4 completed Raad Diehl MD [address] [address], [place], [phone], [facility] 02/05/2024 16:55:18 Past Encounters Encounter ID Performer Location Encounter Start Date Encounter Closed Date Diagnosis/Indication Diagnosis SNOMED-CT Code Diagnosis ICD10 Code Diagnosis IMO Codes Diagnosis Note [id number] Raad Diehl MD Main Office [address] [phone] 02/19/2025 14:16:53 02/19/2025 14:32:13 Health Concerns Section Related Observation LastModified by Organization Detai ls LastModified Time None Recorded Concern Status LastModified by Organization Details LastModified Time None Recorded Payers Encounter Date Sequence Insurance Name Policy Number Policy Díaz Covered Member ID Díaz Member ID Guarantor Name 02/19/2025 1 [facility] (MEDICARE REPLACEMENT/ ADVANTAGE - HMO) iMchaelle Baxter [id number] Michaelle Baxter 02/19/2025 2 MEDICAID-[place]: [facility] Michaelle Baxter [id number] Michaelle Baxter
--- OUTSIDE RECORDS SUMMARY | 2025-03-17 17:55 | XMS_ITS | Encounter Summary ---
Author Organization [facility] Address [address] [place] [address] Care Team Providers Care Metal Cut Off Saw Tender Name Role Phone Raad Adams MD Primary Care Provider [phone] Encounter Details Date Type Department Care Team (Late st Contact Info) Description 03/19/2024 Lab Requisition [facility] - Main Lab [address] [facility] [place] [address] Goldy Martell MD [address] [place] [id number] Encounter for other general examination Social History [...] AM EST) WBC 7.5 4.8 - 10.8 K/[facility] LAB HEMETOLOGY METHOD 03/19/2024 11:09 AM EST [facility] RBC 5.70(H) 4.50 - 5.50 M/[facility] LAB HEMETOLOGY METHOD 03/19/2024 11:09 AM [facility] Hemoglobin 15.1 13.5 - 17.5 g/dL LAB HEMETOLOGY METHOD 03/19/2024 11:09 AM [facility] Hematocrit 48.3 42.0 - 54.0 % LAB HEMETOLOGY METHOD 03/19/2024 11:09 AM [facility] MCV 84.7 79.0 - 98.0 FL LAB HEMETOLOGY METHOD 03/19/2024 11:09 AM [facility] MCH 26.5(L) 27.0 - 32.0 pcg LAB HEMETOLOGY METHOD 03/19/2024 11:09 AM [facility] MCHC 31.3(L) 32.0 - 37.0 g/dL LAB HEMETOLOGY METHOD 03/19/2024 11:09 AM [facility] RDW 13.8 11.0 - 15.0 % LAB HEMETOLOGY METHOD 03/19/2024 11:09 AM [facility] Platelets 194 130 - 400 K/mcL LAB HEMETOLOGY METHOD 03/19/2024 11:09 AM [facility] MPV 10.9 7.0 - 11.0 FL LAB HEMETOLOGY METHOD 03/19/2024 11:09 AM [facility] NRBC 0.0 <1.0 % LAB HEMETOLOGY METHOD 03/19/2024 11:09 AM [facility] NRBC Absolute 0.00 <0.10 K/mcL LAB HEMETOLOGY METHOD 03/19/2024 11:09 AM [facility] Blood Venous blood specimen / Unknown Venipuncture / Unknown 03/19/2024 6:20 AM EST 03/19/2024 10:18 AM EST us Goldy Martell MD LAB BLOOD ORDERABLES Final Res ult [facility] [address] [place] [address], * (ABNORMAL) Basic metabolic panel (03/19/2024 6:20 AM EST) Sodium 137 133 - 145 mmol/L LAB CHEMISTRY METHOD 03/19/2024 11:43 AM [facility] Potassium 5.0 3.5 - 5.5 mmol/L LAB CHEMISTRY METHOD 03/19/2024 11:43 AM [facility] Comment:Hemolysis present Chloride 104 96 - 110 mmol/L LAB CHEMISTRY METHOD 03/19/2024 11:43 AM [facility] CO2 27 21 - 32 mmol/L LAB CHEMISTRY METHOD 03/19/2024 11:43 AM [facility] Anion Gap 6 3 - 11 LAB CHEMISTRY METHOD 03/19/2024 11:43 AM [facility] Glucose 129(H) 70 - 100 mg/dL LAB CHEMISTRY METHOD 03/19/2024 11:43 AM [facility] BUN 20 5 - 25 mg/dL LAB CHEMISTRY METHOD 03/19/2024 11:43 AM [facility] Creatinine 1.09 0.70 - 1.30 mg/dL LAB CHEMISTRY METHOD 03/19/2024 11:43 AM [facility] eGFR 75 >=60 mL/min/1. 73m2 LAB CHEMISTRY METHOD 03/19/2024 11:43 AM [facility] Comment:Calculation based on the Chronic Kidney Disease Epidemiology Collaboration (CKD-EPI) equation refit without adjustment for race. BUN/Creatinine Ratio 18.3 LAB CHEMISTRY METHOD 03/19/2024 11:43 AM [facility] Calcium 9.3 8.5 - 10.5 mg/dL LAB CHEMISTRY METHOD 03/19/2024 11:43 AM [facility] Blood Venous blood specimen / Unknown Venipuncture / Unknown 03/19/2024 6:20 AM EST 03/19/2024 10:18 AM EST us Goldy Martell MD LAB BLOOD ORDERABLES Final Res ult [facility] [address] [place] [address], documented in this encounter Visit Diagnoses Diagnosis Encounter for other general examination documented in this encounter Care Teams Metal Cut Off Saw Tender Relationship Specialty Start Date End Date Raad Adams MD [facility] PCP - General Internal Medicine 02/26/24 documented as of this encounter
--- OUTSIDE RECORDS SUMMARY | 2025-03-17 17:55 | XMS_ITS | Encounter Summary ---
Author Organization [facility] Address [address] [place] [address] Care Team Providers Care Farmworker [employer] Name Role Phone Raad Adams MD Primary Care Provider [phone] Reason for Referral * Imaging (Routine) - Authorized Specialty Diagnoses / Procedures Referred By Contac t Referred To Contact Diagnostic Radiology Procedures MRI Cervical Spine without IV Contrast Ganesh Feliz MD [address] [place] [address] [place] [address] Phone: tel: fax: Referral ID Status Reason Start Date Expiration Date V isits Requested Visits Authorized [id number] Authorized 08/20/2024 08/20/2025 1 1 * Imaging (Routine) - Authorized Specialty Diagnoses / Procedures Referred By Contac t Referred To Contact Diagnostic Radiology Procedures MRI Thoracic Spine with and without IV Contrast Ganesh Feliz MD [address] [place] [address] [place] [address] Phone: tel: fax: Referral ID Status Reason Start Date Expiration Date V isits Requested Visits Authorized [id number] Authorized 08/20/2024 08/20/2025 1 1 Encounter Details Date Type Department Care Team (Late st Contact Info) Description 08/20/2024 Scanned Document [facility] [address] [id number] Ganesh Feliz MD [address] [place] [address] [place] [address] Social History Tobacco Use Types Packs/Day Years [...] PM EST Telemedicine [facility] 194 [facility] 3 [place] [address] Malachi Reyna MD [address] [phone] documented as of this encounter Goals Goal Patient Goal Type Associated Problems Recent Progress Patient-Stated? Author [facility] Spine Task Goal Care Plan AMB LM [...] C-spine Ma gnetic Resonance Ganesh Feliz MD [facility] MRI ORDERABLES Final Result * MRI Thoracic Spine with and without IV Contrast (05/13/2024 5:10 PM EST) Anatomical Region Laterality Modality T-spine, Spine, Ortho T-spine Ma gnetic Resonance us Ganesh Feliz MD [facility] MRI ORDERABLES Final Result documented in this encounter Visit Diagnoses Not on filedocumented in this encounter Additional Health Concerns Active Problems Noted Date Diagnosed Date AMB CC LMH SPINE PROBLEM 08/19/2024 documented as of this encounter Care Teams Farmworker [employer] Relationship Specialty [place] [address] [place] [phone] PCP - General Internal Medicine 06/20/24 documented as of this encounter
--- OUTSIDE RECORDS SUMMARY | 2025-03-17 17:55 | XMS_ITS | Encounter Summary ---
Author Organization [facility] Address [address] [place] [phone] Care Team Providers Care Distance Education Director Name Role Phone Raad Adams MD Primary Care Provider [phone] Encounter Details Date Type Department Care Team (Late st Contact Info) Description 08/07/2024 Scanned Document [facility] [address] [place] [address] Malachi Reyna MD [address] [place] [phone] Social History Tobacco Use Types Packs/Day Years [...] 1:30 PM EST Telemedicine [facility] [address] [place] [address] Malachi Reyna MD [address] [place] [phone] documented as of this encounter Visit Diagnoses Not on filedocumented in this encounter Care Teams Distance Education Director Relationship Specialty Start Date End Date Raad Adams MD [address] [phone] PCP - General Internal Medicine 06/20/24 documented as of this encounter
--- OUTSIDE RECORDS SUMMARY | 2025-03-17 17:55 | XMS_ITS | Continuity of Care Document ---
Author Organization [facility], [facility] Address [address] [place] [address] Care Team Providers Care Service Writer Name Role Phone RAAD DIEHL Primary Care Provider [facility] Nutrit ionist [facility] PHYSICALTH ERAPY (SIM BUSBY) Orthopedic Surgeon [facility] GASTROENTEROLOG[facility] Auto Inspector CAROL REYNA Orthopedic Surgeon [phone] VIKAS AGEE Vascular Surgeon Assessment Encounter Date Assessment Date Assessment LastModified by Organization Details LastModified Time 01/10/2025 01/10/2025 This service was provided using telemedicine ([facility]). The patient consented and was seen through synchronous audio and video technology. If audio only connection was used, the provider used telephone communication. Patient was located at home in the [facility]. Provider was located in the office. No other persons participated in the telemedicine visit except for the patient unless otherwise indicated here. Total time of visit was 28 minutes. [email or web address] Not available 01/10/2025 14:52:36 Plan of Treatment Reminders Order Date Submit Date Provider Last Modified By Organization Details Last Modified Time Details Appointments BILLING ONLY 2024 09:00A M DIANA SCHEDULE Not available Not available Not available Lab None recorded. Referral vascular surgeon referral - Rule our PAD as cause of claudicat ion/pain/ extremity color changes in pt with significa nt risk factors and recent diagnosis of transvers e myelitis. 2024 025 AARTI Agee, [address] [place] [address] Dr, [address], [place], [address], 02/27/2025 14:12:33 Procedures None recorded. Surgeries None recorded. Imaging None recorded. Medication Orders None recorded. Patient TargetsNo targets recorded. Patient Instructions Encounter Date Encounter Id Patient Instructions Last Modified By Organization Details Last Modified Time 01/10/2025 [id number] deciding about using medicines to quit smoking [...] Abnormal Flag Note LastModifiedBy Organization Detail LastModifiedTime 01/07/20 25 01/07/2025 COMP. METAB OLIC PANEL (14) glucose 106 mg/dL 70-99 above high normal Not Available [facility] ([facility]) [address] [place], [address], 01/07/2025 08:07:39 01/07/20 25 01/07/2025 COMP. METAB OLIC PANEL (14) BUN 22 mg/dL 8-27 normal Not Available [facility] ([facility]) [address] [place], [address], 01/07/2025 08:07:39 01/07/20 25 01/07/2025 COMP. METAB OLIC PANEL (14) creatinine 1.08 mg/dL 0.76-1 .27 normal Not Available [facility] ([facility]) [address] [place], [address], 01/07/2025 08:07:39 01/07/20 25 01/07/2025 COMP. METAB OLIC PANEL (14) eGFR 75 mL/mi n/1.7 3 >59 normal Not Available [facility] ([facility]) [address] [facility] [place], [address], 01/07/2025 08:07:39 01/07/20 25 01/07/2025 COMP. METAB OLIC PANEL (14) BUN/creatini ne ratio 20 10-24 normal Not Available [facility] ([facility]) [address] [facility] [place], [address], 01/07/2025 08:07:39 01/07/20 25 01/07/2025 COMP. METAB OLIC PANEL (14) sodium 141 mmol/ L 134-14 4 normal Not Available [facility] ([facility]) [address] [facility] [place], [address], 01/07/2025 08:07:39 01/07/20 25 01/07/2025 COMP. METAB OLIC PANEL (14) potassium 4.7 mmol/ L 3.5-5. 2 normal Not Available [facility] ([facility]) [address] [facility] [place], [address], 01/07/2025 08:07:39 01/07/20 25 01/07/2025 COMP. METAB OLIC PANEL (14) chloride 100 mmol/ L 96-106 normal Not Available [facility] ([facility]) [address] [facility] [place], [address], 01/07/2025 08:07:39 01/07/20 25 01/07/2025 COMP. METAB OLIC PANEL (14) carbon dioxide, total 24 mmol/ L 20-29 normal Not Available [facility] ([facility]) [address] [facility] [place], [address], 01/07/2025 08:07:39 01/07/20 25 01/07/2025 COMP. METAB OLIC PANEL (14) calcium 10.0 mg/dL 8.6-10 .2 normal Not Available [facility] ([facility]) [address] [facility] [place], [address], 01/07/2025 08:07:39 01/07/20 25 01/07/2025 COMP. METAB OLIC PANEL (14) protein, total 6.7 g/dL 6.0-8. 5 normal Not Available [facility] ([facility]) [address] [facility] [place], [address], 01/07/2025 08:07:39 01/07/20 25 01/07/2025 COMP. METAB OLIC PANEL (14) albumin 4.3 g/dL 3.9-4. 9 normal Not Available [facility] ([facility]) [address] [facility] [place], [address], 01/07/2025 08:07:39 01/07/20 25 01/07/2025 COMP. METAB OLIC PANEL (14) globulin, total 2.4 g/dL 1.5-4. 5 Not Available [facility] ([facility]) [address] [facility] [place], [address], 01/07/2025 08:07:39 01/07/20 25 01/07/2025 COMP. METAB OLIC PANEL (14) bilirubin, total 0.3 mg/dL 0.0-1. 2 normal Not Available [facility] ([facility]) [address] [place], [address], 01/07/2025 08:07:39 01/07/20 25 01/07/2025 COMP. METAB OLIC PANEL (14) alkaline phosphatase 83 IU/L 47-123 normal Ple ase note refer ence inter carla alonso e Not Available [facility] ([facility]) [address] [place], [address], 01/07/2025 08:07:39 01/07/20 25 01/07/2025 COMP. METAB OLIC PANEL (14) AST (SGOT) 26 IU/L 0-40 normal Not Available [facility] ([facility]) [address] [facility] [place], [address], 01/07/2025 08:07:39 01/07/2001/07/2025 COMP. METAB OLIC PANEL (14) ALT (SGPT) 27 IU/L 0-44 normal Not Available [facility] ([facility]) [address] [facility], [place], [address], 01/07/2025 08:07:39 01/07/2001/07/2025 HEMOG LOBIN A1C hemoglobin A1C 6.7 % 4.8-5. 6 above high normal Predi abete s: 5.7 - 6.4 Diabe brian: >6.4 Glyce ana maría contr ol for adult s with diabe brian: <7.0 Not Available [facility] ([facility]) [address] [facility], [place], [address], 01/07/2025 08:07:40 01/07/2001/07/2025 PROST ATE-S PECIF IC [...] t be inter prete d as absol cait evide nce of the prese nce or absen ce of ronnie darling disea se. Not Available [facility] ([facility]) [address] [facility], [place], [address], 01/07/2025 14:06:35 01/17/2001/05/2025 MRI, thora cic spine , w/o contr ast No observ ation record ed. AARTI [facility] [place] [address] [place], [address], 01/17/2025 05:47:12 01/17/20 25 2025 MRI, cervi amy spine , w/o contr ast No observ ation record ed. AARTI [facility] [place] [address] [place], [address], 01/17/2025 05:47:12 01/17/20 25 2025 MRI, lumba r spine , w/o contr ast No observ ation record ed. rossy [facility] [address] [place], [address], 01/16/2025 09:43:57 03/17/2003/17/2025 imagi ng/di agnos tic resul t No observ ation record ed. [facility] (Medical Records) [address] [place] [address], [address], 03/17/2025 17:05:19 Result Notes None recorded. Problems Name Problem SNOMED Code Status Onset Date Resolution Date Notes Provider Name and Address Organization Details Recorded Time Snoring 42756476 Completed 06/20/2016 Raad Diehl MD [address], [place], [address] , [facility] 7 14:28:12 Early satiety 141849673 Completed 06/20/2016 Raad Diehl MD [address], [place], [address] , [facility] 7 14:27:44 Low back pain 610163224 Completed 06/20/2016 Raad Diehl MD [address], [place], [address] , [facility] 7 14:27:30 Dermatop hytosis 61532024 Completed 06/20/2016 Raad Diehl MD [address], [place], [address] , [facility] 7 14:27:55 Impaired fasting glycemia 318665304 Completed 04/20/2018 Raad Diehl MD [address], [place], [address] , [facility] 9 12:42:51 Pleural effusion associat ed with pulmonar y infectio n 52763840 Completed 10/21/2019 Raad Diehl MD [address], [place], [address] , [facility] 0 13:19:10 Acute endocard itis 38547273 Completed 10/21/2019 Raad Diehl MD [address], [place], [address] , [facility] 0 13:24:31 Pain of hip region 28011504 Completed 201211/25/2013 IMPRESSI ON: SUSPECT SEVER ARTHRITI S SOURCE. NEEDS BETTER IMAGING WITH RADILOLO GIST REVIEW WELL ORTHO CONSULT. CONTINUE PRN NSAIDS FOR SYMPTOM RELIEF.; RECORDED 03/25/20 13 11:18AM BY CHRISTINE THOMAS MA, ANNOTATI ON/ADDEN DUM Not Available [facility] 4 05:26:41 Pain of hip region 37994275 Completed 201210/29/2013 IMPRESSI ON: SUSPECT SEVER ARTHRITI S SOURCE. NEEDS BETTER IMAGING WITH RADILOLO GIST REVIEW WELL ORTHO CONSULT. CONTINUE PRN NSAIDS FOR SYMPTOM RELIEF.; RECORDED 03/25/20 13 11:18AM BY CHRISTINE THOMAS MA, ANNOTATI ON/ADDEN DUM Not Available [facility] 4 14:13:54 Benign neoplasm of colon 25130258 Active 2013 Not Available [facility] 4 08:35:47 Adult health examinat ion Completed [...] SOLER MA, ANNOTATI ON/ADDEN DUM Not Available [facility] 4 05:26:41 Administ ration of diphther ia and tetanus vaccine Completed 201311/25/2013 RECORDED 04/23/19 14 2:50PM BY ABBEY SOLER MA, ANNOTATI ON/ADDEN DUM Not Available [facility] 4 05:26:42 Adult health examinat ion Completed [...] SOLER MA, ANNOTATI ON/ADDEN DUM Not Available [facility] 4 14:13:54 Tobacco dependen ce syndrome 62006343 Completed 201310/29/2013 RECORDED 04/23/19 14 2:51PM BY ABBEY SOLER MA, ANNOTATI ON/ADDEN DUM Raad Diehl MD [address] [facility] [address], [place], [address] , [facility] 7 14:28:23 Obesity 192301687 Completed 201310/29/2013 RECORDED 04/23/19 14 2:51PM BY ABBEY SOLER MA, ANNOTATI ON/ADDEN DUM Holley lutz [facility] 9 16:15:11 Administ ration of diphther ia and tetanus vaccine Completed 201310/29/2013 RECORDED 04/23/19 14 2:50PM BY ABBEY SOLER MA, ANNOTATI ON/ADDEN DUM Not Available [facility] 4 14:13:55 Screenin g for malignan t neoplasm of colon Completed 201311/25/2013 RECORDED 05/27/19 14 10:10AM BY MELINDA BISHOP MA, ANNOTATI ON/ADDEN DUM Not Available [facility] 4 05:26:41 Screenin g for malignan t neoplasm of colon Completed 201310/29/2013 RECORDED 05/27/19 14 10:10AM BY MELINDA BISHOP MA, ANNOTATI ON/ADDEN DUM Not Available [facility] 4 14:13:54 Tobacco dependen ce syndrome 23377339 Active 2013 Not Available [facility] 4 08:35:47 Divertic ular disease of colon 843886889 Completed 201307/03/2018 Raad Diehl MD [address], [facility] [place], [address] , [facility] 9 13:44:23 Internal hemorrho ids 09936609 Active 2013 Not Available [facility] 4 08:35:47 Pure hypercho lesterol emia 788309828 Active 2013 Not Available [facility] 4 08:35:46 Essentia l hyperten librado 75193179 Completed 201306/20/2016 Holley lutz [facility] 1 15:04:45 Immuniza tion refused Completed 201303/18/2014 RECORDED 05/27/19 14 10:11AM BY MELINDA BISHOP MA, OFFICE VISIT João lutz [facility] 4 12:30:05 Obesity 793002667 Completed 201306/20/2016 IMPRESSI ON: POTENTIA L DESK CLERK HEALTH CONSEQUE NCES BAILEY D. HEALTHIE R DIET AND EXERCISE HABITS ADVISED. ; RECORDED 05/27/19 14 10:11AM BY MELINDA BISHOP MA, OFFICE VISIT [facility] 9 16:15:11 Pre-surg bev evaluati on Completed 201302/18/2015 IMPRESSI ON: MICHAELLE IS AT LOW CARDIOPU LMONARY RISK FOR THIS PROCEDUR E. NO FURTHER TESTING INDICATE D BEFORE SURGERY; RECORDED 05/27/19 14 11:00AM BY GAYATRI BENITES, OFFICE VISIT Raad Diehl MD [address], [place], [address] , [facility] 5 11:20:02 Follow-u p encounte r Completed 201310/29/2013 RECORDED 06/19/19 14 8:39AM BY ATIF MERINO, RN, TRANSITI ON OF CARE Not Available [facility] 4 14:13:54 Follow-u p encounte r Completed 201303/18/2014 RECORDED 06/25/19 14 11:36AM BY ATIF MERINO, RN, PHONE ENCOUNTE R João lutz, [facility] 4 12:30:05 Osteoart hritis of hip 504558138 Completed 201306/20/2016 Raad Diehl MD [address], [place], [address] , [facility] 7 14:27:19 Multiple nodules of lung 179694463 Active 2015 Not Available [facility] 4 08:35:47 Cyst of pancreas 24510592 Completed 201506/28/2017 Raad Diehl MD [address] [facility] [address], [place], [address] , [facility] 3 16:04:44 Abscess of buttock 35648221 Completed 201506/20/2016 Raad Diehl MD [address] [facility] [address], [place], [address] , [facility] 7 14:16:00 Pleural effusion 16448108 Completed 201506/20/2016 right Raad Diehl MD [address], [place], [address] , [facility] 7 14:16:21 Obstruct emi sleep apnea syndrome 32359013 Active 2015 moderate Not Available [facility] 4 08:35:47 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 890590849 Completed 201506/20/2016 Raad Diehl MD [address], [place], [address] , [facility] 8 15:14:06 Septic pulmonar y embolism 805465694 Completed 201606/20/2016 Raad Diehl MD [address], [place], [address] , [facility] 7 14:15:54 Psoriasi s 2476753 Active 2016 Not Available [facility] 4 08:35:47 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 546053447 Completed 201606/28/2017 Raad Diehl MD [address], [place], [address] , [facility] 8 15:14:06 Hiatal hernia 48979113 Active 2016 Not Available [facility] 4 08:35:47 Acute duodenal ulcer 763274478 Completed 201606/28/2017 Raad Diehl MD [address], [place], [address] , [facility] 8 15:36:57 History of methicil mckenna resistan t Staphylo coccus aureus infectio n 478065505 Active 2017 Not Available [facility] 4 08:35:47 History of duodenal ulcer 804307477 Active 2017 Not Available [facility] 4 08:35:46 Cyst of pancreas 84132674 Active 2017 needs 1 yr f/u Not Available [facility] 4 08:35:46 Type 2 diabetes mellitus 97263107 Completed 201807/13/2018 DIANA Trevino, [facility] 1 14:58:25 Bacterem ia caused by Methicil mckenna resistan t Staphylo coccus aureus 07400493931 989964 Completed 201807/03/2018 Raad Diehl MD [address], [place], [address] , [facility] 9 13:43:44 Divertic ular disease 588003318 Active 2018 Not Available [facility] 4 08:35:46 Obesity 540959470 Active 2018 Not Available [facility] 4 08:35:46 Uncontro lled type 2 diabetes mellitus 195802283 Completed 201802/16/2021 DIANA Trevino, [facility] 1 14:58:19 Chronic kidney disease stage 2 740404516 Completed 201805/23/2019 Holley lutz [facility] 3 12:37:21 Chronic kidney disease stage 3 255886212 Completed 201805/05/2020 Raad Diehl MD [address], [place], [address] , [facility] 1 15:25:49 Chronic kidney disease stage 2 097822171 Active 2018 Not Available [facility] 4 08:35:47 Microalb uminuria 111166172 Active 2018 Not Available [facility] 4 08:35:46 History of gastriti s 40937393869 9103 Active 2018 Not Available [facility] 4 08:35:47 Renal disorder due to type 2 diabetes mellitus 878130161 Active 2018 Not Available [facility] 4 08:35:46 Lumbar spondylo sis 045300208 Active 2019 Not Available [facility] 4 08:35:46 Type 2 diabetes mellitus 44988447 Completed 201902/16/2021 Christine Thomas MA [facility], [facility] 1 14:58:25 History of endocard itis 796341657 Active 2019 Not Available [facility] 4 08:35:46 Epiderma l inclusio n cyst of eyelid 032869069 Completed 201908/23/2022 Raad Diehl MD [address] [address], [place], [address] , [facility] 3 16:19:52 Pulmonar y emphysem a 19411284 Active 2019 Not Available [facility] 4 08:35:47 Hyperten sive renal disease 14026962 Completed 202008/26/2024 Raad Diehl MD [address] [address], [address] , [facility] 5 16:37:34 Chronic kidney disease stage 3A 971858635 Completed 202001/26/2023 Raad Diehl MD [address] [facility] [address], [address] , [facility] 3 07:23:49 Diabetic peripher al neuropat hy 949700835 Active 2020 Not Available [facility] 4 08:35:46 Phimosis 045608381 Completed 202109/14/2022 Raad Diehl MD [address] [facility] [place], [address] , [facility] 3 16:32:59 Vitamin D deficien cy 19089775 Active 2022 Not Available [facility] 4 08:35:46 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 73293278742 12919 Active 2022 Not Available [facility] 4 08:35:46 Steatoti c liver disease 873794787 Active 2022 Not Available [facility] 4 08:35:46 Large prostate 198107344 Active 2022 Not Available [facility] 4 08:35:46 Atherosc lerosis of aorta 59071223 Active 2022 Not Available [facility] 4 08:35:47 Inguinal hernia 201564745 Active 2022 fat containi ng bilatera l Not Available [facility] 4 08:35:46 Abdomina l aortic ectasia 12252774855 9101 Active 2022 2.7cm infraren al Not Available [facility] 4 08:35:46 Intermit tent claudica tion 89545303 Active 2022 Raad Diehl MD [address] [address], [place], [address] , [facility] 5 14:41:56 Ventricu lar prematur e complex 121890961 Completed 202208/26/2024 Raad Diehl MD [address] [address], [place], [address] , [facility] 5 16:04:03 Hyperlip idemia 96803210 Active 2023 Christine Balderrama PA-C [address] [address], [place], [address] , [facility] 4 15:49:01 Hypercal cemia 78671624 Active 2023 Christine Balderrama PA-C [address] [address], [place], [address] , [facility] 4 18:12:20 Hyperkal emia 20351930 Completed 202308/26/2024 Raad Diehl MD [address], [place], [address] , [facility] 5 16:04:17 Morbid obesity 441931509 Active 2023 Raad Diehl MD [address], [place], [address] , [facility] 4 15:26:33 Body mass index 30+ - obesity 670254989 Active 2023 Raad Diehl MD [address], [place], [address] , [facility] 4 15:34:28 Mass of pancreas 447987539 Active 2023 Raad Diehl MD [address], [place], [address] , [facility] 4 17:10:54 Unequal blood pressure in arms 510708616 Active 2023 Raad Diehl MD [address], [place], [address] , [facility] 4 17:11:29 Calcific ation of coronary artery 651892303 Active 2023 Raad Diehl MD [address], [place], [address] , [facility] 4 06:47:29 Acute transver se myelitis 18831659 Active 2023 Raad Diehl MD [address], [place], [address] , [facility] 5 17:50:15 Lumbar radiculo jeanie 586170052 Active 2023 right L5 Raad Diehl MD [address], [place], [address] , [facility] 4 07:05:29 Hypoalbu minemia 532412337 Active 2023 Raad Diehl MD [address], [place], [address] , [facility] 4 15:04:50 Transver se myelopat hy syndrome 48412735 Active 2024 Christine Balderrama PA-C [address] [facility] [address], [place], [address] , [facility] 5 15:20:40 History of syphilis 38606437129 94591 Active 2024 Raad Diehl MD [address] [facility] [address], [place], [address] , [facility] 5 11:02:19 Left hemipare sis 123340487 Active 2024 Raad Diehl MD [address], [place], [address] , [facility] 5 14:01:47 Degenera tion of cervical interver tebral disc 14492112 Active 2024 C5-C7 Raad Diehl MD [address], [place], [address] , [facility] 5 17:08:04 Spinal stenosis in cervical region 71904715 Active 2024 C5/C6 Raad Diehl MD [address], [place], [address] , [facility] 5 17:44:30 Stenosis of interver tebral foramina 67428786202 9 Active 2024 Raad Diehl MD [address], [place], [address] , [facility] 5 17:44:40 Peripher al vascular disease 152857715 Active 2024 Raad Diehl MD [address] [address], [place], [address] , [facility] 5 10:16:00 Venous insuffic iency of lower limb 248193627 Active 2024 Raad Diehl MD [address] [address], [place], [address] , [facility] 5 10:16:12 Notes:Some problems listed i n Document: #[id number] could not be added to this patient's chart. Please review this document and add these problems to the patient's chart manually as needed. Problem Notes None recorded. Procedures Surgical History Date Name Laterality Status Provider Name and Address Organization Details Recorded Time 09/13/19 25 osteotomy and discectomy of cervical spine by anterior approach completed Raad Diehl MD [address], [address], [facility] 01/15/2025 20:12:54 02/05/20 24 Diabetic Foot Exam (Monofilament) completed Raad Diehl MD [address], [address], [facility] 02/05/2024 17:07:41 12/12/19 24 Colonoscopy completed Sarah Tuttle [facility] 12/14/2023 08:56:06 02/17/20 21 Diabetic Foot Exam (Monofilament) completed Raad Diehl MD [address], [address], [facility] 02/16/2021 16:15:27 07/04/19 21 Diabetic Foot Exam (Monofilament) completed Abbey lee MA [facility] 07/03/2020 13:38:58 11/08/19 20 biopsy of eyelid completed Raad Diehl MD [address] [place], [address], [facility] 11/20/2019 18:56:48 06/17/19 20 Diabetic Foot Exam (Monofilament) completed Idania Morales [facility] 06/17/2019 09:17:42 07/04/19 19 Diabetic Foot Exam (Monofilament) completed Raad Diehl MD [address] [address], [place], [address], [facility] 07/03/2018 14:13:41 05/28/19 19 Diabetic Foot Exam (Monofilament) completed Neha Wheeler [facility] 05/28/2018 13:15:14 04/12/20 18 transesophageal echocardiography completed Raad Diehl MD [address] [address], [place], [address], [facility] 04/20/2018 13:30:23 04/09/20 18 Echo transthoracic completed Raad Diehl MD [address] [address], [place], [address], [facility] 04/20/2018 13:28:52 02/28/20 17 Colonoscopy completed Christine Thomas [facility] 06/28/2017 14:46:56 02/28/20 17 Egd diagnostic brush wash completed Raad Diehl MD [address] [address], [place], [address], [facility] 03/07/2017 13:43:07 01/09/20 16 Dbrdmt ecz/infected skin<10% completed Raad Diehl MD [address] [address], [place], [address], [facility] 06/21/2016 15:30:01 03/26/20 14 Orthopedic Surgery completed Raad Diehl MD [address] [address], [place], [address], [facility] 04/01/2014 22:22:42 05/18/19 14 Orthopedic Surgery completed Raad Diehl MD [address], [place], [address], [facility] 02/18/2015 11:16:33 Imaging Results None recorded. Procedure Notes None recorded. Medical Equipment None Reported. Allergies Allergen ID Allergen Name Allergen Category Reaction Reaction Severity Criticality Documentation Date Start Date Code Code System Note Provider Name and Address Organization Details Recorded Time 5369 No known allergy (situatio n) Not available Not available Not available Not available 10/29/20132012 75485 6003 SNOMED Not Available [facility] 4 08:35:47 No known drug allergies Medications Name Sig Start Date Stop Date Status Note LastModified by Organization Details LastModified Time Prescript ion - Prior Authoriza tion Request 06/12 completed Not Available Not Available Not Available freestyle mis lancets 1 lancest 4 x [...] Available Not Available FreeStyle Nicolasa 14 Day [place] Take 1 each every day by miscell. [...] completed Not Available Not Available Not Available Apaja Nicolasa 3 Sensor device active Not Available Not Available Not Available Ozempic 0.25 mg or 0.5 mg (2 mg/3 mL) subcutane ous pen injector INJECT 0.25MG SUBCUTAN EOUSLY EVERY WEEK pt STATES HE is now .5 [id number] completed Not Available Not Available Not Available Vitals Date Recorded Body height Provider Name an d Address Organization Details Last Updated DateTime 01/10/2025 175.9 cm Jessa Burdick MA [facility] 01/10/2025 13:50:43 Social History Question Answer Notes LastModified by Organizat ion Details LastModified Time Tobacco Smoking Status Current Every Day Smoker Not Available [employer] 02/18/2020 03:36:36 Do You Have An Advance Directive? Yes HCP/ -She [email or web address] Information not available 12/23/2021 Is Blood Transfusion Acceptable In An Emergency? Yes [id number] Information not available 02/18/2020 What Is Your Level Of Caffeine Consumption? Moderate Coffee [id number] Information not available 02/18/2020 How Much Tobacco Do You Chew? None [id number] Information not available 02/18/2020 What Type Of Diet Are You Following? REGULAR [id number] Information not available 02/18/2020 Which Illicit Or Recreational Drugs Have You Used? None [id number] Information not available 02/18/2020 Live Alone Or With Others? With Others Son, Dog And 2 Cats [email or web address] Information not available 02/05/2024 Do You Take [...] Of Your Most Recent Tobacco Screening? 01/10/2025 [email or web address] Information not available 01/10/2025 How Many Children Do You Have? 2 1 Son (Skyler ) And 1 Dtr (Lazara) awhannah Information not available 02/05/2024 What Is Your Current Pack Years? 30ormorepack years [email or web address] Information not available 12/23/2021 Do You Use Protection During Sex? Usually Information not available 02/16/2021 Do You Use Your Seat Belt Or Car Seat Routinely? Yes Information not available 02/16/2021 Seat Belts Used Routinely No [email or web address] Information not available 12/23/2021 Are You Sexually Active? Yes [id number] Information not available 02/18/2020 Smoke Alarm In Home Yes [email or web address] Information not available 12/23/2021 Do You Have Smoke And Carbon Monoxide Detectors In Your Home? Yes Information not available 02/16/2021 At What Age Did You Start Smoking Tobacco? 14 1976 Information not available 08/26/2024 Are You Passively Exposed To Smoke? Yes Information not available 06/28/2017 How Much Tobacco Do You Smoke? 1 PPD [id number] Information not available 02/18/2020 Do You Use Sunscreen Routinely? No [id number] Information not available 02/18/2020 How Many Years Have You Smoked Tobacco? 51 Information not available 08/26/2024 Sex: Unknown Functional Status Question Answer Note LastModified by Organizat ion Details LastModified Time Do you use any illicit or recreational drugs? No [email or web address] Information not available 12/23/2021 Do you or have you ever used any other forms of tobacco or nicotine? No [email or web address] Information not available 12/23/2021 What is your level of alcohol consumption? Occasional [id number] Information not available 02/18/2020 Do you or have you ever used smokeless tobacco? Never used smokeless tobacco [id number] Information not available 02/18/2020 Are you currently employed? No [employer] [email or web address] Information not available 02/05/2024 Are you able to walk independently without assistance or assistive devices? YESWOREST [email or web address] Information not available 12/23/2021 Are you able to care for yourself independently? Yes [id number] Information not available 02/18/2020 What is your occupation? Other AART[employer] Information not available 07/14/2024 Do you or have you ever used e-cigarettes or vape? Never used electronic cigarettes [email or web address] Information not available 12/23/2021 What is your exercise level? Occasional Golf [employer] Information not available 08/23/2022 Mental Status None recorded. Family History Relationship Description Onset Age of this Age Resolved Age Notes LastModified by Organization Details LastModified Time Mother Hypertensive disorder abolcun Not available 2015 10:46:56 Mother Congestive heart failure [email or web address] Not available 12/23 13:51:29 Mother Asthma abolcun Not available 10:46:56 Mother Diabetes mellitus abolcun Not available 2015 10:46:56 Father Early gastric cancer [email or web address] Not available 12/23 13:51:29 Son Well adult [email or web address] Not avail able 12/23/2021 13:51:29 Daughter Well adult [email or web address] Not nathan ilable 12/23/2021 13:51:29 Medical History [...] virus, quadrivalent, preservative 6 completed Sarah lutz [facility] 04/28/2023 08:42:58 Influenza, split virus, quadrivalent, preservative 7 completed Sarah lutz [facility] 04/28/2023 08:42:58 pneumococcal polysaccharide PPV23 8 completed Sarah Tuttle null, [facility] 04/28/2023 08:42:58 Influenza, split virus, quadrivalent, PF 5 completed Sarah Tuttle null, [facility] 04/28/2023 08:42:58 Influenza, split virus, quadrivalent, PF 8 completed Sarah Tuttle null, [facility] 04/28/2023 08:42:58 Tdap 2 completed Sarah Tuttle null, [facility] 04/28/2023 08:42:58 pneumococcal polysaccharide PPV23 6 completed Sarah Tuttle null, [facility] 04/28/2023 08:42:58 Influenza, split virus, quadrivalent, preservative 0 completed Sarah Tuttle null, [facility] 04/28/2023 08:42:58 zoster recombinant 0 completed Sarah Tuttle null, [facility] 04/28/2023 08:42:58 COVID-19, mRNA, LNP-S, PF, 100 mcg/0.5mL dose or 50 mcg/0.25mL dose 1 completed Sarah Tuttle null, [facility] 04/28/2023 08:42:58 COVID-19, mRNA, LNP-S, PF, 100 mcg/0.5mL dose or 50 mcg/0.25mL dose 1 completed Sarah Tuttle null, [facility] 04/28/2023 08:42:58 Influenza, split virus, quadrivalent, PF 7 completed Sarah Tuttle null, [facility] 04/28/2023 08:42:58 COVID-19, mRNA, LNP-S, PF, 100 mcg/0.5mL dose or 50 mcg/0.25mL dose 1 completed Sarah Tuttle null, [facility] 04/28/2023 08:42:58 Influenza, recombinant, quadrivalent, PF 0 completed Sarah Tuttle null, [facility] 04/28/2023 08:42:58 Influenza, split virus, quadrivalent, PF 1 completed Sarah lutz, [facility] 04/28/2023 08:42:58 RSV, recombinant, protein subunit RSVpreF, adjuvant reconstituted, 0.5 mL, PF 4 completed Abbey cobian ND null, [facility] 08/08/2023 14:48:37 COVID-19, mRNA, LNP-S, PF, 50 mcg/0.5 mL 4 completed Sarah Tuttle [facility], [facility] 04/28/2023 08:42:58 Td (adult), 5 Lf tetanus toxoid, preservative free, adsorbed 5 completed Sarah lutz, [facility] 04/28/2023 08:42:58 Tdap 3 completed Sarah Tuttle null, [facility] 04/28/2023 08:42:58 Td (adult), 2 Lf tetanus toxoid, preservative free, adsorbed 3 completed Raad Diehl MD [address], [address], [facility] 09/14/2022 16:31:07 Influenza, high-dose, quadrivalent, PF 3 completed Holley Reed null, [facility] 01/27/2023 12:38:37 Influenza, high-dose, trivalent, PF 4 completed Raad Diehl MD [address], [address], [facility] 02/05/2024 16:55:18 Past Encounters Encounter ID Performer Location Encounter Start Date Encounter Closed Date Diagnosis/Indication Diagnosis SNOMED-CT Code Diagnosis ICD10 Code Diagnosis IMO Codes Diagnosis Note [id number] Raad Diehl MD Main Office [address] [place] [address] 01/07/2025 10:17:41 01/07/2025 10:22:00 [id number] Raad Diehl MD [facility] [address] [place] [address] 01/10/2025 12:34:34 01/10/2025 15:27:16 Spinal stenosis in cervical region 65155101 M48.02 308162 s/p cervical decompress ion with Dr Reyna, recent MRI report was found/revi ewed and shows persistent cervical spine stenosis adjacent to the surgical site. 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 Comorbid vascular disease should be ruled out. 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 According to preoperati ve prerequisi brian he is supposed to be nicotine free for 4 weeks. 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 Following with neuro. Health Concerns Section Related Observation LastModified by Organization Detai ls LastModified Time None Recorded Concern Status LastModified by Organization Details LastModified Time None Recorded Payers Encounter Date Sequence Insurance Name Policy Number Policy Díaz Covered Member ID Díaz Member ID Guarantor Name 01/10/2025 1 [facility] (MEDICARE REPLACEMENT/ ADVANTAGE - HMO) Michaelle Baxter [id number] Michaelle Baxter 01/10/2025 2 [place] [facility] Michaelle Baxter [id number] Michaelle Baxter Notes Date Note Type Note Provider Name and Address Organization Details Recorded Time 5 text/html Hospitalization Contact RecordReported by PatientHospitalization Contact RecordFor follow up, patient reportshospital: snf,admit date: (please enter in format 'mm/dd/yyyy') (09/17/2024),date of discharge: (please enter in format 'mm/dd/yyyy') (09/29/2024), anddate of contact: (please enter in format 'mm/dd/yyyy') (09/30/2024)([facility]).Med icare covered inpatient stay? yesMedicare GABBY with [...] the spinal cord. Spent some time at [facility], went home, repeat MRI in April which showed reduced spinal swelling. He then began to develop more and more pain in his neck, then seen by neurosurgery and it was felt that he would benefit from a C5-C6 ACDF. Inpatient rehab again at [facility]. Is now home with PT/OT. Has neurosurgery f/u, and was referred for a post op MRI which was done but results are pending. Pt continues to have lower extremity pain/weakness and is requesting to resume home PT. MEDS RECONCILED Raad Diehl MD [address] [address], [place], [address], [facility] 01/16/2025 17:51:42
--- OUTSIDE RECORDS SUMMARY | 2025-03-17 17:55 | XMS_ITS | Encounter Summary ---
Author Organization [facility] Address [address] [place] [address] Care Team Providers Care Churn Tender Name Role Phone Raad Adams MD Primary Care Provider [phone] Encounter Details Date Type Department Care Team (Late st Contact Info) Description 04/01/2024 Lab Requisition [facility] - Main Lab [address] [facility] [place] [address] Goldy Martell MD [address] [place] [address] Encounter for other general examination Social History [...] AM EST) WBC 7.7 4.8 - 10.8 K/[facility] LAB HEMETOLOGY METHOD 04/01/2024 9:20 AM [facility] LAB RBC 6.10(H) 4.50 - 5.50 M/mcL LAB HEMETOLOGY METHOD 04/01/2024 9:20 AM [facility] LAB Hemoglobin 16.0 13.5 - 17.5 g/dL LAB HEMETOLOGY METHOD 04/01/2024 9:20 AM [facility] LAB Hematocrit 51.0 42.0 - 54.0 % LAB HEMETOLOGY METHOD 04/01/2024 9:20 AM [facility] LAB MCV 83.3 79.0 - 98.0 FL LAB HEMETOLOGY METHOD 04/01/2024 9:20 AM [facility] LAB MCH 26.1(L) 27.0 - 32.0 pcg LAB HEMETOLOGY METHOD 04/01/2024 9:20 AM [facility] LAB MCHC 31.4(L) 32.0 - 37.0 g/dL LAB HEMETOLOGY METHOD 04/01/2024 9:20 AM [facility] LAB RDW 13.4 11.0 - 15.0 % LAB HEMETOLOGY METHOD 04/01/2024 9:20 AM [facility] LAB Platelets 207 130 - 400 K/mcL LAB HEMETOLOGY METHOD 04/01/2024 9:20 AM [facility] LAB MPV 11.3(H) 7.0 - 11.0 FL LAB HEMETOLOGY METHOD 04/01/2024 9:20 AM [facility] LAB NRBC 0.0 <1.0 % LAB HEMETOLOGY METHOD 04/01/2024 9:20 AM [facility] LAB NRBC Absolute 0.00 <0.10 K/mcL LAB HEMETOLOGY METHOD 04/01/2024 9:20 AM [facility] LAB Neutrophils Relative 53.6 % LAB HEMETOLOGY METHOD 04/01/2024 9:20 AM [facility] LAB Lymphocytes Relative 32.3 % LAB HEMETOLOGY METHOD 04/01/2024 9:20 AM [facility] LAB Monocytes Relative 11.4 % LAB HEMETOLOGY METHOD 04/01/2024 9:20 AM [facility] LAB Eosinophils Relative 1.8 % LAB HEMETOLOGY METHOD 04/01/2024 9:20 AM [facility] LAB Basophils Relative 0.5 % LAB HEMETOLOGY METHOD 04/01/2024 9:20 AM [facility] LAB Immature Granulocytes Relative 0.4 % LAB HEMETOLOGY METHOD 04/01/2024 9:20 AM [facility] LAB Neutrophils Absolute 4.15 1.50 - 7.00 K/mcL LAB HEMETOLOGY METHOD 04/01/2024 9:20 AM [facility] LAB Lymphocytes Absolute 2.50 1.00 - 5.00 K/mcL LAB HEMETOLOGY METHOD 04/01/2024 9:20 AM [facility] LAB Monocytes Absolute 0.88 0.20 - 1.00 K/mcL LAB HEMETOLOGY METHOD 04/01/2024 9:20 AM [facility] LAB Eosinophils Absolute 0.14 0.00 - 0.50 K/mcL LAB HEMETOLOGY METHOD 04/01/2024 9:20 AM [facility] LAB Basophils Absolute 0.04 0.00 - 0.20 K/mcL LAB HEMETOLOGY METHOD 04/01/2024 9:20 AM [facility] LAB Immature Granulocytes Absolute 0.03 0.00 - 0.03 K/mcL LAB HEMETOLOGY METHOD 04/01/2024 9:20 AM [facility] LAB Blood Venous blood specimen / Unknown Venipuncture / Unknown 04/01/2024 6:39 AM EST 04/01/2024 8:51 AM EST Goldy Martell MD LAB BLOOD ORDERABLES Final Res ult [facility] [address] [place] [address], * (ABNORMAL) Basic metabolic panel (04/01/2024 6:39 AM EST) Sodium 139 133 - 145 mmol/L LAB CHEMISTRY METHOD 04/01/2024 9:37 AM [facility] LAB Potassium 4.7 3.5 - 5.5 mmol/L LAB CHEMISTRY METHOD 04/01/2024 9:37 AM [facility] LAB Chloride 102 96 - 110 mmol/L LAB CHEMISTRY METHOD 04/01/2024 9:37 AM [facility] LAB CO2 29 21 - 32 mmol/L LAB CHEMISTRY METHOD 04/01/2024 9:37 AM [facility] LAB Anion Gap 8 3 - 11 LAB CHEMISTRY METHOD 04/01/2024 9:37 AM [facility] LAB Glucose 121(H) 70 - 100 mg/dL LAB CHEMISTRY METHOD 04/01/2024 9:37 AM [facility] LAB BUN 24 5 - 25 mg/dL LAB CHEMISTRY METHOD 04/01/2024 9:37 AM [facility] LAB Creatinine 1.27 0.70 - 1.30 mg/dL LAB CHEMISTRY METHOD 04/01/2024 9:37 AM [facility] LAB eGFR 62 >=60 mL/min/1. 73m2 LAB CHEMISTRY METHOD 04/01/2024 9:37 AM [facility] LAB Comment:Calculation based on the Chronic Kidney Disease Epidemiology Collaboration (CKD-EPI) equation refit without adjustment for race. BUN/Creatinine Ratio 18.9 LAB CHEMISTRY METHOD 04/01/2024 9:37 AM [facility] LAB Calcium 9.9 8.5 - 10.5 mg/dL LAB CHEMISTRY METHOD 04/01/2024 9:37 AM [facility] LAB Blood Venous blood specimen / Unknown Venipuncture / Unknown 04/01/2024 6:39 AM EST 04/01/2024 8:51 AM EST us Goldy Martell MD LAB BLOOD ORDERABLES Final Res ult [facility] [address] [place] [address], documented in this encounter Visit Diagnoses Diagnosis Encounter for other general examination documented in this encounter Care Teams Churn Tender Relationship Specialty Start Date End Date Raad Adams MD [address] PCP - General Internal Medicine 02/26/24 documented as of this encounter
--- OUTSIDE RECORDS SUMMARY | 2025-03-17 17:55 | XMS_ITS | Encounter Summary ---
Author Organization [facility] Address [address] [place] [address] Care Team Providers Care Application Project Leader Name Role Phone Raad Adams MD Primary Care Provider [phone] Encounter Details Date Type Department Care Team (Late st Contact Info) Description 03/25/2024 Lab Requisition [facility] - Main Lab [address] [facility] [place] [address] Goldy Martell MD [address] [place] [address] Encounter for other general examination Social History [...] AM EST) WBC 6.3 4.8 - 10.8 K/[facility] LAB HEMETOLOGY METHOD 03/25/2024 1:33 PM [facility] LAB RBC 5.80(H) 4.50 - 5.50 M/mcL LAB HEMETOLOGY METHOD 03/25/2024 1:33 PM [facility] LAB Hemoglobin 15.2 13.5 - 17.5 g/dL LAB HEMETOLOGY METHOD 03/25/2024 1:33 PM [facility] LAB Hematocrit 49.0 42.0 - 54.0 % LAB HEMETOLOGY METHOD 03/25/2024 1:33 PM [facility] LAB MCV 84.8 79.0 - 98.0 FL LAB HEMETOLOGY METHOD 03/25/2024 1:33 PM [facility] LAB MCH 26.3(L) 27.0 - 32.0 pcg LAB HEMETOLOGY METHOD 03/25/2024 1:33 PM [facility] LAB MCHC 31.0(L) 32.0 - 37.0 g/dL LAB HEMETOLOGY METHOD 03/25/2024 1:33 PM [facility] LAB RDW 13.7 11.0 - 15.0 % LAB HEMETOLOGY METHOD 03/25/2024 1:33 PM [facility] LAB Platelets 261 130 - 400 K/mcL LAB HEMETOLOGY METHOD 03/25/2024 1:33 PM [facility] LAB MPV 11.1(H) 7.0 - 11.0 FL LAB HEMETOLOGY METHOD 03/25/2024 1:33 PM [facility] LAB NRBC 0.0 <1.0 % LAB HEMETOLOGY METHOD 03/25/2024 1:33 PM [facility] LAB NRBC Absolute 0.00 <0.10 K/mcL LAB HEMETOLOGY METHOD 03/25/2024 1:33 PM [facility] LAB Neutrophils Relative 50.3 % LAB HEMETOLOGY METHOD 03/25/2024 1:33 PM [facility] LAB Lymphocytes Relative 32.8 % LAB HEMETOLOGY METHOD 03/25/2024 1:33 PM [facility] Monocytes Relative 12.2 % LAB HEMETOLOGY METHOD 03/25/2024 1:33 PM [facility] Eosinophils Relative 3.5 % LAB HEMETOLOGY METHOD 03/25/2024 1:33 PM [facility] Basophils Relative 0.6 % LAB HEMETOLOGY METHOD 03/25/2024 1:33 PM [facility] Immature Granulocytes Relative 0.6 % LAB HEMETOLOGY METHOD 03/25/2024 1:33 PM [facility] LAB Neutrophils Absolute 3.18 1.50 - 7.00 K/mcL LAB HEMETOLOGY METHOD 03/25/2024 1:33 PM [facility] LAB Lymphocytes Absolute 2.07 1.00 - 5.00 K/mcL LAB HEMETOLOGY METHOD 03/25/2024 1:33 PM [facility] Monocytes Absolute 0.77 0.20 - 1.00 K/mcL LAB HEMETOLOGY METHOD 03/25/2024 1:33 PM [facility] Eosinophils Absolute 0.22 0.00 - 0.50 K/mcL LAB HEMETOLOGY METHOD 03/25/2024 1:33 PM [facility] Basophils Absolute 0.04 0.00 - 0.20 K/mcL LAB HEMETOLOGY METHOD 03/25/2024 1:33 PM [facility] LAB Immature Granulocytes Absolute 0.04(H) 0.00 - 0.03 K/mcL LAB HEMETOLOGY METHOD 03/25/2024 1:33 PM [facility] Blood Venous blood specimen / Unknown Venipuncture / Unknown 03/25/2024 7:01 AM EST 03/25/2024 11:48 AM EST us Goldy Martell MD LAB BLOOD ORDERABLES Final Res ult [facility] [address] [place] [address], * (ABNORMAL) Basic metabolic panel (03/25/2024 7:01 AM EST) Sodium 139 133 - 145 mmol/L LAB CHEMISTRY METHOD 03/25/2024 1:39 PM [facility] Potassium 4.4 3.5 - 5.5 mmol/L LAB CHEMISTRY METHOD 03/25/2024 1:39 PM [facility] Chloride 102 96 - 110 mmol/L LAB CHEMISTRY METHOD 03/25/2024 1:39 PM [facility] CO2 29 21 - 32 mmol/L LAB CHEMISTRY METHOD 03/25/2024 1:39 PM [facility] Anion Gap 8 3 - 11 LAB CHEMISTRY METHOD 03/25/2024 1:39 PM [facility] Glucose 111(H) 70 - 100 mg/dL LAB CHEMISTRY METHOD 03/25/2024 1:39 PM [facility] BUN 21 5 - 25 mg/dL LAB CHEMISTRY METHOD 03/25/2024 1:39 PM [facility] Creatinine 1.07 0.70 - 1.30 mg/dL LAB CHEMISTRY METHOD 03/25/2024 1:39 PM [facility] LAB eGFR 77 >=60 mL/min/1. 73m2 LAB CHEMISTRY METHOD 03/25/2024 1:39 PM [facility] LAB Comment:Calculation based on the Chronic Kidney Disease Epidemiology Collaboration (CKD-EPI) equation refit without adjustment for race. BUN/Creatinine Ratio 19.6 LAB CHEMISTRY METHOD 03/25/2024 1:39 PM [facility] Calcium 9.7 8.5 - 10.5 mg/dL LAB CHEMISTRY METHOD 03/25/2024 1:39 PM [facility] Blood Venous blood specimen / Unknown Venipuncture / Unknown 03/25/2024 7:01 AM EST 03/25/2024 11:48 AM EST us Goldy Martell MD LAB BLOOD ORDERABLES Final Res ult [facility] [address] [place] [address], documented in this encounter Visit Diagnoses Diagnosis Encounter for other general examination documented in this encounter Care Teams Application Project Leader Relationship Specialty Start Date End Date Raad Adams MD [address] PCP - General Internal Medicine 02/26/24 documented as of this encounter
--- OUTSIDE RECORDS SUMMARY | 2025-03-17 17:55 | XMS_ITS | Encounter Summary ---
Author Organization [facility], Address [address] [place] [address] Phone Care Team Providers Care Fishing Tackle Repairer Name Role Phone Merlyn Balderrama Primary Care Provider [phone] Encounter Details Date Type Department Care Team (Late st Contact Info) Description 11/25/2019 Orders Only [facility] [address] [place] [address] Leslie Case MD Chronic kidney [...] (HCC) documented in this encounter Care Teams Fishing Tackle Repairer Relationship Specialty Start Date End Date Merlyn Balderrama PA [address] [facility] [address] [place], [place] PCP - General 02/19/19 documented as of this encounter
--- OUTSIDE RECORDS SUMMARY | 2025-03-17 17:56 | XMS_ITS | Encounter Summary ---
Author Organization [facility] and [facility] Address [address] [place] [phone] Care Team Providers Care Senior Program Analyst Name Role Phone Raad Adams MD Primary Care Provider [phone] Reason for Visit * Reason Onset Date Comments Results 01/13/2025 Encounter Details Date Type Department Care Team ([facility] st Contact Info) Description 01/13/2025 Telephone Neurosurgery at [address] [place] [phone] Malachi Reyna MD [address] [place] [phone] Results Social History Tobacco Use Types Packs/Day Years Used Date Smoking Tobacco: Every Day Cigarettes [facility] Utilities Answer Date Recorded In the [...] bound it's hard to get transportation to [place]. I faxed the 12/18/[address] Adams at his request. He is asking if Dr. Reyna would call him sooner. He thinks he needs surgery right away. I told him I would forward the message to Dr. Reyna. * Telephone Encounter - Heather Rodriguez - 01/13/2025 3:20 PM EDT Copied from [facility] #[id number]. Topic: Test Result Request - CARE >> Jan 13, 2025 3:12 PM Heather Hall wrote: [facility]: RESULTS MESSAGE Time of call: 3:12 PM Caller: MICHAELLE DONNELLY Specialist you are calling for: Dr. Reyna Reason for call: Regarding the MRI Results, Labs and what are his next steps. Also asking if his recent visit notes can be sent to his primary care Dr. Adams fax number is [phone] Name of test(s): MRI of total spine and Lab results (in media) Date test performed: MRI 01/05 and the labs completed at [facility] (scanned in to chart) Best telephone number for callback: [phone] Best time to return call: Anytime Permission to leave message: yes Heather Rodriguez CARE Center Item Repair Manager documented in this encounter Plan of Treatment Upcoming Encounters Date Type Department Care Team (Late st Contact Info) Description 04/02/2025 1:30 PM EST Telemedicine Neurosurgery at [address] [address] Malachi Reyna MD [address] [place] [phone] documented as of this encounter Goals Goal Patient Goal Type Associated Problems Recent Progress Patient-Stated? Author [facility] Spine Task Goal Care Plan AMB [facility] SPINE PROBLEM No Eve Stovall, RN [facility] Spine Smoking Cessation Goal Care Plan AMB [facility] SPINE SMOKING CESSATION PROBLEM No Stanislav Campbell, RN documented as of this encounter Visit Diagnoses Not on filedocumented in this encounter Additional Health Concerns Active Problems Noted Date Diagnosed Date AMB LM SPINE PROBLEM 08/19/2024 AMB [facility] SPINE SMOKING CESSATION PROBLEM 08/30 documented as of this encounter Care Teams Senior Program Analyst Relationship Specialty Start Date End Date Raad Adams MD [address] [phone] PCP - General Internal Medicine 06/20/24 documented as of this encounter
--- OUTSIDE RECORDS SUMMARY | 2025-03-17 17:56 | XMS_ITS | Encounter Summary ---
Author Organization [facility] and [facility] Address [address] [place] [phone] Care Team Providers Care Auto Job Estimator Name Role Phone Raad Adams MD Primary Care Provider [phone] Reason for Visit * Reason Onset Date Comments Triage 11/22/2024 katya Reyna Encounter Details Date Type Department Care Team ([facility] st Contact Info) Description 11/22/2024 Telephone [facility] at [address] [place] [phone] Malachi Reyna MD [address] [place] [phone] Triage (katya Reyna ) Social History Tobacco Use Types Packs/Day Years Used Date Smoking Tobacco: Every Day Cigarettes [facility] Utilities Answer Date Recorded In the past 12 months has [facility] electric, gas, oil, or water company [...] and I will follow up with a [employer] message. * Telephone Encounter - Nicol Cox - 12/03/2024 2:37 PM EDT [facility] #[id number]. Topic: CARE General CRM - General Inquiry [...] message. Patient asking for call back at [phone] he have a few more questions * Telephone Encounter - Starla Perez - 11/26/2024 1:57 PM EDT Next available, and cancellation list. * Telephone Encounter - Starla Perez - 11/22/2024 4:48 PM EDT Per provider propulsion machinery service engineer schedule patient to come in to see Emelia Le. (No telehealth patient needs demian seen in person per provider propulsion machinery service engineer) * Telephone Encounter - Nicol Cox - 11/22/2024 3:47 PM EDT Copied from [facility] #[id number]. Topic: General Message - [facility] >> Nov 22, 2024 3:41 PM Nicol Jerez wrote: [facility] MESSAGE Time of call: 3:41 PM [...] urgently? no Best telephone number for callback: [phone] Best time to return call: any Permission to leave message: yes Nicol Cox [facility] Special Needs Tutor documented in this encounter Plan of Treatment Upcoming Encounters Date Type Department Care Team (Late st Contact Info) Description 04/02/2025 1:30 PM EST Telemedicine [facility] at 194 [facility] [address] [address] Malachi Reyna MD 194 [facility] [address], [place] [phone] documented as of this encounter Goals Goal Patient Goal Type Associated Problems Recent Progress Patient-Stated? Author [facility] Spine Task Goal Care Plan AMB [facility] SPINE PROBLEM No Eve Stovall, RN [facility] Spine Smoking Cessation Goal Care Plan AMB [facility] SPINE SMOKING CESSATION PROBLEM No Stansilav Campbell, RN documented as of this encounter Visit Diagnoses Not on filedocumented in this encounter Additional Health Concerns Active Problems Noted Date Diagnosed Date AMB [facility] SPINE PROBLEM 08/19/2024 AMB CC [facility] SPINE SMOKING CESSATION PROBLEM 08/30 documented as of this encounter Care Teams Auto Job Estimator Relationship Specialty Start Date End Date Raad Adams MD [address] [phone] PCP - General Internal Medicine 06/20/24 documented as of this encounter
--- OUTSIDE RECORDS SUMMARY | 2025-03-17 17:56 | XMS_ITS ---
Author Name [facility] Organization Unknown Results Test Name/Text Value Interpretation Date Range Source Creat SerPl-mCnc 1.09 mg/dL 09/15/2024 0.7 - 1.3 Y [facility] GFR/BSA.pred SerPlBld GSS-VUC-SmXVts >60.0 mL/min/1.73m2 09/15/2024 - [facility] Calcium SerPl-mCnc 9.5 mg/dL 09/15/2024 8.5 - 10.1 [facility] Chloride SerPl-sCnc 103.0 mmol/L 09/15/2024 98 - 1 07 [facility] HCO3 SerPl-sCnc 27.0 mmol/L 09/15/2024 21 - 32 Y [facility] Glucose SerPl-mCnc 141.0 mg/dL Above high normal 09/15/2024 65 - 110 [facility] BUN SerPl-mCnc 16.0 mg/dL 09/15/2024 7 - 18 [facility] Anion Gap3 SerPl-sCnc 7.0 mmol/L 09/15/2024 5 - 15 [facility] BKR CREATININE DELTA -0.05 09/15/2024 - [facility] Potassium SerPl-sCnc 4.1 mmol/L 09/15/2024 3.5 - 5 .1 [facility] Sodium SerPl-sCnc 137.0 mmol/L 09/15/2024 136 - 14 5 [facility] Monocytes # Bld Auto 0.88 x 1000/uL 09/15/2024 0 - 1 [facility] MCHC RBC Auto-mCnc 33.7 g/dL 09/15/2024 31 - 36 [facility] MCH RBC Qn Auto 27.5 pg 09/15/2024 27 - 33 [facility] Platelet # Bld Auto 189.0 x1000/uL 09/15/2024 150 - 420 [facility] nRBC/100 WBC Bld Auto-Rto 0.0 % 09/15/2024 0 - 1 [facility] Lymphocytes/leuk NFr Bld Auto 31.9 % 09/15/2024 17 - 50 [facility] Neutrophils # Bld Auto 5.24 x 1000/uL 09/15/2024 2 - 7.6 [facility] RBC # Bld Auto 5.99 M/uL 09/15/2024 4 - 6 [facility] Lymphocytes # Bld Auto 2.96 x 1000/uL 09/15/2024 0.6 - 3.7 [facility] MCV RBC Auto 81.6 fL 09/15/2024 80 - [address] Imm Granulocytes/leuk NFr Bld Auto 0.4 % 09/15/2024 0 - 1 [facility] Basophils/leuk NFr Bld Auto 0.4 % 09/15/2024 0 - 1.4 [facility] PMV Bld Auto 10.5 fL 09/15/2024 8 - [address] nRBC # Bld Auto 0.0 x 1000/uL 09/15/2024 0 - 1 [facility] Hct VFr Bld Auto 48.9 % 09/15/2024 38.5 - 50 [facility] WBC # Bld Auto 9.3 x1000/uL 09/15/2024 4 - 11 Y [facility] Imm Granulocytes # Bld Auto 0.04 x 1000/uL 09/15/2024 0 - 0.3 [facility] Eosinophil/leuk NFr Bld Auto 1.3 % 09/15/2024 0 - 5 [facility] Eosinophil # Bld Auto 0.12 x 1000/uL 09/15/2024 0 - 1 [facility] RDW RBC Auto-Rto 13.2 % 09/15/2024 11 - 15 [facility] Neutrophils/leuk NFr Bld Auto 56.5 % 09/15/2024 39 - 72 [facility] Monocytes/leuk NFr Bld Auto 9.5 % 09/15/2024 4 - 12 [facility] Hgb Bld-mCnc 16.5 g/dL 09/15/2024 13.2 - 17.1 [facility] Basophils # Bld Auto 0.04 x 1000/uL 09/15/2024 0 - 1 [facility] Glucose SerPl-mCnc 154.0 mg/dL Above high normal 09/14/2024 65 - 110 [facility] Anion Gap3 SerPl-sCnc 4.0 mmol/L Below low normal 09/14/2024 5 - 15 [facility] BUN SerPl-mCnc 20.0 mg/dL Above high normal 09/14/2024 7 - 1 8 [facility] Sodium SerPl-sCnc 140.0 mmol/L 09/14/2024 136 - 14 5 [facility] GFR/BSA.pred SerPlBld LSE-JBV-GmPRli >60.0 mL/min/1.73m2 09/14/2024 - [facility] BKR CREATININE DELTA -0.15 09/14/2024 - [facility] HCO3 SerPl-sCnc 31.0 mmol/L 09/14/2024 21 - 32 Y [facility] Potassium SerPl-sCnc 4.2 mmol/L 09/14/2024 3.5 - 5 .1 [facility] Calcium SerPl-mCnc 9.3 mg/dL 09/14/2024 8.5 - 10.1 [facility] Creat SerPl-mCnc 1.14 mg/dL 09/14/2024 0.7 - 1.3 Y [facility] Chloride SerPl-sCnc 105.0 mmol/L 09/14/2024 98 - 1 07 [facility] Neutrophils # Bld Auto 6.72 x 1000/uL 09/14/2024 2 - 7.6 [facility] RBC # Bld Auto 5.82 M/uL 09/14/2024 4 - 6 [facility] Hct VFr Bld Auto 47.7 % 09/14/2024 38.5 - 50 [facility] MCH RBC Qn Auto 27.1 pg 09/14/2024 27 - 33 [facility] PMV Bld Auto 10.8 fL 09/14/2024 8 - [address] WBC # Bld Auto 10.8 x1000/uL 09/14/2024 4 - 11 [facility] Basophils # Bld Auto 0.05 x 1000/uL 09/14/2024 0 - 1 [facility] Lymphocytes # Bld Auto 3.01 x 1000/uL 09/14/2024 0.6 - 3.7 [facility] Imm Granulocytes/leuk NFr Bld Auto 0.4 % 09/14/2024 0 - 1 [facility] nRBC # Bld Auto 0.0 x 1000/uL 09/14/2024 0 - 1 [facility] MCV RBC Auto 82.0 fL 09/14/2024 80 - [address] Eosinophil # Bld Auto 0.07 x 1000/uL 09/14/2024 0 - 1 [facility] Basophils/leuk NFr Bld Auto 0.5 % 09/14/2024 0 - 1.4 [facility] Lymphocytes/leuk NFr Bld Auto 27.9 % 09/14/2024 17 - 50 [facility] Eosinophil/leuk NFr Bld Auto 0.6 % 09/14/2024 0 - 5 [facility] Platelet # Bld Auto 174.0 x1000/uL 09/14/2024 150 - 420 [facility] Monocytes # Bld Auto 0.91 x 1000/uL 09/14/2024 0 - 1 [facility] Hgb Bld-mCnc 15.8 g/dL 09/14/2024 13.2 - 17.1 [facility] Neutrophils/leuk NFr Bld Auto 62.2 % 09/14/2024 39 - 72 [facility] Monocytes/leuk NFr Bld Auto 8.4 % 09/14/2024 4 - 12 [facility] RDW RBC Auto-Rto 13.6 % 09/14/2024 11 - 15 [facility] nRBC/100 WBC Bld Auto-Rto 0.0 % 09/14/2024 0 - 1 [facility] Imm Granulocytes # Bld Auto 0.04 x 1000/uL 09/14/2024 0 - 0.3 [facility] MCHC RBC Auto-mCnc 33.1 g/dL 09/14/2024 31 - 36 [facility] Sodium SerPl-sCnc 137.0 mmol/L 09/13/2024 136 - 14 5 [facility] BUN SerPl-mCnc 21.0 mg/dL Above high normal 09/13/2024 7 - 1 8 [facility] Glucose SerPl-mCnc 140.0 mg/dL Above high normal 09/13/2024 65 - 110 [facility] GFR/BSA.pred SerPlBld PXZ-RJN-JuJGrb >60.0 mL/min/1.73m2 09/13/2024 - [facility] Calcium SerPl-mCnc 9.6 mg/dL 09/13/2024 8.5 - 10.1 [facility] HCO3 SerPl-sCnc 29.0 mmol/L 09/13/2024 21 - 32 Y [facility] Anion Gap3 SerPl-sCnc 3.0 mmol/L Below low normal 09/13/2024 5 - 15 [facility] Potassium SerPl-sCnc 5.1 mmol/L 09/13/2024 3.5 - 5 .1 [facility] Chloride SerPl-sCnc 105.0 mmol/L 09/13/2024 98 - 1 07 [facility] Creat SerPl-mCnc 1.29 mg/dL 09/13/2024 0.7 - 1.3 Y [facility] BKR CREATININE DELTA 0.12 09/13/2024 - [facility] Basophils # Bld Auto 0.02 x 1000/uL 09/13/2024 0 - 1 [facility] RBC # Bld Auto 5.93 M/uL 09/13/2024 4 - 6 [facility] MCV RBC Auto 81.8 fL 09/13/2024 80 - [address] MCHC RBC Auto-mCnc 33.2 g/dL 09/13/2024 31 - 36 [facility] Monocytes # Bld Auto 1.19 x 1000/uL Above high normal 2024 0 - 1 [facility] nRBC # Bld Auto 0.0 x 1000/uL 09/13/2024 0 - 1 [facility] Monocytes/leuk NFr Bld Auto 9.1 % 09/13/2024 4 - 12 [facility] Imm Granulocytes/leuk NFr Bld Auto 0.6 % 09/13/2024 0 - 1 [facility] Eosinophil # Bld Auto 0.0 x 1000/uL 09/13/2024 0 - 1 [facility] Basophils/leuk NFr Bld Auto 0.2 % 09/13/2024 0 - 1.4 [facility] PMV Bld Auto 11.2 fL 09/13/2024 8 - [address] Platelet # Bld Auto 186.0 x1000/uL 09/13/2024 150 - 420 [facility] RDW RBC Auto-Rto 13.2 % 09/13/2024 11 - 15 [facility] Lymphocytes/leuk NFr Bld Auto 16.8 % Below low normal 09/13/2024 17 - 50 [facility] nRBC/100 WBC Bld Auto-Rto 0.0 % 09/13/2024 0 - 1 [facility] WBC # Bld Auto 13.0 x1000/uL Above high normal 09/13/2024 4 - 11 [facility] Imm Granulocytes # Bld Auto 0.08 x 1000/uL 09/13/2024 0 - 0.3 [facility] Hct VFr Bld Auto 48.5 % 09/13/2024 38.5 - 50 [facility] MCH RBC Qn Auto 27.2 pg 09/13/2024 27 - 33 [facility] Neutrophils/leuk NFr Bld Auto 73.3 % Above high normal 09/13/2024 39 - 72 [facility] Hgb Bld-mCnc 16.1 g/dL 09/13/2024 13.2 - 17.1 [facility] Neutrophils # Bld Auto 9.53 x 1000/uL Above high normal 09/13/2024 2 - 7.6 [facility] Eosinophil/leuk NFr Bld Auto 0.0 % 09/13/2024 0 - 5 [facility] Lymphocytes # Bld Auto 2.19 x 1000/uL 09/13/2024 0.6 - 3.7 [facility] HbA1c MFr Bld 6.1 % 09/12/2024 4.2 - 6.3 [facility] Sodium SerPl-sCnc 129.0 mmol/L Below low normal 09/12/2024 1 36 - 145 [facility] Creat SerPl-mCnc 1.17 mg/dL 09/12/2024 0.7 - 1.3 Y [facility] Calcium SerPl-mCnc 9.7 mg/dL 09/12/2024 8.5 - 10.1 [facility] GFR/BSA.pred SerPlBld CEL-YFC-ClRWgj >60.0 mL/min/1.73m2 09/12/2024 - [facility] Glucose SerPl-mCnc 119.0 mg/dL Above high normal 09/12/2024 65 - 110 [facility] Chloride SerPl-sCnc 103.0 mmol/L 09/12/2024 98 - 1 07 [facility] BKR CREATININE DELTA 09/12/2024 [facility] BUN SerPl-mCnc 20.0 mg/dL Above high normal 09/12/2024 7 - 1 8 [facility] Potassium SerPl-sCnc 4.0 mmol/L 09/12/2024 3.5 - 5 .1 [facility] Anion Gap3 SerPl-sCnc 1.0 mmol/L Below low normal 09/12/2024 5 - 15 [facility] HCO3 SerPl-sCnc 25.0 mmol/L 09/12/2024 21 - 32 Y [facility] Eosinophil # Bld Auto 0.15 x 1000/uL 09/12/2024 0 - 1 [facility] RDW RBC Auto-Rto 13.5 % 09/12/2024 11 - 15 Y[facility] MCHC RBC Auto-mCnc 32.7 g/dL 09/12/2024 31 - 36 [facility] Neutrophils/leuk NFr Bld Auto 54.1 % 09/12/2024 39 - 72 [facility] Imm Granulocytes # Bld Auto 0.03 x 1000/uL 09/12/2024 0 - 0.3 [facility] MCV RBC Auto 82.7 fL 09/12/2024 80 - [address] Imm Granulocytes/leuk NFr Bld Auto 0.3 % 09/12/2024 0 - 1 [facility] Platelet # Bld Auto 203.0 x1000/uL 09/12/2024 150 - 420 [facility] Lymphocytes # Bld Auto 3.11 x 1000/uL 09/12/2024 0.6 - 3.7 [facility] Hct VFr Bld Auto 52.0 % Above high normal 09/12/2024 38.5 - 50 [facility] Lymphocytes/leuk NFr Bld Auto 35.0 % 09/12/2024 17 - 50 [facility] Basophils # Bld Auto 0.05 x 1000/uL 09/12/2024 0 - 1 [facility] WBC # Bld Auto 8.9 x1000/uL 09/12/2024 4 - 11 Y [facility] MCH RBC Qn Auto 27.0 pg 09/12/2024 27 - 33 [facility] PMV Bld Auto 11.3 fL 09/12/2024 8 - [address] Hgb Bld-mCnc 17.0 g/dL 09/12/2024 13.2 - 17.1 [facility] nRBC/100 WBC Bld Auto-Rto 0.0 % 09/12/2024 0 - 1 [facility] Neutrophils # Bld Auto 4.8 x 1000/uL 09/12/2024 2 - 7.6 [facility] Monocytes/leuk NFr Bld Auto 8.3 % 09/12/2024 4 - 12 [facility] RBC # Bld Auto 6.29 M/uL Above high normal 09/12/2024 4 - 6 [facility] Basophils/leuk NFr Bld Auto 0.6 % 09/12/2024 0 - 1.4 [facility] nRBC # Bld Auto 0.0 x 1000/uL 09/12/2024 0 - 1 [facility] Eosinophil/leuk NFr Bld Auto 1.7 % 09/12/2024 0 - 5 [facility] Monocytes # Bld Auto 0.74 x 1000/uL 09/12/2024 0 - 1 [facility] Encounters Encounter Type Encounter Reason Primary Diagnosis Location Date Ambulatory Intervertebral cervical disc disorder with myelopathy, 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 Raad Adams Primary Care 09/12/2024 10/12/19 [facility] Raad Adams Primary Care 09/12/2024
--- OUTSIDE RECORDS SUMMARY | 2025-03-17 17:56 | XMS_ITS | Encounter Summary ---
Author Organization [facility] Address [address] [place] [address] Care Team Providers Care Environmental Sampler Name Role Phone Raad Adams MD Primary Care Provider [phone] Encounter Details Date Type Department Care Team (Late st Contact Info) Description 09/19/2024 Lab Requisition [facility] - Main Lab [address] [facility] [place] [address] Goldy Martell MD [address] [place] [phone] Encounter for other general examination Social History [...] AM EDT) WBC 9.4 4.8 - 10.8 K/[facility] LAB HEMETOLOGY METHOD 09/19/2024 10:19 AM EDT [facility] RBC 6.50(H) 4.50 - 5.50 M/mcL LAB HEMETOLOGY METHOD 09/19/2024 10:19 AM [facility] Hemoglobin 17.6(H) 13.5 - 17.5 g/dL LAB HEMETOLOGY METHOD 09/19/2024 10:19 AM [facility] LAB Hematocrit 55.9(H) 42.0 - 54.0 % LAB HEMETOLOGY METHOD 09/19/2024 10:19 AM [facility] MCV 86.1 79.0 - 98.0 FL LAB HEMETOLOGY METHOD 09/19/2024 10:19 AM [facility] MCH 27.1 27.0 - 32.0 pcg LAB HEMETOLOGY METHOD 09/19/2024 10:19 AM [facility] MCHC 31.5(L) 32.0 - 37.0 g/dL LAB HEMETOLOGY METHOD 09/19/2024 10:19 AM [facility] RDW 13.7 11.0 - 15.0 % LAB HEMETOLOGY METHOD 09/19/2024 10:19 AM [facility] Platelets 226 130 - 400 K/mcL LAB HEMETOLOGY METHOD 09/19/2024 10:19 AM [facility] MPV 11.5(H) 7.0 - 11.0 FL LAB HEMETOLOGY METHOD 09/19/2024 10:19 AM [facility] NRBC 0.0 <1.0 % LAB HEMETOLOGY METHOD 09/19/2024 10:19 AM [facility] NRBC Absolute 0.00 <0.10 K/mcL LAB HEMETOLOGY METHOD 09/19/2024 10:19 AM [facility] Neutrophils Relative 56.9 % LAB HEMETOLOGY METHOD 09/19/2024 10:19 AM [facility] Lymphocytes Relative 32.7 % LAB HEMETOLOGY METHOD 09/19/2024 10:19 AM [facility] Monocytes Relative 7.5 % LAB HEMETOLOGY METHOD 09/19/2024 10:19 AM [facility] Eosinophils Relative 1.9 % LAB HEMETOLOGY METHOD 09/19/2024 10:19 AM [facility] Basophils Relative 0.5 % LAB HEMETOLOGY METHOD 09/19/2024 10:19 AM [facility] Immature Granulocytes Relative 0.5 % LAB HEMETOLOGY METHOD 09/19/2024 10:19 AM [facility] Neutrophils Absolute 5.34 1.50 - 7.00 K/mcL LAB HEMETOLOGY METHOD 09/19/2024 10:19 AM [facility] Lymphocytes Absolute 3.07 1.00 - 5.00 K/mcL LAB HEMETOLOGY METHOD 09/19/2024 10:19 AM [facility] Monocytes Absolute 0.70 0.20 - 1.00 K/mcL LAB HEMETOLOGY METHOD 09/19/2024 10:19 AM [facility] Eosinophils Absolute 0.18 0.00 - 0.50 K/mcL LAB HEMETOLOGY METHOD 09/19/2024 10:19 AM [facility] Basophils Absolute 0.05 0.00 - 0.20 K/mcL LAB HEMETOLOGY METHOD 09/19/2024 10:19 AM [facility] Immature Granulocytes Absolute 0.05(H) 0.00 - 0.03 K/mcL LAB HEMETOLOGY METHOD 09/19/2024 10:19 AM [facility] Blood Venous blood specimen / Unknown Venipuncture / Unknown 09/19/2024 5:57 AM EDT 09/19/2024 9:49 AM EDT us Goldy Martell MD LAB BLOOD ORDERABLES Final Res ult [facility] [address] [place] [address], documented in this encounter Visit Diagnoses Diagnosis Encounter for other general examination documented in this encounter Care Teams Environmental Sampler Relationship Specialty Start Date End Date Raad Adams MD [address] PCP - General Internal Medicine 02/26/24 documented as of this encounter
--- OUTSIDE RECORDS SUMMARY | 2025-03-17 17:56 | XMS_ITS | Encounter Summary ---
Author Organization [facility] Address [address] [place] [phone] Care Team Providers Care [address] Mri Technologist Name Role Phone Raad Adams MD Primary Care Provider [phone] Reason for Referral * Imaging (Routine) - Authorized Specialty Diagnoses / Procedures Referred By Danny tavares Referred To Contact Diagnostic Radiology Procedures CT Cervical Spine wo IV Contrast Erasto Le PA [address] [place] [phone] Phone: tel: fax: Referral ID Status Reason Start Date Expiration Date V isits Requested Visits Authorized [id number] Authorized 07/31/2024 07/31/2025 1 1 Encounter Details Date Type Department Care Team (Late st Contact Info) Description 07/31/2024 Scanned Document [facility] [address] [place] [address] Erasto Le PA [address] [place] [phone] Social History Tobacco Use Types Packs/Day Years [...] 1:30 PM EST Telemedicine [facility] at [address] [place] [address] Malachi Reyna MD [address] [facility] [address] [place] [phone] documented as of this encounter Procedures Procedure [...] on filedocumented in this encounter Care Teams Ct Mri Technologist Relationship Specialty Start Date End Date Raad Adams MD 36[address] [facility] [address] [place] [phone] PCP - General Internal Medicine 06/20/24 documented as of this encounter
--- OUTSIDE RECORDS SUMMARY | 2025-03-17 17:56 | XMS_ITS | Encounter Summary ---
Author Organization [facility] Address [address] [place] [address] Care Team Providers Care Administrative Nursing Supervisor Name Role Phone Raad Adams MD Primary Care Provider [phone] Encounter Details Date Type Department Care Team (Late st Contact Info) Description 09/25/2024 Lab Requisition [facility] - Main Lab [address] [facility] [place] [address] Goldy Martell MD [address] [place] [address] Encounter for other general examination Social History [...] plasma reagin titer (09/25/2024 5:24 AM EDT) [facility] Rapid Plasma Reagin Titer 1:64(A) Nonreactive 09/25/2024 2:42 PM EDT [facility] Blood Venous blood specimen / Unknown Venipuncture / Unknown 09/25/2024 5:24 AM EDT 09/25/2024 11:40 AM EDT Goldy Martell MD LAB BLOOD ORDERABLES Final Res ult [facility] [address] [place] [address], [place] [phone] * (ABNORMAL) Rapid plasma reagin with reflex to titer (09/25/2024 5:24 AM EDT) [facility] RPR Reactive(A ) Nonreactive 09/25/2024 2:27 PM EDT [facility] Blood Venous blood specimen / Unknown Venipuncture / Unknown 09/25/2024 5:24 AM EDT 09/25/2024 11:40 AM EDT us Goldy Martell MD LAB BLOOD ORDERABLES Final Res ult [facility] [address] [place] [address], [place] [phone] * (ABNORMAL) Treponema pallidum antibody with reflex to RPR and particle agglutination (09/25/2024 5:24 AM EDT) [facility] T. Pallidum Antibodies Positive( A) Negative LAB CHEMISTRY METHOD 09/25/2024 11:40 AM EDT [facility] Blood Venous blood specimen / Unknown Venipuncture / Unknown 09/25/2024 5:24 AM EDT 09/25/2024 9:19 AM EDT us Goldy Martell MD LAB BLOOD ORDERABLES Final Res ult [facility] [address] [place] [address], [place] [phone] * (ABNORMAL) Complete blood count (09/25/2024 5:24 AM EDT) WBC 12.5(H) 4.8 - 10.8 K/mcL LAB HEMETOLOGY METHOD 09/25/2024 10:10 AM EDT [facility] RBC 5.50 4.50 - 5.50 M/mcL LAB HEMETOLOGY METHOD 09/25/2024 10:10 AM EDT [facility] Hemoglobin 14.7 13.5 - 17.5 g/dL LAB HEMETOLOGY METHOD 09/25/2024 10:10 AM EDT [facility] Hematocrit 46.6 42.0 - 54.0 % LAB HEMETOLOGY METHOD 09/25/2024 10:10 AM EDT [facility] MCV 85.2 79.0 - 98.0 FL LAB HEMETOLOGY [facility] MCH 26.9(L) 27.0 - 32.0 pcg LAB HEMETOLOGY METHOD 09/25/2024 10:10 AM EDT [facility] MCHC 31.5(L) 32.0 - 37.0 g/dL LAB HEMETOLOGY METHOD 09/25/2024 10:10 AM EDT [facility] RDW 13.2 11.0 - 15.0 % LAB HEMETOLOGY METHOD 09/25/2024 10:10 AM EDT [facility] Platelets 197 130 - 400 K/mcL LAB HEMETOLOGY METHOD 09/25/2024 10:10 AM EDT [facility] MPV 11.2(H) 7.0 - 11.0 FL LAB HEMETOLOGY METHOD 09/25/2024 10:10 AM EDT [facility] NRBC 0.0 <1.0 % LAB HEMETOLOGY METHOD 09/25/2024 10:10 AM EDT [facility] NRBC Absolute 0.00 <0.10 K/mcL LAB HEMETOLOGY METHOD 09/25/2024 10:10 AM EDT [facility] Blood Venous blood specimen / Unknown Venipuncture / Unknown 09/25/2024 5:24 AM EDT 09/25/2024 9:19 AM EDT us Goldy Martell MD LAB BLOOD ORDERABLES Final Res ult [facility] [address] [place] [address], * (ABNORMAL) Basic metabolic panel (09/25/2024 5:24 AM EDT) Sodium 136 133 - 145 mmol/L LAB CHEMISTRY METHOD 09/25/2024 10:41 AM [facility] Potassium 4.0 3.5 - 5.5 mmol/L LAB CHEMISTRY METHOD 09/25/2024 10:41 AM [facility] Chloride 99 96 - 110 mmol/L LAB CHEMISTRY METHOD 09/25/2024 10:41 AM [facility] CO2 28 21 - 32 mmol/L LAB CHEMISTRY METHOD 09/25/2024 10:41 AM [facility] Anion Gap 9 3 - 11 LAB CHEMISTRY METHOD 09/25/2024 10:41 AM [facility] Glucose 117(H) 70 - 100 mg/dL LAB CHEMISTRY METHOD 09/25/2024 10:41 AM [facility] BUN 19 5 - 25 mg/dL LAB CHEMISTRY METHOD 09/25/2024 10:41 AM EDT [facility] Creatinine 1.05 0.70 - 1.30 mg/dL LAB CHEMISTRY METHOD 09/25/2024 10:41 AM EDT [facility] eGFR 78 >=60 mL/min/1. 73m2 LAB CHEMISTRY METHOD 09/25/2024 10:41 AM EDT [facility] Comment:Calculation based on the Chronic Kidney Disease Epidemiology Collaboration (CKD-EPI) equation refit without adjustment for race. BUN/Creatinine Ratio 18.1 LAB CHEMISTRY METHOD 09/25/2024 10:41 AM T [facility] Calcium 9.3 8.5 - 10.5 mg/dL LAB CHEMISTRY METHOD 09/25/2024 10:41 AM T [facility] Blood Venous blood specimen / Unknown Venipuncture / Unknown 09/25/2024 5:24 AM EDT 09/25/2024 9:19 AM EDT us Goldy Martell MD LAB BLOOD ORDERABLES Final Res ult [facility] [address] [place] [address], documented in this encounter Visit Diagnoses Diagnosis Encounter for other general examination documented in this encounter Care Teams Administrative Nursing Supervisor Relationship Specialty Start Date End Date Raad Adams MD [address] PCP - General Internal Medicine 02/26/24 documented as of this encounter
--- OUTSIDE RECORDS SUMMARY | 2025-03-17 17:56 | XMS_ITS | Encounter Summary ---
Author Organization [facility] Address [address] [place] [phone] Care Team Providers Care Ride Operator Name Role Phone Raad Adams MD Primary Care Provider [phone] Reason for Referral * Imaging (Routine) - Authorized Specialty Diagnoses / Procedures Referred By Contac t Referred To Contact Diagnostic Radiology Procedures MRI Cervical Spine without IV Contrast Malachi Reyna MD [address] [place] [phone] Phone: tel: fax: Referral ID Status Reason Start Date Expiration Date V isits Requested Visits Authorized [id number] Authorized 01/09/2025 01/09/2026 1 1 * Imaging (Routine) - Authorized Specialty Diagnoses / Procedures Referred By Contac t Referred To Contact Diagnostic Radiology Procedures MRI Thoracic Spine without IV Contrast Malachi Reyna MD [address] [place] [phone] Phone: tel: fax: Referral ID Status Reason Start Date Expiration Date V isits Requested Visits Authorized [id number] Authorized 01/09/2025 01/09/2026 1 1 * Imaging (Routine) - Authorized Specialty Diagnoses / Procedures Referred By Contac t Referred To Contact Diagnostic Radiology Procedures MRI Lumbar Spine without IV Contrast Malachi Reyna MD [address] [place] [phone] Phone: tel: fax: Referral ID Status Reason Start Date Expiration Date V isits Requested Visits Authorized [id number] Authorized 01/09/2025 01/09/2026 1 1 * Imaging (Routine) - Authorized Specialty Diagnoses / Procedures Referred By Contac t Referred To Contact Diagnostic Radiology Procedures MRI Cervical Spine without IV Contrast Malachi Reyna MD [address] [place] [phone] Phone: tel: fax: Referral ID Status Reason Start Date Expiration Date V isits Requested Visits Authorized [id number] Authorized 01/09/2025 01/09/2026 1 1 * Imaging (Routine) - Authorized Specialty Diagnoses / Procedures Referred By Contac t Referred To Contact Diagnostic Radiology Procedures MRI Thoracic Spine without IV Contrast Neurosurgery at [address] [place] [address] Phone: tel: fax: Referral ID Status Reason Start Date Expiration Date V isits Requested Visits Authorized [id number] Authorized 01/09/2025 01/09/2026 1 1 * Imaging (Routine) - Authorized Specialty Diagnoses / Procedures Referred By Contac t Referred To Contact Diagnostic Radiology Procedures MRI Cervical Spine without IV Contrast Neurosurgery at [address] [place] [address] Phone: tel: fax: Referral ID Status Reason Start Date Expiration Date V isits Requested Visits Authorized [id number] Authorized 01/09/2025 01/09/2026 1 1 Encounter Details Date Type Department Care Team (Late st Contact Info) Description 01/09/2025 Scanned Document [facility] [address] [address] Ganesh Feliz MD [address] [place] [address] [place] [address] Social History Tobacco Use Types Packs/Day Years Used Date Smoking Tobacco: Every Day Cigarettes [facility] Utilities Answer Date Recorded In the [...] your living situation today? I have a [facility] place to live 09/12/2024 Housing Stability [...] PM EST Telemedicine [facility] [address] [address] Malachi Reyna MD [address] [place] [address] [address] [phone] documented as of this encounter Goals Goal Patient Goal Type Associated Problems Recent Progress Patient-Stated? Author [facility] Spine Task Goal Care Plan AMB LMH SPINE PROBLEM No Eve Stovall, RN [facility] Spine Smoking Cessation Goal Care Plan [facility] SPINE SMOKING CESSATION PROBLEM No Stanislav Campbell, [...] gnetic Resonance us Malachi Reyna MD [facility] MRI ORDERABLES Final Re sult * MRI Thoracic Spine without IV Contrast (2025 11:52 AM EDT) Anatomical Region Laterality Modality T-spine, Spine, Ortho T-spine Ma gnetic Resonance us Malachi Reyna MD [facility] MRI ORDERABLES Final Re sult * MRI Lumbar Spine without IV Contrast (2025 11:50 AM EDT) Anatomical Region Laterality Modality L-spine, Spine, Ortho L-spine Ma gnetic Resonance us Malachi Reyna MD [facility] MRI ORDERABLES Final Re sult * MRI Cervical Spine without IV Contrast (2025 11:18 AM EDT) Anatomical Region Laterality Modality C-spine, Spine, Ortho C-spine Ma gnetic Resonance us Malachi Reyna MD IM MRI ORDERABLES Final Re sult * MRI Thoracic Spine without IV Contrast (05/13/2024 10:47 AM EST) Anatomical Region Laterality Modality T-spine, Spine, Ortho T-spine Ma gnetic Resonance Ganesh Feliz MD [facility] MRI ORDERABLES Final Result * MRI Cervical Spine without IV Contrast (05/13/2024 10:44 AM EST) Anatomical Region Laterality Modality C-spine, Spine, Ortho C-spine Ma gnetic Resonance Ganesh Feliz MD [facility] MRI ORDERABLES Final Result documented in this encounter Visit Diagnoses Not on filedocumented in this encounter Additional Health Concerns Active Problems Noted Date Diagnosed Date AMB CC LMH SPINE PROBLEM 08/19/2024 AMB CC LMH SPINE SMOKING CESSATION PROBLEM 08/30 documented as of this encounter Care Teams Ride Operator Relationship Specialty [place] [address] [place] [phone] PCP - General Internal Medicine 06/20/24 documented as of this encounter
--- OUTSIDE RECORDS SUMMARY | 2025-03-17 17:56 | XMS_ITS | Encounter Summary ---
Author Organization [facility] Address [address] [place] [address] Care Team Providers Care Labor Conciliator Name Role Phone Raad Adams MD Primary Care Provider Encounter Details Date Type Department Care Team (Late st Contact Info) Description 09/26/2024 Lab Requisition [facility] - Main Lab 299 [facility] [place] [address] Goldy Martell MD [address] [place] [address] Encounter for other general examination Social History [...] AM EDT) WBC 11.1(H) 4.8 - 10.8 K/[facility] LAB HEMETOLOGY METHOD 09/26/2024 9:08 AM EDT [facility] RBC 5.60(H) 4.50 - 5.50 M/mcL LAB HEMETOLOGY METHOD 09/26/2024 9:08 AM [facility] Hemoglobin 15.1 13.5 - 17.5 g/dL LAB HEMETOLOGY METHOD 09/26/2024 9:08 AM [facility] Hematocrit 48.3 42.0 - 54.0 % LAB HEMETOLOGY METHOD 09/26/2024 9:08 AM [facility] MCV 85.6 79.0 - 98.0 FL LAB HEMETOLOGY METHOD 09/26/2024 9:08 AM [facility] MCH 26.8(L) 27.0 - 32.0 pcg LAB HEMETOLOGY METHOD 09/26/2024 9:08 AM [facility] MCHC 31.3(L) 32.0 - 37.0 g/dL LAB HEMETOLOGY METHOD 09/26/2024 9:08 AM [facility] RDW 13.0 11.0 - 15.0 % LAB HEMETOLOGY METHOD 09/26/2024 9:08 AM [facility] Platelets 208 130 - 400 K/mcL LAB HEMETOLOGY METHOD 09/26/2024 9:08 AM [facility] MPV 11.3(H) 7.0 - 11.0 FL LAB HEMETOLOGY METHOD 09/26/2024 9:08 AM [facility] NRBC 0.0 <1.0 % LAB HEMETOLOGY METHOD 09/26/2024 9:08 AM [facility] NRBC Absolute 0.00 <0.10 K/mcL LAB HEMETOLOGY METHOD 09/26/2024 9:08 AM [facility] Neutrophils Relative 68.5 % LAB HEMETOLOGY METHOD 09/26/2024 9:08 AM [facility] Lymphocytes Relative 22.6 % LAB HEMETOLOGY METHOD 09/26/2024 9:08 AM [facility] Monocytes Relative 6.6 % LAB HEMETOLOGY METHOD 09/26/2024 9:08 AM [facility] Eosinophils Relative 1.4 % LAB HEMETOLOGY METHOD 09/26/2024 9:08 AM [facility] Basophils Relative 0.5 % LAB HEMETOLOGY METHOD 09/26/2024 9:08 AM [facility] Immature Granulocytes Relative 0.4 % LAB HEMETOLOGY METHOD 09/26/2024 9:08 AM [facility] Neutrophils Absolute 7.61(H) 1.50 - 7.00 K/mcL LAB HEMETOLOGY METHOD 09/26/2024 9:08 AM [facility] Lymphocytes Absolute 2.51 1.00 - 5.00 K/mcL LAB HEMETOLOGY METHOD 09/26/2024 9:08 AM [facility] Monocytes Absolute 0.73 0.20 - 1.00 K/mcL LAB HEMETOLOGY METHOD 09/26/2024 9:08 AM [facility] Eosinophils Absolute 0.16 0.00 - 0.50 K/mcL LAB HEMETOLOGY METHOD 09/26/2024 9:08 AM [facility] Basophils Absolute 0.05 0.00 - 0.20 K/mcL LAB HEMETOLOGY METHOD 09/26/2024 9:08 AM [facility] Immature Granulocytes Absolute 0.04(H) 0.00 - 0.03 K/mcL LAB HEMETOLOGY METHOD 09/26/2024 9:08 AM [facility] Blood Venous blood specimen / Unknown Venipuncture / Unknown 09/26/2024 6:53 AM EDT 09/26/2024 7:55 AM EDT us Goldy Martell MD LAB BLOOD ORDERABLES Final Res ult [facility] [address] [place] [address], documented in this encounter Visit Diagnoses Diagnosis Encounter for other general examination documented in this encounter Care Teams Labor Conciliator Relationship Specialty Start Date End Date Raad Adams MD [address] PCP - General Internal Medicine 02/26/24 documented as of this encounter
--- OUTSIDE RECORDS SUMMARY | 2025-03-17 17:56 | XMS_ITS | Clinical Summary ---
Author Organization [address] [phone] Phone Care Team Providers Care Loss Prevention And Safety Manager Name Role Phone Raad Adams MD Primary Care Provider [phone] Allergies No known active allergies Medications OZEMPIC [...] Team Description 01/15/2025 Orders Only Neurosurgery at [address] [place] [phone] Raad Adams MD 01/13/2025 Telephone [facility] [address] [address] Malachi Reyna MD Results 01/10/2025 Scanned Document [facility] SCHEDULING [address] [place], [place] [phone] Provider, Historical 01/09/2025 Orders Only [facility] [address] [place] [address] System, Provider Not In 01/09/2025 Orders Only [facility] [address] [place] [address] System, Provider Not In 01/09/2025 Orders Only [facility] [address] [place] [address] System, Provider Not In 01/09/2025 Orders Only [facility] [address] [place] [address] System, Provider Not In 01/09/2025 Orders Only [facility] [address] [facility] [place] [address] System, Provider Not In 01/09/2025 Scanned Document [facility] at [address] [place] [address] Ganesh Feliz MD 2025 12:10 AM EDT - 2025 11:59 PM EDT Hospital Encounter [facility] Room [address] [place] [address] System, Provider Not In Discharge Disposition: Home or Self Care 2025 12:05 AM EDT - 2025 12:09 AM EDT Hospital Encounter [facility] Room [address] [place] [address] System, Provider Not In Discharge Disposition: Home or Self Care 2025 - 2025 12:04 AM EDT Hospital Encounter [facility] Room [address] [place] [address] System, Provider Not In Discharge Disposition: Home or Self Care 12/30/2024 Telephone [facility] at [address] [place] [address] Malachi Reyna MD FYI 12/19/2024 Telephone [facility] [address] [place] [address] Malachi Reyna MD Referral; Other 12/18/2024 1:30 PM EDT Telemedicine [facility] [address] [place] [address] Malachi Reyna MD 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 Dx) from Last 3 Months Immunizations Immunization Administration [...] uit: Not Asked; Counseling Given: Not Answered [facility] Utilities Answer Date Recorded In the past 12 months has e [employer], oil, or water [employer] threatened to shut off services in your [...] 1:30 PM EST Telemedicine [facility] at [address] [place] [address] Malachi Reyna MD [address] [place] [phone] Health Maintenance Due Date Last Done Comments [...] 02/16/2021, Additional history exists Covid-19 vaccine series (2024- season) 2024 04/26/2023, 10/06/2020, 09/08/2020, Additional history [...] Type Associated Problems Recent Progress Patient-Stated? Author [facility] Spine Task Goal Care Plan [facility] SPINE PROBLEM No Eve Stovall, [place] [facility] Spine Smoking Cessation Goal Care Plan [facility] SPINE SMOKING CESSATION PROBLEM No Stanislav Campbell, [place] [employer] Devices Implanted Type Area Cupola Operator Insulation Device Identifier Shelf Expiration Date Model / Serial / Lot Screw [employer] 3.6mm Variable Self-Drl 16mm - [id number] Implanted:Qty : 2 on 09/12/2024 by Malachi Reyna MD at [facility] [address] Implant Cervical: Spine Cervical [employer] 184.156 / / Spacer [employer] [id number] 7deg 8mm - [id number] Implanted:Qty : 1 on 09/12/2024 by Malachi Reyna MD at [facility] [address] Implant Cervical: Spine Cervical [employer] [id number] / / Procedures Procedure Name [...] C-spine Ma gnetic Resonance Malachi Reyna MD [facility] MRI ORDERABLES Final Re sult * MRI Thoracic Spine without IV Contrast (2025 11:52 AM EDT) Anatomical Region Laterality Modality T-spine, Spine, Ortho T-spine Ma gnetic Resonance Malachi Reyna MD G MRI ORDERABLES Final Re sult * MRI [...] no report. us Provider Not In System [facility] NON REP ORDERABLE S Final Result Performing Organization Address [facility] de Phone Number RAD4 * [facility] MRI Thoracic Spine (2025 12:05 AM EDT) Narrative RAD4 - 01/09/2025 11:17 AM EDT DISCLAIMER This procedure captures images only. There is no report. us Provider Not In System [facility] OS NON REP ORDERABLE S Final Result Performing Organization Address [facility] de Phone Number RAD4 * [facility] MRI Lumbar Spine (2025 12:00 AM EDT) Narrative RAD4 - 01/09/2025 11:15 AM EDT DISCLAIMER This procedure captures images only. There is no report. us Provider Not In System [facility] NON REP ORDERABLE S Final Result Performing Organization Address [facility] de Phone Number RAD4 * Hemoglobin A1c (09/12/2024 9:45 AM EDT) Hemoglobin A1c 6.1 4.2 - 6.3 % 09/12/2024 11:35 AM EDT + [facility] Comment: >=6.5% Diabetes* 5.7-6.4% Pre-Diabetes *These [...] BLOOD ORDERABLES Final Result L + M [facility] [address] [place] [address] from Last 3 Months or Most Recently Relevant to Health Maintenance Additional Health Concerns Active Problems Noted Date Diagnosed Date AMB CC LMH SPINE PROBLEM 08/19/2024 AMB CC LMH SPINE SMOKING CESSATION PROBLEM 08/30 Insurance MEDICARE [facility] [place] [address] [place] [address] MGD MEDICARE Member Subscriber Plan / Payer (Ef fective 2023-Present) Name:Hai Baxter Member ID:[id number] Relation to Subscriber:Self Name:Hai Baxter Subscriber ID:[id number] Payer ID:[id number] Group ID:Not on file Type:Not on file Address: [address] Advance Directives * Full Code (Latest Code Status on File) Date Activated Date Inactivated Comments 09/12/2024 1:50 PM 09/17/2024 8:30 PM Care Teams Loss Prevention And Safety Manager Relationship Specialty Start Date End Date Raad Adams MD [address] [phone] PCP - General Internal Medicine 06/20/24
--- OUTSIDE RECORDS SUMMARY | 2025-03-17 17:56 | XMS_ITS | Data Portability ---
Author Organization [facility], [address] Address [address] [place] [address] Assessment No assessment recorded. Plan of Treatment Reminders Order Date Submit Date Provider Last Modified By Organization Details Last Modified Time Details Appointments None recorde d. Lab glucose , fingers tick, blood 023 11/29/19 23 [email or web address] [address], [address] [place], [address], 17:04:56 Referral None recorde d. Procedures None recorde d. Surgeries None recorde d. Imaging None recorde d. Medication Orders None recorde d. Patient TargetsNo targets recorded. Patient Instructions Encounter Date Encounter Id Patient Instructions Last Modified By Organization Details Last Modified Time 11/28/2022 [id number] This physical does not replace the annual [...] further evaluation. Not available 11/28/2022 17:04:53 11/28/2022 [id number] This physical does not replace the annual [...] = normal normal Not Available [address] [place], [address], 11/28/2022 15:32:52 11/29/1911/28/2022 gluco , ivet rstic k, blood blood sugar - fasting mg/dL 80-125 = normal Not Available [address] [place], [address], 11/28/2022 15:32:52 Result Notes None recorded. Procedures [...] ICD10 Code Diagnosis IMO Codes Diagnosis Note [id number] [facility] [address] [place] [address] 01/30/2021 14:06:52 01/30/2021 16:35:06 [id number] [address] [facility] [address] [place] [address] 02/15/2018 16:17:48 02/15/2018 17:02:33 [id number] Roseline Eason MD [address] [place] [address] 06/14/2022 11:57:29 06/14/2022 12:51:55 History and physical examination, occupation [id number] Z02.1 [id number] [place] [address] [place] [address] 09/27/2022 08:21:30 09/27/2022 09:28:42 Ambulance Paramedic license medical examination [id number] Z02.4 Physical examination 588 0005 Z02.4 [id number] MILENA HEADLEY MD [address] [place] [address] 10/07/2022 15:28:19 10/07/2022 15:57:20 History and physical examination, occupation [id number] Z02.1 [id number] [place] [address] [place] [address] 11/28/2022 14:26:43 11/28/2022 16:04:40 Ambulance Paramedic license medical examination [id number] Z02.4 Physical examination 588 0005 Z02.4 History an d physical examination, pre-employment [id number] Z02.1 [id number] [place] [address] [place] [address] 11/28/2022 15:28:32 11/28/2022 17:09:03 History and physical examination, occupation [id number] Z02.1 Diabetes m ellitus screening [id number] Z13.1 History an d physical examination, pre-employment [id number] Z02.1 [id number] [place] [address] [place] [address] 12/04/2022 14:44:35 12/22/2022 08:25:29 Left without being seen [id number] 9102 Z53.21 Health Concerns Section Related Observation LastModified by Organization Detai ls LastModified Time None Recorded Concern Status LastModified by Organization Details LastModified Time None Recorded Advance Directives Directive None Recorded Payers Insurance Date Sequence Insurance Name Policy Number Policy Díaz Covered Member ID Díaz Member ID Guarantor Name 12/04/2022 [employer]-ESCREEN Hai Cashrovecsuzette [id number] Hai Castrejonrovecsuzette 11/28/2022 OC-ESCREEN Hai Vurovecz [employer] Ahi Vurovecz 12/04/[address] [place] [address] [id number] Hai Vurovecz [id number] Hai Vurovecz 06/14/2022 OC-ESCREEN [employer] ROBERTH 360 Hai Vurovecz 09/27/2022 OC-PAY AT TIME OF SERVICE 2022 Hai Vurovecz PAY AT TIME OF SERVICE 20 PAY AT TIME OF SERVICE 20 Hai Vurovecz 09/27/2022 PAY AT TOS Hai Vurovecsuzette PAY AT TIME OF SERVICE 20 PAY AT TIME OF SERVICE 20 Hai Vurovecsuzette 10/07/2022 OC-ESCREEN Hai Garciavandana [id number] Hai Garciavecsuzette Notes Date Note Type Note Provider Name a nd Address Organization Details Recorded Time 11/28/2022 text/html physical Car Forte NP [address] [facility] [place], [address], [place] - [facility] 11/28/2022 16:01:57 11/28/2022 text/html tra Forte NP [address] [place], [address], [place] - [facility] 11/28/2022 17:05:40
--- OUTSIDE RECORDS SUMMARY | 2025-03-17 17:56 | XMS_ITS | Encounter Summary ---
Author Organization [facility] Address [address] [place] [address] Care Team Providers Care School Speech Therapist Name Role Phone Raad Adams MD Primary Care Provider [phone] Encounter Details Date Type Department Care Team (Late st Contact Info) Description 09/28/2024 Lab Requisition [facility] - Main Lab [address] [facility] [employer] [address] Goldy Martell MD [address] [place] [address] Encounter for other general examination Social History [...] LAB CHEMISTRY METHOD 09/28/2024 12:25 PM EDT [facility] Potassium 4.7 3.5 - 5.5 mmol/L LAB CHEMISTRY METHOD 09/28/2024 12:25 PM EDT [facility] Chloride 98 96 - 110 mmol/L LAB CHEMISTRY METHOD 09/28/2024 12:25 PM [facility] CO2 32 21 - 32 mmol/L LAB CHEMISTRY METHOD 09/28/2024 12:25 PM [facility] Anion Gap 5 3 - 11 LAB CHEMISTRY METHOD 09/28/2024 12:25 PM [facility] Glucose 139(H) 70 - 100 mg/dL LAB CHEMISTRY METHOD 09/28/2024 12:25 PM [facility] BUN 25 5 - 25 mg/dL LAB CHEMISTRY METHOD 09/28/2024 12:25 PM [facility] Creatinine 1.11 0.70 - 1.30 mg/dL LAB CHEMISTRY METHOD 09/28/2024 12:25 PM [facility] eGFR 73 >=60 mL/min/1. 73m2 LAB CHEMISTRY METHOD 09/28/2024 12:25 PM [facility] Comment:Calculation based on the Chronic Kidney Disease Epidemiology Collaboration (CKD-EPI) equation refit without adjustment for race. BUN/Creatinine Ratio 22.5 LAB CHEMISTRY METHOD 09/28/2024 12:25 PM [facility] Calcium 9.1 8.5 - 10.5 mg/dL LAB CHEMISTRY METHOD 09/28/2024 12:25 PM [facility] Blood Venous blood specimen / Unknown Venipuncture / Unknown 09/28/2024 5:30 AM EDT 09/28/2024 10:35 AM EDT us Goldy Martell MD LAB BLOOD ORDERABLES Final Res ult [facility] [address] [place] [address], documented in this encounter Visit Diagnoses Diagnosis Encounter for other general examination documented in this encounter Care Teams School Speech Therapist Relationship Specialty Start Date End Date Raad Adams MD [address] [place] [address] PCP - General Internal Medicine 02/26/24 documented as of this encounter
--- OUTSIDE RECORDS SUMMARY | 2025-03-17 17:56 | XMS_ITS | Encounter Summary ---
Author Organization [facility] Address [address] [place] [address] Care Team Providers Care Policy Writer Sales Name Role Phone Raad Adams MD Primary Care Provider [phone] Encounter Details Date Type Department Care Team (Late st Contact Info) Description 09/10/2024 Telephone [facility] [address] [facility] [address] [facility] [place] [address] Roc Carson MD [address] [place] [phone] Social History Tobacco Use Types Packs/Day Years Used Date Smoking Tobacco: Every Day Cigarettes [facility] Utilities Answer Date Recorded In the [...] your living situation today? I have a [facility] place to live 09/12/2024 Housing Stability [...] EST Telemedicine [facility] at [address] [address] Malachi Reyna MD [address] [place] [phone] documented as of this encounter Goals Goal Patient Goal Type Associated Problems Recent Progress Patient-Stated? Author [facility] Spine Task Goal Care Plan AMB CC LMH SPINE PROBLEM No Eve Stovall, RN [facility] Spine Smoking Cessation Goal Care Plan AMB CC [facility] SPINE SMOKING CESSATION PROBLEM No Stanislav Campbell, RN documented as of this encounter Visit Diagnoses Not on filedocumented in this encounter Additional Health Concerns Active Problems Noted Date Diagnosed Date AMB CC LMH SPINE PROBLEM 08/19/2024 AMB CC [facility] SPINE SMOKING CESSATION PROBLEM 08/30 documented as of this encounter Care Teams Policy Writer Sales Relationship Specialty Start Date End Date Raad Adams MD [address] [facility] [address] [place] [address] PCP - General Internal Medicine 06/20/24 documented as of this encounter
--- OUTSIDE RECORDS SUMMARY | 2025-03-17 17:56 | XMS_ITS | Encounter Summary ---
Author Organization [facility] Address [address] [place] [address] Care Team Providers Care Benefits Consultant Name Role Phone Raad Adams MD Primary Care Provider [phone] Encounter Details Date Type Department Care Team (Late st Contact Info) Description 09/05/2024 Scanned Document [facility] at [address] [place] [address] Malachi Reyna MD [address] [place] [phone] Social History Tobacco Use Types Packs/Day Years [...] 1:30 PM EST Telemedicine [facility] at [address] [place] [address] Malachi Reyna MD [address] [place] [phone] documented as of this encounter Goals Goal Patient Goal Type Associated Problems Recent Progress Patient-Stated? Author [facility] Spine Task Goal Care Plan [facility] SPINE PROBLEM No Eve Stovall, [place] Spine Smoking Cessation Goal Care Plan [facility] SPINE SMOKING CESSATION PROBLEM No Stanislav Campbell RN documented as of this encounter Visit Diagnoses Not on filedocumented in this encounter Additional Health Concerns Active Problems Noted Date Diagnosed Date [facility] LM SPINE PROBLEM 08/19/2024 AMB CC LM SPINE SMOKING CESSATION PROBLEM 08/30 documented as of this encounter Care Teams Benefits Consultant Relationship Specialty Start Date End Date Raad Adams MD [address] [address] PCP - General Internal Medicine 06/20/24 documented as of this encounter
--- OUTSIDE RECORDS SUMMARY | 2025-03-17 17:56 | XMS_ITS | Clinical Summary ---
Author Organization [facility] Address [address] [place] [address] Phone Care Team Providers Care Marine Steward Name Role Phone Raad Adams MD Primary Care Provider [phone] Social History Tobacco Use Types Packs/Day Years [...] mmol/L LAB CHEMISTRY METHOD [facility]/28[facility] CO2 32 21 - 32 mmol/L LAB CHEMISTRY METHOD 09/28/2024 12:25 PM [facility] Anion Gap 5 3 - 11 LAB CHEMISTRY METHOD 09/28/2024 12:25 PM [facility] Glucose 139(H) 70 - 100 mg/dL LAB CHEMISTRY METHOD 09/28/2024 12:25 PM [facility] BUN 25 5 - 25 mg/dL LAB CHEMISTRY METHOD 09/28/2024 12:25 PM [facility] Creatinine 1.11 0.70 - 1.30 mg/dL LAB CHEMISTRY METHOD 09/28/2024 12:25 PM [facility] eGFR 73 >=60 mL/min/1. 73m2 LAB CHEMISTRY METHOD 09/28/2024 12:25 PM [facility] Comment:Calculation based on the Chronic Kidney Disease Epidemiology Collaboration (CKD-EPI) equation refit without adjustment for race. BUN/Creatinine Ratio 22.5 LAB CHEMISTRY METHOD 09/28/2024 12:25 PM [facility] Calcium 9.1 8.5 - 10.5 mg/dL LAB CHEMISTRY METHOD 09/28/2024 12:25 PM [facility] Blood Venous blood specimen / Unknown Venipuncture / Unknown 09/28/2024 5:30 AM EDT 09/28/2024 10:35 AM EDT us Goldy Martell MD LAB BLOOD ORDERABLES Final Res ult [facility] [address] [place] [address], [place] [phone] from Last 3 Months or Most Recently Relevant to Health Maintenance Insurance [employer] MED[employer]ARE [employer]VANTAGE MEDICAID - [place] [employer] MEDICARE Care Teams Marine Steward Relationship Specialty Start Date End Date Raad Adams MD [address] PCP - General Internal Medicine 02/26/24
--- OUTSIDE RECORDS SUMMARY | 2025-03-17 17:56 | XMS_ITS | Encounter Summary ---
Author Organization [facility] Address [address] [place] [address] Care Team Providers Care Butcher Assistant Name Role Phone Raad Adams MD Primary Care Provider [phone] Encounter Details Date Type Department Care Team (Late st Contact Info) Description 01/10/2025 Scanned Document [facility] SCHEDULING [address] [place] [address] Provider, historical . Social History Tobacco Use Types Packs/Day Years Used Date Smoking Tobacco: Every Day Cigarettes [facility] Utilities Answer Date Recorded In the past 12 months has [employer], gas, oil, or water [employer] threatened to shut off services in your [...] your living situation today? I have a [facility] place to live 09/12/2024 Housing Stability [...] PM EST Telemedicine [facility] [address] [address] Malachi Reyna MD [address] [phone] documented as of this encounter Goals Goal Patient Goal Type Associated Problems Recent Progress Patient-Stated? Author [facility] Spine Task Goal Care Plan AMB LM SPINE PROBLEM No Eve Stovall, RN [facility] Spine Smoking Cessation Goal Care Plan AMB [facility] SPINE SMOKING CESSATION PROBLEM No Stanislav [...] CC LMH SPINE PROBLEM 08/19/2024 AMB CC [facility] SPINE SMOKING CESSATION PROBLEM 08/30 documented as of this encounter Care Teams Butcher Assistant Relationship Specialty Start Date End Date Raad Adams MD [address] [facility] [address] [place] [address] PCP - General Internal Medicine 06/20/24 documented as of this encounter
--- OUTSIDE RECORDS SUMMARY | 2025-03-17 17:56 | XMS_ITS | Encounter Summary ---
Author Organization [facility] Address [address] [place] [address] Care Team Providers Care Lab Rep Name Role Phone Raad Adams MD Primary Care Provider [phone] Encounter Details Date Type Department Care Team (Late st Contact Info) Description 09/28/2024 Lab Requisition [facility] - Main Lab [address] [facility] [place] [address] Goldy Martell MD [address] [place] [phone] Dysuria Social History Tobacco Use Types Packs/Day [...] ) ANA LILIA 10/01/2024 7:46 AM EDT [facility] Comment: Edited result: Previously reported as Proteus species on 09/29/2024 at 1014 EDT. Urine Urine specimen obtained by clean catch procedure / Unknown Non-blood Collection / Unknown 09/27/2024 12:38 PM EDT 09/28/2024 12:18 PM EDT Narrative Organism Antibiotic Method Susceptibility Proteus mirabilis Amoxicillin/Clavulanate ANA LILIA 4 ug/ml: Susceptible Proteus mirabilis Ampicillin/Sulbactam ANA LILIA <=2 ug/ml: Susceptible Proteus mirabilis Piperacillin/Tazobactam ANA [...] MICROBIOLOGY - GENERAL ORD ERABLES Final Result [facility] [address] [place] [address], * (ABNORMAL) Urinalysis with reflex microscopic and culture (09/27/2024 12:38 PM EDT) Specific [place] Urine 1.026 1.003 - 1.030 LAB URINALYSIS - AUTOMATED METHOD 09/28/2024 12:18 PM [facility] pH, Urine >=9.0(A) 5.0 - 8.0 pH LAB URINALYSIS - AUTOMATED METHOD 09/28/2024 12:18 PM [facility] Leukocytes, Urine Large(A) Negative LAB URINALYSIS - AUTOMATED METHOD 09/28/2024 12:18 PM [facility] Nitrite, Urine Negative Negative LAB URINALYSIS - AUTOMATED METHOD 09/28/2024 12:18 PM [facility] Protein, Urine 300(A) <=Trace mg/dL LAB URINALYSIS - AUTOMATED METHOD 09/28/2024 12:18 PM [facility] Glucose, Urine Negative Negative mg/dL LAB URINALYSIS - AUTOMATED METHOD 09/28/2024 12:18 PM [facility] Ketones, Urine Negative Negative mg/dL LAB URINALYSIS - AUTOMATED METHOD 09/28/2024 12:18 PM [facility] Urobilinogen, Urine 0.2 0.2 - 1.0 mg/dL LAB URINALYSIS - AUTOMATED METHOD 09/28/2024 12:18 PM [facility] Bilirubin, Urine Negative Negative LAB URINALYSIS - AUTOMATED METHOD 09/28/2024 12:18 PM [facility] Blood, Urine Negative Negative LAB URINALYSIS - AUTOMATED METHOD 09/28/2024 12:18 PM [facility] RBC, Urine 2.6 0 - 4 /HPF LAB URINALYSIS - AUTOMATED METHOD 09/28/2024 12:18 PM [facility] WBC, Urine 14.2(H) 0 - 4 /HPF LAB URINALYSIS - AUTOMATED METHOD 09/28/2024 12:18 PM [facility] Squamous Epithelial, Urine 85(H) 0 - 60 /LPF LAB URINALYSIS - AUTOMATED METHOD 09/28/2024 12:18 PM EDT [facility] Bacteria, Urine Many(A) Negative /HPF LAB URINALYSIS - AUTOMATED METHOD 09/28/2024 12:18 PM EDT [facility] Hyaline Casts, Urine 9.2(H) 0 - 3 /LPF LAB URINALYSIS - AUTOMATED METHOD 09/28/2024 12:18 PM EDT [facility] Urine Urine specimen obtained by clean catch procedure / Unknown Non-blood Collection / Unknown 09/27/2024 12:38 PM EDT 09/28/2024 11:18 AM EDT us Goldy Martell MD LAB URINE ORDERABLES Final Res ult Performing Organization Address [facility]/ZIP Co de Phone Number [facility] [address] [place] [address], [place] [phone] * De Santiago urine culture tube (09/27/2024 12:38 PM EDT) Extra Tube Hold for add-ons. 09/28/2024 1:01 PM EDT [facility] Comment:Auto resulted. Urine Urine specimen obtained by clean catch procedure / Unknown Non-blood Collection / Unknown 09/27/2024 12:38 PM EDT 09/28/2024 11:18 AM EDT us Goldy Martell MD LAB URINE ORDERABLES Final Res ult Performing Organization Address [facility]/ZIP Nj de Phone Number [facility] [address] [place] [address], [place] [phone] documented in this encounter Visit Diagnoses Diagnosis Dysuria documented in this encounter Care Teams Lab Rep Relationship Specialty Start Date End Date Raad Adams MD [address] PCP - General Internal Medicine 02/26/24 documented as of this encounter
--- OUTSIDE RECORDS SUMMARY | 2025-03-17 17:56 | XMS_ITS | Encounter Summary ---
Author Organization [facility] Address [address] [place] [address] Care Team Providers Care Waste Water Operator Name Role Phone Raad Adams MD Primary Care Provider [phone] Reason for Visit * Reason Onset Date Comments Other 09/10/2024 Encounter Details Date Type Department Care Team ([facility] st Contact Info) Description 09/10/2024 Telephone Neurosurgery at [address] [place] [address] Malachi Reyna MD [address] [place] [phone] Other Social History Tobacco Use Types Packs/Day Years Used Date Smoking Tobacco: Every Day Cigarettes [facility] Utilities Answer Date Recorded In the [...] - 09/26/2024 1:06 PM EDT Copied from [facility] #[id number]. Topic: General Inquiry - General Inquiry >> [...] 04/02/2025 1:30 PM EST Telemedicine Neurosurgery at [address] [place] [address] Malachi Reyna MD [address] [place] [phone] documented as of this encounter Goals Goal Patient Goal Type Associated Problems Recent Progress Patient-Stated? Author [facility] Spine Task Goal Care Plan [facility] SPINE PROBLEM No Eve Stovall, RN [facility] Spine Smoking Cessation Goal Care Plan [facility] SPINE SMOKING CESSATION PROBLEM No Stanislav Campbell RN documented as of this encounter Visit Diagnoses Not on filedocumented in this encounter Additional Health Concerns Active Problems Noted Date Diagnosed Date AMB LM SPINE PROBLEM 08/19/2024 [facility] SPINE SMOKING CESSATION PROBLEM 08/30 documented as of this encounter Care Teams Waste Water Operator Relationship Specialty Start Date End Date Raad Adams MD [address] [phone] PCP - General Internal Medicine 06/20/24 documented as of this encounter
--- OUTSIDE RECORDS SUMMARY | 2025-03-17 17:57 | XMS_ITS | Data Portability ---
Author Organization [facility], Main Office Address [address] [place] [address] Care Team Providers Care Vice President Industrial Relations Name Role Phone RAAD DIEHL Primary Care Provider [phone] [facility] [place] Nutrit ionist [facility] PHYSICAL[facility] ERAPY (SIM BUSBY) Orthopedic Surgeon [facility] GASTROENTEROLOGY Manager Of Revenue CAROL REYNA Orthopedic Surgeon VIKAS AGEE Vascular Surgeon Assessment Encounter Date Assessment Date Assessment LastModified by Organization Details LastModified Time 01/10/2025 01/10/2025 This service was provided using telemedicine (Counts include 234 beds at the [facility]). The patient consented and was seen through synchronous audio and video technology. If audio only connection was used, the provider used telephone communication. Patient was located at home in the [facility]. Provider was located in the office. [...] transvers e myelitis. 2024 025 AARTI Agee, [address] [place] [address] Dr, 2nd [facility] 203, DIANA Nguyen, [address], 02/27/2025 14:12:33 Procedures None recorded. Surgeries None recorded. Imaging None recorded. Medication Orders None recorded. Patient TargetsNo targets recorded. Patient Instructions Encounter Date Encounter Id Patient Instructions Last Modified By Organization Details Last Modified Time 01/10/2025 [id number] deciding about using medicines to quit smoking [...] Abnormal Flag Note LastModifiedBy Organization Detail LastModifiedTime 09/19/19 25 09/18/2024 CBC WITH AUTO DIFFE RENTI AL WBC 11.5 K/mcL 4.8-10 .8 high Not Available [facility]/S Dept [address] [place], [address], 09/18/2024 11:13:54 09/19/19 25 09/18/2024 CBC WITH AUTO DIFFE RENTI AL RBC 6.40 M/mcL 4.50-5 .50 high Not Available [facility] Dept [address] [place], [address], 09/18/2024 11:13:54 09/19/19 25 09/18/2024 CBC WITH AUTO DIFFE RENTI AL hemoglobin 17.4 g/dL 13.5-1 7.5 Not Available [facility] Dept [address] [place], [address], 09/18/2024 11:13:54 09/19/19 25 09/18/2024 CBC WITH AUTO DIFFE RENTI AL hematocrit 55.4 % 42.0-5 4.0 high Not Available [facility]/S Dept [address] [place] [address], [address], 09/18/2024 11:13:54 09/19/19 25 09/18/2024 CBC WITH AUTO DIFFE RENTI AL MCV 86.0 fL 79.0-9 8.0 Not Available [facility] [address] [place] [address], [address], 09/18/2024 11:13:54 09/19/19 25 09/18/2024 CBC WITH AUTO DIFFE RENTI AL MCH 27.0 pcg 27.0-3 2.0 Not Available [facility] [address] [place] [address], [address], 09/18/2024 11:13:54 09/19/19 25 09/18/2024 CBC WITH AUTO DIFFE RENTI AL MCHC 31.4 g/dL 32.0-3 7.0 low Not Available [facility] [address] [place] [address], [address], 09/18/2024 11:13:54 09/19/19 25 09/18/2024 CBC WITH AUTO DIFFE RENTI AL RDW 14.2 % 11.0-1 5.0 Not Available [facility] [address] [place] [address], [address], 09/18/2024 11:13:54 09/19/19 25 09/18/2024 CBC WITH AUTO DIFFE RENTI AL platelets 197 K/mcL 130-40 0 Not Available [facility] [address] [place] [address], [address], 09/18/2024 11:13:54 09/19/19 25 09/18/2024 CBC WITH AUTO DIFFE RENTI AL MPV 10.8 fL 7.0-11 .0 Not Available [facility] [address] [place], [place] [address]y [place], [address], 09/18/2024 11:13:54 09/19/19 25 09/18/2024 CBC WITH AUTO DIFFE RENTI AL NRBC 0.0 % <1.0 Not Available [facility] [address] [place], [place] [address]y [facility], [address], 09/18/2024 11:13:54 09/19/19 25 09/18/2024 CBC WITH AUTO DIFFE RENTI AL NRBC absolute 0.00 K/mcL <0.10 Not Available [facility] [address] [place], [place] [address]y [facility], [address], 09/18/2024 11:13:54 09/19/19 25 09/18/2024 CBC WITH AUTO DIFFE RENTI AL neutrophils relative 59.6 % Not Available [facility] [address] [place] [place] [address] [place], [address], 09/18/2024 11:13:54 09/19/19 25 09/18/2024 CBC WITH AUTO DIFFE RENTI AL lymphocytes relative 30.4 % Not Available [facility] [address] [place] [address] [place], [address], 09/18/2024 11:13:54 09/19/19 25 09/18/2024 CBC WITH AUTO DIFFE RENTI AL monocytes relative 8.2 % Not Available [facility] [address] [place] [address] [place], [address], 09/18/2024 11:13:54 09/19/19 25 09/18/2024 CBC WITH AUTO DIFFE RENTI AL eosinophils relative 1.2 % Not Available [facility] [address] [place], [place] [address] [place] [address], 09/18/2024 11:13:54 09/19/19 25 09/18/2024 CBC WITH AUTO DIFFE RENTI AL basophils relative 0.3 % Not Available [facility] [address] [place] [address] [place], [address], 09/18/2024 11:13:54 09/19/19 25 09/18/2024 CBC WITH AUTO DIFFE RENTI AL immature granulocytes relative 0.3 % Not Available [facility] [address] [place] [address], [place], [address], 09/18/2024 11:13:54 09/19/19 25 09/18/2024 CBC WITH AUTO DIFFE RENTI AL neutrophils absolute 6.85 K/mcL 1.50-7 .00 Not Available [facility] [address] [place] [address] [place], [address], 09/18/2024 11:13:54 09/19/19 25 09/18/2024 CBC WITH AUTO DIFFE RENTI AL lymphocytes absolute 3.51 K/mcL 1.00-5 .00 Not Available [facility] [address] [place] [address] [place], [address], 09/18/2024 11:13:54 09/19/19 25 09/18/2024 CBC WITH AUTO DIFFE RENTI AL monocytes absolute 0.95 K/mcL 0.20-1 .00 Not Available [facility] [address] [place] [address] [place], [address], 09/18/2024 11:13:54 09/19/19 25 09/18/2024 CBC WITH AUTO DIFFE RENTI AL eosinophils absolute 0.14 K/mcL 0.00-0 .50 Not Available [facility] [address] [place] [address] [place], [address], 09/18/2024 11:13:54 09/19/19 25 09/18/2024 CBC WITH AUTO DIFFE RENTI AL basophils absolute 0.04 K/mcL 0.00-0 .20 Not Available [facility] [address] [place] [address], [address], 09/18/2024 11:13:54 09/19/19 25 09/18/2024 CBC WITH AUTO DIFFE RENTI AL immature granulocytes absolute 0.04 K/mcL 0.00-0 .03 high Not Available [facility] [address] [place] [address], [address], 09/18/2024 11:13:54 09/19/19 25 09/18/2024 CBC WITH AUTO DIFFE RENTI AL note See Report high [facility], [address], [place], [place] [facility] [address] Not Available [facility] [address] [place] [address], [address], 09/18/2024 11:13:54 09/19/19 25 09/18/2024 MAGNE SIUM magnesium 2.0 mg/dL 1.9-2. 6 Not Available [facility] [address] [place] [address], [address], 09/18/2024 12:17:43 09/19/19 25 09/18/2024 MAGNE SIUM note See Report [facility], [address], [place] gfiel d, [place] [address] Not Available [facility] [address] [place] [address], [address], 09/18/2024 12:17:43 09/19/19 25 09/18/2024 COMPR EHENS QIANA METAB OLIC PANEL sodium 136 mmol/ L 133-14 5 Not Available [facility] [address] [place] [address], [address], 09/18/2024 12:33:01 09/19/19 25 09/18/2024 COMPR EHENS QIANA METAB OLIC PANEL potassium 4.5 mmol/ L 3.5-5. 5 Not Available [facility] [place] [place], [address], 09/18/2024 12:33:01 09/19/19 25 09/18/2024 COMPR EHENS QIANA METAB OLIC PANEL chloride 99 mmol/ L 96-110 Not Available [facility] [place] [place], [address], 09/18/2024 12:33:01 09/19/19 25 09/18/2024 COMPR EHENS QIANA METAB OLIC PANEL CO2 27 mmol/ L 21-32 Not Available [facility] [address] [place], [place] [address], [address], 09/18/2024 12:33:01 09/19/19 25 09/18/2024 COMPR EHENS QIANA METAB OLIC PANEL anion gap 10 3-11 Not Available [facility] [address] [place], [address], 09/18/2024 12:33:01 09/19/19 25 09/18/2024 COMPR EHENS QIANA METAB OLIC PANEL glucose 135 mg/dL 70-100 high Not Available [facility] [address] [place], [place] [address] [place] [facility], [address], 09/18/2024 12:33:01 09/19/19 25 09/18/2024 COMPR EHENS QIANA METAB OLIC PANEL BUN 22 mg/dL 5-25 Not Available [facility] [address] [place], [place] [address] [facility], [address], 09/18/2024 12:33:01 09/19/19 25 09/18/2024 COMPR EHENS QIANA METAB OLIC PANEL creatinine 1.10 mg/dL 0.70-1 .30 Not Available [facility] Dept [address] [place] [address] [place], [address], 09/18/2024 12:33:01 09/19/19 25 09/18/2024 COMPR EHENS QIANA METAB OLIC PANEL eGFR 74 mL/mi n/1.7 3m2 >=60 Calcu latio n based on the Chron ic Kidne y Disea se Epide miolo gy Colla borat ion (CKD- EPI) equat ion refit witho ut adjus tment for race. Not Available [facility]/S Dept [address] [place] [address], [address], 09/18/2024 12:33:01 09/19/19 25 09/18/2024 COMPR EHENS QIANA METAB OLIC PANEL BUN/creatini ne ratio 20.0 Not Available [facility]/S Dept [address] [place], [place] [address], [place], [address], 09/18/2024 12:33:01 09/19/19 25 09/18/2024 COMPR EHENS QIANA METAB OLIC PANEL calcium 10.0 mg/dL 8.5-10 .5 Not Available [facility]/S Dept [address] [place], [place] [address], [place], [address], 09/18/2024 12:33:01 09/19/19 25 09/18/2024 COMPR EHENS QIANA METAB OLIC PANEL AST (SGOT) 19 unit/ L 10-42 Not Available [facility]/S Dept [address] [place] [address] [place], [address], 09/18/2024 12:33:01 09/19/19 25 09/18/2024 COMPR EHENS QIANA METAB OLIC PANEL ALT (SGPT) 32 unit/ L 10-60 Not Available [facility] [place], [address], 09/18/2024 12:33:01 09/19/19 25 09/18/2024 COMPR EHENS QIANA METAB OLIC PANEL alkaline phosphatase 85 unit/ L 42-121 Not Available [facility] [address] [place] [facility] [place], [address], 09/18/2024 12:33:01 09/19/19 25 09/18/2024 COMPR EHENS QIANA METAB OLIC PANEL total protein 6.9 g/dL 6.0-8. 0 Not Available [facility] [address] [place] [facility], [address], 09/18/2024 12:33:01 09/19/19 25 09/18/2024 COMPR EHENS QIANA METAB OLIC PANEL albumin 3.7 g/dL 3.2-5. 0 Not Available [facility] [place], [address], 09/18/2024 12:33:01 09/19/19 25 09/18/2024 COMPR EHENS QIANA METAB OLIC PANEL total bilirubin 0.4 mg/dL 0.0-1. 4 Not Available [facility] [address] [place] [address] [place], [address], 09/18/2024 12:33:01 09/19/19 25 09/18/2024 COMPR EHENS QIANA METAB OLIC PANEL note See Report [facility], [address], [place]fiel [place], [place] [address] Not Available [facility]/S Dept [facility] [place], [address], 09/18/2024 12:33:01 09/20/19 25 09/19/2024 CBC WITH AUTO DIFFE RENTI AL WBC 9.4 K/mcL 4.8-10 .8 Not Available [facility]/S Dept [facility] [place], [address], 09/19/2024 10:21:34 09/20/19 25 09/19/2024 CBC WITH AUTO DIFFE RENTI AL RBC 6.50 M/mcL 4.50-5 .50 high Not Available [facility] [address] [place], [place] [address] [place] [facility], [address], 09/19/2024 10:21:34 09/20/19 25 09/19/2024 CBC WITH AUTO DIFFE RENTI AL hemoglobin 17.6 g/dL 13.5-1 7.5 high Not Available [facility] [address] [place] [address] [place] [facility], [address], 09/19/2024 10:21:34 09/20/19 25 09/19/2024 CBC WITH AUTO DIFFE RENTI AL hematocrit 55.9 % 42.0-5 4.0 high Not Available [facility] [address] [place] [address] [place], [address], 09/19/2024 10:21:34 09/20/19 25 09/19/2024 CBC WITH AUTO DIFFE RENTI AL MCV 86.1 fL 79.0-9 8.0 Not Available [facility] [address] [place] [address] [place], [address], 09/19/2024 10:21:34 09/20/19 25 09/19/2024 CBC WITH AUTO DIFFE RENTI AL MCH 27.1 pcg 27.0-3 2.0 Not Available [facility] [address] [place], [place] [address], [address], 09/19/2024 10:21:34 09/20/19 25 09/19/2024 CBC WITH AUTO DIFFE RENTI AL MCHC 31.5 g/dL 32.0-3 7.0 low Not Available [address] [place], [address], 09/19/2024 10:21:34 09/20/19 25 09/19/2024 CBC WITH AUTO DIFFE RENTI AL RDW 13.7 % 11.0-1 5.0 Not Available [address] [place], [address], 09/19/2024 10:21:34 09/20/19 25 09/19/2024 CBC WITH AUTO DIFFE RENTI AL platelets 226 K/mcL 130-40 0 Not Available [facility]/[address] [place], [address], 09/19/2024 10:21:34 09/20/19 25 09/19/2024 CBC WITH AUTO DIFFE RENTI AL MPV 11.5 fL 7.0-11 .0 high Not Available [address], [address], 09/19/2024 10:21:34 09/20/19 25 09/19/2024 CBC WITH AUTO DIFFE RENTI AL NRBC 0.0 % <1.0 Not Available [facility]/S [address], [address], 09/19/2024 10:21:34 09/20/19 25 09/19/2024 CBC WITH AUTO DIFFE RENTI AL NRBC absolute 0.00 K/mcL <0.10 Not Available [address], [address], 09/19/2024 10:21:34 09/20/19 25 09/19/2024 CBC WITH AUTO DIFFE RENTI AL neutrophils relative 56.9 % Not Available [place] [id number] [place] [facility], [address], 09/19/2024 10:21:34 09/20/19 25 09/19/2024 CBC WITH AUTO DIFFE RENTI AL lymphocytes relative 32.7 % Not Available [facility] [address] [place] [address] [place], [address], 09/19/2024 10:21:34 09/20/19 25 09/19/2024 CBC WITH AUTO DIFFE RENTI AL monocytes relative 7.5 % Not Available [facility] [address] [place] [address] [place], [address], 09/19/2024 10:21:34 09/20/19 25 09/19/2024 CBC WITH AUTO DIFFE RENTI AL eosinophils relative 1.9 % Not Available [facility] [address] [place] [address] [place], [address], 09/19/2024 10:21:34 09/20/19 25 09/19/2024 CBC WITH AUTO DIFFE RENTI AL basophils relative 0.5 % Not Available [facility] [address] [place] [address] [place], [address], 09/19/2024 10:21:34 09/20/19 25 09/19/2024 CBC WITH AUTO DIFFE RENTI AL immature granulocytes relative 0.5 % Not Available [facility] [address] [place] [address] [place], [address], 09/19/2024 10:21:34 09/20/19 25 09/19/2024 CBC WITH AUTO DIFFE RENTI AL neutrophils absolute 5.34 K/mcL 1.50-7 .00 Not Available [facility] [address] [place] [address] [place], [address], 09/19/2024 10:21:34 09/20/19 25 09/19/2024 CBC WITH AUTO DIFFE RENTI AL lymphocytes absolute 3.07 K/mcL 1.00-5 .00 Not Available [facility] [address] [place] [address], [address], 09/19/2024 10:21:34 09/20/19 25 09/19/2024 CBC WITH AUTO DIFFE RENTI AL monocytes absolute 0.70 K/mcL 0.20-1 .00 Not Available [facility] [address] [place] [address], [address], 09/19/2024 10:21:34 09/20/19 25 09/19/2024 CBC WITH AUTO DIFFE RENTI AL eosinophils absolute 0.18 K/mcL 0.00-0 .50 Not Available [facility] [address] [place] [address], [address], 09/19/2024 10:21:34 09/20/19 25 09/19/2024 CBC WITH AUTO DIFFE RENTI AL basophils absolute 0.05 K/mcL 0.00-0 .20 Not Available [facility] [address] [place] [address], [address], 09/19/2024 10:21:34 09/20/19 25 09/19/2024 CBC WITH AUTO DIFFE RENTI AL immature granulocytes absolute 0.05 K/mcL 0.00-0 .03 high Not Available [facility] [address] [place] [address], [address], 09/19/2024 10:21:34 09/20/19 25 09/19/2024 CBC WITH AUTO DIFFE RENTI AL note See Report high [facility], [address], [place]ette[place] gfiel d, [place] [address] Not Available [facility]/S Dept [address] [place] [address], [address], 09/19/2024 10:21:34 09/26/19 25 09/25/2024 COMPL ETE BLOOD COUNT WBC 12.5 K/mcL 4.8-10 .8 high Not Available [facility]/S Dept [facility] [place], [address], 09/25/2024 10:12:37 09/26/19 25 09/25/2024 COMPL ETE BLOOD COUNT RBC 5.50 M/mcL 4.50-5 .50 Not Available [facility] [address] [place] [address] [place], [address], 09/25/2024 10:12:37 09/26/19 25 09/25/2024 COMPL ETE BLOOD COUNT hemoglobin 14.7 g/dL 13.5-1 7.5 Not Available [facility] [address] [place] [address] [place] [facility], [address], 09/25/2024 10:12:37 09/26/19 25 09/25/2024 COMPL ETE BLOOD COUNT hematocrit 46.6 % 42.0-5 4.0 Not Available [facility] [address] [place] [place], [address], 09/25/2024 10:12:37 09/26/19 25 09/25/2024 COMPL ETE BLOOD COUNT MCV 85.2 fL 79.0-9 8.0 Not Available [facility] [address] [place] [address] [place] [facility], [address], 09/25/2024 10:12:37 09/26/19 25 09/25/2024 COMPL ETE BLOOD COUNT MCH 26.9 pcg 27.0-3 2.0 low Not Available [facility] [address] [place] [address] [place] [facility], [address], 09/25/2024 10:12:37 09/26/19 25 09/25/2024 COMPL ETE BLOOD COUNT MCHC 31.5 g/dL 32.0-3 7.0 low Not Available [address] [place], [address], 09/25/2024 10:12:37 09/26/19 25 09/25/2024 COMPL ETE BLOOD COUNT RDW 13.2 % 11.0-1 5.0 Not Available [address], [address], 09/25/2024 10:12:37 09/26/19 25 09/25/2024 COMPL ETE BLOOD COUNT platelets 197 K/mcL 130-40 0 Not Available [address], [address], 09/25/2024 10:12:37 09/26/19 25 09/25/2024 COMPL ETE BLOOD COUNT MPV 11.2 fL 7.0-11 .0 high Not Available [address], [address], 09/25/2024 10:12:37 09/26/19 25 09/25/2024 COMPL ETE BLOOD COUNT NRBC 0.0 % <1.0 Not Available [facility] [address] [place] [address], [address], 09/25/2024 10:12:37 09/26/19 25 09/25/2024 COMPL ETE BLOOD COUNT NRBC absolute 0.00 K/mcL <0.10 Not Available [facility] [address] [place] [address], [address], 09/25/2024 10:12:37 09/26/19 25 09/25/2024 COMPL ETE BLOOD COUNT note See Report [facility], [address], [place]ettein gfiel d, [place] [address] Not Available [facility]/S Dept [facility] [place], [address], 09/25/2024 10:12:37 09/26/19 25 09/25/2024 BASIC METAB OLIC PANEL sodium 136 mmol/ L 133-14 5 Not Available [facility] [address] [place] [address] [place], [address], 09/25/2024 10:42:53 09/26/19 25 09/25/2024 BASIC METAB OLIC PANEL potassium 4.0 mmol/ L 3.5-5. 5 Not Available [facility] [address] [place] [address] [place], [address], 09/25/2024 10:42:53 09/26/19 25 09/25/2024 BASIC METAB OLIC PANEL chloride 99 mmol/ L 96-110 Not Available [facility] [address] [place], [place] [address], [address], 09/25/2024 10:42:53 09/26/19 25 09/25/2024 BASIC METAB OLIC PANEL CO2 28 mmol/ L 21-32 Not Available [facility] [address] [place] [address] [place], [address], 09/25/2024 10:42:53 09/26/19 25 09/25/2024 BASIC METAB OLIC PANEL anion gap 9 3-11 Not Available [facility]/S Dept [facility] [place], [address], 09/25/2024 10:42:53 09/26/19 25 09/25/2024 BASIC METAB OLIC PANEL glucose 117 mg/dL 70-100 high Not Available [facility]/S Dept [address] [place] [address] [place], [address], 09/25/2024 10:42:53 09/26/19 25 09/25/2024 BASIC METAB OLIC PANEL BUN 19 mg/dL 5-25 Not Available [facility]/S Dept [address] [place], [address], 09/25/2024 10:42:53 09/26/19 25 09/25/2024 BASIC METAB OLIC PANEL creatinine 1.05 mg/dL 0.70-1 .30 Not Available [facility]/S Dept [address] [place], [place] [address], [address], 09/25/2024 10:42:53 09/26/19 25 09/25/2024 BASIC METAB OLIC PANEL eGFR 78 mL/mi n/1.7 3m2 >=60 Calcu latio n based on the Chron ic Kidne y Disea se Epide miolo gy Colla borat ion (CKD- EPI) equat ion refit witho ut adjus tment for race. Not Available [facility]/ Dept [address] [place], [place] [address], [address], 09/25/2024 10:42:53 09/26/19 25 09/25/2024 BASIC METAB OLIC PANEL BUN/creatini ne ratio 18.1 Not Available [facility] [address] [place] [address] [place], [address], 09/25/2024 10:42:53 09/26/19 25 09/25/2024 BASIC METAB OLIC PANEL calcium 9.3 mg/dL 8.5-10 .5 Not Available [facility]/ Dept [address] [place] [address] [place], [address], 09/25/2024 10:42:53 09/26/19 25 09/25/2024 BASIC METAB OLIC PANEL note See Report [facility], [address], [place]ettein [place], [place] [facility] [place] [address] Not Available [facility]/S Dept [address] [place], [place] [address], [address], 09/25/2024 10:42:53 09/26/19 25 09/25/2024 TREPO NEMA PALLI DUM ANTIB ZECHARIAH WITH REFLE X TO RPR AND PARTI JORDY AGGLU TINAT ION T. pallidum antibodies Positi ve negati ve abnormal Not Available [facility]/S Dept [address] [place], [place] [address], [address], 09/25/2024 11:41:39 09/26/19 25 09/25/2024 TREPO NEMA PALLI DUM ANTIB ZECHARIAH WITH REFLE X TO RPR AND PARTI JORDY AGGLU TINAT ION note See Report abnormal [facility], [address], Spr[place] gfiel d, [facility] [address] Not Available [facility]/S Dept [address] [place], [place] [address], [address], 09/25/2024 11:41:39 09/26/19 25 09/25/2024 RAPID PLASM A REAGI N WITH REFLE X TO TITER RPR Reacti ve nonrea ctive abnormal Not Available [facility]/S Dept [address] [place], [place] [address]minda [facility] [place], [address], 09/25/2024 14:29:10 09/26/19 25 09/25/2024 RAPID PLASM A REAGI N WITH REFLE X TO TITER note See Report abnormal [facility], [address], [place], [facility] [place] [address] Not Available [facility]/S Dept [address] [place], [place] [address], [address], 09/25/2024 14:29:10 09/26/19 25 09/25/2024 RAPID PLASM A REAGI N TITER rapid plasma reagin titer 1:64 nonrea ctive abnormal Not Available [facility]/S Dept [address] [place], [place] [address], [address], 09/25/2024 14:44:40 09/26/19 25 09/25/2024 RAPID PLASM A REAGI N TITER note See Report abnormal [facility], [address], [place]iel [place], [place] [address] Not Available [facility] U/S Dept [address] [place] [address] [place], [address], 09/25/2024 14:44:40 09/27/19 25 09/26/2024 CBC WITH AUTO DIFFE RENTI AL WBC 11.1 K/mcL 4.8-10 .8 high Not Available [facility] [address] [place] [address] [place], [address], 09/26/2024 09:11:21 09/27/19 25 09/26/2024 CBC WITH AUTO DIFFE RENTI AL RBC 5.60 M/mcL 4.50-5 .50 high Not Available [facility]/S Dept [address] [place] [address] [place], [address], 09/26/2024 09:11:21 09/27/19 25 09/26/2024 CBC WITH AUTO DIFFE RENTI AL hemoglobin 15.1 g/dL 13.5-1 7.5 Not Available [facility] [address] [place] [address] [place], [address], 09/26/2024 09:11:21 09/27/19 25 09/26/2024 CBC WITH AUTO DIFFE RENTI AL hematocrit 48.3 % 42.0-5 4.0 Not Available [facility] [address] [place] [address] [place], [address], 09/26/2024 09:11:21 09/27/19 25 09/26/2024 CBC WITH AUTO DIFFE RENTI AL MCV 85.6 fL 79.0-9 8.0 Not Available [facility] [address] [place], [place] [address]Mar[place], [address], 09/26/2024 09:11:21 09/27/1909/26/2024 CBC WITH AUTO DIFFE RENTI AL MCH 26.8 pcg 27.0-3 2.0 low Not Available [facility] [address] [place] [address] Lamontminda [facility], [address], 09/26/2024 09:11:21 09/27/1909/26/2024 CBC WITH AUTO DIFFE RENTI AL MCHC 31.3 g/dL 32.0-3 7.0 low Not Available [address] [facility], [address], 09/26/2024 09:11:21 09/27/1909/26/2024 CBC WITH AUTO DIFFE RENTI AL RDW 13.0 % 11.0-1 5.0 Not Available [address] Lamont[place] [facility], [address], 09/26/2024 09:11:21 09/27/1909/26/2024 CBC WITH AUTO DIFFE RENTI AL platelets 208 K/mcL 130-40 0 Not Available [facility]/[address], [address], 09/26/2024 09:11:21 09/27/1909/26/2024 CBC WITH AUTO DIFFE RENTI AL MPV 11.3 fL 7.0-11 .0 high Not Available [address], [address], 09/26/2024 09:11:21 09/27/19 25 09/26/2024 CBC WITH AUTO DIFFE RENTI AL NRBC 0.0 % <1.0 Not Available [facility] [address] [place], [place] [address]y, [place], [address], 09/26/2024 09:11:21 09/27/1909/26/2024 CBC WITH AUTO DIFFE RENTI AL NRBC absolute 0.00 K/mcL <0.10 Not Available [facility]/S [facility] [place], [address], 09/26/2024 09:11:21 09/27/1909/26/2024 CBC WITH AUTO DIFFE RENTI AL neutrophils relative 68.5 % Not Available [facility] Papito MiguelMaría [place], [address], 09/26/2024 09:11:21 09/27/1909/26/2024 CBC WITH AUTO DIFFE RENTI AL lymphocytes relative 22.6 % Not Available [facility] [address] [place], [place] [address]ont[place]ía [place], [address], 09/26/2024 09:11:21 09/27/19 25 09/26/2024 CBC WITH AUTO DIFFE RENTI AL monocytes relative 6.6 % Not Available [facility] Papito MiguelMaría [place], [address], 09/26/2024 09:11:21 09/27/1909/26/2024 CBC WITH AUTO DIFFE RENTI AL eosinophils relative 1.4 % Not Available [facility] [address] [place], [place] [address] Lam[place] [facility], [address], 09/26/2024 09:11:21 09/27/19 25 09/26/2024 CBC WITH AUTO DIFFE RENTI AL basophils relative 0.5 % Not Available [facility] [address] [place], [place] [address], [address], 09/26/2024 09:11:21 09/27/19 25 09/26/2024 CBC WITH AUTO DIFFE RENTI AL immature granulocytes relative 0.4 % Not Available [facility] [address] [place], [place] [address], [address], 09/26/2024 09:11:21 09/27/1909/26/2024 CBC WITH AUTO DIFFE RENTI AL neutrophils absolute 7.61 K/mcL 1.50-7 .00 high Not Available [facility] [address] [place], [place] [address], [address], 09/26/2024 09:11:21 09/27/1909/26/2024 CBC WITH AUTO DIFFE RENTI AL lymphocytes absolute 2.51 K/mcL 1.00-5 .00 Not Available [facility] [address] [place], [place] [address], [address], 09/26/2024 09:11:21 09/27/1909/26/2024 CBC WITH AUTO DIFFE RENTI AL monocytes absolute 0.73 K/mcL 0.20-1 .00 Not Available [facility] [address] [place], [place] [address]Natty [place], [address], 09/26/2024 09:11:21 09/27/1909/26/2024 CBC WITH AUTO DIFFE RENTI AL eosinophils absolute 0.16 K/mcL 0.00-0 .50 Not Available [facility] [address] [place], [place] [address]Mar[place], [address], 09/26/2024 09:11:21 09/27/1909/26/2024 CBC WITH AUTO DIFFE RENTI AL basophils absolute 0.05 K/mcL 0.00-0 .20 Not Available [facility] [address] [place], [place] [address], [address], 09/26/2024 09:11:21 09/27/1909/26/2024 CBC WITH AUTO DIFFE RENTI AL immature granulocytes absolute 0.04 K/mcL 0.00-0 .03 high Not Available [facility]/S Dept [address] [place], [place] [address]y [facility], [address], 09/26/2024 09:11:21 09/27/19 25 09/26/2024 CBC WITH AUTO DIFFE RENTI AL note See Report high [facility], [address], [place]iel d, [place] [address] Not Available [facility]/S Dept [address] [place], [place] [address]y [facility], [address], 09/26/2024 09:11:21 09/29/1909/27/2024 URINA LYSIS WITH REFLE X MICRO SCOPI C AND CULTU RE specific gravity urine 1.026 1.003- 1.030 Not Available [facility] [address] [place], [place] [address]ySan [place], [address], 09/28/2024 12:19:16 09/29/19 25 09/27/2024 URINA LYSIS WITH REFLE X MICRO SCOPI C AND CULTU RE pH, urine >=9.0 pH 5.0-8. 0 abnormal Not Available [facility] [address] [place], [place] [address]y[place], [address], 09/28/2024 12:19:16 09/29/1909/27/2024 URINA LYSIS WITH REFLE X MICRO SCOPI C AND CULTU RE leukocytes, urine Large negati ve abnormal Not Available [facility] [address] [place], [place] [address]y[place], [address], 09/28/2024 12:19:16 09/29/1909/27/2024 URINA LYSIS WITH REFLE X MICRO SCOPI C AND CULTU RE nitrite, urine Negati ve negati ve Not Available [facility]/S Dept [address] [place], [place] [address]y[place], [address], 09/28/2024 12:19:16 09/29/1909/27/2024 URINA LYSIS WITH REFLE X MICRO SCOPI C AND CULTU RE protein, urine 300 mg/dL <=trac e abnormal Not Available [facility]/S Dept [address] [place] [address] Pkwy, [place], [address], 09/28/2024 12:19:16 09/29/1909/27/2024 URINA LYSIS WITH REFLE X MICRO SCOPI C AND CULTU RE glucose, urine Negati ve mg/dL negati ve Not Available [facility]/S Dept [address] [place] [address] Pkwy, [place], [address], 09/28/2024 12:19:16 09/29/1909/27/2024 URINA LYSIS WITH REFLE X MICRO SCOPI C AND CULTU RE ketones, urine Negati ve mg/dL negati ve Not Available [facility]/S Dept [address] [place] [address] Pkwy, [place], [address], 09/28/2024 12:19:16 09/29/1909/27/2024 URINA LYSIS WITH REFLE X MICRO SCOPI C AND CULTU RE urobilinogen , urine 0.2 mg/dL 0.2-1. 0 Not Available [facility]/S Dept [address] [place] [address] Pkwy, [place], [address], 09/28/2024 12:19:16 09/29/1909/27/2024 URINA LYSIS WITH REFLE X MICRO SCOPI C AND CULTU RE bilirubin, urine Negati ve negati ve Not Available [facility]/S Dept [address] [place] [address] Pkwy, [place], [address], 09/28/2024 12:19:16 09/29/1909/27/2024 URINA LYSIS WITH REFLE X MICRO SCOPI C AND CULTU RE blood, urine Negati ve negati ve Not Available [facility]/S Dept [address] [place], [place] [address], [place], [address], 09/28/2024 12:19:16 09/29/19 25 09/27/2024 URINA LYSIS WITH REFLE X MICRO SCOPI C AND CULTU RE RBC, urine 2.6 /hpf 0-4 Not Available [facility] U/S Dept [address] [place], [place] [address]y [place], [address], 09/28/2024 12:19:16 09/29/19 25 09/27/2024 URINA LYSIS WITH REFLE X MICRO SCOPI C AND CULTU RE WBC, urine 14.2 /hpf 0-4 high Not Available [facility] U/S Dept [address] [place], [place] [address]y, [place], [address], 09/28/2024 12:19:16 09/29/19 25 09/27/2024 URINA LYSIS WITH REFLE X MICRO SCOPI C AND CULTU RE squamous epithelial, urine 85 /lpf 0-60 high Not Available [facility]/S Dept [address] [place], [place] [address]y, [place], [address], 09/28/2024 12:19:16 09/29/19 25 09/27/2024 URINA LYSIS WITH REFLE X MICRO SCOPI C AND CULTU RE bacteria, urine Many /hpf negati ve abnormal Not Available [facility]/S Dept [address] [place], [place] [address]y, [place], [address], 09/28/2024 12:19:16 09/29/1909/27/2024 URINA LYSIS WITH REFLE X MICRO SCOPI C AND CULTU RE hyaline casts, urine 9.2 /lpf 0-3 high Not Available [facility] U/S Dept [address] [place] [facility] [place], [address], 09/28/2024 12:19:16 09/29/19 25 09/27/2024 URINA LYSIS WITH REFLE X MICRO SCOPI C AND CULTU RE note See Report high [facility], [address], [place]iel d, [place] [address] Not Available [facility]/S Dept [address] [place] [address] Pkwy, [place], [address], 09/28/2024 12:19:16 09/29/19 25 09/28/2024 BASIC METAB OLIC PANEL sodium 135 mmol/ L 133-14 5 Not Available [facility]/S Dept [address] [place] [address] Pkwy, [place], [address], 09/28/2024 12:26:07 09/29/19 25 09/28/2024 BASIC METAB OLIC PANEL potassium 4.7 mmol/ L 3.5-5. 5 Not Available [facility] [address] [place], [place] [address], [address], 09/28/2024 12:26:07 09/29/19 25 09/28/2024 BASIC METAB OLIC PANEL chloride 98 mmol/ L 96-110 Not Available [facility] [address] [place], [place] [address]wy, [place], [address], 09/28/2024 12:26:07 09/29/19 25 09/28/2024 BASIC METAB OLIC PANEL CO2 32 mmol/ L 21-32 Not Available [facility]/S Dept [address] [place] [address] [facility], [address], 09/28/2024 12:26:07 09/29/19 25 09/28/2024 BASIC METAB OLIC PANEL anion gap 5 3-11 Not Available [facility]/S Dept [address] [place] [address] [place], [address], 09/28/2024 12:26:07 09/29/19 25 09/28/2024 BASIC METAB OLIC PANEL glucose 139 mg/dL 70-100 high Not Available [facility] [place], [address], 09/28/2024 12:26:07 09/29/19 25 09/28/2024 BASIC METAB OLIC PANEL BUN 25 mg/dL 5-25 Not Available [facility] [address] [place], [place] [address], [address], 09/28/2024 12:26:07 09/29/19 25 09/28/2024 BASIC METAB OLIC PANEL creatinine 1.11 mg/dL 0.70-1 .30 Not Available [facility] [place], [address], 09/28/2024 12:26:07 09/29/19 25 09/28/2024 BASIC METAB OLIC PANEL eGFR 73 mL/mi n/1.7 3m2 >=60 Calcu latio n based on the Chron ic Kidne y Disea se Epide miolo gy Colla borat ion (CKD- EPI) equat ion refit witho ut adjus tment for race. Not Available [facility] [place], [address], 09/28/2024 12:26:07 09/29/1909/28/2024 BASIC METAB OLIC PANEL BUN/creatini ne ratio 22.5 Not Available [facility] [address] [place], [place] [address], [address], 09/28/2024 12:26:07 09/29/19 25 09/28/2024 BASIC METAB OLIC PANEL calcium 9.1 mg/dL 8.5-10 .5 Not Available [facility] [address] [place], [place] [address], [address], 09/28/2024 12:26:07 09/29/19 25 09/28/2024 BASIC METAB OLIC PANEL note See Report [facility], [address], [place]any crowley d, [place] [address] Not Available [facility] Dept [address] [facility] [place], [address], 09/28/2024 12:26:07 10/02/19 25 09/27/2024 CULTU RE URINE culture, urine PROTEU S MIRABI LIS abnormal >100, 000 CFU/m L Prote us mirab ilis Edite d resul t: Previ ously repor scot as Prote us speci es on 2024 at 1014 EDT. Not Available [facility] Dept [address] [facility], [place], [address], 10/01/2024 07:48:42 10/02/19 25 09/27/2024 CULTU RE URINE report Susce ptibi lity [...] Islt ANA LILIA 20 S Not Available [facility]/S Dept [address] [place], [address], 10/01/2024 07:48:42 10/02/19 25 10/01/2024 CULTU RE URINE .note See Note Origi nal Order ing Provi oj: ISAIAH EVANS L [facility] - Labor atory - [address] [facility], Dany crowley d, [place] [address] Not Available [facility]/S Dept [address] [place], [address], 10/01/2024 07:48:42 01/07/20 25 01/07/2025 COMP. METAB OLIC PANEL (14) glucose 106 mg/dL 70-99 above high normal Not Available [facility] ([facility]) [address] [place], [address], 01/07/2025 08:07:39 01/07/20 25 01/07/2025 COMP. METAB OLIC PANEL (14) BUN 22 mg/dL 8-27 normal Not Available [facility] ([facility]) [address] [place], [address], 01/07/2025 08:07:39 01/07/20 25 01/07/2025 COMP. METAB OLIC PANEL (14) creatinine 1.08 mg/dL 0.76-1 .27 normal Not Available [facility] ([facility]) [address] [place], [address], 01/07/2025 08:07:39 01/07/20 25 01/07/2025 COMP. METAB OLIC PANEL (14) eGFR 75 mL/mi n/1.7 3 >59 normal Not Available [facility] ([facility]) [address] [facility] [place], [address], 01/07/2025 08:07:39 01/07/20 25 01/07/2025 COMP. METAB OLIC PANEL (14) BUN/creatini ne ratio 20 10-24 normal Not Available [facility] ([facility]) [address] [place], [address], 01/07/2025 08:07:39 01/07/20 25 01/07/2025 COMP. METAB OLIC PANEL (14) sodium 141 mmol/ L 134-14 4 normal Not Available [facility] ([facility]) [address] [place], [address], 01/07/2025 08:07:39 01/07/20 25 01/07/2025 COMP. METAB OLIC PANEL (14) potassium 4.7 mmol/ L 3.5-5. 2 normal Not Available [facility] ([facility]) [address] [place], [address], 01/07/2025 08:07:39 01/07/20 25 01/07/2025 COMP. METAB OLIC PANEL (14) chloride 100 mmol/ L 96-106 normal Not Available [facility] ([facility]) [address] [place], [address], 01/07/2025 08:07:39 01/07/20 25 01/07/2025 COMP. METAB OLIC PANEL (14) carbon dioxide, total 24 mmol/ L 20-29 normal Not Available [facility] ([facility]) [address] [place], [address], 01/07/2025 08:07:39 01/07/20 25 01/07/2025 COMP. METAB OLIC PANEL (14) calcium 10.0 mg/dL 8.6-10 .2 normal Not Available [facility] ([facility]) [address] [place], [address], 01/07/2025 08:07:39 01/07/20 25 01/07/2025 COMP. METAB OLIC PANEL (14) protein, total 6.7 g/dL 6.0-8. 5 normal Not Available [facility] ([facility]) [address] [place], [address], 01/07/2025 08:07:39 01/07/20 25 01/07/2025 COMP. METAB OLIC PANEL (14) albumin 4.3 g/dL 3.9-4. 9 normal Not Available [facility] ([facility]) [address] [place], [address], 01/07/2025 08:07:39 01/07/20 25 01/07/2025 COMP. METAB OLIC PANEL (14) globulin, total 2.4 g/dL 1.5-4. 5 Not Available [facility] ([facility]) [address] [place], [address], 01/07/2025 08:07:39 01/07/20 25 01/07/2025 COMP. METAB OLIC PANEL (14) bilirubin, total 0.3 mg/dL 0.0-1. 2 normal Not Available [facility] ([facility]) [address] [place], [address], 01/07/2025 08:07:39 01/07/20 25 01/07/2025 COMP. METAB OLIC PANEL (14) alkaline phosphatase 83 IU/L 47-123 normal Ple ase note refer ence inter carla gavin e Not Available [facility] ([facility]) [address] [place], [address], 01/07/2025 08:07:39 01/07/20 25 01/07/2025 COMP. METAB OLIC PANEL (14) AST (SGOT) 26 IU/L 0-40 normal Not Available [facility] ([facility]) [address] [facility], [place], [address], 01/07/2025 08:07:39 01/07/2001/07/2025 COMP. METAB OLIC PANEL (14) ALT (SGPT) 27 IU/L 0-44 normal Not Available [facility] ([facility]) [address] [facility], [place], [address], 01/07/2025 08:07:39 01/07/2001/07/2025 HEMOG LOBIN A1C hemoglobin A1C 6.7 % 4.8-5. 6 above high normal Predi abete s: 5.7 - 6.4 Diabe brian: >6.4 Glyce ana lilia contr ol for adult s with diabe brian: <7.0 Not Available [facility] ([facility]) [address] [place], [address], 01/07/2025 08:07:40 01/07/2001/07/2025 PROST ATE-S PECIF IC [...] kits canno t be used inter alonso eabetyy . Resul ts canno t be inter prete d as absol cait evide nce of the prese nce or absen ce of ronnie darling disea se. Not Available [facility] ([facility]) [address] [facility], [place], [address], 01/07/2025 14:06:35 01/17/20 25 2025 MRI, thora cic spine , w/o contr ast No observ ation record ed. [facility] [place] [address] [place], [address], 01/17/2025 05:47:12 01/17/20 25 2025 MRI, cervi amy spine , w/o contr ast No observ ation record ed. AARTI [facility] [place] [address] [place], [address], 01/17/2025 05:47:12 01/17/20 25 2025 MRI, lumba r spine , w/o contr ast No observ ation record ed. rossy [facility] [address] [place], [address], 01/16/2025 09:43:57 03/17/2003/17/2025 imagi ng/di agnos tic resul t No observ ation record ed. [facility] (Medical Records) [address] [facility], [place], [address], 03/17/2025 17:05:19 Result Notes None recorded. Problems Name Problem SNOMED Code Status Onset Date Resolution Date Notes Provider Name and Address Organization Details Recorded Time Snoring 98140157 Completed 06/20/2016 Raad Diehl MD [address], [place], [address] , [facility] 14:28:12 Early satiety [id number] Completed 06/20/2016 Raad Diehl MD [address], [address] , [facility] 14:27:44 Low back pain [id number] Completed 06/20/2016 Raad Diehl MD [address], [address] , [facility] 14:27:30 Dermatop hytosis 25482332 Completed 06/20/2016 Raad Diehl MD [address], [place], [address] , [facility] 14:27:55 Impaired fasting glycemia 617986017 Completed 04/20/2018 Raad Diehl MD [address], [place], [address] , [facility] 12:42:51 Pleural effusion associat ed with pulmonar y infectio n [id number] Completed 10/21/2019 Raad Diehl MD [address], [place], [address] , [facility] 13:19:10 Acute endocard itis 22962753 Completed 10/21/2019 Raad Diehl MD [address], [place], [address] , [facility] 13:24:31 Pain of hip region [id number] Completed 201211/25/2013 IMPRESSI ON: SUSPECT SEVER ARTHRITI S SOURCE. NEEDS BETTER IMAGING WITH RADILOLO GIST REVIEW WELL ORTHO CONSULT. CONTINUE PRN NSAIDS FOR SYMPTOM RELIEF.; RECORDED 03/25/20 13 11:18AM BY CHRISTINE THOMAS MA, ANNOTATI ON/ADDEN DUM Not Available [facility] 4 05:26:41 Pain of hip region 60814130 Completed 201210/29/2013 IMPRESSI ON: SUSPECT SEVER ARTHRITI S SOURCE. NEEDS BETTER IMAGING WITH RADILOLO GIST REVIEW WELL ORTHO CONSULT. CONTINUE PRN NSAIDS FOR SYMPTOM RELIEF.; RECORDED 03/25/20 13 11:18AM BY CHRISTINE THOMAS MA, ANNOTATI ON/ADDEN DUM Not Available [facility] 4 14:13:54 Benign neoplasm of colon 72026094 Active 2013 Not Available [facility] 4 08:35:47 Adult health examinat ion Completed [...] SOLER MA, ANNOTATI ON/ADDEN DUM Not Available [facility] 4 05:26:41 Administ ration of diphther ia and tetanus vaccine Completed 201311/25/2013 RECORDED 04/23/19 14 2:50PM BY DENA SOLER MA, ANNOTATI ON/ADDEN DUM Not Available [facility] 4 05:26:42 Adult health examinat ion Completed 201310/29/2013 IMPRESSI ON: WILL UPDATE IMMUNIZA TION STATUS (PT DECLINES FLU AND PNEUMOVA X) AND SCREEN BASED ON RISK FACTORS. REGULAR DENTAL CARE AND SEATBELT USE ADVISED. DISTRACT ED DRIVING DISCUSSE D. OVERDUE FOR COLON CANCER SCREENIN G, PROSTATE CANCER SCREENIN G NOW UTD.; RECORDED 04/23/19 14 2:51PM BY DENA SOLER MA, NATATI ON/ADDEN DUM Not Available [facility] 4 14:13:54 Tobacco dependen ce syndrome [id number] Completed 201310/29/2013 RECORDED 04/23/19 14 2:51PM BY DENA SOLER MA, ANNOTATI ON/ADDEN DUM Raad Diehl MD [address] [facility] [address], [facility] [place], [address] , [facility] 7 14:28:23 Obesity 078722138 Completed 201310/29/2013 RECORDED 04/23/19 14 2:51PM BY DENA SOLER MA, ANNOTATI ON/ADDEN DUM Holley lutz, [facility] 9 16:15:11 Administ ration of diphther ia and tetanus vaccine Completed 201310/29/2013 RECORDED 04/23/19 14 2:50PM BY DENA SOLER MA, ANNOTATI ON/ADDEN DUM Not Available [facility] 4 14:13:55 Screenin g for malignan t neoplasm of colon Completed 201311/25/2013 RECORDED 05/27/19 14 10:10AM BY MELINDA BISHOP MA, ANNOTATI ON/ADDEN DUM Not Available [facility] 4 05:26:41 Screenin g for malignan t neoplasm of colon Completed 201310/29/2013 RECORDED 05/27/19 14 10:10AM BY MELINDA BISHOP MA, ANNOTATI ON/ADDEN DUM Not Available [facility] 4 14:13:54 Tobacco dependen ce syndrome 81199050 Active 2013 Not Available [facility] 4 08:35:47 Divertic ular disease of colon 410600665 Completed 201307/03/2018 Raad Diehl MD [address] [facility] [address], [place], [address] , [facility] 13:44:23 Internal hemorrho ids 71759912 Active 2013 Not Available [facility] 4 08:35:47 Pure hypercho lesterol emia 402707938 Active 2013 Not Available [facility] 4 08:35:46 Essentia l hyperten librado 08749149 Completed 201306/20/[address] [facility] 1 15:04:45 Immuniza tion refused Completed 201303/18/2014 RECORDED 05/27/19 14 10:11AM BY MELINDA BISHOP MA, OFFICE VISIT João lutz [facility] 4 12:30:05 Obesity 640770895 Completed 201306/20/2016 IMPRESSI ON: [facility]IA L [facility] TONY Goodson DIET AND EXERCISE HABITS ADVISED. ; RECORDED 05/27/19 14 10:11AM BY MELINDA BISHOP MA, OFFICE VISIT Holley lutz, [facility] 9 16:15:11 Pre-surg bev evaluati on Completed 201302/18/2015 IMPRESSI ON: MICHAELLE IS AT LOW CARDIOPU LMONARY RISK FOR THIS PROCEDUR E. NO FURTHER TESTING INDICATE D BEFORE SURGERY; RECORDED 05/27/19 14 11:00AM BY GAYATRI SILVESTRE, OFFICE VISIT Raad Diehl MD [address], [place], [address] , [facility] 11:20:02 Follow-u p encounte r Completed 201310/29/2013 RECORDED 06/19/19 14 8:39AM BY ATIF MERINO RN, TRANSITI ON OF CARE Not Available [facility] 4 14:13:54 Follow-u p encounte r Completed 201303/18/2014 RECORDED 06/25/19 14 11:36AM BY ATIF MERINO RN, PHONE ENCOUNTE R João lutz, [facility] 4 12:30:05 Osteoart hritis of hip 364351069 Completed 201306/20/2016 Raad Diehl MD [address] [facility] [address], [place], [address] , [facility] 7 14:27:19 Multiple nodules of lung 075121853 Active 2015 Not Available [facility] 4 08:35:47 Cyst of pancreas 35456928 Completed 201506/28/2017 Raad Diehl MD [address] [facility] [address], [place], [address] , [facility] 16:04:44 Abscess of buttock 20227757 Completed 201506/20/2016 Raad Diehl MD [address], [place], [address] , [facility] 14:16:00 Pleural effusion 24050122 Completed 201506/20/2016 right Raad Diehl MD [address], [place], [address] , [facility] 14:16:21 Obstruct qiana sleep apnea syndrome 86754303 Active 2015 moderate Not Available [facility] 4 08:35:47 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 032608421 Completed 201506/20/2016 Raad Diehl MD [address], [place], [address] , [facility] 15:14:06 Septic pulmonar y embolism 116613203 Completed 201606/20/2016 Raad Diehl MD [address], [place], [address] , [facility] 14:15:54 Psoriasi s 6475979 Active 2016 Not Available [facility] 4 08:35:47 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 356080280 Completed 201606/28/2017 Raad Dielh MD [address], [place], [address] , [facility] 15:14:06 Hiatal hernia 24583864 Active 2016 Not Available [facility] 4 08:35:47 Acute duodenal ulcer 214538769 Completed 201606/28/2017 Raad Diehl MD [address], [place], [address] , [facility] 15:36:57 History of methicil mckenna resistan t Staphylo coccus aureus infectio n 499386570 Active 2017 Not Available [facility] 4 08:35:47 History of duodenal ulcer 091715395 Active 2017 Not Available [facility] 4 08:35:46 Cyst of pancreas 77731813 Active 2017 needs 1 yr f/u Not Available [facility] 4 08:35:46 Type 2 diabetes mellitus 84504243 Completed 201807/13/2018 DIANA Trevino, [facility] 1 14:58:25 Bacterem ia caused by Methicil mckenna resistan t Staphylo coccus aureus 52027810448 113128 Completed 201807/03/2018 Raad Diehl MD [address], [place], [address] , [facility] 13:43:44 Divertic ular disease 207493894 Active 2018 Not Available [facility] 4 08:35:46 Obesity 570112946 Active 2018 Not Available [facility] 4 08:35:46 Uncontro lled type 2 diabetes mellitus 927958565 Completed 201802/16/2021 DIANA Trevino, [facility] 1 14:58:19 Chronic kidney disease stage 2 579409001 Completed 201805/23/[address] [facility] 3 12:37:21 Chronic kidney disease stage 3 744952747 Completed 201805/05/2020 Raad Diehl MD [address], [place], [address] , [facility] 15:25:49 Chronic kidney disease stage 2 433525169 Active 2018 Not Available [facility] 4 08:35:47 Microalb uminuria 051596675 Active 2018 Not Available [facility] 4 08:35:46 History of gastriti s 52131405501 9103 Active 2018 Not Available [facility] 4 08:35:47 Renal disorder due to type 2 diabetes mellitus 698758675 Active 2018 Not Available [facility] 4 08:35:46 Lumbar spondylo sis 162395220 Active 2019 Not Available [facility] 4 08:35:46 Type 2 diabetes mellitus 26549766 Completed 201902/16/2021 Christine Thomas [facility], [facility] 1 14:58:25 History of endocard itis 130846497 Active 2019 Not Available [facility] 4 08:35:46 Epiderma l inclusio n cyst of eyelid 788394018 Completed 201908/23/2022 Raad Diehl MD [address] [address], [place], [address] , [facility] 16:19:52 Pulmonar y emphysem a 70843588 Active 2019 Not Available [facility] 4 08:35:47 Hyperten sive renal disease 86400592 Completed 202008/26/2024 Raad Diehl MD [address] [address], [place], [address] , [facility] 16:37:34 Chronic kidney disease stage 3A 804309422 Completed 202001/26/2023 Rada Diehl MD [address] [address], [address] , [facility] 07:23:49 Diabetic peripher al neuropat hy 231724012 Active 2020 Not Available [facility] 4 08:35:46 Phimosis 503343272 Completed 202109/14/2022 Raad Diehl MD [address] [address], [place], [address] , [facility] 16:32:59 Vitamin D deficien cy 78011447 Active 2022 Not Available [facility] 4 08:35:46 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 40886278106 25702 Active 2022 Not Available [facility] 4 08:35:46 Steatoti c liver disease 797680928 Active 2022 Not Available [facility] 4 08:35:46 Large prostate 785304480 Active 2022 Not Available [facility] 4 08:35:46 Atherosc lerosis of aorta 83367732 Active 2022 Not Available [facility] 4 08:35:47 Inguinal hernia 750624667 Active 2022 fat containi ng bilatera l Not Available [facility] 4 08:35:46 Abdomina l aortic ectasia 07652725557 9101 Active 2022 2.7cm infraren al Not Available [facility] 4 08:35:46 Intermit tent claudica tion 36008897 Active 2022 Raad Diehl MD [address] [facility] [address], [place], [address] , [facility] 14:41:56 Ventricu lar prematur e complex 583523951 Completed 202208/26/2024 Raad Diehl MD [address] [facility] [address], [place], [address] , [facility] 16:04:03 Hyperlip idemia 73507093 Active 2023 Christine Balderrama PA-C [address] [facility] [address], [place], [address] , [facility] 4 15:49:01 Hypercal cemia 14436302 Active 2023 Christine Balderrama PA-C [address], [place], [address] , [facility] 4 18:12:20 Hyperkal emia 18474439 Completed 202308/26/2024 Raad Diehl MD [address], [place], [address] , [facility] 16:04:17 Morbid obesity 880964984 Active 2023 Raad Diehl MD [address], [place], [address] , [facility] 4 15:26:33 Body mass index 30+ - obesity 412107088 Active 2023 aRad Diehl MD [address], [place], [address] , [facility] 4 15:34:28 Mass of pancreas 986025069 Active 2023 Raad Diehl MD [address], [place], [address] , [facility] 4 17:10:54 Unequal blood pressure in arms 465699089 Active 2023 Raad Diehl MD [address], [place], [address] , [facility] 4 17:11:29 Calcific ation of coronary artery 151470656 Active 2023 Raad Diehl MD [address], [place], [address] , [facility] 4 06:47:29 Acute transver se myelitis 96577017 Active 2023 Raad Diehl MD [address], [place], [address] , [facility] 17:50:15 Lumbar radiculo jeanie 709623978 Active 2023 right L5 Raad Diehl MD [address] [facility], [place], [address] , [facility] 4 07:05:29 Hypoalbu minemia 911982559 Active 2023 Raad Diehl MD [address] [facility] [address], [place], [address] , [facility] 4 15:04:50 Transver se myelopat hy syndrome 78943380 Active 2024 Christine Balderrama PA-C [address] [address], [place], [address] , [facility] 15:20:40 History of syphilis 65761615068 15782 Active 2024 Raad Diehl MD [address] [address], [place], [address] , [facility] 11:02:19 Left hemipare sis 833236706 Active 2024 Raad Diehl MD [address] [address], [place], [address] , [facility] 14:01:47 Degenera tion of cervical interver tebral disc 33926948 Active 2024 C5-C7 Raad Diehl MD [address] [facility] [address], [place], [address] , [facility] 17:08:04 Spinal stenosis in cervical region 25123593 Active 2024 C5/C6 Raad Diehl MD [address] [facility] [address], [place], [address] , [facility] 5 17:44:30 Stenosis of interver tebral foramina 79270678123 9 Active 2024 Raad Diehl MD [address] [facility] [address], [place], [address] , [facility] 17:44:40 Peripher al vascular disease 622319873 Active 2024 Raad Diehl MD [address] [facility] [address], [place], [address] , [facility] 10:16:00 Venous insuffic iency of lower limb 822345350 Active 2024 Raad Diehl MD [address] [facility] [address], [place], [address] , [facility] 10:16:12 Notes:Some problems listed i n Document: #[id number] could not be added to this patient's chart. Please review this document and add these problems to the patient's chart manually as needed. Problem Notes None recorded. Procedures Surgical History Date Name Laterality Status Provider Name and Address Organization Details Recorded Time 09/13/19 25 osteotomy and discectomy of cervical spine by anterior approach completed Raad Diehl MD [address] [address], [place], [address], [facility] 01/15/2025 20:12:54 02/05/20 24 Diabetic Foot Exam (Monofilament) completed Raad Diehl MD [address] [address], [place], [address], [facility] 02/05/2024 17:07:41 12/12/19 24 Colonoscopy completed Sarah Tuttle [facility] 12/14/2023 08:56:06 02/17/20 21 Diabetic Foot Exam (Monofilament) completed Raad Diehl MD [address], [address], [facility] 02/16/2021 16:15:27 07/04/19 21 Diabetic Foot Exam (Monofilament) completed Dena lee [place] [facility] 07/03/2020 13:38:58 11/08/19 20 biopsy of eyelid completed Raad Diehl MD [address] [address], [place], [address], [facility] 11/20/2019 18:56:48 06/17/19 20 Diabetic Foot Exam (Monofilament) completed Idania Morales [facility] 06/17/2019 09:17:42 07/04/19 19 Diabetic Foot Exam (Monofilament) completed Raad Diehl MD [address] [address], [place], [address], [facility] 07/03/2018 14:13:41 05/28/19 19 Diabetic Foot Exam (Monofilament) completed Neha Wheeler [facility] 05/28/2018 13:15:14 04/12/20 18 transesophageal echocardiography completed Raad Diehl MD [address] [address], [place], [address], [facility] 04/20/2018 13:30:23 04/09/20 18 Echo transthoracic completed Raad Diehl MD [address] [address], [place], [address], [facility] 04/20/2018 13:28:52 02/28/20 17 Colonoscopy completed Christine Thomas [facility] 06/28/2017 14:46:56 02/28/20 17 Egd diagnostic brush wash completed Raad Diehl MD [address] [address], [place], [address], [facility] 03/07/2017 13:43:07 01/09/20 16 Dbrdmt ecz/infected skin<10% completed Raad Diehl MD [address], [address], [facility] 06/21/2016 15:30:01 03/26/20 14 Orthopedic Surgery completed Raad Diehl MD [address] [address], [place], [address], [facility] 04/01/2014 22:22:42 02/01/20 14 Orthopedic Surgery completed Raad Diehl MD [address] [facility] [address], [place], [address], [facility] 02/18/2015 11:16:33 Imaging Results None recorded. Procedure Notes None recorded. Medical Equipment None Reported. Allergies Allergen ID Allergen Name Allergen Category Reaction Reaction Severity Criticality Documentation Date Start Date Code Code System Note Provider Name and Address Organization Details Recorded Time 5369 No known allergy (situatio n) Not available Not available Not available Not available 10/29/20132012 [id number] SNOMED Not Available [facility] 08:35:47 No known drug allergies Medications Name [...] Available Not Available FreeStyle Yehuda 14 Day [place] Take 1 each every day by miscell. [...] WEEK pt STATES HE is now .5 [email or web address] completed Not Available Not Available Not Available Vitals Date Recorded Body height Systolic And Diastolic Provider Name and Address Organization Details Last Updated DateTime 10/14/2024 175.9 cm 118/70 mm[Hg] Jordy Orourke [facility] 10/14/2024 13:32:03 Date Recorded Body height Provider Name an d Address Organization Details Last Updated DateTime 01/10/2025 175.9 cm Jessa Burdick MA [facility] [place] 01/10/2025 13:50:43 Social History Question Answer Notes LastModified by Organizat ion Details LastModified Time Tobacco Smoking Status Current Every Day Smoker Not Available [facility] 02/18/2020 03:36:36 Do You Have An Advance Directive? Yes HCP/ -She [email or web address] Information not available 12/23/2021 Is Blood Transfusion Acceptable In An Emergency? Yes [id number] Information not available 02/18/2020 What Is Your Level Of Caffeine Consumption? Moderate Coffee [id number] Information not available 02/18/2020 How Much Tobacco Do You Chew? None [id number] Information not available 02/18/2020 What Type Of Diet Are You Following? REGULAR [id number] Information not available 02/18/2020 Which Illicit Or Recreational Drugs Have You Used? None [id number] Information not available 02/18/2020 Live Alone Or [...] Of Your Most Recent Tobacco Screening? 01/10/2025 [email or web address] Information not available 01/10/2025 How Many Children Do You Have? 2 1 Son (Skyler ) And 1 Dtr (Lazara) Information not available 02/05/2024 What Is Your Current Pack Years? 30ormorepack years [email or web address] Information not available 12/23/2021 Do You Use Protection During Sex? Usually Information not available 02/16/2021 Do You Use Your Seat Belt Or Car Seat Routinely? Yes Information not available 02/16/2021 Seat Belts Used Routinely No [email or web address] Information not available 12/23/2021 Are You Sexually Active? Yes [id number] Information not available 02/18/2020 Smoke Alarm In Home Yes [email or web address] Information not available 12/23/2021 Do You Have Smoke And Carbon Monoxide Detectors In Your Home? Yes Information not available 02/16/2021 At What Age Did You Start Smoking Tobacco? 14 1976 Information not available 08/26/2024 Are You Passively Exposed To Smoke? Yes Information not available 06/28/2017 How Much Tobacco Do You Smoke? 1 PPD [id number] Information not available 02/18/2020 Do You Use Sunscreen Routinely? No [id number] Information not available 02/18/2020 How Many Years Have You Smoked Tobacco? 51 Information not available 08/26/2024 Sex: Unknown Functional Status Question Answer Note LastModified by Organizat ion Details LastModified Time Do you use any illicit or recreational drugs? No Information not available 12/23/2021 Do you or have you ever used any other forms of tobacco or nicotine? No [email or web address] Information not available 12/23/2021 What is your level of alcohol consumption? Occasional [id number] Information not available 02/18/2020 Do you or have you ever used smokeless tobacco? Never used smokeless tobacco [id number] Information not available 02/18/2020 Are you currently employed? 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 YESWOREST [email or web address] Information not available 12/23/2021 Are you able to care for yourself independently? Yes [id number] Information not available 02/18/2020 What is your occupation? Other AARTI Information not available 07/14/2024 Do you or have you ever used e-cigarettes or vape? Never used electronic cigarettes [email or web address] Information not available 12/23/2021 What is your exercise level? Occasional Golf [employer] Information not available 08/23/2022 Mental Status None recorded. Family History Relationship Description Onset Age of this Age Resolved Age Notes LastModified by Organization Details LastModified Time Mother Hypertensive disorder [email or web address] Not available 2015 10:46:56 Mother Congestive heart failure [email or web address] Not available 12/23 13:51:29 Mother Asthma [email or web address] Not available 10:46:56 Mother Diabetes mellitus abolcun Not available 2015 10:46:56 Father Early gastric cancer [email or web address] Not available 12/23 13:51:29 Son Well adult [email or web address] Not avail able 12/23/2021 13:51:29 Daughter Well adult [email or web address] Not nathan ilable 12/23/2021 13:51:29 Medical History [...] quadrivalent, preservative 6 completed Sarah Tuttle null, [facility] 04/28/2023 08:42:58 Influenza, split virus, quadrivalent, preservative 7 completed Sarah Tuttle null, [facility] 04/28/2023 08:42:58 pneumococcal polysaccharide PPV23 8 completed Sarah Tuttle null, [facility] 04/28/2023 08:42:58 Influenza, split virus, quadrivalent, PF 5 completed Sarah Tuttle null, [facility] 04/28/2023 08:42:58 Influenza, split virus, quadrivalent, PF 8 completed Sarah Tuttle null, [facility] 04/28/2023 08:42:58 Tdap 2 completed Sarah Tuttle null, [facility] 04/28/2023 08:42:58 pneumococcal polysaccharide PPV23 6 completed Sarah Tuttle null, [facility] 04/28/2023 08:42:58 Influenza, split virus, quadrivalent, preservative 0 completed Sarah Tuttle null, [facility] 04/28/2023 08:42:58 zoster recombinant 0 completed Sarah Tuttle null, [facility] 04/28/2023 08:42:58 COVID-19, mRNA, LNP-S, PF, 100 mcg/0.5mL dose or 50 mcg/0.25mL dose 1 completed Sarah Tuttle null, [facility] 04/28/2023 08:42:58 COVID-19, mRNA, LNP-S, PF, 100 mcg/0.5mL dose or 50 mcg/0.25mL dose 1 completed Sarah Tuttle null, [facility] 04/28/2023 08:42:58 Influenza, split virus, quadrivalent, PF 7 completed Sarah Tuttle null, [facility] 04/28/2023 08:42:58 COVID-19, mRNA, LNP-S, PF, 100 mcg/0.5mL dose or 50 mcg/0.25mL dose 1 completed Sarah Tuttle null, [facility] 04/28/2023 08:42:58 Influenza, recombinant, quadrivalent, PF 0 completed Sarah Tuttle null, [facility] 04/28/2023 08:42:58 Influenza, split virus, quadrivalent, PF 1 completed Sarah Tuttle null, [facility] 04/28/2023 08:42:58 RSV, recombinant, protein subunit RSVpreF, adjuvant reconstituted, 0.5 mL, PF 4 completed Dena cobian [place] null, [facility] 08/08/2023 14:48:37 COVID-19, mRNA, LNP-S, PF, 50 mcg/0.5 mL 4 completed Sarah Tuttle [facility] 04/28/2023 08:42:58 Td (adult), 5 Lf tetanus toxoid, preservative free, adsorbed 5 completed Sarah lutz, [facility] 04/28/2023 08:42:58 Tdap 3 completed Sarah lutz, [facility] 04/28/2023 08:42:58 Td (adult), 2 Lf tetanus toxoid, preservative free, adsorbed 3 completed Raad Diehl MD [address] [address], [place], [address], [facility] 09/14/2022 16:31:07 Influenza, high-dose, quadrivalent, PF 3 completed Holley lutz, [facility] 01/27/2023 12:38:37 Influenza, high-dose, trivalent, PF 4 completed Raad Diehl MD [address], [place], [address], [facility] 02/05/2024 16:55:18 Past Encounters Encounter ID Performer Location Encounter Start Date Encounter Closed Date Diagnosis/Indication Diagnosis SNOMED-CT Code Diagnosis ICD10 Code Diagnosis IMO Codes Diagnosis Note [id number] autoEComm erce [id number] [facility] [employer] [place] [address] 01/21/2013 00:00:00 [id number] autoEComm erce [address] [facility] [employer] [place] [address] 03/25/2013 00:00:00 [id number] autoEComm erce [address] [facility] [employer] [place] [address] 05/27/2013 00:00:00 [id number] ANNEMARIE Silvestre Main Office [address] [place] [address] 03/19/2014 10:52:07 03/19/2014 11:52:39 Pre-surgery evaluation [id number] Michaelle is at low cardiopulm onary risk for this procedure. no further testing indicated. Osteoarthritis of hip 447880047 worsening. will be getting surgery Essential hypertension 65795224 stable. stay on same meds. [id number] ANNEMARIE Silvestre Main Office [address] [address] [place] [address] 08/20/2014 12:34:02 08/20/2014 13:26:17 Respiratory crackles 58043154 likely pneumonia. will treat with abx. if not improving he will call for cxr order Snoring [id number] Raad Diehl MD Main Office [address] [facility] [address] [facility] [place] [address] 02/18/2015 10:29:08 02/18/2015 11:41:55 Adult health examination [id number] Z00.00 Will update immunizati on status short of pneumovax whihc ptr deferred. Will screen based on risk factors. Regula ophtho care advised as well as seatbelt and sunscreen use. Distracted driving discussed. Advance directives in place. Needs infl uenza immunization [id number] Z23 Body mass index 30+ - obesity 129087095 E66.9 Screening for malignant neoplasm of lung 630636613 Z12.2 Pt qualifies for screening. Snoring 70143733 R06.83 Will refer back for sleep study. based on severity of symptoms. Essential hypertension 14938839 I10 Better on recheck. Will continue to follow. Pure hypercholesterolemia 679348075 E78.0 Overdue for assessment . Will likely qualify for statin rx if numbers are similar to those from 2013. Early satiety 399990955 R68.81 Low back pain 250450733 M54.5 Call/come in for formal eval if persistent /worse. Tobacco de pendence syndrome 07384754 F17.290 Pt is precontemp lative. Resources to help discuss/pr ovided. Will call when ready to quit and if assistance is needed. [id number] Raad Diehl MD Main Office [address] [facility] [address] [facility] [place] [place] [address] 07/13/2015 10:32:25 07/13/2015 11:32:00 Essential hypertension 70245200 I10 Better today, not on meds. Possibly related to NSAID use. Will monitor. Dermatophytosis 56391102 B35.9 Most suspicious for tinea based on location and appearance . Less likely eczema. Will use steroid cream only if oral antifungal does not help. Systemic antifungal being use given degree of skin involvemen t. Call inb/worse. If neither tx helps will need derm referral. Impaired f asting glycemia 615416786 R73.01 Long temr potential health consequenc es discussed. Healthier diet and exercise habits advised. Will monitor. [id number] Raad Diehl MD Main Office [address] [facility] [address] [facility] [place] [place] [address] 02/11/2016 13:36:00 02/11/2016 15:08:25 Abscess of buttock 76583748 L02.31 On wound vac, done with abx 02/24. Having weekly labs done and monitoring with ID. Pleural effusion 6950897 8 J90 Resolved, no further interventi ons needed per CT surgery. Multiple-r esistant Staphylococcus aureus infection 229408322 A49.02 Chronic dermatitis 83301 007 L30.9 Persistent issue, not responsive to topical steroid or antifungal cream. Abscess of lung 03300364 J85.2 Clinically and radiograph ically improving per hospital notes. f/u imaging was advised in 2-4 weeks. Will ask pulmonary to help guide this. [id number] Raad Diehl MD Main Office [address] [facility] [address] [facility] [place] [place] [address] 06/20/2016 13:27:14 06/20/2016 14:47:59 Adult health examination 210108302 Z00.00 Will update immunizati on status short of pneumovax which pt states he received in hospital. Will check records to verify. Screen based on risk factors. Regula ophtho care advised as well as seat belt and sunscreen use. Distracted driving discussed. Advance directives in place. Body mass index 30+ - obesity 988571448 E66.01 Z68.35 Tobacco de pendence syndrome 04593641 F17.290 Pt is precontemp lative. Resources to help discuss/pr ovided. Will call when ready to quit and if assistance is needed. Impaired f asting glycemia 257158869 R73.01 [facility] potential health consequenc es discussed. Healthier diet and exercise habits advised. Will monitor. Abscess of groin 2418000 9 L02.214 Given history will cover for staph. Warm compress advised. Pt advised to call if persistent /worse. Multiple-r esistant Staphylococcus aureus infection 491529386 A49.02 Givne recurrent infections will treat for possible nasal colonizati on. Dizziness 997586756 R42 Adequate hydration advised, will check labs. Return if symptoms worsen/per sist. [id number] Raad Diehl MD Main Office [address] [facility] [address] [facility] [place] [place] [address] 06/28/2017 14:37:07 06/28/2017 15:45:08 Adult health examination 597295565 Z00.00 Will update immunizati on status, and screen based on risk factors. Regular ophtho care advised as well as seat belt and sunscreen use. Distracted driving discussed. Advance directives in place. Body mass index 30+ - obesity 362052181 E66.01 Z68.37 Magana's esophagus 3029 60286 K22.70 presumed due for f/u EGD 2019. Pt is asymptomat ic from a GERD standpoint . Multiple n odules of lung 976267849 R91.8 Overdue for f/u. WIll call to reconnect pt with them. Obstructiv e sleep apnea syndrome 02928496 G47.33 Well controlled . Advised to f/u with pulm to verify adequate settings. Pure hypercholesterolemia 791682037 E78.00 Will reassess and treat based on CVD risk. Impaired f asting glycemia 656124562 R73.01 [facility] potential health consequenc es discussed. Healthier diet and exercise habits advised. Will monitor. Tobacco de pendence syndrome 98636568 F17.290 Pt is precontemp lative. Resources to help discuss/pr ovided. Will call when ready to quit and if assistance is needed. Administra tion of pneumococcal vaccine 72443904 Z23 Albuminuria 362179308 R8 0.9 Will reassess and evaluate further if persistent /worse. History of duodenal ulcer 240176717 Z87.11 Clinically resolved. If symptoms recur or anemia is present pt will be advised to resume PPI. [id number] Raad Diehl MD Main Office [address] [address] 03/12/2018 10:16:50 03/12/2018 11:49:42 Needs influenza immunization 640797809 Z23 Low back pain 137458512 M54.5 Based on duration of symptoms wIll image and try home PT. Formal PT referral declined. Call inb/worse or if new symptoms develop. Further imaging +/- PMR referral if persistent /worse. Urinary incontinence 165 782160 R32 Will need further treatment/ evaluation if labs are abnormal or symptoms worsen/per sist. Candidal balanitis 06095 007 B37.42 Likely fungal but did not respond to topical tx. Will try PO and check culture inb/worse. [id number] Raad Diehl MD Main Office [address] [facility] [address] [place] [address] 04/02/2018 13:19:53 04/02/2018 14:27:26 Eczema 49677946 L30.9 vs psoriasis. Will see if short course of prednisone helps calm down inflammati on while pt scheduled dermatolog y f/u. Balanitis 45185415 N48.1 Monitor with systemic abx therapy. Psoriasis 3703276 L40.9 Pt will arrange f/u with derm janet. Methicilli n resistant Staphylococcus aureus infection 478208023 A49.02 Suspect that urine culture was a reflection of skin leo which is apparently causing pathology likely secondary to psoriatic skin compromise . Will try an extended course of levofloxac in try for eradicatio n. Advised to call with any problems on abx or if new symptoms develop. Gastritis 9646352 K29.70 secondary to excess NSAID use. Has history of duodenal ulcer but has not been on PPI. Pt advised to take no more than 600-800mg every 8hrs with food. Restart PPI for GI protection . Low back pain 323447289 M54.5 Imaging shows mild arthritic disease. Will ask rheum to evaluate for possible psoriatic arthritis. [id number] Raad Diehl MD Main Office [address] [facility] [address] [facility] [place] [place] [address] 04/20/2018 13:43:37 04/20/2018 14:37:00 Bacteremia caused by Methicillin resistant Staphylococcus aureus 4531700628 7214236 B95.62 Will complete 4-6 weeks of vanco presumably . Has ID follow up next week. Labs being monitored by that service. Psoriasis 9822747 L40.9 Pt will arrange f/u with derm janet. ? if this is another possible port of entry for infection. Uncontroll ed type 2 diabetes mellitus 681712192 E11.65 New diagnosis. How much was impacted by prednisone therapy and infection will need to be considered . Advised to call if hypoglycem ia develops and adjust regimen accordingl y. In meantime will arrange diabetes diet education consult as well as appt with to help with mgmt. [id number] Agnieszka taylor MD Main Office [address] [facility] [address] [facility] [place] [place] [address] 05/28/2018 13:01:08 05/28/2018 14:34:01 Type 2 diabetes mellitus 35933374 E11.37X1 E11.65 Total time spent teaching and [...] data. Body mass index 30+ - obesity 949519491 Z68.34 Obesity 103435640 E66.9 [id number] Agnieszka taylor MD Main Office [address] [facility] [address] [place] [address] 06/12/2018 13:19:33 06/12/2018 14:43:48 Type 2 diabetes mellitus 43333464 E11.37X1 E11.65 Start TRulicity as directed weekly . POssible side effects were discussed. Lower Lantus to 25 u and continue humalog on sliding scale only . Use of personal CGM via [employer] was demonstrat ed and planted in the office. F/u 4-6 weeks for further med adjustment . [id number] Raad Diehl MD Main Office [address] [facility] [address] [place] [address] 07/03/2018 12:44:18 07/03/2018 14:35:54 Adult health examination 640588250 Z00.00 Immunizati on status utd, will screen based on risk factors. Regular ophtho care advised as well as seat belt and sunscreen use. Distracted driving discussed. Advance directives in place. Varicella vaccination 68 659544 Z23 Tobacco de pendence syndrome 27788936 F17.290 Pt is precontemp lative. Resources to help discuss/pr ovided. Will call when ready to quit and if assistance is needed. Type 2 nasra betes mellitus 86995921 E11.37X2 Fair control. Will reinvigora te nutrition consult. Body mass index 30+ - obesity 239506064 E66.01 Z68.36 History of methicillin resistant Staphylococcus aureus infection 745512450 Z86.14 Asymptomat ic post vanco. Pure hypercholesterolemia 328266962 E78.00 Statin therapy started in light of CVD risk. Will titrate as tolerated to goal LDL <100. Multiple n odules of lung 243844084 R91.8 Due for f/u in August with LDCT. Magana's esophagus 3029 35533 K22.70 presumed due for f/u EGD 2019. Pt is asymptomat ic from a GERD standpoint . Will track down previous pathology report. Obstructiv e sleep apnea syndrome 25712534 G47.33 Well controlled . Advised to f/u with pulm to verify appropriat e CPAP settings. History of duodenal ulcer 471153079 Z87.11 Clinically resolved. If symptoms recur or anemia is present pt will be advised to resume PPI. Renal diso rder due to type 2 diabetes mellitus 378893668 E11.22 Will reassess and evaluate further if persistent /worse. Psoriasis 2925433 L40.9 Following with derm. [id number] Agnieszka taylor MD Main Office [address] [facility] [address] [facility] [place] [place] [address] 07/13/2018 12:44:06 07/13/2018 13:48:06 Uncontrolled type 2 diabetes mellitus 637887851 E11.65 Lower Lantus to 20 u daily to avoid random hypoglycem ia and give some room for increasing exercise activity. F/u with CGM log in 6 weeks. Plan to increase Trulicity to 1.5 mg and continue lowering Lantus. Chronic ki dney disease stage 2 948391308 N18.2 F/u on BP and microalbum inuria in 6-8 weeks. [id number] Justo Garland MD Main Office [address] [place] [address] 08/27/2018 12:45:45 08/27/2018 14:09:05 Uncontrolled type 2 diabetes mellitus 956049286 E11.65 Lower Lantus to 15 u daily . Add Metformin ER at 500 mg daily for 1-2 weeks and increase to 1000 mg daily. Continue TRulicity at 0.75 mg weekly. Plan on lowering Lantus to 10 u daily and eventually stopping.F /u 6-8 weeks with CGM. Microalbuminuria 9902130 06 R80.9 Advised to modify diet to diabetic friendly, has appointmen t with [facility] in September Pure hypercholesterolemia 803106307 E78.00 Advised to restart and continue taking atorvastat in Essential hypertension 09462439 I10 Advised restart and continue taking the Lisinopril , will recheck at f/u. [id number] Justo Garland MD Main Office [address] [facility] [address] [place] [address] 10/15/2018 12:53:38 10/15/2018 13:48:37 Uncontrolled type 2 diabetes mellitus 283561709 E11.65 increase TRulicity to max dose. Test glucose and f/u in 3 m. Renal diso rder due to type 2 diabetes mellitus 187671634 E11.22 [facility] Continue ACEI at slightly higher dose. Repeat labs next week prior to seeing PCP/ Chronic ki dney disease stage 2 014472965 N18.2 F/u on BP and microalbum inuria in 6-8 weeks. Microalbuminuria 1746868 06 R80.9 Schedule prerna with renal . Essential hypertension 32354804 I10 continue Lisinopril at 10 mg. [id number] Raad Diehl MD Main Office [address] [facility] [address] [place] [address] 10/22/2018 08:44:45 10/22/2018 09:58:33 Pure hypercholesterolemia 695903584 E78.00 Tolerating statin well but overdue for labs. Will have done janet, and titrate dose to goal LDL <100. Essential hypertension 86748841 I10 Well controlled continue current regimen. History of duodenal ulcer 850621832 Z87.11 Will continue PPI. Cough 40875474 R05 ? related to ACEI/aller gies. WIll call if persistent /worse and would switch to ARB. [id number] Georges West MD Main Office [address] [facility] [address] [place] [address] 12/19/2018 09:57:47 12/19/2018 10:45:44 Cellulitis and abscess of groin 562298100 L02.214 Discussed warm compresses and will make a surgery appointmen t for him especially given his h/o MRSA. [id number] Justo Garland MD Main Office [address] [facility] [address] [place] [address] 01/21/2019 09:02:16 01/21/2019 09:52:52 Uncontrolled type 2 diabetes mellitus 011668045 E11.65 Continue max dose of TRulicity. TRy metformin ER at 2000 mg daily. LOwer total calories and increase exercise activity as discussed. SCan more freaquentl y during the day for more consistent use of CGM. F/u 3 m. Microalbuminuria 0555232 06 R80.9 prerna with renal . Renal diso rder due to type 2 diabetes mellitus 267139028 E11.[address] as scheduled. Chronic ki dney disease stage 2 149687226 N18.2 [id number] Justo Garland MD Main Office [address] [facility] [address] [place] [address] 06/17/2019 09:16:29 06/17/2019 10:15:55 Renal disorder due to type 2 diabetes mellitus 638006226 E11.22 Diabetes with renal disease and microalbum inuria not at goal. Will start SGLT2 and combine with metformin for BID dosing. Pt. is advised to increase fluid intake and have BMP repeated in 5-[address] as scheduled. F/u with me in 3 m. Chronic ki dney disease stage 3 612658409 N18.3 F/u with renal. Obesity 651182050 E66.9 Refer to diabetic nutritioni st. ADvised to start exercise activity daily 30 minute walking. Body mass index 30+ - obesity 959035218 Z68.37 [id number] Raad Diehl MD Main Office [address] [facility] [address] [place] [address] 10/21/2019 12:38:59 10/21/2019 13:46:41 Adult health examination 706839984 Z00.00 Immunizati on status utd, will screen based on risk factors. Flu advised in the Fall, Shingrix via local pharmacy. Regular ophtho care advised as well as seat belt and sunscreen use. Distracted driving discussed. Advance directives in place. Varicella vaccination 68 595764 Z23 Tobacco de pendence syndrome 90974093 F17.290 Pt is precontemp lative. Resources to help discuss/pr ovided. Will call when ready to quit and if assistance is needed. Screening for malignant neoplasm of lung 866688008 Z87.891 Eligible patients must have >=30 pack years. Due for f/u scan next month. Lesion of lower eyelid 9805455485 9106 H02.9 Appearance is concerning for SCC/BCC. Will ask Dr. Coy to evaluate further. See if topical abx and warm compress help in meantime. Increased frequency of urination 147284240 R35.0 Screen for uti, if urine normal will check bladder u/s to rule out obstructiv e process. Obstructiv e sleep apnea syndrome 40475823 G47.33 Well controlled . Advised to f/u with pulm to verify appropriat e CPAP settings. Persistent cough 7710230 02 R05 ? related to ACEI or GERD. Will resume daily PPI therapy and if cough persists hold ACEI. Uncontroll ed type 2 diabetes mellitus 603109331 E11.65 DOing better on 3 med regimen. Working with Christine to rein in control. History of gastritis 281 2755615 42065 Z87.19 Atypical symptoms but concerned that cough might be a symptom. Body mass index 30+ - obesity 209229034 E66.01 Z68.37 Candidal balanitis 04740 007 B37.42 Likely fungal, try topical therapy. Call inb/worse. [id number] Raad Diehl MD Main Office [address] [address] 04/30/2020 13:20:22 04/30/2020 14:01:59 Albuminuria 472682780 R80.9 Will reassess and evaluate further if persistent /worse. Renal diso rder due to type 2 diabetes mellitus 819462565 E11.22 Will reassess and evaluate further if persistent /worse. ON ACEI and tolerating well with goal BP control. Candidal balanitis 69230 007 B37.42 Likely fungal, try topical therapy. Call inb/worse. Screening for malignant neoplasm of prostate 610164890 Z12.5 Pure hypercholesterolemia 733810996 E78.00 Tolerating statin. Will have labs done janet, and titrate dose to goal LDL <100. Hypertensi ve renal disease 18069969 I12.9 Well controlled continue current regimen. Chronic ki dney disease stage 3 625384442 N18.31 [id number] Christine Balderrama PA-C Main Office [address] [facility] [address] [place] [place] [address] 07/03/2020 13:06:47 07/03/2020 14:22:04 Renal disorder due to type 2 diabetes mellitus 474203567 E11.22 Diabetes with renal disease and microalbum [...] improved. Chronic ki dney disease stage 3A 425811939 N18.31 continue acei. Hypertensi ve renal disease 60587400 I12.9 Recommend to lower sodium and test BP at /. Return for retest in 4-6 weeks. If still with elevation , add amlodipine 5 mg. [id number] Raad Diehl MD Main Office [address] [facility] [address] [facility] [place] [place] [address] 02/16/2021 14:50:07 02/16/2021 16:13:45 Adult health examination 658300286 Z00.00 Immunizati on status updtaed, Shingrix advised via local pharmacy. Regular ophtho care advised as well as seat belt and sunscreen use. Distracted driving discussed. Advance directives in place. Varicella vaccination 68 409321 Z23 Needs infl uenza immunization 469116322 Z23 Uncontroll ed type 2 diabetes mellitus 363705889 E11.65 Reports good control but overdue for labs. Will go janet. Advised to schedule eye exam as well. Renal diso rder due to type 2 diabetes mellitus 973866970 E11.22 Will reassess and evaluate further if persistent /worse. ON ACEI and tolerating well with goal BP control. Advised to pursue eye exam janet. Tobacco de pendence syndrome 89261538 F17.290 Pt is precontemp lative. Resources to help discuss/pr ovided. Will call when ready to quit and if assistance is needed. Pure hypercholesterolemia 568878745 E78.00 Tolerating statin. Will have labs done janet, and titrate dose to goal LDL <100. Hypertensi ve renal disease 31841979 I12.9 Well controlled continue current regimen. Nicotine dependence 5629 4008 Z87.891 LDCT Lung Cancer Screening Program Annual Order Screening for malignant neoplasm of colon 489958450 Z12.11 Due for f/u in 2021. Body mass index 30+ - obesity 464752578 E66.01 Z68.36 Psoriasis 7121295 L40.9 Suspect foreskin issue/amirah nitis might be related to both this and tinea. Pulmonary emphysema 8743 3001 J43.9 Cough 63690474 R05.3 Suspect that his cough is related to COPD and possibly GERD. Will address both and then see what med(s) might be needed mcc. Nocturia 719465190 R35.1 Diabetic p eripheral neuropathy 665521643 E11.40 [id number] Raad Diehl MD Main Office [address] [facility] [address] [place] [address] 05/18/2021 15:11:05 05/18/2021 16:03:24 Pulmonary emphysema 17224914 J43.9 Well controlled on combo inhaler. Will continue for now. Pt educated and understand s that continued tobacco use will accelerate this disease process. Candidal balanitis 57467 007 B37.42 Likely fungal with secondary inflammati on. Try topical therapy. Call inb/worse. Phimosis 153417863 N47.1 Secondary to chronic/re current balanitis. Referral for circ to urology discussed but declined. Tobacco de pendence syndrome 54670389 F17.290 Pt is precontemp lative. Resources to help discuss/pr ovided. Will call when ready to quit and if assistance is needed. Diabetic p eripheral neuropathy 925361746 E11.40 Overdue for labs, Emphasized need for regular surveillan ce of his conditions and medication s. States that he will go this weekend. [id number] Raad Diehl MD Main Office [address] [facility] [address] [place] [address] 12/23/2021 13:50:29 12/23/2021 15:12:21 Tobacco dependence syndrome 42262419 F17.290 Pt is precontemp lative. Resources to help discuss/pr ovided. Will call when ready to quit and if assistance is needed. Hypertensi ve renal disease 19280846 I12.9 Well controlled continue current regimen. Pulmonary emphysema 8743 3001 J43.9 Well controlled on combo inhaler. Will continue for now. Pt educated and understand s that continued tobacco use will accelerate this disease process. Renal diso rder due to type 2 diabetes mellitus 334617094 E11.22 Will reassess and evaluate further if persistent /worse. ON ACEI and tolerating well with goal BP control. Advised to pursue eye exam janet. Well controlled and following with Christine Paraphimosis 90404333 N4 7.2 Psoriasis 1292037 L40.9 Suspect foreskin issue/amirah nitis might be related to both this and tinea. Nicotine dependence 5629 4008 Z87.891 LDCT Lung Cancer Screening Program Annual Order Chronic ki dney disease stage 3A 425461956 N18.31 BP well controlled . Will monitor labs. [id number] Raad Diehl MD Main Office [address] [facility] [address] [place] [address] 08/23/2022 14:56:54 08/23/2022 16:39:28 Adult health examination 095573245 Z00.00 Immunizati on status partially updated, bivalent COVID 19 and Shingrix #2 advised via local pharmacy. Regular ophtho care advised as well as seat belt and sunscreen use. Distracted driving discussed. Advance directives in place. Requires a tetanus booster 310790953 Z23 Obstructiv e sleep apnea syndrome 14392180 G47.33 Well controlled . Advised to f/u with pulm to verify appropriat e CPAP settings. Renal diso rder due to type 2 diabetes mellitus 997379283 E11.22 On ACEI and tolerating well with goal BP control. Advised to pursue eye exam janet. Well controlled and following with Christine Tobacco de pendence syndrome 97943638 F17.290 Pt is precontemp lative. Resources to help discuss/pr ovided. Will call when ready to quit and if assistance is needed. Vitamin D deficiency 347 50446 E55.9 Supplement dose increased. Screening for malignant neoplasm of colon 568858464 Z12.11 Overdue for f/u, will arrange. Chronic ki dney disease stage 3A 845334164 N18.31 BP well controlled . Will monitor labs. Body mass index 30+ - obesity 606808151 E66.01 Z68.35 Pulmonary emphysema 8743 3001 J43.9 Well controlled on combo inhaler. Will continue for now. Pt educated and understand s that continued tobacco use will accelerate this disease process. Bilateral inguinal hernia 57458345 K40.20 Will characteri ze further. Varicella vaccination 68 697284 Z23 Diabetic p eripheral neuropathy 765222293 E11.40 History of total replacement of bilateral hip joints 8921902440 723694 Z96.643 Pain in le ft lower limb 445216060 M79.605 Will ask ortho to assess given surgical history. Hypertensi ve renal disease 06220439 I12.9 Well controlled continue current regimen. Psoriasis 2147152 L40.9 Pt advised to follow up with derm. Pure hypercholesterolemia 649630211 E78.00 Statin dose titrated to goal LDL <100. [id number] Cale Hansen MD Main Office [address] [facility] [address] [facility] [place] [address] 11/18/2022 14:12:21 11/18/2022 15:14:01 Renal disorder due to type 2 diabetes mellitus 400355219 E11.22 Improved diabetic control with better diet and medication adherence. Pt. is advised to have microalbum in done. F/u 3 m. Chronic ki dney disease stage 3A 383425968 N18.31 continue caroline and SGLT 2 [id number] Raad Diehl MD Main Office [address] [facility] [address] [facility] [place] [address] 01/24/2023 15:11:07 01/25/2023 09:44:42 Hypertensive renal disease 48514460 I12.9 Well controlled continue current regimen. Renal diso rder due to type 2 diabetes mellitus 989628005 E11.22 On ACEI and tolerating well with goal BP control. Advised to pursue eye exam janet. Well controlled and following with Christine Vitamin D deficiency 347 22441 E55.9 Supplement dose increased, needs reassessme nt Tobacco de pendence syndrome 42359284 F17.290 Pt is precontemp lative. Resources to help discuss/pr ovided. Will call when ready to quit and if assistance is needed. Abdominal aortic ectasia 7629086653 83939 I77.811 Need f/u in August 2023 Psoriasis 8713862 L40.9 Pt again advised to follow up with derm. Pulmonary emphysema 8743 3001 J43.9 Well controlled on combo inhaler. Will continue for now. Pt educated and understand s that continued tobacco use will accelerate this disease process. RSV vaccine advised. Influenza vaccine needed [id number] 106 Z23 Administra tion of pneumococcal vaccine 36789861 Z23 Advised to pursue this as well as RSV vaccinatio n at local pharmacy. Cyst of pancreas 9179442 [address]86[address] Consider follow up imaging in Inguinal hernia 33855953 [address] in 08/2022. Would like to consult surgery, but will be away until next Spring. Understand s signs/symp toms that would warrant urgent eval. Intermitte nt claudication 68765205 I73.9 Pyuria 4996787 R82.81 Suspect contaminat ion was the issue. Will reassess with culture. Ventricula r premature complex 512662318 I49.3 Pt asymptomat ic. Will check labs. Better hydration and less caffeine intake advised. Chronic ki dney disease stage 2 604000974 N18.2 [id number] Cale Hansen MD Main Office [address] [facility] [address] [place] [address] 04/07/2023 14:40:57 04/07/2023 15:20:46 Renal disorder due to type 2 diabetes mellitus 251887210 E11.22 Improved diabetic control with better diet and medication adherence. weight is up currently. Pt. was encouraged to lower calories and processed foods and increase activity level. F/u 3 m, pt want to book in 4 m. Chronic ki dney disease stage 2 392663156 N18.2 continue jardiance and acei. continue low sodium diet and weight loss efforts. Diabetic p eripheral neuropathy 996545777 E11.40 continue gabapentin . F/u with the limousine and hearse upholsterer . Hypertensi ve renal disease 96645770 I12.9 Stable hypertensi on. Continue low sodium diet and medication regiment. Microalbuminuria 0826322 06 R80.9 large microalbum inuria in 2021. Repeat today and if still high , refer to renal. Vitamin D deficiency 347 21769 E55.9 Continue otc supplement s , repeat Vit D level. [id number] Cale Hansen MD Main Office [address] [facility] [address] [place] [address] 08/08/2023 14:22:54 08/08/2023 15:42:11 Renal disorder due to type 2 diabetes mellitus 872770295 E11.22 Worsened diabetic control. PT. is not testing glucose . Recommend to use Yehuda 3 for testing and get on remote uploads. Pt. is n max dose of trulicity and max synjardy and is not having glucose control. Chronic ki dney disease stage 2 552909292 N18.2 continue jardiance and acei. continue low sodium diet and weight loss efforts. Hypertensi ve renal disease 87147440 I12.9 Stable hypertensi on. Continue low sodium diet and medication regiment. [id number] Raad Diehl MD Main Office [address] [facility] [address] [place] [address] 11/03/2023 15:15:12 11/03/2023 15:55:42 Renal disorder due to type 2 diabetes mellitus 188159279 E11.22 Improved diabetic control on Ozempic. Goal A1c is not yet achieved. PT. has no medication side effects. WE will increase and try 1 mg dose weekly. F/u 3 m. Repeat all fasting labs and microalbum in. Chronic ki dney disease stage 2 579481542 N18.2 continue jardiance and acei. continue low sodium diet and weight loss efforts. Diabetic p eripheral neuropathy 106667998 E11.40 continue gabapentin . F/u with the limousine and hearse upholsterer . Hypertensi ve renal disease 62691110 I12.9 Stable hypertensi on. Continue low sodium diet and medication regiment. Microalbuminuria 3956737 06 R80.9 large microalbum inuria in 2021. Repeat today and if still high , refer to renal. Hyperlipidemia 61303747 E78.5 continue atorvastat in, low carb diet. [id number] Raad Diehl MD Main Office [address] [facility] [address] [place] [address] 12/13/2023 15:15:28 12/13/2023 16:31:30 Chest pain 76392011 R07.9 R/o cardiac ischemia. Pain is nonspecifi [...] see if this will alleviate the pain. [id number] Raad Diehl MD Main Office [address] [facility] [address] [facility] [place] [address] 2024 10:57:06 2024 11:00:12 [id number] Raad Diehl MD Main Office [address] [facility] [address] [facility] [place] [address] 02/05/2024 14:24:05 02/05/2024 15:48:52 Adult health examination 667042014 Z00.00 COVID 19 and Shingrix #2 advised via local pharmacy. Regular ophtho care advised as well as seat belt and sunscreen use. Patient currently demonstrat es low risk for falls and no significan t cognitive decline. Distracted driving discussed. Advance directives in place. Influenza vaccine needed [id number] 106 Z23 65 YEARS AND OLDER Low blood pressure 85197 003 I95.9 better after in office hydration but still low in the setting of hyperkalem ia. Will hold lisinopril and monitor. Body mass index 30+ - obesity 481552421 E66.9 Z68.34 Obstructiv e sleep apnea syndrome 56675451 G47.33 Well controlled . Advised to f/u with pulm to verify appropriat e CPAP settings. Renal diso rder due to type 2 diabetes mellitus 261904426 E11.22 On ACEI but having low BP, so will hold for now. Advised to pursue eye exam janet. Otherwise diabetes is well controlled and pt following with Christine. Overdue for diabetic eye exam. Pt advised to schedule janet. Tobacco de pendence syndrome 69895487 F17.290 Pt is precontemp lative. Resources to help discuss/pr ovided. Will call when ready to quit and if assistance is needed. Vitamin D deficiency 347 12467 E55.9 Supplement dose increased. Screening for malignant neoplasm of colon 090035586 Z12.11 Pulmonary emphysema 8743 3001 J43.9 Well controlled on combo inhaler. Will continue for now. Pt educated and understand s that continued tobacco use will accelerate this disease process. Bilateral inguinal hernia 48055093 K40.20 Scheduled for repair on Apr 04. Will request surgery notes from Dr. Concepcion. Varicella vaccination 68 502861 Z23 Diabetic p eripheral neuropathy 945532284 E11.40 Diabetic footcare and monitoring discussed. Hypertensi ve renal disease 70576867 I12.9 Psoriasis 9072139 L40.9 Pt advised to follow up with derm. Pure hypercholesterolemia 965748154 E78.00 Well controlled on moderate dose statin. (LDL <100) Abdominal aortic ectasia 7096363273 03042 I77.811 Overdue for f/u will try to arrange with CT scan for f/u of pancreatic mass as well as subclavian evaluation . Morbid obesity 874058134 E66.01 Nocturia 511136695 R35.1 Mass of pancreas 5993928 00 K86.89 Acute prostatitis 221671 02 N41.0 Symptoms suggestive of prostatiti s. Will treat acoordingl y and re evaluate. imaging vs urology referral may be next step. Administra tion of pneumococcal vaccine 88541117 Z23 Advised to pursue this as well as RSV vaccinatio n at local pharmacy. Unequal bl ood pressure in arms 528733482 R09.89 Needs assessment to rule out subclavian arterial disease. Cyst of pancreas 4221535 0 K86.2 Per radiology pt is now overdue for 1 yr f/u. Chronic ki dney disease stage 2 012235395 N18.2 GFR better on recent labs but still with proteinuri a. [id number] Raad Diehl MD Main Office [address] [facility] [address] [facility] [place] [address] 02/09/2024 14:17:15 02/09/2024 16:02:54 Renal disorder due to type 2 diabetes mellitus 498926840 E11.22 Improved diabetic control on Ozempic. Most [...] months. Chronic ki dney disease stage 2 858610524 N18.2 Patient is not currently taking ACEI at this time due to low BP readings - was taken off at last [facility] on Monday. Continue low sodium diet and weight loss efforts. BP follow-up already scheduled with Dr. Diehl on 02/26/24. Diabetic p eripheral neuropathy 968909786 E11.40 Continue gabapentin . F/u with the limousine and hearse upholsterer . Hyperkalemia 31238119 E8 7.5 Patient advised to follow low-potass ium diet due to mild hyperkalem ia on most recent lab results. Provided with potassium- restricted diet instructio ns. [id number] Raad Diehl MD Main Office [address] [place] [address] [place] [address] 03/13/2024 09:39:15 03/13/2024 16:56:04 [id number] Raad Diehl MD Main Office [address] [place] [address] [place] [address] 04/11/2024 11:42:54 04/22/2024 17:46:30 [id number] Georges West MD [facility] [address] [place] [address] 04/29/2024 13:32:21 04/29/2024 15:04:05 Transverse myelopathy syndrome 41204090 G37.3 Unclear etiology as of right now. [...] rder due to type 2 diabetes mellitus 546003516 E11.22 Diabetes worsened over the last 6 weeks due to steroid infusion and also stopping Ozempic and Synjardy. Pt. reports sugar were well controlled in rehab , but he is home now and is not taking Synjardy or Ozempic due to high cost. Changed to [email or web address] for insurance starting next month. Advised to restart Ozempic at least 1 mg weekly and test glucose daily. F/u 1 m. Chronic ki dney disease stage 2 995144138 N18.2 stable inpatient labs. continue current meds. [id number] Raad Diehl MD [facility] [address] [facility] [address] [facility] [place] [address] 05/03/2024 12:34:09 05/03/2024 14:34:34 Transverse myelopathy syndrome 90155065 G37.3 Working with neuro, making gains to PT, needs to continue for as long as insurance will allow. Being scheduled for follow up MRI Left hemiparesis 0365188 00 G81.90 Wheechair bound, using walker with support. Diabetic p eripheral neuropathy 210374498 E11.40 Diabetic footcare and monitoring discussed. Administra tion of pneumococcal vaccine 66669427 Z23 Advised to pursue this as well as RSV vaccinatio n at local pharmacy. Tobacco de pendence syndrome 00200318 F17.290 Pt is ready to quit but is declining NRT or other meds at this time. [id number] Raad Diehl MD [facility] [address] [facility] [address] [facility] [place] [place] [address] 05/17/2024 12:31:35 05/17/2024 13:44:47 Renal disorder due to type 2 diabetes mellitus 017836617 E11.22 On ACEI but having low BP, so will hold for now. Advised to pursue eye exam janet. Otherwise diabetes is well controlled and pt following with Christine. Overdue for diabetic eye exam. Pt advised to schedule janet. Vitamin D deficiency 347 44097 E55.9 Supplement dose increased. Transverse myelopathy syndrome 86816335 G37.3 Working with neuro, making gains to [...] may be the next appropriat e step. [id number] Raad Diehl MD Main Office [address] [facility] [place], [place] [address] 08/26/2024 15:04:13 08/26/2024 16:41:13 Preoperative state 08272187 Z01.818 [id number] Chowdhury CV risk score is 0.17%. Patient [...] History of methicillin resistant Staphylococcus aureus infection 971211704 Z86.14 Nasal and axillary swabs sent for screening. Spinal elke nosis in cervical region 53805521 M48.02 [id number] Scheduled for cervical decompress ion at [place] with Dr Reyna. Tobacco de pendence syndrome 51785386 F17.290 Patient states that he has quit. According to preoperati ve prerequisi brian he is supposed to be nicotine free for 4 weeks. Transverse myelopathy syndrome 17771524 G37.3 MRI showed improvemen t but patient has persistent limiting left sided weakness/u rinary incontinen ce. Possible that his cervical spine issues are a factor. Renal diso rder due to type 2 diabetes mellitus 141921863 E11.22 Will reassess control on GLP 1 agonist alone. Pt advised to hold semaglutid e 1 week prio r to surgery. Calcificat ion of coronary artery 069453729 I25.84 With reasonable exertional tolerance, and unchanged ECG will assume any CAD is stable enough to proceed with surgical plan as long as trop/bnp are normal. Pure hypercholesterolemia 889586659 E78.00 Was well controlled on moderate dose statin. (LDL <100), advised to resume. Nocturia 293402541 R35.1 Left hemiparesis 5365476 00 G81.90 Wheelhair bound, using walker with support. Vitamin D deficiency 347 47319 E55.9 Supplement dose increased. Pulmonary emphysema 8743 3001 J43.9 No significan t symptoms without inhalers. Understand s need to stay away from tobacco if he wishes to minimize risk for progressio n. [id number] Georges West MD Main Office [address] [place] [address] 09/02/2024 16:19:56 09/02/2024 16:21:43 [id number] Raad Diehl MD Main Office [address] [facility] [address] [place], [place] [address] 09/17/2024 13:17:12 09/17/2024 13:38:53 [id number] Raad Diehl MD Main Office [address] [facility] [address] [place], [place] [address] 09/30/2024 08:43:59 09/30/2024 12:06:06 [id number] Raad Diehl MD Main Office [address] [facility] [address] [place], [place] [address] 10/14/2024 09:26:14 10/14/2024 09:27:48 [id number] Raad Diehl MD [facility] [address] [facility] [address] [place], [place] [address] 10/14/2024 12:54:18 10/14/2024 15:57:44 Renal disorder due to type 2 diabetes mellitus 872020694 E11.22 Stable A1c 1 months ago at 6.4%. Pt is doing well on Ozempic 1 mg dose. We reviewed latest lab tests , hospital admission notes reviewed. Neurology and ID notes reviewed.N O side effects with current dose of Ozempic. Recommend to repeat A1c and microalbum in in 2m F/u 3 m. Chronic ki dney disease stage 2 145037809 N18.2 Labs reviewed and stable. [id number] Raad Diehl MD Main Office [address] [facility] [address] [place], [place] [address] 11/25/2024 14:25:44 11/25/2024 14:34:59 [id number] Raad Diehl MD Main Office [address] [facility] [address] [place] [address] 01/07/2025 10:17:41 01/07/2025 10:22:00 [id number] Raad Diehl MD [facility] [address] [place] [address] 01/10/2025 12:34:34 01/10/2025 15:27:16 Spinal stenosis in cervical region 10713550 M48.02 [id number] s/p cervical decompress ion with Dr Reyna, recent MRI report was found/revi ewed and shows persistent cervical spine stenosis adjacent to the surgical site. Intermitte nt claudication 20429631 I73.9 3921410 Patient has risk factors for vascular claudicati on with persistent symptoms post surgery and with improvemen t in transverse myelitis. Comorbid vascular disease should be ruled out. Tobacco de pendence syndrome 01734847 F17.290 Patient states that he has quit. According to preoperati ve prerequisi brian he is supposed to be nicotine free for 4 weeks. Transverse myelopathy syndrome 81656805 G37.3 Thoracic MRI suggests improvemen t. Following with neuro. [id number] Raad Diehl MD Main Office [address] [facility] [address] [place] [address] 02/19/2025 14:16:53 02/19/2025 14:32:13 Health Concerns Section Related Observation LastModified by Organization Detai ls LastModified Time None Recorded Concern Status LastModified by Organization Details LastModified Time None Recorded Advance Directives Directive Y: HCP/ -She Payers Insurance Date Sequence Insurance Name Policy Number Policy Díaz Covered Member ID Díaz Member ID Guarantor Name 02/19/2025 1 [facility] (MEDICARE REPLACEMENT/ ADVANTAGE - HMO) Michaelle Baxter [id number] Michaelle Baxter 08/21/2023 1 [place]: [employer] Michaelle Baxter [id number] Michaelle Baxter 12/10/2024 1 [employer] (MEDICARE REPLACEMENT/ ADVANTAGE - PPO) [id number] Michaelle Baxter [id number] Michaelle Baxter 01/24/2023 1 [employer] Michaelle Baxter [id number] Michaelle Baxter 08/07/2023 1 [place] [id number] 01 Michaelle Baxter [id number] Michaelle Copelandsuzette 05/18/2021 1 [facility] [id number] 23 She Baxter [id number] Michaelle Copelandsuzette 02/19/2025 2 [place] [facility] Michaelle Copelandsuzette [id number] Michaelle Copelandsuzette 05/25/2018 1 [facility] ([facility] [id number] 23 She Baxter [id number] Michaelle Castrejonrichie Notes Date Note Type Note Provider Name [...] - on gabapentin. 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 yesMedicare GABBY with [...] the spinal cord. Spent some time at [facility], went home, repeat MRI in April which showed reduced spinal swelling. He then began to develop more and more pain in his neck, then seen by neurosurgery and it was felt that he would benefit from a C5-C6 ACDF. Inpatient rehab again at [facility]. Is now home with PT/OT. Has neurosurgery f/u, and was referred for a post op MRI which was done but results are pending. Pt continues to have lower extremity pain/weakness and is requesting to resume home PT. MEDS RECONCILED Raad Diehl MD [address] [facility] [address], [place], [address], [facility] 01/16/2025 17:51:42
== END 2025-03-17 14:39 | disposition home or self-care (01) ==
LOC: HO.US 14:38
PROVIDERS: PCP Pediatrics; Visit Provider Surgery Vascular Surgery
DX: I73.9 Peripheral vascular disease, unspecified (principal)
CPT/HCPCS: 93922; 93925

== ENCOUNTER → 2025-03-17 14:44 | Outpatient (BNV) | payer MEDICARE, MEDICAID, SELFPAY | PROVIDERS: PCP Pediatrics; Visit Provider Radiology Diagnostic Radiology | DX: I73.9 Peripheral vascular disease, unspecified (principal) | CPT/HCPCS: 93922; 93925 ==

== ENCOUNTER 2025-03-25 12:55 | Outpatient (AMB) | payer MEDICARE, MEDICAID, SELFPAY ==
--- NOTE | 2025-03-25 12:58 | A.OFFVIS_ITS ---
Intake Visit Reasons: follow up s/p Arterial US 03/17/25 Intake Note: Patient presents for follow up arterial US 03/17/25. No complaints. Accompanied by: Self / Same As Patient Allergies No Known Allergies Allergy (Verified 03/25/25 13:06) HPI HPI follow up s/p Arterial US 03/17/25: Details: The patient is a 65-year-old male presenting for follow-up of his leg symptoms. He reports that his legs feel the same as they did at his visit a few weeks ago but Gnotes some new swelling, initially mentioned in the right foot but he thinks it is in both. He has a history of toe discoloration. The patient has a history of diabetes mellitus for the past 6-7 years. He was diagnosed after presenting to the emergency room at his 's insistence with a blood sugar level of over 1,100. The patient's history is significant for transverse myelitis, with symptom onset in January when he noticed difficulty with his golf swing. This progressed by February to difficulty with stairs and getting into his vehicle, leading him to go to the emergency room. Within three days of admission, he was unable to stand, and he was diagnosed with transverse myelitis, for which he was treated with high-dose steroids. Following the diagnosis of transverse myelitis, an MRI was reviewed by a contact who identified a disc issue, leading to a referral to [facility]. A subsequent MRI there confirmed the need for a C5-C6 disc replacement, which was performed via an anterior approach. He had spinal cord swelling prior to the surgery. A recent MRI report, interpreted by a nurse, suggested resolution of upper and mid-spinal swelling but persistent swelling in the lower spine, along with possible mid and lower back issues. The patient has a follow-up Zoom call scheduled with the julien brian's associate at [facility] to discuss these results. He reports making progress after rehab but then experienced a turn for the worse. [facility] Social History (Updated 02/27/25 @ 13:09 by ADEBAYO García) Tobacco use type: Cigarette Cigarettes Per Day: 20 Review of Systems Const All systems reviewed & are unremarkable except as noted in HPI and below Reports no additional complaints ENT Reports Normal hearing present Card Denies chest pain, Denies chest pain at rest, Denies chest pain with activity and Denies pedal edema Resp Denies cough GI Denies abdominal pain Musc Denies abnormal gait, Denies muscle cramps and Denies radiating pain into limb Skin/Breast Denies skin ulcer and Denies wounds Neuro Reports Normal hearing present and Denies abnormal gait Psych Reports no additional complaints Physical Exam Const General: cooperative, healthy appearing and comfortable Orientation/consciousness: oriented to person, oriented to place and oriented to time HEENT Head: Yes normal to inspection Neck Neck: Yes normal visual inspection Carotids: no bruits Chest Chest palpation & inspection: normal inspection of the chest Resp Effort & Inspection: normal respiratory effort and able to speak in complete sentences Auscultation: clear to auscultation bilaterally, no crackles, no rales, no rhonchi and no wheezes Cardio Rate: regular rate Rhythm: regular rhythm Heart sounds: S1 normal heart sound present and S2 normal heart sound present Bruits: no carotid bruits Peripheral pulses: Peripheral pulses 2+ throughout GI Inspection: Yes normal to inspection Skin Wounds: no wounds Hair: normal Neuro General: oriented to person, oriented to place and oriented to time Cranial nerves: Yes CN's II-XII intact bilaterally and Yes Normal hearing present Cognition (Neuro): normal cognition Motor exam (neuro): 5/5 motor strength present throughout Extrem Other: venous exam: +2 edema General: No clubbing, No cyanosis and No edema Psych Appearance: grossly normal Mental Status: mental status grossly normal Speech and movement: Normal speech and movement present Results Reviewed Results Reviewed: Arterial testing dated 03/17/2025 demonstrates SUNDAR on the right of 0.87 and on the left of 0.98 Assessment & Plan Assessment & Plan (1) PAD (peripheral artery disease): Code(s): I73.9 - Peripheral vascular disease, unspecified Category: Medical Plan: I informed the patient that his arterial blood flow to his legs is good, as indicated by his SUNDAR values. I explained that I believe his symptoms, including the toe discoloration, are not a primary blood flow issue but are likely related to nerve issues stemming from his spine. We discussed that the upcoming appointment with his neurosurgeon's team to review his recent MRI will be crucial for determining the cause of his symptoms and the next steps in his care. Due to his history of diabetes and smoking, I recommended a follow-up vascular scan in about a year to monitor his circulation. I clarified that no vascular surgery is needed at this time. Thank you for allowing us to participate in his care. If there are any questions or concerns please do not hesitate to contact us. Orders: Orders US arterial duplex LE BI 1 Year I73.9 - Peripheral vascular disease, unspecified Coding Level of Care Code Est Pt Level 4 (47572) Diagnoses PAD (peripheral artery disease) I73.9
== END 2025-03-25 13:37 | disposition home or self-care (01) ==
LOC: HO.HVS 12:55
PROVIDERS: PCP Pediatrics; Visit Provider Surgery Vascular Surgery
DX: I73.9 Peripheral vascular disease, unspecified (principal)
CPT/HCPCS: 99214

== ENCOUNTER → 2025-03-25 12:55 | Outpatient (BNVA) | payer MEDICARE, MEDICAID, SELFPAY | PROVIDERS: PCP Pediatrics; Visit Provider Surgery Vascular Surgery | DX: Z71.2 Person consulting for explanation of examination or test findings (principal); I73.9 Peripheral vascular disease, unspecified; E11.9 Type 2 diabetes mellitus without complications | CPT/HCPCS: 99212 ==